=== PATIENT | male | born 1960 | race Caucasian/White ===

== ENCOUNTER 2017-10-30 08:02 | Inpatient (IN) | payer OTHER ==
[~2017-10-30] VITALS: Ht 167.6 cm; Wt 59.9 kg
[~2017-10-30 08:02] MED LIST: ALBU90OI INH; ALBU90OI6 INH; AMOX500 PO; AZIT250 PO; BUDE10.22 IH; DOXY100 PO; OXYACE7.5T PO; PRED20 PO; Prednisone20 MG PO; Prednisone50 MG PO; RXOXYACE PO; SULTRIDS PO; TAMS.4ER PO; TIOT18 INH; Zithromax250 MG PO
[2017-10-30 08:28] LABS: PCO2 Arterial 65.1 mmHg (35-45); PO2 Arterial 62.7 mmHg (80-100)
[2017-10-30 08:29] LABS: pH Blood Arterial 7.29 (7.35-7.45)
[2017-10-30 08:43] LABS: Hematocrit 43.5 % (37.0-53.0); Hemoglobin 13.9 g/dL (13.5-17.5); Mean Corpuscular HGB 30.9 pg (26.0-34.0); Mean Corpuscular Volume 97 fL (80-100); Mean Platelet Volume 9.7 fL (9.1-12.4); Platelet Count 379 K/mm3 (150-400); RDW Coefficient Variation 12.5 % (11.7-14.2); RDW Standard Deviation 44.5 fL (35.1-46.3); White Blood Cell Count 23.51 K/mm3 (4.00-11.30)
[2017-10-30 09:01] LABS: Troponin I <0.015 ng/mL (0.000-0.040)
[2017-10-30 09:04] LABS: Influenza A Negative (NEGATIVE); Influenza B Negative (NEGATIVE)
[2017-10-30 09:12] LABS: Alanine Aminotransfer (ALT/SGP 16 U/L (12-78); Albumin, Blood 3.3 g/dL (3.4-5.0); Albumin/Globulin Ratio 0.7 (0.8-1.8); Alk Phos 109 U/L (50-136); Anion Gap 6 mmol/L (6-16); Aspartate Aminotrans (AST/SGOT 10 U/L (12-37); BASOPHILS PERCENT MAN 0 % (0-2); Bilirubin, Total 0.3 mg/dL (0.1-1.0); Blood Urea Nitrogen 12 mg/dL (8-24); Bun/Creatinine Ratio 20.6 (12.0-20.0); CO2, Blood 34 mmol/L (21-32); Calcium, Blood 9.1 mg/dL (8.5-10.1); Chloride, Blood 99 mmol/L (98-108); Creatinine, Blood 0.58 mg/dL (0.60-1.20); EOSINOPHILS ABSOLUTE MAN 0.47 K/mm3 (0.00-0.68); EOSINOPHILS PERCENT MAN 2 % (0-6); Glomerular Filtration Rate >60 (60-); Glucose, Blood 132 mg/dL (70-99); LYMPHOCYTES % ATYPICAL MANUAL 4 % (0-0); LYMPHOCYTES ABSOLUTE MAN 8.46 K/mm3 (0.84-5.20); LYMPHOCYTES PERCENT MAN 32 % (21-46); MONOCYTES PERCENT MAN 3 % (4-13); NEUTROPHILS ABSOLUTE MAN 13.87 K/mm3 (1.96-9.15); Potassium, Blood 4.3 mmol/L (3.5-5.5); SEG NEUTROPHILS PERCENT MAN 59 % (41-73); Sodium, Blood 139 mmol/L (136-145); TOTAL CELLS COUNTED 100; Total Protein, Blood 8.3 g/dL (6.4-8.2)
[2017-10-30 09:41] LABS: International Normalized Ratio 1.13; Prothrombin Time Results 11.8 Sec (9.7-11.5)
[2017-10-30 14:57] LABS: Appearance, Urine Clear (Clear); Bilirubin, Urine Neg (Neg); Blood, Urine Neg (Neg); Color, Urine Yellow (P-Yellow); Glucose Qualitative, Urine 2+ (Neg); Ketones, Urine 3+ (Neg); Leukocyte Esterase, Urine Neg (Neg); Nitrite, Urine Neg (Neg); Protein, Urine Neg (Neg); Specific Gravity, Urine 1.015 (1.003-1.022); Urobilinogen, Urine NORM (Normal)
[2017-10-30] MEDS ORDERED: ALBU2.5V5 INH (16:57)
[2017-10-30] MEDS ORDERED: COMBIVENT RESPIM4 GM PO (16:58)
[2017-10-30] MEDS ORDERED: Ipratr-Albuterol3 ML INH (16:58)
[2017-10-31 05:21] LABS: Hematocrit 36.9 % (37.0-53.0); Hemoglobin 11.8 g/dL (13.5-17.5); Mean Corpuscular HGB 30.4 pg (26.0-34.0); Mean Corpuscular Volume 95 fL (80-100); Mean Platelet Volume 10.1 fL (9.1-12.4); Platelet Count 336 K/mm3 (150-400); RDW Coefficient Variation 12.5 % (11.7-14.2); RDW Standard Deviation 44.2 fL (35.1-46.3); Red Blood Cell Count 3.88 M/mm3 (4.30-5.90); White Blood Cell Count 14.34 K/mm3 (4.00-11.30)
[2017-10-31 05:28] LABS: PCO2 Arterial 57.2 mmHg (35-45); PO2 Arterial 85.4 mmHg (80-100); pH Blood Arterial 7.35 (7.35-7.45)
[2017-10-31 06:00] LABS: Anion Gap 7 mmol/L (6-16); Blood Urea Nitrogen 21 mg/dL (8-24); Bun/Creatinine Ratio 40.7 (12.0-20.0); CO2, Blood 30 mmol/L (21-32); Calcium, Blood 8.8 mg/dL (8.5-10.1); Chloride, Blood 102 mmol/L (98-108); Creatinine, Blood 0.52 mg/dL (0.60-1.20); Glomerular Filtration Rate >60 (60-); Glucose, Blood 145 mg/dL (70-99); Potassium, Blood 4.7 mmol/L (3.5-5.5); Sodium, Blood 139 mmol/L (136-145)
[2017-11-01 08:38] LABS: Hematocrit 36.9 % (37.0-53.0); Mean Corpuscular HGB 30.8 pg (26.0-34.0); Mean Corpuscular HGB Conc 32.5 g/dL (31.5-36.5); Mean Corpuscular Volume 95 fL (80-100); Mean Platelet Volume 9.7 fL (9.1-12.4); Platelet Count 354 K/mm3 (150-400); RDW Coefficient Variation 12.8 % (11.7-14.2); RDW Standard Deviation 45.1 fL (35.1-46.3); Red Blood Cell Count 3.89 M/mm3 (4.30-5.90); White Blood Cell Count 18.52 K/mm3 (4.00-11.30)
[2017-11-01 08:56] LABS: Anion Gap 7 mmol/L (6-16); Blood Urea Nitrogen 28 mg/dL (8-24); Bun/Creatinine Ratio 52.1 (12.0-20.0); CO2, Blood 31 mmol/L (21-32); Calcium, Blood 8.9 mg/dL (8.5-10.1); Chloride, Blood 103 mmol/L (98-108); Creatinine, Blood 0.54 mg/dL (0.60-1.20); Glomerular Filtration Rate >60 (60-); Glucose, Blood 143 mg/dL (70-99); Potassium, Blood 4.2 mmol/L (3.5-5.5); Sodium, Blood 141 mmol/L (136-145)
[2017-11-01 09:14] LABS: BASOPHILS PERCENT MAN 0 % (0-2); EOSINOPHILS PERCENT MAN 0 % (0-6); LYMPHOCYTES % ATYPICAL MANUAL 1 % (0-0); LYMPHOCYTES ABSOLUTE MAN 3.51 K/mm3 (0.84-5.20); LYMPHOCYTES PERCENT MAN 18 % (21-46); METAMYELOCYTE ABSOLUTE MAN 0.18 K/mm3 (0.00-0.00); METAMYELOCYTE PERCENT MAN 1 % (0-0); MONOCYTES ABSOLUTE MAN 0.55 K/mm3 (0.16-1.47); MONOCYTES PERCENT MAN 3 % (4-13); NEUTROPHILS ABSOLUTE MAN 14.26 K/mm3 (1.96-9.15); SEG NEUTROPHILS PERCENT MAN 77 % (41-73); TOTAL CELLS COUNTED 100
[2017-11-04 05:24] LABS: PCO2 Arterial 49.2 mmHg (35-45); pH Blood Arterial 7.42 (7.35-7.45)
[2017-11-04] MEDS ORDERED: DULERA 100 MCG/13 GM INH (11:45)
[2017-11-04] MEDS ORDERED: PRED10 PO (11:48)
[2018-04-12] MEDS ORDERED: Prednisone20 MG PO (09:15)
[2018-04-15] MEDS ORDERED: Advil200 M1 PO (12:02)
[2018-04-17] MEDS ORDERED: FLUT1DIS5 INH (11:33)
[2018-04-17] MEDS ORDERED: BUSP5 PO (11:34)
[2018-04-17] MEDS ORDERED: PRED10 PO (11:36)
== END 2017-11-04 17:15 | disposition home or self-care (01) | DRG 189 ==
LOC: ER 08:02 → PCU 09:29 → MEDS 11-02 15:41 → ENPENDDIS 11-04 09:31 → MEDS 11-04 17:15
PROVIDERS: Emergency Medicine; Family Medicine; Internal Medicine; Psychiatry & Neurology Psychiatry
DX: J96.01 Acute respiratory failure with hypoxia (principal); R65.11 Systemic inflammatory response syndrome (SIRS) of non-infectious origin with acute organ dysfunction; J18.9 Pneumonia, unspecified organism; E87.2 Acidosis; J44.1 Chronic obstructive pulmonary disease with (acute) exacerbation; J96.02 Acute respiratory failure with hypercapnia; F17.210 Nicotine dependence, cigarettes, uncomplicated; N40.0 Benign prostatic hyperplasia without lower urinary tract symptoms; F43.10 Post-traumatic stress disorder, unspecified; Z90.2 Acquired absence of lung [part of]; Z91.14 Patient's other noncompliance with medication regimen; Z99.2 Dependence on renal dialysis
CPT/HCPCS: 36415; 36600; 71046; 80048; 80053; 81003; 82803; 83605; 84145; 84484; 85025; 85027; 85610; 85730; 87040; 87804; 93005; 93010; 94640; 94644; 94660; 94762; 96365; 99285; C9113; J0456; J0696; J1650; J2920; J2930; J7030; J7050

== ENCOUNTER 2018-04-19 20:30 | Emergency (ER) | payer OTHER ==
[~2018-04-19] VITALS: Ht 175.3 cm; Wt 56.7 kg
[~2018-04-19 20:30] MED LIST changes: +ALBU2.5V5 INH; +Advil200 M1 PO; +BUSP5 PO; +COMBIVENT RESPIM4 GM PO; +DULERA 100 MCG/13 GM INH; +FLUT1DIS5 INH; +Ipratr-Albuterol3 ML INH; +PRED10 PO
== END 2018-04-19 22:00 | disposition home or self-care (01) ==
LOC: ER 20:30
DX: I87.8 Other specified disorders of veins (principal); R60.0 Localized edema; Z91.048 Other nonmedicinal substance allergy status; Z79.899 Other long term (current) drug therapy; Z79.52 Long term (current) use of systemic steroids; J44.9 Chronic obstructive pulmonary disease, unspecified; F17.200 Nicotine dependence, unspecified, uncomplicated
CPT/HCPCS: 99283

== ENCOUNTER 2019-10-11 17:46 | Emergency (ER) | payer OTHER ==
[~2019-10-11] VITALS: Ht 175.3 cm; Wt 59.0 kg
[~2019-10-11 17:46] MED LIST changes: +ALBU3IS INH; +BUDE6HFA INH; +COMBIVENT RESPIM4 GM INH
[2019-10-11] MEDS ORDERED: Zithromax250 MG PO (20:37)
[2019-10-11] MEDS ORDERED: Prednisone50 MG PO (20:37)
== END 2019-10-11 21:12 | disposition home or self-care (01) ==
LOC: ER 17:46
DX: J44.1 Chronic obstructive pulmonary disease with (acute) exacerbation (principal); F17.210 Nicotine dependence, cigarettes, uncomplicated; Z91.048 Other nonmedicinal substance allergy status; Z79.899 Other long term (current) drug therapy; Z79.51 Long term (current) use of inhaled steroids
CPT/HCPCS: 71046; 93005; 93010; 94640; 99283-25; J7512

== ENCOUNTER 2020-02-09 23:34 | Inpatient (IN) | payer OTHER ==
[~2020-02-09] VITALS: Ht 175.3 cm; Wt 58.7 kg
[2020-02-10 00:14] LABS: BASOPHILS ABSOLUTE AUTO 0.05 K/mm3 (0.00-0.23); BASOPHILS PERCENT AUTO 0 % (0-2); EOSINOPHILS ABSOLUTE AUTO 0.44 K/mm3 (0.00-0.68); EOSINOPHILS PERCENT AUTO 3 % (0-6); Hematocrit 40.8 % (37.0-53.0); Hemoglobin 12.4 g/dL (13.5-17.5); Mean Corpuscular HGB Conc 30.4 g/dL (31.5-36.5); Mean Corpuscular Volume 102 fL (80-100); Mean Platelet Volume 11.1 fL (9.1-12.4); Platelet Count 174 K/mm3 (150-400); RDW Standard Deviation 49.7 fL (35.1-46.3); White Blood Cell Count 13.13 K/mm3 (4.00-11.30)
[2020-02-10 00:15] LABS: IMMATURE GRAN ABSOLUTE AUTO 0.01 K/mm3 (0.00-0.10); IMMATURE GRAN PERCENT AUTO 0 % (0-1); LYMPHOCYTES ABSOLUTE AUTO 7.18 K/mm3 (0.84-5.20); LYMPHOCYTES PERCENT AUTO 55 % (21-46); MONOCYTES ABSOLUTE AUTO 1.72 K/mm3 (0.16-1.47); MONOCYTES PERCENT AUTO 13 % (4-13); NEUTROPHILS ABSOLUTE AUTO 3.73 K/mm3 (1.96-9.15); NEUTROPHILS PERCENT AUTO 28 % (41-73)
[2020-02-10 00:33] LABS: Alanine Aminotransfer (ALT/SGP 22 U/L (12-78); Albumin, Blood 3.8 g/dL (3.4-5.0); Albumin/Globulin Ratio 1.2 (0.8-1.8); Alk Phos 71 U/L (50-136); Anion Gap 2 mmol/L (6-16); Aspartate Aminotrans (AST/SGOT 17 U/L (12-37); Bilirubin, Total 0.4 mg/dL (0.1-1.0); Blood Urea Nitrogen 15 mg/dL (8-24); Bun/Creatinine Ratio 24.5 (12.0-20.0); CO2, Blood 37 mmol/L (21-32); Calcium, Blood 8.3 mg/dL (8.5-10.1); Chloride, Blood 102 mmol/L (98-108); Creatinine, Blood 0.61 mg/dL (0.60-1.20); Globulin, Blood 3.2 g/dL (2.2-4.0); Glomerular Filtration Rate >60 (60-); Glucose, Blood 98 mg/dL (70-99); Potassium, Blood 4.5 mmol/L (3.5-5.5); Sodium, Blood 141 mmol/L (136-145)
[2020-02-10] MEDS ORDERED: ASPI81CH PO (03:20)
--- NOTE | 2020-02-10 05:43 | NUR ---
SHIFT SUMMARY PT SLEEPING IN ROOM COMFORTABLY IN ROOM AT THIS TIME. NO ACUTE CHANGES SINCE ARRIVAL TO UNIT. PT ARRIVED FROM ED ON NC AT 3L, PT WAS ABLE TO STAND AND MOVE TO HOSP BED W/O ASSIST. PT WAS ON BIPAP IN ED W/ Fi02 AT 30% TOLERATING WELL. PT WENT ON NC FOR TRANSFER TO UNIT AND TOLERATED NC WELL. PT REMAINING ON NC AT THIS TIME D/T SATS REMAINING >92%. PT DENIED ANY CP. REPORTS SOB MUCH IMPROVED. PT APPEARS TP BE COMFORTABLE. DENYING ANY OTHER PAIN AT THIS TIME. CONT BIOX IN PLACE. CALL LIGHT IN REACH.
--- NOTE | 2020-02-10 17:43 | NUR ---
SHIFT NOTE PT HAS BEEN RESTING WELL IN BED T/O THE DAY. PT HAS BEEN UP TO BSC AND TO USE URINAL WITH SOME MILD INCREASE IN SOB DURING TRANSFER. PT DID BECOME VERY ANXIOUS THIS AFTERNOON WHICH HE STATED THAT HE COULD NOT BREATHE HE WAS SHOUTING AT STAFF IN FULL SENTENCES. PT WAS ENCOURAGED TO ALLOW BIPAP TO BE PLACED WHICH RESOLVED SOB AND AXIETY QUICKLY. VSS. PT HAS BEEN ON 3L O2 VIA NC FOR MOST OF THE DAY WITH SPO2 OF 94%, ON PIPAP PT WITH 97% SPO2. PT IV DID BEGIN TO LEAK TODAY WHICH WAS REMOVED AND REPLACED WHICH HE TOLERATED WELL. PT IS UPDATED THAT HE WILL BE GOING FOR CT TOMORROW AFTER HIS COVID RESULTS HAVE RETURNED. PT IS CURRENTLY ON BIPAP AT THE TIME OF THIS NOTE
[2020-02-11 04:07] LABS: BASOPHILS ABSOLUTE AUTO 0.01 K/mm3 (0.00-0.23); BASOPHILS PERCENT AUTO 0 % (0-2); EOSINOPHILS PERCENT AUTO 0 % (0-6); Hematocrit 37.9 % (37.0-53.0); Hemoglobin 11.7 g/dL (13.5-17.5); Mean Corpuscular HGB 30.7 pg (26.0-34.0); Mean Corpuscular HGB Conc 30.9 g/dL (31.5-36.5); Mean Corpuscular Volume 100 fL (80-100); Mean Platelet Volume 10.9 fL (9.1-12.4); Platelet Count 184 K/mm3 (150-400); RDW Coefficient Variation 12.9 % (11.7-14.2); Red Blood Cell Count 3.81 M/mm3 (4.30-5.90); White Blood Cell Count 14.23 K/mm3 (4.00-11.30)
[2020-02-11 04:14] LABS: IMMATURE GRAN ABSOLUTE AUTO 0.04 K/mm3 (0.00-0.10); IMMATURE GRAN PERCENT AUTO 0 % (0-1); LYMPHOCYTES ABSOLUTE AUTO 5.42 K/mm3 (0.84-5.20); LYMPHOCYTES PERCENT AUTO 38 % (21-46); MONOCYTES ABSOLUTE AUTO 1.22 K/mm3 (0.16-1.47); MONOCYTES PERCENT AUTO 9 % (4-13); NEUTROPHILS ABSOLUTE AUTO 7.54 K/mm3 (1.96-9.15); NEUTROPHILS PERCENT AUTO 53 % (41-73)
[2020-02-11 04:30] LABS: Alanine Aminotransfer (ALT/SGP 17 U/L (12-78); Albumin, Blood 3.4 g/dL (3.4-5.0); Albumin/Globulin Ratio 1.2 (0.8-1.8); Alk Phos 64 U/L (50-136); Anion Gap 6 mmol/L (6-16); Aspartate Aminotrans (AST/SGOT 13 U/L (12-37); Bilirubin, Total 0.3 mg/dL (0.1-1.0); Blood Urea Nitrogen 20 mg/dL (8-24); Bun/Creatinine Ratio 38.2 (12.0-20.0); CO2, Blood 25 mmol/L (21-32); Calcium, Blood 8.2 mg/dL (8.5-10.1); Chloride, Blood 109 mmol/L (98-108); Creatinine, Blood 0.52 mg/dL (0.60-1.20); Globulin, Blood 2.9 g/dL (2.2-4.0); Glomerular Filtration Rate >60 (60-); Glucose, Blood 136 mg/dL (70-99); Potassium, Blood 4.4 mmol/L (3.5-5.5); Sodium, Blood 140 mmol/L (136-145); Total Protein, Blood 6.3 g/dL (6.4-8.2)
--- NOTE | 2020-02-11 05:19 | NUR ---
SHIFT SUMMARY PT SLEEPING IN ROOM COMFORTABLY AT THIS TIME. NO ACUTE CHANGES IN STATUS T/O NIGHT. PT WORE BIPAP T/O NIGHT TOLERATED WELL. DENIED ANY SOB OR CP. PT DENIED ANY OTHER PAIN. USED CALL LIGHT APPROPRIATELY TO GET UP TO BSC DURING NIGHT. DENIED OTHER NEEDS. CALL LIGHT IN REACH.
--- NOTE | 2020-02-11 14:52 | NUR ---
Pt called to have his heat turned down. Talked to him about a bath. He said maybe later. He was wanting to cool his room down a bit first. RN notified.
--- NOTE | 2020-02-11 19:45 | NUR ---
SHIFT SUMMARY PT A&Ox4; ANXOIUS AT TIMES, MEDICATED WITH SCHEDULE BUSPAR. PT SBA TO CHAIR AT BEDSIDE. PT SOB WITH EXERTION; 4L O2 VIA NC FOR MAJORITY OF SHIFT, PLACED BIPAP THIS AM BETWEEN BREAKFAST AND LUNCH PER PT REQUEST. SPO2 >94% T/O SHIFT. PT STATES HE FEELS LIKE HE IS BREATHING BETTER TODAY THEN ADMISSION; STATES HE FEELS LIKE THERE IS MORE AIRMOVEMENT. PT DENIES PAIN, NAUSEA DIZZINESS T/O SHIFT. VSS. NO OTHER ACUTE CHANGES NOTED DURING SHIFT. REPORT GIVEN TO ONCOMING RN.
--- NOTE | 2020-02-12 05:26 | NUR ---
END OF SHIFT SUMMARY NO ACUTE CHANGES. VSS. PT ON 4LNC. PT ASKED FOR BIPAP TO SLEEP. SET AT 30%. PT SPO2 >92%. LUNG SOUNDS CONTINUE TO BE COARSE. PT PLEASENT AND COOPERATIVE. PT EXPRESSED DESIRE FOR SMOKING CESSATION. USES CALL LIGHT APPROPRIATELY. HAS RESTED QUIETLY IN ROOM MOST OF SHIFT. WILL CONTINUE TO MONITOR UNTIL SHIFT CHANGE.
--- NOTE | 2020-02-12 08:18 | NUR ---
ASSUMED CARE AT 0700, REPORT FROM XOCHITL MAST. SITTING IN BED IN HIGH FOWLERS WITH BIPAP IN PLACE. A/A/OX4, L/S DIMINISHED T/O. PLAN OF CARE REVIEWED, WILL CONTINUE TO MONITOR.
--- NOTE | 2020-02-12 16:34 | NUR ---
Initial spiritual care note: Juancho was talkative. 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 Juancho responded well to spiritual direction and we spoke at length about his albin journey. I provided theraputic listening, estate planning counselor and prayer to good effect. We had an easy rapport. I will remain available.
--- NOTE | 2020-02-12 17:59 | NUR ---
SHIFT SUMMARY; A/A/OX4 DURING SHIFT. 4L O2 VIA NC. M-SERIES BIPAP NEEDED, USED FOR SHORT TIME DURING AM SHIFT. L/S DIMINISHED T/O. BED BATH TODAY, UP TO BEDSIDE COMMODE WITH STANDBY ASSIST. STATUS CHANGED TO MEDICAL, WILL CONTINUE TO MONITOR UNTIL CHANGE OF SHIFT.
--- NOTE | 2020-02-13 03:46 | NUR ---
PROVIDER CALLED EDOUARD CERNA AT BEGINNING OF SHIFT REGARDING PT'S EXTREME ANXIETY ATTACK LEADING J LUIS RAPID RESPIRATIONS. 1MG ATIVAN ORDERED, ADMINISTERED. PT'S CONDITION DECREASED IN SEVERITY. AROUND 2200 THIS SHIFT, PT STATES FEELING STILL UNEASY AND IS SCARED THAT HE WILL HAVE ANOTHER ATTACK. EDOUARD Aguilera CALLED REGARDING THIS, ORDERS PLACEED, RECEIVED, AND ADMINISTERED.
--- NOTE | 2020-02-13 05:36 | NUR ---
END OF SHIFT SUMMARY PT A&0. VVS. PT HAD AN ANXIETY ATTACK AT THE START OF SHIFT. WAS ON BIPAP AT THE TIME TO ASSIST WITH BREATHING. PROVIDER NOTIFIED. PT WAS PRESCRIBED ONE TIME DOSE OF ATIVAN. ATIVAN WAS SUCCESSFUL IN CALMING PATIENT. A FEW HOURS LATER, PT STARTED TO HAVE ANOTHER ANXIETY ATTACK, THIS TIME LESS SEVERE. WAS ABLE TO BE CALMED BY BEING GIVEN INSTRUCTIONS REQUESTED BY THE PATIENT: "BREATHE IN" "BREATHE OUT". PROVIDER WAS NOTIFIED OF SECOND ATTACK AND AN ORDER WAS PUT IN FOR AN ORAL XANAX. PT IS COOPERATIVE. PT HAS SLEPT MOST OF THE NIGHT. CALL LIGHT WITHIN REACH. BED AT LOWEST POSITION. WILL CONTINUE TO MONITOR UNTIL END OF SHIFT.
--- NOTE | 2020-02-13 10:17 | NUR ---
TRANSFER NOTE PT A&O; ANXIOUS BUT COOPERATIVE WITH CARE. PT SBA IN ROOM. PT RESTING IN BED. PT REPORTS SOB WITH EXERTION, ON 3L O2 VIA NC, SPO2 >92%. PT DENIES PAIN, CHEST PAIN/PRESSURE, NAUSEA AND DIZZINESS. NO OTHER ACUTE CHANGES. REPORT GIVEN TO ONCOMING RN ASSUMING CARE OF PT. PT TRANSFERED TO ROOM 327.
--- NOTE | 2020-02-13 10:53 | NUR ---
TRANSFER PT TRANSFERRED UP FROM PCU, PT IS ALERT AND ORIENTED, ORIENTED PT TO THE CALL SYSTEM, PT ABLE TO MOVE SELF AROUND IN THE BED AND USE THE URINAL, NOTIFIED RT THE PT WAS IN THE ROOM, DOES NOT NEED THE BIPAP AT THIS TIME, WILL CONT TO MONITOR
[2020-02-13 13:39] LABS: PCO2 Arterial 57.6 mmHg (35-45); PO2 Arterial 61.4 mmHg (80-100); pH Blood Arterial 7.38 (7.35-7.45)
--- NOTE | 2020-02-13 15:37 | NUR ---
met with patient to review symptoms and needs. pt started talking to me about his living situation and how stressed he is. He knows he has a tendency to be a go straight to "catastrophy" and strugles with stress and anexiety. States they [place] lot of chemicals [place]. He was becoming fatigued and Mateo came to see him for his trilogy. Will return to finish assessment. pt holds neck very tight gulps air about every fourth word. accessory use, thin and frail. Initiated briefly discussion of advace care planning. He states he knows he has to put his big boy pants on and do it. Advised hism I will help him but he really needs face it so we can help him.
--- NOTE | 2020-02-13 17:21 | NUR ---
SUMMARY PT RESTING QUIETLY IN BED, WAKES EASILY, HAS BEEN PLEASANT AND COOPERATIVE T/O THE DAY, ABLE TO USE THE URINAL INDEPENDENTLY, USES THE CALL LIGHT APPROPRIATELY, BIPAP IS IN THE ROOM, PT HAS NOT USED IT THIS SHIFT SO FAR, A [employer] EMPLOYEE CAME TO SPEAK WITH THE PT ABOUT HOME EQUIPMENT, PT WITH NO COMPLAINTS AT THIS TIME, WILL CONT TO MONITOR
--- NOTE | 2020-02-14 03:10 | NUR ---
SHIFT SUMMARY PT AWAKE AT INTERVALS THIS SHIFT. BI PAP IN USE SINCE HS, VOICED WAS SOMEWHAT SHORT OF BREATH AT HS AND ONCE HOOKED UP, SATS WERE IN THE 90'S AND PT SEEMED LESS ANXIOUS. RESTING QUIETLY AT THIS TIME. CALL LIGHT IN REACH.
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
--- NOTE | 2020-02-14 17:48 | NUR ---
SUMMARY PT RESTING IN BED QUIETLY WITH THE BIPAP ON, PT HAS BEEN ANXIOUS TODAY, MED PER EMAR, HAS BEEN PLEASANT AND COOPERATIVE T/O THE DAY, VSS, NO ACUTE CHANGES, WILL CONT TO MONITOR
[2020-02-15 05:38] LABS: Hematocrit 37.2 % (37.0-53.0); Mean Corpuscular HGB 31.3 pg (26.0-34.0); Mean Corpuscular HGB Conc 32.3 g/dL (31.5-36.5); Mean Platelet Volume 11.2 fL (9.1-12.4); Platelet Count 195 K/mm3 (150-400); RDW Coefficient Variation 13.1 % (11.7-14.2); RDW Standard Deviation 46.5 fL (35.1-46.3); Red Blood Cell Count 3.84 M/mm3 (4.30-5.90); White Blood Cell Count 16.29 K/mm3 (4.00-11.30)
[2020-02-15 05:40] LABS: Mean Corpuscular Volume 97 fL (80-100)
[2020-02-15 05:55] LABS: Alanine Aminotransfer (ALT/SGP 31 U/L (12-78); Albumin, Blood 3.3 g/dL (3.4-5.0); Albumin/Globulin Ratio 1.2 (0.8-1.8); Alk Phos 55 U/L (50-136); Anion Gap 2 mmol/L (6-16); Aspartate Aminotrans (AST/SGOT 10 U/L (12-37); Bilirubin, Total 0.4 mg/dL (0.1-1.0); Blood Urea Nitrogen 38 mg/dL (8-24); Bun/Creatinine Ratio 62.8 (12.0-20.0); CO2, Blood 36 mmol/L (21-32); Calcium, Blood 8.5 mg/dL (8.5-10.1); Chloride, Blood 98 mmol/L (98-108); Creatinine, Blood 0.61 mg/dL (0.60-1.20); Globulin, Blood 2.7 g/dL (2.2-4.0); Glomerular Filtration Rate >60 (60-); Glucose, Blood 216 mg/dL (70-99); Potassium, Blood 4.6 mmol/L (3.5-5.5); Sodium, Blood 136 mmol/L (136-145)
[2020-02-15 06:01] LABS: BASOPHILS PERCENT MAN 0 % (0-2); EOSINOPHILS PERCENT MAN 0 % (0-6); LYMPHOCYTES ABSOLUTE MAN 7.98 K/mm3 (0.84-5.20); LYMPHOCYTES PERCENT MAN 49 % (21-46); MONOCYTES ABSOLUTE MAN 0.81 K/mm3 (0.16-1.47); MONOCYTES PERCENT MAN 5 % (4-13); NEUTROPHILS ABSOLUTE MAN 7.49 K/mm3 (1.96-9.15); SEG NEUTROPHILS PERCENT MAN 46 % (41-73); TOTAL CELLS COUNTED 100
--- NOTE | 2020-02-15 07:32 | NUR ---
02/15/20 0600 PT SLEPT ON AND OFF. O2 AT 2LPM VIA N/C. VITALS STABLE. NO ACUTE DISTRESS THIS SHIFT.
--- NOTE | 2020-02-15 12:01 | NUR ---
Pt resting in bed upon arrival. Engaged in therapeutic discussion regarding advanced care planning. Listened as Pt discusses concerns regarding enviromental issues that contribute to his COPD exacerbation. Continued therapeutic listening as Pt reports being told he has severe COPD. Educated Pt on the importance of planning for his future needs including the possibility of needing higher level of care. Educated Pt on disease process and trajectory of disease. Encouraged Pt to have routine conversations with PCP and Ballet Soloist to establish multiple plans as disease process takes its coarse, inlcuding when to plan for hospice. Discussed the importance of completing POLST/AD with education provided on life sustaining measures and how to complete forms. Pt expresses appreciation and reports no other concerns. Palliative Care will remain available.
--- NOTE | 2020-02-15 13:33 | NUR ---
SHIFT ASSESSMENT THIS RN AGREES WITH LOAN ANALYSTTIM'S PHYSICAL ASSESSMENT.
--- NOTE | 2020-02-15 18:22 | NUR ---
SHIFT SUMMARY SECOND HALF OF DAY, PT HEART RATE TRENDING IN THE 110'S. PT ASYMPTOMATIC AND DENIES CHEST PAIN. OTHER VITALS STABLE. DR. WILLSON NOTIFIED AND ORDERED TO CONTINUE TO MONITOR PULSE RATE. NO OTHER CHANGES IN ASSESSMENT AT THIS TIME. WILL CONTINUE TO MONITOR UNTIL TURNOVER IS COMPLETE.
[2020-02-16 05:33] LABS: BASOPHILS ABSOLUTE AUTO 0.04 K/mm3 (0.00-0.23); BASOPHILS PERCENT AUTO 0 % (0-2); EOSINOPHILS ABSOLUTE AUTO 0.15 K/mm3 (0.00-0.68); EOSINOPHILS PERCENT AUTO 1 % (0-6); Hemoglobin 12.2 g/dL (13.5-17.5); IMMATURE GRAN ABSOLUTE AUTO 0.18 K/mm3 (0.00-0.10); IMMATURE GRAN PERCENT AUTO 1 % (0-1); Mean Corpuscular HGB 31.1 pg (26.0-34.0); Mean Corpuscular HGB Conc 32.1 g/dL (31.5-36.5); Mean Corpuscular Volume 97 fL (80-100); Mean Platelet Volume 11.2 fL (9.1-12.4); NEUTROPHILS ABSOLUTE AUTO 7.19 K/mm3 (1.96-9.15); NEUTROPHILS PERCENT AUTO 30 % (41-73); Platelet Count 216 K/mm3 (150-400); RDW Coefficient Variation 13.4 % (11.7-14.2); RDW Standard Deviation 47.7 fL (35.1-46.3); Red Blood Cell Count 3.92 M/mm3 (4.30-5.90); White Blood Cell Count 23.71 K/mm3 (4.00-11.30)
[2020-02-16 05:34] LABS: LYMPHOCYTES ABSOLUTE AUTO 12.69 K/mm3 (0.84-5.20); LYMPHOCYTES PERCENT AUTO 54 % (21-46); MONOCYTES ABSOLUTE AUTO 3.46 K/mm3 (0.16-1.47); MONOCYTES PERCENT AUTO 15 % (4-13)
[2020-02-16 05:59] LABS: Anion Gap 3 mmol/L (6-16); Blood Urea Nitrogen 36 mg/dL (8-24); Bun/Creatinine Ratio 56.2 (12.0-20.0); CO2, Blood 35 mmol/L (21-32); Calcium, Blood 8.2 mg/dL (8.5-10.1); Chloride, Blood 101 mmol/L (98-108); Creatinine, Blood 0.64 mg/dL (0.60-1.20); Glomerular Filtration Rate >60 (60-); Glucose, Blood 85 mg/dL (70-99); Potassium, Blood 4.1 mmol/L (3.5-5.5); Sodium, Blood 139 mmol/L (136-145)
--- NOTE | 2020-02-16 06:01 | NUR ---
PT WAS PLEASANT AND COOPERATIVE WITH CARE. PT AT 94% SPO2 ON 2L NASAL CANULA AND REMAINED ON BIPAP WHILE ASLEEP. PT SLEPT PEACEFULLY MOST OF THE NIGHT WITH NO NEW COMPLAINT OR PAIN. PT RESTING IN BED WITH CALL LIGHT IN REACH.
--- NOTE | 2020-02-16 06:08 | NUR ---
SUMMARY NO ISSUES NOTED. PT HAS SLEPT W/ BIPAP T/O NIGHT. PT HAD NO FEVERS OR CHILLS NOTED. PT CURRENTLY SLEEPING IN NO DISTRESS. CALL LIGHT IN REACH.
--- NOTE | 2020-02-16 11:16 | NUR ---
VOLUNTEER FIREFIGHTER DOCUMENTATION REVIEW. REVIEWED AND AGREES WITH VOLUNTEER FIREFIGHTERTIM'S DOCUMENTATION AND PHYSCIAL ASSESSMENT.
--- NOTE | 2020-02-16 17:45 | NUR ---
SHIFT SUMMARY NO ACUTE CHANGES IN ASSESSMENT AT THIS TIME. PT DENIES PAIN THROUGHOUT SHIFT. SATING AT MORE THAN 90% ON 2L O2 VIA NC. PT HEART RATE IN THE 110'S THIS AFTERNOON. PT STATES HE IS FEELING ANXIOUS BUT DOES NOT FEEL LIKE HE NEEDS XANAX AT THIS TIME. OTHER VITALS STABLE. WILL CONTINUE TO MONITOR UNTIL TURNOVER IS COMPLETE.
--- NOTE | 2020-02-17 04:13 | NUR ---
SUMMARY NO ISSUES NOTED. PT EAGER TO GO HOME. PT HAS SLEPT WELL T/O SHIFT. PT CURRENTLY SLEEPING AND BREATHING EASY. CALL LIGHT IN REACH.
[2020-02-17 05:03] LABS: Hematocrit 36.8 % (37.0-53.0); Hemoglobin 11.8 g/dL (13.5-17.5); Mean Corpuscular HGB 30.7 pg (26.0-34.0); Mean Corpuscular HGB Conc 32.1 g/dL (31.5-36.5); Mean Corpuscular Volume 96 fL (80-100); NRBC ABSOLUTE 0.02 K/mm3 (0.00-0.02); NRBC Auto 0.1 /100 WBC (0.0-0.2); Platelet Count 228 K/mm3 (150-400); RDW Coefficient Variation 13.4 % (11.7-14.2); RDW Standard Deviation 46.8 fL (35.1-46.3); Red Blood Cell Count 3.84 M/mm3 (4.30-5.90); White Blood Cell Count 24.96 K/mm3 (4.00-11.30)
[2020-02-17 05:25] LABS: Anion Gap 0 mmol/L (6-16); Blood Urea Nitrogen 33 mg/dL (8-24); Bun/Creatinine Ratio 54.4 (12.0-20.0); CO2, Blood 37 mmol/L (21-32); Calcium, Blood 8.2 mg/dL (8.5-10.1); Chloride, Blood 101 mmol/L (98-108); Creatinine, Blood 0.61 mg/dL (0.60-1.20); Glomerular Filtration Rate >60 (60-); Glucose, Blood 91 mg/dL (70-99); Potassium, Blood 4.3 mmol/L (3.5-5.5); Sodium, Blood 138 mmol/L (136-145)
--- NOTE | 2020-02-17 16:31 | NUR ---
SHIFT SUMMARY- PT A/O X4, INDEP UP IN ROOM. PT ANXIOUS AT TIMES, ON SCHEDULED BUSPAR. LS DIMINISHED ON 2L N/C , HOME 02 DEPENDANT AT 2-3L AND BIPAP AT TIMES. HOME TRILOGY SET UP AT BEDSIDE. PT TACHY AT TIMES. PT REPORTS STEROIDS MAKE HIM ANXIOUS. PT WITH GOOD ORAL INTAKE. PT STARTED ON ORAL LEVAQUIN. NO OTHER ACUTE CHANGES THIS SHIFT.
[2020-02-18 04:54] LABS: Hematocrit 35.4 % (37.0-53.0); Hemoglobin 11.7 g/dL (13.5-17.5); Mean Corpuscular HGB 31.8 pg (26.0-34.0); Mean Corpuscular HGB Conc 33.1 g/dL (31.5-36.5); Mean Corpuscular Volume 96 fL (80-100); Mean Platelet Volume 10.8 fL (9.1-12.4); Platelet Count 209 K/mm3 (150-400); RDW Coefficient Variation 13.6 % (11.7-14.2); RDW Standard Deviation 47.6 fL (35.1-46.3); Red Blood Cell Count 3.68 M/mm3 (4.30-5.90); White Blood Cell Count 24.78 K/mm3 (4.00-11.30)
[2020-02-18 05:12] LABS: Anion Gap 2 mmol/L (6-16); Blood Urea Nitrogen 34 mg/dL (8-24); Bun/Creatinine Ratio 49.6 (12.0-20.0); CO2, Blood 35 mmol/L (21-32); Calcium, Blood 8.5 mg/dL (8.5-10.1); Chloride, Blood 101 mmol/L (98-108); Creatinine, Blood 0.69 mg/dL (0.60-1.20); Glomerular Filtration Rate >60 (60-); Glucose, Blood 101 mg/dL (70-99); Potassium, Blood 4.3 mmol/L (3.5-5.5); Sodium, Blood 138 mmol/L (136-145)
--- NOTE | 2020-02-18 05:42 | NUR ---
SHIFT SUMMARY ASSUMED CARE OF PT AT 1900. PT IS A/OX4, DENIES N/T IN EXTREMITIES, PT IS ANXIOUS AND ASKS QUESTIONS ABOUT ALL CARE GIVEN. HEART SOUNDS REGULAR, LUNG SUONDS DIMINISHED, PT IS ON 2L NC, MAINTAINING SATURATION ABOVE 90%, PT USED HOME TRILAGE T/O THE NIGHT. PT IS INDEPENDENT IN HIS ROOM. PT STATES THAT HE IS EAGER TO GO HOME TODAY. PT SLEPT ON AND OFF T/O THE NIGHT. CALL LIGHT IN REACH, BED IN LOWEST POSTION, WILL CONTINUE TO MONITOR UNTIL DAYSHIFT NURSE ARRIVES.
[2020-02-18] MEDS ORDERED: GUAI600T33 PO (11:06)
[2020-02-18] MEDS ORDERED: BUSP10 PO (11:06)
[2020-02-18] MEDS ORDERED: LEVOFLOXACIN750 MG PO (11:07)
[2020-02-18] MEDS ORDERED: MIRT30ST PO (11:07)
[2020-02-18] MEDS ORDERED: Prednisone10 MG PO (11:08)
[2020-02-18] MEDS ORDERED: OMEP20ER PO (11:09)
[2020-02-18] MEDS ORDERED: TAMS.4ER PO (11:09)
--- NOTE | 2020-02-18 12:00 | NUR ---
PATIENT DISCHARGED. IV REMOVED. ALL DISCHARGE INSTRUCTIONS GONE OVER WITH THE PATIENT. PATIENT TRANSPORTED BY WHEELCHAIR [facility]AN BY [facility] WITH OXYGEN AT TRANSPORT. NO ACUTE CONCERNS AT TIME OF DISCHARGE. ALL DISCHARGE PAPERS GIVEN TO THE PATIENT.
== END 2020-02-18 11:45 | disposition home or self-care (01) | DRG 189 ==
LOC: ER 23:34 → PCU 02-10 02:43 → MEDS 02-10 02:43 → PCU 02-10 02:54 → MEDS 02-13 10:20 → ENPENDDIS 02-18 11:45 → MEDS 02-18 11:45
PROVIDERS: Emergency Medicine; Internal Medicine; Physician Assistant; ADMIT Internal Medicine
PROC: 8E0ZXY6 Isolation (ICD-10-PCS; principal; 2020-02-10)
PROC: 5A09357 Assistance with Respiratory Ventilation, Less than 24 Consecutive Hours, Continuous Positive Airway Pressure (ICD-10-PCS; 2020-02-10)
DX: J96.21 Acute and chronic respiratory failure with hypoxia (principal); E43 Unspecified severe protein-calorie malnutrition; J44.1 Chronic obstructive pulmonary disease with (acute) exacerbation; R65.10 Systemic inflammatory response syndrome (SIRS) of non-infectious origin without acute organ dysfunction; J96.22 Acute and chronic respiratory failure with hypercapnia; F17.210 Nicotine dependence, cigarettes, uncomplicated; Z90.2 Acquired absence of lung [part of]; Z99.81 Dependence on supplemental oxygen; Z20.828 Contact with and (suspected) exposure to other viral communicable diseases; N40.0 Benign prostatic hyperplasia without lower urinary tract symptoms; F41.9 Anxiety disorder, unspecified; K43.9 Ventral hernia without obstruction or gangrene; Z68.25 Body mass index [BMI] 25.0-25.9, adult
CPT/HCPCS: 36415; 36600; 71045; 71260; 74177; 80048; 80053; 82803; 85025; 85027; 93005; 93010; 94640; 94644; 94660; 94664; 94760; 94762; 99285-25; A9270; J1120; J1650; J2060; J2920; J2930; J7512; Q9967; U0003

== ENCOUNTER 2020-11-25 12:20 | Emergency (ER) | payer OTHER ==
[~2020-11-25] VITALS: Ht 175.3 cm; Wt 64.4 kg
[~2020-11-25 12:20] MED LIST changes: +Aspirin EC81 MG PO; -BUDE6HFA INH; +BUSP10 PO; +GUAI600T33 PO; +LEVOFLOXACIN750 MG PO; +MIRT30ST PO; +OMEP20ER PO; +Prednisone10 MG PO; +SYMBICORT 160-4.6 GM INH
[2020-11-25 13:15] LABS: Hematocrit 41.7 % (37.0-53.0); Hemoglobin 13.1 g/dL (13.5-17.5); Mean Corpuscular HGB Conc 31.4 g/dL (31.5-36.5); Mean Corpuscular Volume 99 fL (80-100); Mean Platelet Volume 10.3 fL (9.1-12.4); Platelet Count 191 K/mm3 (150-400); RDW Coefficient Variation 12.9 % (11.7-14.2); RDW Standard Deviation 46.5 fL (35.1-46.3); Red Blood Cell Count 4.22 M/mm3 (4.30-5.90); White Blood Cell Count 13.99 K/mm3 (4.00-11.30)
[2020-11-25 13:29] LABS: Alanine Aminotransfer (ALT/SGP 20 U/L (12-78); Albumin, Blood 3.8 g/dL (3.4-5.0); Albumin/Globulin Ratio 1.2 (0.8-1.8); Alk Phos 78 U/L (50-136); Anion Gap 1 mmol/L (6-16); Aspartate Aminotrans (AST/SGOT 11 U/L (12-37); Bilirubin, Total 0.4 mg/dL (0.1-1.0); Blood Urea Nitrogen 18 mg/dL (8-24); Bun/Creatinine Ratio 35.3 (12.0-20.0); CO2, Blood 36 mmol/L (21-32); Calcium, Blood 8.7 mg/dL (8.5-10.1); Chloride, Blood 105 mmol/L (98-108); Creatinine, Blood 0.51 mg/dL (0.60-1.20); Globulin, Blood 3.1 g/dL (2.2-4.0); Glomerular Filtration Rate >60 (60-); Glucose, Blood 93 mg/dL (70-99); Potassium, Blood 4.6 mmol/L (3.5-5.5); Sodium, Blood 142 mmol/L (136-145); Total Protein, Blood 6.9 g/dL (6.4-8.2); Troponin I <0.015 ng/mL (0.000-0.040)
[2020-11-25 14:06] LABS: BASOPHILS ABSOLUTE MAN 0.41 K/mm3 (0.00-0.23); BASOPHILS PERCENT MAN 3 % (0-2); EOSINOPHILS ABSOLUTE MAN 0.27 K/mm3 (0.00-0.68); EOSINOPHILS PERCENT MAN 2 % (0-6); LYMPHOCYTES ABSOLUTE MAN 9.23 K/mm3 (0.84-5.20); LYMPHOCYTES PERCENT MAN 66 % (21-46); MONOCYTES ABSOLUTE MAN 1.53 K/mm3 (0.16-1.47); MONOCYTES PERCENT MAN 11 % (4-13); NEUTROPHILS ABSOLUTE MAN 2.51 K/mm3 (1.96-9.15); SEG NEUTROPHILS PERCENT MAN 18 % (41-73); TOTAL CELLS COUNTED 100
[2020-11-25] MEDS ORDERED: PRED20 PO (14:26)
[2020-11-25] MEDS ORDERED: DOXY100 PO (14:26)
[2021-01-07] MEDS ORDERED: Prednisone20 MG PO (21:24)
== END 2020-11-25 17:25 | disposition home or self-care (01) ==
LOC: ER 12:20
PROVIDERS: Emergency Medicine
DX: J44.1 Chronic obstructive pulmonary disease with (acute) exacerbation (principal); Z99.81 Dependence on supplemental oxygen; Z79.51 Long term (current) use of inhaled steroids; Z79.52 Long term (current) use of systemic steroids; Z79.899 Other long term (current) drug therapy; Z79.82 Long term (current) use of aspirin
CPT/HCPCS: 71045; 80053; 84484; 85025; 93005; 93010; 94640; 99285-25; A9270; J7512

== ENCOUNTER 2021-03-05 09:54 | Inpatient (IN) | payer OTHER ==
[~2021-03-05] VITALS: Ht 170.2 cm; Wt 65.8 kg
[2021-03-05 10:14] LABS: Hematocrit 44.3 % (37.0-53.0); Hemoglobin 13.2 g/dL (13.5-17.5); Mean Corpuscular HGB Conc 29.8 g/dL (31.5-36.5); Mean Corpuscular Volume 104 fL (80-100); Mean Platelet Volume 10.8 fL (9.1-12.4); Platelet Count 246 K/mm3 (150-400); RDW Standard Deviation 50.4 fL (35.1-46.3); Red Blood Cell Count 4.26 M/mm3 (4.30-5.90); White Blood Cell Count 37.35 K/mm3 (4.00-11.30)
[2021-03-05 10:26] LABS: Source, Urine Catheter
[2021-03-05 10:38] LABS: Alanine Aminotransfer (ALT/SGP 21 U/L (12-78); Albumin, Blood 4.1 g/dL (3.4-5.0); Albumin/Globulin Ratio 1.1 (0.8-1.8); Alk Phos 79 U/L (50-136); Anion Gap -4 mmol/L (6-16); Aspartate Aminotrans (AST/SGOT 13 U/L (12-37); Bilirubin, Total 0.2 mg/dL (0.1-1.0); Blood Urea Nitrogen 25 mg/dL (8-24); Bun/Creatinine Ratio 43.6 (12.0-20.0); CO2, Blood 43 mmol/L (21-32); Calcium, Blood 8.8 mg/dL (8.5-10.1); Chloride, Blood 101 mmol/L (98-108); Creatinine, Blood 0.57 mg/dL (0.60-1.20); Globulin, Blood 3.6 g/dL (2.2-4.0); Glomerular Filtration Rate >60 (60-); Glucose, Blood 166 mg/dL (70-99); Potassium, Blood 4.7 mmol/L (3.5-5.5); Sodium, Blood 140 mmol/L (136-145); Total Protein, Blood 7.7 g/dL (6.4-8.2); Troponin I <0.015 ng/mL (0.000-0.040)
[2021-03-05 10:47] LABS: Appearance, Urine Clear (Clear); Bilirubin, Urine Neg (Neg); Blood, Urine Neg (Neg); Color, Urine Yellow (P-Yellow); Glucose Qualitative, Urine Neg (Neg); Ketones, Urine Neg (Neg); Leukocyte Esterase, Urine Neg (Neg); Nitrite, Urine Neg (Neg); Protein, Urine Neg (Neg); Specific Gravity, Urine 1.015 (1.003-1.022); Urobilinogen, Urine NORM (Normal); pH, Urine 6.5 (5.0-8.0)
[2021-03-05 10:59] LABS: PCO2 Arterial 102 mmHg (35-45); PO2 Arterial 340 mmHg (80-100); pH Blood Arterial 7.19 (7.35-7.45)
[2021-03-05 11:04] LABS: U Amphetamine Screen Not Detected; U Barbituate Screen Not Detected; U Benzodiazapine Screen Not Detected; U Buprenorphine Screen Not Detected; U Cannabinoids Screen Not Detected; U Cocaine Screen Not Detected; U Methadone Screen Not Detected; U Methamphetamine Screen Not Detected; U Opiates Screen Not Detected; U Oxycodone Screen Not Detected; U Phencyclidine Screen Not Detected; U Propoxyphene Screen Not Detected
[2021-03-05 11:14] LABS: SARS-Cov-2 (COVID-19) PCR, MMC NEGATIVE (NEGATIVE)
[2021-03-05 11:23] LABS: BASOPHILS PERCENT MAN 0 % (0-2); EOSINOPHILS ABSOLUTE MAN 1.12 K/mm3 (0.00-0.68); EOSINOPHILS PERCENT MAN 3 % (0-6); LYMPHOCYTES ABSOLUTE MAN 24.65 K/mm3 (0.84-5.20); LYMPHOCYTES PERCENT MAN 66 % (21-46); MONOCYTES ABSOLUTE MAN 2.61 K/mm3 (0.16-1.47); MONOCYTES PERCENT MAN 7 % (4-13); NEUTROPHILS ABSOLUTE MAN 8.96 K/mm3 (1.96-9.15); SEG NEUTROPHILS PERCENT MAN 24 % (41-73); TOTAL CELLS COUNTED 100
[2021-03-05] MEDS ORDERED: COMBIVENT RESPIM4 G1 INH (11:48)
[2021-03-05] MEDS ORDERED: XANAX0.25 MG PO (11:49)
[2021-03-05] MEDS ORDERED: CELEXA10 MG PO (11:50)
--- NOTE | 2021-03-05 13:05 | NUR ---
INITIAL ASSESSMENT PATIENT ARRIVED TO ICU AT 1208. PATIENT INTUBATED AND ON SEDATION. PATIENT WAS ON 100 MCG/ HOUR OF FENTANYL AND PROPOFOL ON SB. PATIENT NOW ON PROPOFOL AT 20 MCG/ KG/ MINUTE AND FENTANYL AT 50 MCG/ HOUR TO TRY AND HELP SEDATE PATIENT MORE. PATIENT RESPONDING TO VERBAL STIMULI. PATIENT ABLE TO FOLLOW SIMPLE COMMANDS. PATIENT ABLE TO SQUEEZE WITH HANDS AND WIGGLE TOES AND FEET. PATIENT ANXIOUS AND TREMBLING IN HANDS AND FEET SOME. PATIENT TRYING TO SIGN TO NURSE WITH HANDS AND MOUTH. PATIENT AFEBRILE. BOGDAN CHANGED VENT SETTINGS TO AC 15, TV 400, PEEP 5 AND 35% FIO2 SHORT TIME AFTER ARRIVING. ETT 8.0, 24 CM AT GUMS. PATIENT COVID NEGATIVE. NO COUGH NOTED. EXPIRATORY WHEEZES NOTED THROUGHOUT LUNG LOBES. PATIENT IN ST, HR LOW 100S TO 120S. SBP 90S TO LOW 100S. ABDOMEN MODERATELY DISTENDED, FIRM, WITH HYPERACTIVE BOWEL SOUNDS NOTED. [address] WHEN PATIENT ARRIVED TO UNIT. XRAY SHOWED COILED UP FROM STOMACH AND BACK IN TO ESOPHAGUS. OG REMOVED. DR. MCFADDEN STATED TO GIVE BREAK AND PLACE NEW ONE TOMORROW. PATIENT HAD SMALL, HARD INCONTINENT STOOL WHEN ADMITTED TO UNIT. TEMP PROBE JAMA DRAINING DARK YELLOW URINE. SKIN COOL, DRY, SCALING. TOES AND FEET DUSKY IN APPEARANCE. NS INFUSING AT 100 MLS/ HOUR. BED LOW, CALL LIGHT IN REACH. WILL CONTINUE TO MONITOR PATIENT FREQUENTLY THROUGHOUT SHIFT.
[2021-03-05 13:35] LABS: PO2 Arterial 62.8 mmHg (80-100)
[2021-03-05 13:36] LABS: PCO2 Arterial 73 mmHg (35-45)
--- NOTE | 2021-03-05 16:00 | NUR ---
PATIENT AFEBRILE. PATIENT BETTER SEDATED. HR IN THE 80S. SBP 80S TO 90S. NO OTHER ACUTE CHANGES TO NOTE ON AT THIS TIME. WILL CONTINUE TO MONITOR.
--- NOTE | 2021-03-05 19:24 | NUR ---
SHIFT SUMMARY PATIENT INTUBATED AND SEDATED. PATIENT HAS REMAINED AFEBRILE. PATIENT REMAINS ON AC 15, TV 400, PEEP 5 AND 35% FIO2. EXPIRATORY WHEEZES NOTED. PATIENT IN SR TO ST, HR 80S TO 120S. SBP 80S TO LOW 100S. PATIENT HAD 1 HARD, BROWN STOOL THIS SHIFT. OG PRESENT FROM ER REMOVED COILED. NEW OG TO BE PLACED TOMORROW PER DR. MCFADDEN. JAMA DRAINED 425 MLS OF DARK YELLOW URINE. NO CHANGE TO SKIN NOTED. PATIENT REPOSITIONED THROUGHOUT SHIFT. PROPOFOL AT 15 MCG/ KG/ MINUTE, PRECEDEX AT 0.7 MCG/ KG/ HOUR, NS AT 100 MLS/ HOUR, FENTANYL AT 50 MCG/ HOUR. PATIENT RECEIVED 1 L LR BOLUS X 2 TO HELP WITH HYPOTENSION. ADMIT NOT ABLE TO BE COMPLETED AT THIS TIME. PATIENT COMMUNICATED TO NURSE THAT HE WANTED FRIEND ON CONTACT SHEET INFORMED ABOUT HIS ADMIT AND NOT HIS SISTER ON THE CONTACT SHEET. PC RN CALLED AND LEFT MESSAGE ON FRIEND'S PHONE ASKING HER TO CALL US BACK. NO CALL RECEIVED THUS FAR. PATIENT APPEARS COMFORTABLE AT THIS TIME. BED LOW, CALL LIGHT IN REACH. REPORT HAS BEEN GIVEN TO ASSUMING SUPERVISOR TOY PARTS FORMER RN.
[2021-03-06 03:43] LABS: BASOPHILS ABSOLUTE AUTO 0.01 K/mm3 (0.00-0.23); BASOPHILS PERCENT AUTO 0 % (0-2); EOSINOPHILS PERCENT AUTO 0 % (0-6); Hematocrit 36.1 % (37.0-53.0); Hemoglobin 11.4 g/dL (13.5-17.5); Mean Corpuscular HGB 30.5 pg (26.0-34.0); Mean Corpuscular HGB Conc 31.6 g/dL (31.5-36.5); Mean Platelet Volume 10.9 fL (9.1-12.4); Platelet Count 160 K/mm3 (150-400); RDW Coefficient Variation 12.7 % (11.7-14.2); RDW Standard Deviation 45.4 fL (35.1-46.3); Red Blood Cell Count 3.74 M/mm3 (4.30-5.90); White Blood Cell Count 14.05 K/mm3 (4.00-11.30)
[2021-03-06 03:44] LABS: IMMATURE GRAN ABSOLUTE AUTO 0.03 K/mm3 (0.00-0.10); IMMATURE GRAN PERCENT AUTO 0 % (0-1); LYMPHOCYTES ABSOLUTE AUTO 3.49 K/mm3 (0.84-5.20); LYMPHOCYTES PERCENT AUTO 25 % (21-46); MONOCYTES ABSOLUTE AUTO 1.71 K/mm3 (0.16-1.47); MONOCYTES PERCENT AUTO 12 % (4-13); Mean Corpuscular Volume 97 fL (80-100); NEUTROPHILS ABSOLUTE AUTO 8.81 K/mm3 (1.96-9.15); NEUTROPHILS PERCENT AUTO 63 % (41-73)
[2021-03-06 03:59] LABS: Anion Gap 2 mmol/L (6-16); Blood Urea Nitrogen 28 mg/dL (8-24); Bun/Creatinine Ratio 57.1 (12.0-20.0); CO2, Blood 33 mmol/L (21-32); Calcium, Blood 8.3 mg/dL (8.5-10.1); Chloride, Blood 104 mmol/L (98-108); Creatinine, Blood 0.49 mg/dL (0.60-1.20); Glomerular Filtration Rate >60 (60-); Glucose, Blood 157 mg/dL (70-99); Potassium, Blood 4.1 mmol/L (3.5-5.5); Sodium, Blood 139 mmol/L (136-145)
[2021-03-06 05:16] LABS: PCO2 Arterial 60.8 mmHg (35-45); PO2 Arterial 68.6 mmHg (80-100); pH Blood Arterial 7.34 (7.35-7.45)
--- NOTE | 2021-03-06 08:00 | NUR ---
INITIAL ASSESSMENT PATIENT INTUBATED AND ON SEDATION. PATIENT RESPONDS TO VERBAL STIMULI. PATIENT ABLE TO FOLLOW SOME SIMPLE COMMANDS. PATIENT ANXIOUS; TRYING TO MOUTH WORDS AND PERFORM HAND SIGNALS TO COMMUNICATE WITH NURSE. PATIENT AFEBRILE. PATIENT WEAK BUT ABLE TO MOVE ALL EXTREMITIES. PATIENT ON VENT SETTINGS OF AC 15, TV 400, PEEP 5 AND 30% FIO2. EXPIRATORY WHEEZES NOTED THROUGHOUT. LOWER BASES DIMINISHED. OCCASIONAL, NONPRODUCTIVE COUGH NOTED. EAR PROBE CHANGED TO FINGER PROBE. PATIENT IN SR, HR IN THE 60S. SBP IN THE LOW 100S. ABDOMEN MODERATELY DISTENDED, FIRM, WITH HYPERACTIVE BS NOTED. LAST BM YESTERDAY. JAMA DRAINING JOAQUIM COLORED URINE. SKIN DRY, SCALING. TOES AND FEET DUSKY. PROPOFOL INFUSING AT 15 MCG/ KG/ MINUTE, PRECEDEX AT 0.7 MCG/ KG/ HOUR, FENTANYL PONDMAN AT 50 MCG/ HOUR, NS AT 100 MLS/ HOUR. BED LOW, CALL LIGHT IN REACH. WILL CONTINUE TO MONITOR PATIENT FREQUENTLY THROUGHOUT SHIFT.
--- NOTE | 2021-03-06 08:55 | NUR ---
PATIENT EXTUBATED AT 0850 TO RA. PATIENT REMAINS SATTING 90% AND GREATER. RESTRAINTS DC'D. CALL LIGHT IN REACH. WILL CONTINUE TO MONITOR.
--- NOTE | 2021-03-06 09:09 | NUR ---
PATIENT PLACED ON 4 L NC TO KEEP SATS 90% AND GREATER. PATIENT STATES HE WEARS 2.5 TO 3 L NC AT HOME. RT NOTIFIED.
--- NOTE | 2021-03-06 10:52 | NUR ---
NC DECREASED TO 2 L NC. PATIENT REMAINS SATTING 90% AND GREATER.
--- NOTE | 2021-03-06 12:30 | NUR ---
PATIENT AFEBRILE. PATIENT EXTUBATED THIS AM. FENTANYL DRIP DC'D. PROPOFOL DC'D. PRECEDEX ON SB. PATIENT ALERT AND ORIENTED TO SELF, HOSPITAL, FOLLOWING DIRECTIONS. PATIENT DOES NOT REMEMBER EVENTS LEADING UP TO BEING HOSPITALIZED. PATIENT HAS FLIGHT OF IDEAS AND RAPID SPEECH. PATIENT VERY FORGETFUL AND NEEDS FREQUENT REMINDERS. PATIENT HAS NOT SHOWN TO BE IMPULSIVE AT THIS TIME. PATIENT PASSED BEDSIDE SWALLOW EVAL WITHOUT ANY DIFFICULTIES. PATIENT PLACED ON FULL LIQUID DIET. PATIENT SATTING 90% AND GREATER ON 2 L NC. HR 80S TO 90S. SBP 90S TO 1-TEENS. PATIENT REMAINS ANXIOUS BUT COOPERATIVE. BED LOW, CALL LIGHT IN REACH. PATIENT FREQUENTLY ORIENTED TO ROOM AND CALL LIGHT. WILL CONTINUE TO MONITOR.
--- NOTE | 2021-03-06 15:11 | NUR ---
Spoke with Pt's primary RN Yarelis prior to visiting with Pt and discussed case. Pt is extubated and medical floor status. Pt sitting in chair and is A&O. Pt is known to this scenario writer from previous hospital stay. Advanced care planning education given during his last hospital stay. Offered supportive visit and answered questions. Listened as Pt reports having a leak in his RV trailer and things have become wet and start to mold. Pt reports taking everything out that has become wet in order to reduce the risk of environmental exposure. Pt reports having finances set aside to have roof resealed. Continued therapeutic listening and answered questions regarding COVID 19 vaccination. Continued therapeutic listening. Offered suggestion to appoint an alternate person to contact to assist with being a decision maker in case Brittany can not be contacted. Ended visit to allow Pt to rest. Palliative Care will remain available.
--- NOTE | 2021-03-06 16:23 | NUR ---
PATIENT AFEBRILE. PATIENT REMAINS SATTING IN THE 90S ON 2 L NC. HR IN THE LOW 100S. SBP 90S TO 1-TEENS. PRN ATIVAN GIVEN FOR ANXIETY. PATIENT STILL REMAINS PLEASANT. PATIENT SEEMS TO BE MORE ORIENTED, HOWEVER IS STILL FORGETFUL. [facility] CALL[facility] AND ASKED TO FAX PATIENT MEDICATION LIST TO ICU. NO OTHER ACUTE CHANGES TO NOTE ON AT THIS TIME. WILL CONTINUE TO MONITOR.
--- NOTE | 2021-03-06 19:22 | NUR ---
SHIFT SUMMARY PATIENT ANXIETY AND ORIENTATION IMPROVED THROUGHOUT SHIFT. PATIENT PLEASANT AND COOPERATIVE. PATIENT STILL NEEDS REMINDERS EVERY SO OFTEN. PATIENT WORKED WITH PT/ OT THIS SHIFT; PATIENT 1 PERSON ASSIST WITH FWW AND GAIT BELT. PATIENT UNSTEADY AND WEAK. PATIENT REMAINED AFEBRILE. NO COMPLAINTS OF PAIN. PATIENT EXTUBATED AROUND 0900. PATIENT HAS BEEN SATTING 90% AND GREATER ON 2 L NC AND REPORTS WEARING 2.5 TO 3 L NC AT HOME CONTINUOUSLY. PATIENT SR TO ST, HR 60S TO LOW 100S. SBP 90S TO 1-TEENS. NO BM THIS SHIFT. PATIENT ADVANCE TO SOFT DIET THIS SHIFT AFTER PASSING BEDSIDE SWALLOW EVAL. JAMA DRAINED 1100 MLS OF JOAQUIM COLORED URINE. NO CHANGE TO SKIN. PATIENT SHIFTING OWN HIPS IN BED. NS TKO AT THIS TIME. PATIENT APPEARS COMFORTABLE AT THIS TIME. BED LOW, CALL LIGHT IN REACH. REPORT GIVEN TO ASSUMING BOWL TOPPER NURSE.
[2021-03-07 03:41] LABS: BASOPHILS ABSOLUTE AUTO 0.02 K/mm3 (0.00-0.23); BASOPHILS PERCENT AUTO 0 % (0-2); EOSINOPHILS PERCENT AUTO 0 % (0-6); Hematocrit 33.6 % (37.0-53.0); Hemoglobin 10.6 g/dL (13.5-17.5); Mean Corpuscular HGB Conc 31.5 g/dL (31.5-36.5); Mean Corpuscular Volume 98 fL (80-100); Mean Platelet Volume 11.2 fL (9.1-12.4); Platelet Count 179 K/mm3 (150-400); RDW Coefficient Variation 13.3 % (11.7-14.2); RDW Standard Deviation 47.7 fL (35.1-46.3); Red Blood Cell Count 3.42 M/mm3 (4.30-5.90); White Blood Cell Count 16.88 K/mm3 (4.00-11.30)
[2021-03-07 03:42] LABS: IMMATURE GRAN ABSOLUTE AUTO 0.09 K/mm3 (0.00-0.10); IMMATURE GRAN PERCENT AUTO 1 % (0-1); LYMPHOCYTES ABSOLUTE AUTO 5.91 K/mm3 (0.84-5.20); LYMPHOCYTES PERCENT AUTO 35 % (21-46); MONOCYTES ABSOLUTE AUTO 1.47 K/mm3 (0.16-1.47); MONOCYTES PERCENT AUTO 9 % (4-13); NEUTROPHILS ABSOLUTE AUTO 9.39 K/mm3 (1.96-9.15); NEUTROPHILS PERCENT AUTO 56 % (41-73)
[2021-03-07 03:57] LABS: Anion Gap 1 mmol/L (6-16); Blood Urea Nitrogen 29 mg/dL (8-24); Bun/Creatinine Ratio 54.7 (12.0-20.0); CO2, Blood 37 mmol/L (21-32); Calcium, Blood 8.3 mg/dL (8.5-10.1); Chloride, Blood 107 mmol/L (98-108); Creatinine, Blood 0.53 mg/dL (0.60-1.20); Glomerular Filtration Rate >60 (60-); Glucose, Blood 116 mg/dL (70-99); Potassium, Blood 4.2 mmol/L (3.5-5.5); Sodium, Blood 145 mmol/L (136-145)
--- NOTE | 2021-03-07 05:40 | NUR ---
SHIFT SUMMARY PT MEDICAL W/ TELE STATUS. A&O TO SELF, ANXIOUS AT TIMES, FORGETFUL & REQUIRING FREQUENT REMINDING & EDUCATION. VSS. SPO2 > 92% ON 2L NC. PT W/ SCHEDULED BREATHING TX's PER RT T/O SHIFT. MONITOR SHOWING SR-ST, HR 80's-120's. JAMA CATH PATENT & DRAINING CLEAR YELLOW URINE. NO EVENTS OVER NIGHT.
--- NOTE | 2021-03-07 07:17 | NUR ---
ASSUMED CARE: PT RESTING NSR AT 97 BPM [address] NC IN PLACE AT 2L. PT CALLED NURSE INTO ROOM THIS AM TO TURN UP HEAT AND TO TAKE CARE OF THE DRAFT IN ROOM SO THAT HE WOULDN'T CATCH PNEUMONIA. NO OTHER NEEDS OR CONCERNS AT THIS TIME.
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
--- NOTE | 2021-03-07 10:15 | NUR ---
TRANSFERED TO 308 PT TRANSFERED TO 308. ORIENTED TO ROOM AND CALL LIGHT. EXP WHEEZES T/O. O2 ON 2L VIA NC. PT UP TO BSC WITH 1P ASSIST. INSTRUCTED TO CALL WHEN HE IS FINISHED. NO CHANGES IN PREVIOUS NURSES ASSESSMENT FROM ICU. PT STATES HE UNDERSTANDS TO CALL WHEN FINISHED.
--- NOTE | 2021-03-07 10:53 | NUR ---
REPORT GIVEN TO OLENA LEUNG ON MEDICAL FLOOR. PT TRANSFERRED VIA WHEEL CHAIR BY HOSPITAL STAFF. CALL TO DR COOK TO RESUME HOME MEDS AND FOR BLADDER TRAINING PRIOR TO DC'ING JAMA.
--- NOTE | 2021-03-07 18:08 | NUR ---
SHIFT SUMMARY PT SATING IN THE 90S ON 2L T/O DAY WHEN AT REST. NEEDING MORE O2 WITH EXERTION. PT WORKED WITH PHYSICAL THERAPY AND OCCUPATIONAL THERAPY TODAY. MEDICATED FOR ANXIETY ONCE TODAY. JAMA REMOVED & PT VOIDING WELL. NO OTHER ACUTE CHANGES IN ASSESSMENT AT THIS TIME. VS REVIEWED. PT UP IN BED. EATING DINNER.
--- NOTE | 2021-03-08 05:13 | NUR ---
SHIFT SUMMARY A/OX3, 1 ASSIST TO BSC. DENIES PAIN OR SOB. CURRENTLY ON 4L NC WITH SATS GREATER THAN 92. TELE RUNNING SR IN THE 70'S. VSS, NO ACUTE CHANGES AT THIS TIME. BED IN LOWEST POSITION WITH CALL LIGHT IN REACH. WILL CONTINUE TO MONITOR AND REPORT TO ONCOMING RN.
--- NOTE | 2021-03-08 17:29 | NUR ---
SHIFT SUMMARY NO ACUTE CHANGES NOTED TO PT THIS SHIFT. PT A&OX4, ABLE TO MAKE NEEDS KNOWN. PLEASANT AND COOPERATIVE TO CARE. NO C/O PAIN OR ANY DISCOMFORT THIS SHIFT. PT ON 2LPM O2 VIA NC. SATS >92%. NO C/O CP, SOB, OR N&V. PT REQUIRES SBA TO BSC. PT CALLS APPROPRIATELY FOR ASSISTANCE. BED AT LOWEST POSITION. CALL LIGHT WITHIN REACH.
--- NOTE | 2021-03-09 04:32 | NUR ---
SUMMARY PT HAD NO NEW ISSUES NOTED. PT ON NC @ 2LPM. PT DENIES INCREASED SOB. PT HAS RESTED WELL T/O SHIFT. PT CURRENTLY SLEEPING IN NO DISTRESS.
--- NOTE | 2021-03-09 17:13 | NUR ---
SHIFT SUMMARY NO ACUTE CHANGES NOTED TO PT THIS SHIFT. PT A&OX4, ABLE TO MAKE NEEDS KNOWN, PLEASANT AND COOPERATIVE TO CARE. NO C/O PAIN OR ANY DISCOMFORT THIS SHIFT. PT ON 2LPM O2 VIA NC, SATS >92%. PT ON IV ABX ORDERED, NO ASE NOTED. BED AT LOWEST POSITION. CALL LIGHT WITHIN REACH.
--- NOTE | 2021-03-10 05:57 | NUR ---
MEDICAL DETAIL REPRESENTATIVE SUMMARY NO ACUTE CHANGES THIS SHIFT. PT AAOX4 AND PLEASANT. 1 ASSIST TO BSC, PT CALLS APPROPRIATELY FOR ASSISTANCE. DENIES PAIN, N/V. REMAINS ON 2L O2 VIA NC WHICH IS BASELINE. PT POSSIBLE DC HOME LATER TODAY. VSS, WILL CONTINUE TO MONITOR.
[2021-03-10] MEDS ORDERED: CITA20 PO (08:21)
[2021-03-10] MEDS ORDERED: IPRAT-ALBUT 0.5-3 ML INH (08:26)
[2021-03-10] MEDS ORDERED: PRED20 PO (10:53)
--- NOTE | 2021-03-10 17:50 | NUR ---
DISCHARGE SUMMARY PT DISCHARGE THIS SHIFT AT 1749 VIA [facility] WHEELCHAIR VAN. PT A&OX4, ABLE TO MAKE NEEDS KNOWN. PT VERBALIZED UNDERSTANDING OF DISCHARGE ORDERS. NO C/O PAIN OR ANY DISCOMFORT, DENIES ANY CONCERNS OR ISSUES PRIOR TO DISCHARGE. IV LINE DISCONTINUED PRIOR TO D/C. DISCHARGE PAPERWORK GIVEN TO PATIENT UPON DISCHARGE.
--- NOTE | 2021-03-10 18:38 | NUR ---
Spiritual care note: Juancho was talkative and appreciative of gentle sales counselor. He appears frail. He believes he is being [place] He spoke at length about this and how worried he is about his declining health. He responded well to prayer and seemed more calm by conclusion of visit. He is being d/c soon.
== END 2021-03-10 17:50 | disposition home health service (06) | DRG 871 ==
LOC: ER 09:54 → ICUW 11:32 → ICUE 11:32 → MEDS 03-07 10:15 → ENPENDDIS 03-10 10:17 → MEDS 03-10 17:50
PROVIDERS: Emergency Medicine; Internal Medicine; Internal Medicine Critical Care Medicine; ADMIT Internal Medicine
PROC: 0BH17EZ Insertion of Endotracheal Airway into Trachea, Via Natural or Artificial Opening (ICD-10-PCS; principal; 2021-03-05)
PROC: 5A1935Z Respiratory Ventilation, Less than 24 Consecutive Hours (ICD-10-PCS; 2021-03-05)
DX: A41.9 Sepsis, unspecified organism (principal); J96.21 Acute and chronic respiratory failure with hypoxia; J15.6 Pneumonia due to other Gram-negative bacteria; J96.22 Acute and chronic respiratory failure with hypercapnia; R65.20 Severe sepsis without septic shock; Z20.822 Contact with and (suspected) exposure to COVID-19; F41.9 Anxiety disorder, unspecified; F43.10 Post-traumatic stress disorder, unspecified; D72.820 Lymphocytosis (symptomatic); F17.210 Nicotine dependence, cigarettes, uncomplicated; Z90.2 Acquired absence of lung [part of]; Z79.899 Other long term (current) drug therapy; J43.9 Emphysema, unspecified; Z79.82 Long term (current) use of aspirin; N40.0 Benign prostatic hyperplasia without lower urinary tract symptoms; Z68.23 Body mass index [BMI] 23.0-23.9, adult; Z78.1 Physical restraint status
CPT/HCPCS: 31500; 36415; 36600; 51702; 71045; 80048; 80053; 81003; 82803; 83605; 84484; 85025; 87040; 87070; 87077; 87186; 87205; 93005; 93010; 94002; 94003; 94640; 94644; 94667; 94668; 94760; 96374-59; 96375-59; 97110; 97116; 97162; 97166; 97530; 97530-CQ; 97535; 99285-25; A9270; C9113; J0330; J0456; J0696; J1650; J2060; J2250; J2704; J2930; J3010; J7030; J7050; J7120; J7512; U0004

== ENCOUNTER 2021-03-27 04:48 | Inpatient (IN) | payer OTHER ==
[~2021-03-27] VITALS: Ht 175.3 cm; Wt 63.5 kg
[~2021-03-27 04:48] MED LIST changes: +CELEXA10 MG PO; +CITA20 PO; +COMBIVENT RESPIM4 G1 INH; +IPRAT-ALBUT 0.5-3 ML INH; +XANAX0.25 MG PO
[2021-03-27 05:09] LABS: BASOPHILS ABSOLUTE AUTO 0.06 K/mm3 (0.00-0.23); BASOPHILS PERCENT AUTO 0 % (0-2); EOSINOPHILS ABSOLUTE AUTO 0.29 K/mm3 (0.00-0.68); EOSINOPHILS PERCENT AUTO 2 % (0-6); Hemoglobin 13.1 g/dL (13.5-17.5); Mean Corpuscular HGB Conc 30.5 g/dL (31.5-36.5); Mean Corpuscular Volume 102 fL (80-100); Mean Platelet Volume 10.4 fL (9.1-12.4); Platelet Count 159 K/mm3 (150-400); RDW Coefficient Variation 14.5 % (11.7-14.2); RDW Standard Deviation 54.6 fL (35.1-46.3); Red Blood Cell Count 4.23 M/mm3 (4.30-5.90); White Blood Cell Count 19.42 K/mm3 (4.00-11.30)
[2021-03-27 05:16] LABS: PO2 Arterial 58.1 mmHg (80-100); pH Blood Arterial 7.31 (7.35-7.45)
[2021-03-27 05:17] LABS: PCO2 Arterial 75.9 mmHg (35-45)
[2021-03-27 05:42] LABS: Alanine Aminotransfer (ALT/SGP 32 U/L (12-78); Albumin, Blood 3.8 g/dL (3.4-5.0); Albumin/Globulin Ratio 1.2 (0.8-1.8); Alk Phos 49 U/L (50-136); Anion Gap 1 mmol/L (6-16); Aspartate Aminotrans (AST/SGOT 15 U/L (12-37); Bilirubin, Total 0.2 mg/dL (0.1-1.0); Blood Urea Nitrogen 25 mg/dL (8-24); Bun/Creatinine Ratio 39.2 (12.0-20.0); CO2, Blood 35 mmol/L (21-32); Chloride, Blood 106 mmol/L (98-108); Creatinine, Blood 0.64 mg/dL (0.60-1.20); Globulin, Blood 3.1 g/dL (2.2-4.0); Glomerular Filtration Rate >60 (60-); Glucose, Blood 89 mg/dL (70-99); Potassium, Blood 4.4 mmol/L (3.5-5.5); Sodium, Blood 142 mmol/L (136-145); Total Protein, Blood 6.9 g/dL (6.4-8.2); Troponin I <0.015 ng/mL (0.000-0.040)
[2021-03-27 06:07] LABS: SARS-Cov-2 (COVID-19) PCR, MMC NEGATIVE (NEGATIVE)
[2021-03-27 06:29] LABS: IMMATURE GRAN ABSOLUTE AUTO 0.04 K/mm3 (0.00-0.10); IMMATURE GRAN PERCENT AUTO 0 % (0-1); LYMPHOCYTES ABSOLUTE AUTO 13.72 K/mm3 (0.84-5.20); LYMPHOCYTES PERCENT AUTO 71 % (21-46); MONOCYTES ABSOLUTE AUTO 1.43 K/mm3 (0.16-1.47); MONOCYTES PERCENT AUTO 7 % (4-13); NEUTROPHILS ABSOLUTE AUTO 3.88 K/mm3 (1.96-9.15); NEUTROPHILS PERCENT AUTO 20 % (41-73)
[2021-03-27 06:34] LABS: BASOPHILS ABSOLUTE MAN 0.19 K/mm3 (0.00-0.23); BASOPHILS PERCENT MAN 1 % (0-2); EOSINOPHILS PERCENT MAN 0 % (0-6); LYMPHOCYTES ABSOLUTE MAN 14.56 K/mm3 (0.84-5.20); LYMPHOCYTES PERCENT MAN 75 % (21-46); MONOCYTES ABSOLUTE MAN 0.38 K/mm3 (0.16-1.47); MONOCYTES PERCENT MAN 2 % (4-13); NEUTROPHILS ABSOLUTE MAN 4.27 K/mm3 (1.96-9.15); SEG NEUTROPHILS PERCENT MAN 22 % (41-73); TOTAL CELLS COUNTED 100
--- NOTE | 2021-03-27 08:17 | NUR ---
Pt arrived to PCU 5. Alert, oriented, talkative, but visibly dyspneic with accessory muscle use to breathe, RR 16/min, spo2 89-90% on room air shortly after coming off of the bipap upon transfer from ED to PCU. Oxygen applied at 2 l/min by RT Candelaria; pt states he is on 2-3 l/min at baseline. Pt ambulatory without difficulty to the bathroom to have BM he states. court monitor box number verified and rhythm I am told is sinus rhythm.
[2021-03-27] MEDS ORDERED: TAMS.4ER PO (08:52)
--- NOTE | 2021-03-27 11:26 | NUR ---
Pt appears to be sleeping comfortably, on nasal cannula, with HOB flat.
--- NOTE | 2021-03-27 15:38 | NUR ---
C/O having difficulty breathing. Solumedrol administered as ordered, RT called for PRN neb tx. Pt spo2 WNL >90% while on 1 l/min n.c. O2 delivery, lying down in bed, HOB elevated 20 degrees.
--- NOTE | 2021-03-27 18:37 | NUR ---
Pt since arriving this morning has not needed the bipap. He has been on 1 l/min of oxygen, and required one PRN breathing treatment. States he is still feeling like he is having difficulty breathing at times. Alert, oriented and cooperative. Ambulatory to the bathroom, but does have dyspnea with activity. Vital signs stable.
[2021-03-28 03:42] LABS: Hemoglobin 11.7 g/dL (13.5-17.5); Mean Corpuscular HGB 31.5 pg (26.0-34.0); Mean Corpuscular HGB Conc 32.5 g/dL (31.5-36.5); Mean Corpuscular Volume 97 fL (80-100); Mean Platelet Volume 10.3 fL (9.1-12.4); Platelet Count 146 K/mm3 (150-400); RDW Coefficient Variation 13.7 % (11.7-14.2); RDW Standard Deviation 49.1 fL (35.1-46.3); Red Blood Cell Count 3.72 M/mm3 (4.30-5.90); White Blood Cell Count 14.08 K/mm3 (4.00-11.30)
[2021-03-28 04:03] LABS: Anion Gap 3 mmol/L (6-16); Blood Urea Nitrogen 30 mg/dL (8-24); Bun/Creatinine Ratio 45.7 (12.0-20.0); CO2, Blood 33 mmol/L (21-32); Calcium, Blood 8.7 mg/dL (8.5-10.1); Chloride, Blood 104 mmol/L (98-108); Creatinine, Blood 0.66 mg/dL (0.60-1.20); Glomerular Filtration Rate >60 (60-); Glucose, Blood 140 mg/dL (70-99); Potassium, Blood 4.1 mmol/L (3.5-5.5); Sodium, Blood 140 mmol/L (136-145)
--- NOTE | 2021-03-28 04:33 | NUR ---
SHIFT SUMMARY NO ACUTE CHANGES OVERNIGHT. PT HAS BEEN STABLE. VSS. DENIES DIFFICULTY BREATHING T/O SHIFT. HE HAS BEEN SLEEPING COMFORTABLE IN BED. DIDN'T REQUIRE BIPAP. PT IS ON 1L O2. SATURATING 91-94%. INDEPENDENT IN THE ROOM. USED URINAL AT NIGHT. CALM AND COOPERATIVE WITH CARE. VOIDING WITHOUT DIFFICULTY. NO COUGHT NOTED. PT DENIES CHILLS, SWEATS AND DENIES NAUSEA. HE HAS BEEN STABLE AND COMFORTABLE T/O SHIFT. CALL LIGHT WITHIN REACH. WILL PROVIDE REPORT TO ONCOMING NURSE.
[2021-03-28 12:08] LABS: Percent Saturation 56.2 % (20.0-50.0)
--- NOTE | 2021-03-28 12:28 | NUR ---
TRANSFER TO ROOM 331 PER WHEELCHAIR. REPORT CALLED TO RECEIVING RN
--- NOTE | 2021-03-28 18:56 | NUR ---
SHIFT SUMMARY PT IS AOX4 AND PLEASANT. PT DENIES PAIN, N/V, SOB. PT APPETITE IS GOOD. PT IS INDEPENDENT IN ROOM. NO PROCEDURES DONE THIS SHIFT. PT DID NOT HAVE VISITORS THIS GURMEET. PT IS IN BED, CALL LIGHT IN REACH, LOW POSITION.
--- NOTE | 2021-03-29 16:32 | NUR ---
SHIFT SUMMARY PATIENT DENIES PAIN, NAUSEA, AND SHORTNESS OF BREATH AT REST. PATIENT DOES BECOME DYSPNEIC WITH ACTIVITY. 2-3L/NC TO MAINTAIN OXYGEN SATURATION ABOVE 92%. PATIENT UP INDEPENDENT IN ROOM BUT REPORTS HE IS FATIGUED BY A TRIP TO THE BATHROOM. EATING AND DRINKING WELL. PLEASANT AND COOPERATIVE WITH CARE.
--- NOTE | 2021-03-30 06:30 | NUR ---
SLEPT WELL NO SIGNIFICANT CHANGES. GUS CONTINUES TO GET MORE COMFORTABLE IN HIS BREATHING TONIGHT. REMAINS ON 2 LITERS. A&OX4. OOB INDEPENDENTLY TO BATHROOM STILL GETS HIM VERY WINDED
--- NOTE | 2021-03-30 17:16 | NUR ---
SHIFT SUMMARY PT IS AOX4 AND PLEASANT. PT DENIES PAIN, N/V. PT EXHIBITS SOB ON EXERTION AT BASELINE O2 OF 2-3 L VIA NC. PT IS INDEPENDENT IN ROOM. PT APPETITE IS GOOD. NO PROCEDURES DONE THIS SHIFT. PT DID NOT HAVE VISITORS. PT IS IN BED, CALL LIGHT IN REACH.
--- NOTE | 2021-03-31 05:34 | NUR ---
GUS SLEPT WELL AND HAD NO COMPLAINTS OF PAIN OR DISCOMFORT LAST NIGHT, HE STATES HE FEELS LIKE HE'S GETTING BETTER AND IS LOOKING FORWARD TO GOING HOME. WORK OF BREATHING HAS DECREASED MARKEDLY.
--- NOTE | 2021-03-31 18:37 | NUR ---
no further incidents since this am, pt states he had no indication or reason for event, medicated and treated as prescribed, spent the day in bed except to get up for the the bathroom, call light in reach, 2L via nc, saline locked, will continue to monitor and treat until bsr is shared with noc nurse
--- NOTE | 2021-04-01 03:23 | NUR ---
SHIFT SUMMARY A/OX4, IND TO BATHROOM. CURRENTLY ON 2L WITH SATS GREATER THAN 92. DYSPNEA NOTED ON EXERTION. NEB TX'S PRN. VSS, NO ACUTE CHANGES AT THIS TIME. BED IN LOWEST POSITION WITH CALL LIGHT IN REACH. WILL CONTINUE TO MONITOR AND REPORT TO ONCOMING RN.
[2021-04-01 05:23] LABS: BASOPHILS ABSOLUTE AUTO 0.03 K/mm3 (0.00-0.23); BASOPHILS PERCENT AUTO 0 % (0-2); EOSINOPHILS ABSOLUTE AUTO 0.06 K/mm3 (0.00-0.68); EOSINOPHILS PERCENT AUTO 0 % (0-6); Hematocrit 34.9 % (37.0-53.0); Hemoglobin 11.2 g/dL (13.5-17.5); Mean Corpuscular HGB 30.9 pg (26.0-34.0); Mean Corpuscular HGB Conc 32.1 g/dL (31.5-36.5); Mean Corpuscular Volume 96 fL (80-100); Mean Platelet Volume 10.7 fL (9.1-12.4); Platelet Count 165 K/mm3 (150-400); RDW Coefficient Variation 13.9 % (11.7-14.2); RDW Standard Deviation 48.8 fL (35.1-46.3); Red Blood Cell Count 3.63 M/mm3 (4.30-5.90); White Blood Cell Count 18.76 K/mm3 (4.00-11.30)
[2021-04-01 05:32] LABS: IMMATURE GRAN ABSOLUTE AUTO 0.16 K/mm3 (0.00-0.10); IMMATURE GRAN PERCENT AUTO 1 % (0-1); LYMPHOCYTES ABSOLUTE AUTO 11.66 K/mm3 (0.84-5.20); LYMPHOCYTES PERCENT AUTO 62 % (21-46); MONOCYTES ABSOLUTE AUTO 1.65 K/mm3 (0.16-1.47); MONOCYTES PERCENT AUTO 9 % (4-13); NEUTROPHILS PERCENT AUTO 28 % (41-73)
[2021-04-01 05:45] LABS: BASOPHILS PERCENT MAN 0 % (0-2); EOSINOPHILS PERCENT MAN 0 % (0-6); LYMPHOCYTES ABSOLUTE MAN 13.88 K/mm3 (0.84-5.20); LYMPHOCYTES PERCENT MAN 74 % (21-46); MONOCYTES PERCENT MAN 8 % (4-13); NEUTROPHILS ABSOLUTE MAN 3.37 K/mm3 (1.96-9.15); SEG NEUTROPHILS PERCENT MAN 18 % (41-73); TOTAL CELLS COUNTED 100
[2021-04-01 05:47] LABS: Anion Gap 3 mmol/L (6-16); Blood Urea Nitrogen 32 mg/dL (8-24); Bun/Creatinine Ratio 46.5 (12.0-20.0); CO2, Blood 33 mmol/L (21-32); Calcium, Blood 8.1 mg/dL (8.5-10.1); Chloride, Blood 104 mmol/L (98-108); Creatinine, Blood 0.69 mg/dL (0.60-1.20); Glomerular Filtration Rate >60 (60-); Glucose, Blood 80 mg/dL (70-99); Sodium, Blood 140 mmol/L (136-145)
[2021-04-01] MEDS ORDERED: GUAI600T33 PO (14:31)
[2021-04-01] MEDS ORDERED: TAMS.4ER PO (14:33)
[2021-04-01] MEDS ORDERED: PRED20 PO (14:33)
== END 2021-04-01 16:43 | disposition home or self-care (01) | DRG 189 ==
LOC: ER 04:48 → PCU 06:19 → MEDS 03-28 12:29
PROVIDERS: Emergency Medicine; Internal Medicine; ADMIT Internal Medicine
PROC: 5A09457 Assistance with Respiratory Ventilation, 24-96 Consecutive Hours, Continuous Positive Airway Pressure (ICD-10-PCS; principal; 2021-03-27)
DX: J96.21 Acute and chronic respiratory failure with hypoxia (principal); J44.1 Chronic obstructive pulmonary disease with (acute) exacerbation; Z20.822 Contact with and (suspected) exposure to COVID-19; D72.829 Elevated white blood cell count, unspecified; T38.0X5A Adverse effect of glucocorticoids and synthetic analogues, initial encounter; N40.0 Benign prostatic hyperplasia without lower urinary tract symptoms; D64.9 Anemia, unspecified; F41.9 Anxiety disorder, unspecified; J96.22 Acute and chronic respiratory failure with hypercapnia; F43.10 Post-traumatic stress disorder, unspecified; R42 Dizziness and giddiness; Z90.2 Acquired absence of lung [part of]; Z87.891 Personal history of nicotine dependence
CPT/HCPCS: 36415; 36600; 71045; 80048; 80053; 82607; 82728; 82746; 82803; 83540; 83550; 83605; 83880; 84484; 85025; 85027; 93005; 93010; 94640; 94660; 94760; 94761; 94762; 99285-25; A9270; J0456; J1650; J2930; J7050; J7512; U0004

== ENCOUNTER 2021-09-25 04:19 | Inpatient (IN) | payer OTHER ==
[~2021-09-25] VITALS: Ht 175.3 cm; Wt 73.9 kg
[2021-09-25 04:44] LABS: BASOPHILS ABSOLUTE AUTO 0.09 K/mm3 (0.00-0.23); BASOPHILS PERCENT AUTO 0 % (0-2); EOSINOPHILS ABSOLUTE AUTO 0.41 K/mm3 (0.00-0.68); EOSINOPHILS PERCENT AUTO 2 % (0-6); Hematocrit 40.7 % (37.0-53.0); Hemoglobin 12.8 g/dL (13.5-17.5); Mean Corpuscular HGB Conc 31.4 g/dL (31.5-36.5); Mean Corpuscular Volume 95 fL (80-100); Mean Platelet Volume 10.1 fL (9.1-12.4); Platelet Count 268 K/mm3 (150-400); RDW Standard Deviation 45.1 fL (35.1-46.3); Red Blood Cell Count 4.27 M/mm3 (4.30-5.90); White Blood Cell Count 22.06 K/mm3 (4.00-11.30)
[2021-09-25 04:45] LABS: IMMATURE GRAN ABSOLUTE AUTO 0.08 K/mm3 (0.00-0.10); IMMATURE GRAN PERCENT AUTO 0 % (0-1); LYMPHOCYTES ABSOLUTE AUTO 12.22 K/mm3 (0.84-5.20); LYMPHOCYTES PERCENT AUTO 55 % (21-46); MONOCYTES ABSOLUTE AUTO 2.14 K/mm3 (0.16-1.47); MONOCYTES PERCENT AUTO 10 % (4-13); NEUTROPHILS ABSOLUTE AUTO 7.12 K/mm3 (1.96-9.15); NEUTROPHILS PERCENT AUTO 32 % (41-73)
[2021-09-25 04:55] LABS: Bicarbonate Venous 26.4 mmol/L (24.0-30.0); PCO2 Venous 63.1 mmHg (38-42); PO2 Venous 204 mmHg (38-42); pH Blood Venous 7.29 (7.34-7.37)
[2021-09-25 04:56] LABS: Base Excess Venous 3.9 mmol/L
[2021-09-25 05:04] LABS: Alanine Aminotransfer (ALT/SGP 20 U/L (12-78); Albumin, Blood 3.7 g/dL (3.4-5.0); Albumin/Globulin Ratio 1.1 (0.8-1.8); Alk Phos 75 U/L (50-136); Anion Gap 3 mmol/L (6-16); Aspartate Aminotrans (AST/SGOT 11 U/L (12-37); Bilirubin, Total 0.3 mg/dL (0.1-1.0); Blood Urea Nitrogen 17 mg/dL (8-24); Bun/Creatinine Ratio 24.4 (12.0-20.0); CO2, Blood 32 mmol/L (21-32); Calcium, Blood 8.6 mg/dL (8.5-10.1); Chloride, Blood 106 mmol/L (98-108); Globulin, Blood 3.3 g/dL (2.2-4.0); Glomerular Filtration Rate >60 (60-); Glucose, Blood 125 mg/dL (70-99); Potassium, Blood 4.4 mmol/L (3.5-5.5); Sodium, Blood 141 mmol/L (136-145)
[2021-09-25 05:20] LABS: Influenza A, PCR NEGATIVE (NEGATIVE); Influenza B, PCR NEGATIVE (NEGATIVE); Resp Syncytial Virus, PCR NEGATIVE (NEGATIVE); SARS-Cov-2 (COVID-19) PCR, MMC NEGATIVE (NEGATIVE)
[2021-09-25 05:51] LABS: BASOPHILS PERCENT MAN 0 % (0-2); EOSINOPHILS ABSOLUTE MAN 0.22 K/mm3 (0.00-0.68); EOSINOPHILS PERCENT MAN 1 % (0-6); LYMPHOCYTES ABSOLUTE MAN 13.23 K/mm3 (0.84-5.20); LYMPHOCYTES PERCENT MAN 60 % (21-46); MONOCYTES ABSOLUTE MAN 1.54 K/mm3 (0.16-1.47); MONOCYTES PERCENT MAN 7 % (4-13); NEUTROPHILS ABSOLUTE MAN 7.05 K/mm3 (1.96-9.15); SEG NEUTROPHILS PERCENT MAN 32 % (41-73); TOTAL CELLS COUNTED 100
[2021-09-25 10:57] LABS: Base Excess Venous 4.7 mmol/L; Bicarbonate Venous 27.8 mmol/L (24.0-30.0); PCO2 Venous 48.2 mmHg (38-42); PO2 Venous 64.6 mmHg (38-42)
--- NOTE | 2021-09-25 11:02 | NUR ---
Patient is lying in bed and alert. Patient is very talkative but a challenge to understand due to his airway support mask. Patient talks about his struggles with living with COPD and the need for better housing because of draft and mold. Patient talks about his Anglican albin and the books he has listened to and programs he has watched regarding albin issues. Patient asks theological questions that I am happy to discuss with him. I provide therapeutic listening, pastoral counselor dormitory and prayer. Patient responds well and shows signs of an elevated mood. I will continue to remain available to patient and family.
--- NOTE | 2021-09-25 17:51 | NUR ---
SHIFT SUMMARY PT ARRIVED TO UNIT FROM ED AT BEGINNING OF SHIFT. PT ARRIVED TO UNIT ON BIPAP. SEE EHR FOR SETTINGS. PT TRANSITIONED TO NC AT 5 L FOR BREAKS FROM BIPAP. OXYGEN SATURATION MAINTAINED ABOVE 92%. HR STABLE. BP STABLE. NO CP OR PRESSURE. PT SBA. PT INFORMS RN WHEN FEELING TIRED AND SOB AND REQUESTS BIPAP PRN. WILL CONT TO MONITOR UNTIL REPORT GIVEN TO NIGHTSHIFT RN.
[2021-09-26 04:15] LABS: Hematocrit 37.2 % (37.0-53.0); Hemoglobin 11.9 g/dL (13.5-17.5); Mean Corpuscular HGB 30.1 pg (26.0-34.0); Mean Corpuscular Volume 94 fL (80-100); Mean Platelet Volume 10.4 fL (9.1-12.4); Platelet Count 237 K/mm3 (150-400); RDW Coefficient Variation 12.9 % (11.7-14.2); RDW Standard Deviation 44.5 fL (35.1-46.3); Red Blood Cell Count 3.95 M/mm3 (4.30-5.90); White Blood Cell Count 15.76 K/mm3 (4.00-11.30)
[2021-09-26 04:47] LABS: Alanine Aminotransfer (ALT/SGP 18 U/L (12-78); Albumin, Blood 3.4 g/dL (3.4-5.0); Albumin/Globulin Ratio 1.3 (0.8-1.8); Alk Phos 67 U/L (50-136); Anion Gap 7 mmol/L (6-16); Aspartate Aminotrans (AST/SGOT 9 U/L (12-37); Bilirubin, Total 0.4 mg/dL (0.1-1.0); Blood Urea Nitrogen 23 mg/dL (8-24); Bun/Creatinine Ratio 35.4 (12.0-20.0); CO2, Blood 29 mmol/L (21-32); Calcium, Blood 9.1 mg/dL (8.5-10.1); Chloride, Blood 104 mmol/L (98-108); Creatinine, Blood 0.65 mg/dL (0.60-1.20); Globulin, Blood 2.7 g/dL (2.2-4.0); Glomerular Filtration Rate >60 (60-); Glucose, Blood 173 mg/dL (70-99); Potassium, Blood 4.6 mmol/L (3.5-5.5); Sodium, Blood 140 mmol/L (136-145); Total Protein, Blood 6.1 g/dL (6.4-8.2)
--- NOTE | 2021-09-26 05:18 | NUR ---
SHIFT SUMMARY PT ALERT AND ORIENTED X4. ON 2L NC WHILE AWAKE, MAINTAINING SATS OVER 97%. ON BIPAP 12/6 35% FIO2 WHILE ASLEEP. PT RESTING COMFORTABLE THROUGHOUT NIGHT. BP STABLE, HR STABLE. CONCERED ABOUT UNSAFE HOME ENVIRONMENT. INDEPENDENT FOR ADLS. IN BED SLEEPING WITH CALL ALARM AT SIDE. WILL CONTINUE TO MONITOR UNTIL REPORT GIVEN TO DAYSHIFT RN
--- NOTE | 2021-09-26 07:15 | NUR ---
CARE ASSUMPTION PATIENT IS A/OX4. PATIENT REPORTS NO PAIN, CHEST PAIN/PRESSURE, HEADACHE, SHORTNESS OF BREATH, OR NUMBNESS OR TINGLING. BED IN LOWEST POSITION AND CALL LIGHT WITHIN REACH. VSS. WILL CONTINUE TO MONITOR AND PROVIDE CARE.
--- NOTE | 2021-09-26 17:26 | NUR ---
SHIFT SUMMARY PATIENT IS A/OX4. VSS. PATIENT IS MED STATUS WITHOUT TELE. PATIENT HAS BEEN INDEPDENT TO THE BEDSIDE COMODE THROUGHOUT THE DAY AND WITH RESPOSITIONING IN BED. NO ACUTE CHANGES THIS SHIFT. BED IN LOWEST POSITION AND CALL LIGHT WITHIN REACH. WILL CONTINUE TO MONITOR AND PROVIDE CARE UNTIL HAND OFF WITH NEXT SHIFT.
--- NOTE | 2021-09-27 03:29 | NUR ---
PATIENT STILL GETTING VERY SOB WITH MINIMAL CONVERSATION OR MOVEMENT, ALTHOUGH HE STATES HE FEELS LIKE HE IS BACK AT HIS BASELINE AND AGAIN ON 2LITERS. HE IS CONCERNED ABOUT THE SAFETY OF HIS CURRENT HOUSING AND ASKING ABOUT ANY RESOURCES WE MAY BE AWARE OF IN [facility].
[2021-09-27 04:56] LABS: Hematocrit 36.6 % (37.0-53.0); Hemoglobin 11.7 g/dL (13.5-17.5); Mean Corpuscular HGB 30.2 pg (26.0-34.0); Mean Corpuscular Volume 95 fL (80-100); Mean Platelet Volume 10.6 fL (9.1-12.4); Platelet Count 226 K/mm3 (150-400); RDW Coefficient Variation 13.2 % (11.7-14.2); RDW Standard Deviation 46.2 fL (35.1-46.3); Red Blood Cell Count 3.87 M/mm3 (4.30-5.90); White Blood Cell Count 18.29 K/mm3 (4.00-11.30)
[2021-09-27 05:21] LABS: Anion Gap 5 mmol/L (6-16); Blood Urea Nitrogen 31 mg/dL (8-24); Bun/Creatinine Ratio 40.8 (12.0-20.0); CO2, Blood 32 mmol/L (21-32); Chloride, Blood 104 mmol/L (98-108); Creatinine, Blood 0.76 mg/dL (0.60-1.20); Glomerular Filtration Rate >60 (60-); Glucose, Blood 130 mg/dL (70-99); Potassium, Blood 4.5 mmol/L (3.5-5.5); Sodium, Blood 141 mmol/L (136-145)
--- NOTE | 2021-09-27 18:19 | NUR ---
ALERT. VERT TALKATIVE. INDEPENDENT IN ROOM. EXERTIONAL DYSPNEA. ON 2 LPM WHICH IS BASELINE. IV PATENT. POSSIBLE D'C TOMORROW. WCTM
--- NOTE | 2021-09-28 04:56 | NUR ---
much better night than the previous night. Juancho was more relaxed and able to sleep. He remained on one liter NC for the entire shift. Still SOB with minimal exertion or speech
[2021-09-28] MEDS ORDERED: OMEP20ER PO (13:45)
[2021-09-28] MEDS ORDERED: PRED20 (13:52)
--- NOTE | 2021-09-28 16:32 | NUR ---
REVIEWED D'C WITH PATIENT. AWARE NEEDS TO MAKE FOLLOW UP APPOINTMENT WITH PCP. AWARE HAS MEDS AT [facility] THAT CAN BE STARTED TOMORROW. AWARE CAN RETURN TO [facility] IF ANY PROBLEMS. [facility] [place] DELIVERED OXYGEN TANK. AWAITING RIDE FROM [facility]. ANSWER ALL QUESTIONS. VERBALIZES UNDERSTANDING.
--- NOTE | 2021-09-28 21:30 | NUR ---
DISCHARGE DISCHAGRE BEING HELD FOR ANOTHER DAY DUE TO MIX UP WITH TRANSPORTATION COMPANY. IT WAS PAST 2100 AND PT DID NOT WANT TO BE DISCHARGED SO LATE IN THE EVENING. PT TO STAY ANOTHER NIGHT, AND TRANSPORTATION TO BE ARRANGED AGA FOR PT TOMORROW. IV WAS REMOVED BY DAYSHIFT RN. PT IS RESTING IN BED WITHOOUT DISTRESS. HS MEDICATIONS HAVE BEEN GIVEN. WILL CONTINUE TO MONITOR.
--- NOTE | 2021-09-29 04:16 | NUR ---
SHIFT SUMMARY PT HAS SLEPT COMFORTABLY T/O THE NIGHT, NO ACUTE CHANGES. DISCHARGE TO HAPPEN TODAY, AND PT TO USE [employer] FOR TRANSPORT BACK TO [place]. PT HAS BEEN PLESANT AND COOPERATIVE WITH CARE, INDEPENDENT IN THE ROOM. BED IN LOWEST POSITION, CALL LIGHT WITHIN REACH.
--- NOTE | 2021-09-29 06:53 | NUR ---
DISCHARGE CALL FROM [facility] AT 0650, TRANSPORTATION HAS BEEN ARRANGED. [employer] TO PICK PT UP IN AN HOUR. WILL NOTIFY PT AND DAYSHIFT RN.
--- NOTE | 2021-09-29 09:53 | NUR ---
PT WAITING FOR TX TO D/C AT START OF SHIFT. TOD TAXI PROVIDED. PT TAKEN OUT VIA W/C BY ANGEL
[2021-09-30] MEDS ORDERED: MAGNESIUM OXID500 MG PO (21:41)
== END 2021-09-29 08:05 | disposition home or self-care (01) | DRG 189 ==
LOC: ER 04:19 → PCU 06:49 → MEDS 09-26 18:45
PROVIDERS: Internal Medicine; Student in an Organized Health Care Education/Training Program; ADMIT Family Medicine
PROC: 5A09457 Assistance with Respiratory Ventilation, 24-96 Consecutive Hours, Continuous Positive Airway Pressure (ICD-10-PCS; principal; 2021-09-25)
DX: J96.21 Acute and chronic respiratory failure with hypoxia (principal); J44.1 Chronic obstructive pulmonary disease with (acute) exacerbation; E46 Unspecified protein-calorie malnutrition; Z20.822 Contact with and (suspected) exposure to COVID-19; F17.210 Nicotine dependence, cigarettes, uncomplicated; J96.22 Acute and chronic respiratory failure with hypercapnia; D63.8 Anemia in other chronic diseases classified elsewhere; F41.9 Anxiety disorder, unspecified; F43.10 Post-traumatic stress disorder, unspecified; D72.829 Elevated white blood cell count, unspecified; N40.0 Benign prostatic hyperplasia without lower urinary tract symptoms; Z98.890 Other specified postprocedural states; Z90.2 Acquired absence of lung [part of]; Z91.048 Other nonmedicinal substance allergy status; Z68.21 Body mass index [BMI] 21.0-21.9, adult
CPT/HCPCS: 0241U; 36415; 71045; 80048; 80053; 82803; 84145; 85025; 85027; 90686; 93005; 93010; 94640; 94644; 94660; 94760; 94762; 96365; 96368; 99285-25; A9270; J0456; J0696; J1650; J2930; J7050

== ENCOUNTER 2022-05-18 11:47 | Emergency (ER) | payer OTHER ==
[~2022-05-18] VITALS: Ht 175.3 cm; Wt 74.8 kg
[~2022-05-18 11:47] MED LIST changes: +ANORO ELLIPTA1 EAC1 INH; +MAGNESIUM OXID500 MG PO; +PRED20
[2022-05-18 12:06] LABS: Hematocrit 42.1 % (37.0-53.0); Hemoglobin 13.5 g/dL (13.5-17.5); Mean Corpuscular HGB 30.4 pg (26.0-34.0); Mean Corpuscular HGB Conc 32.1 g/dL (31.5-36.5); Mean Corpuscular Volume 95 fL (80-100); Mean Platelet Volume 10.8 fL (9.1-12.4); Platelet Count 256 K/mm3 (150-400); RDW Coefficient Variation 12.8 % (11.7-14.2); RDW Standard Deviation 44.7 fL (35.1-46.3); Red Blood Cell Count 4.44 M/mm3 (4.30-5.90); White Blood Cell Count 13.47 K/mm3 (4.00-11.30)
[2022-05-18] MEDS ORDERED: Prednisone10 MG PO (12:16)
[2022-05-18 12:47] LABS: Albumin, Blood 3.9 g/dL (3.4-5.0); Albumin/Globulin Ratio 1.4 (0.8-1.8); Bilirubin, Total 0.3 mg/dL (0.1-1.0); Bun/Creatinine Ratio 43.9 (12.0-20.0); Calcium, Blood 8.9 mg/dL (8.5-10.1); Creatinine, Blood 0.82 mg/dL (0.60-1.20); Globulin, Blood 2.7 g/dL (2.2-4.0); Potassium, Blood 3.6 mmol/L (3.5-5.5); Total Protein, Blood 6.6 g/dL (6.4-8.2)
[2022-05-18 13:06] LABS: BASOPHILS PERCENT MAN 0 % (0-2); EOSINOPHILS ABSOLUTE MAN 0.13 K/mm3 (0.00-0.68); EOSINOPHILS PERCENT MAN 1 % (0-6); LYMPHOCYTES ABSOLUTE MAN 8.89 K/mm3 (0.84-5.20); LYMPHOCYTES PERCENT MAN 66 % (21-46); MONOCYTES ABSOLUTE MAN 1.07 K/mm3 (0.16-1.47); MONOCYTES PERCENT MAN 8 % (4-13); NEUTROPHILS ABSOLUTE MAN 3.36 K/mm3 (1.96-9.15); SEG NEUTROPHILS PERCENT MAN 25 % (41-73); TOTAL CELLS COUNTED 100
[2022-05-18] MEDS ORDERED: Prednisone20 MG PO (13:51)
== END 2022-05-18 14:46 | disposition home or self-care (01) ==
LOC: ER 11:47
PROVIDERS: Emergency Medicine
DX: J44.1 Chronic obstructive pulmonary disease with (acute) exacerbation (principal); Z91.09 Other allergy status, other than to drugs and biological substances; Z79.899 Other long term (current) drug therapy; Z79.82 Long term (current) use of aspirin; Z79.52 Long term (current) use of systemic steroids; Z87.891 Personal history of nicotine dependence
CPT/HCPCS: 36415; 71045; 80053; 84484; 85025; 93005; 93010; 94644; 94664

== ENCOUNTER 2023-01-06 21:13 | Inpatient (IN) | payer OTHER ==
[~2023-01-06] VITALS: Ht 188 cm; Wt 80.5 kg
[~2023-01-06 21:13] MED LIST changes: +Prednisone10 MG
[2023-01-06 21:33] LABS: Hemoglobin 12.9 g/dL (13.5-17.5); Mean Corpuscular HGB Conc 32.3 g/dL (31.5-36.5); Mean Corpuscular Volume 93 fL (80-100); Mean Platelet Volume 10.5 fL (9.1-12.4); Platelet Count 263 K/mm3 (150-400); RDW Coefficient Variation 13.6 % (11.7-14.2); White Blood Cell Count 11.42 K/mm3 (4.00-11.30)
[2023-01-06 21:39] LABS: PCO2 Arterial 64.1 mmHg (35-45); PO2 Arterial 162 mmHg (80-100); pH Blood Arterial 7.26 (7.35-7.45)
[2023-01-06 21:51] LABS: Albumin, Blood 3.9 g/dL (3.4-5.0); Albumin/Globulin Ratio 1.1 (0.8-1.8); Bilirubin, Total 0.2 mg/dL (0.1-1.0); Bun/Creatinine Ratio 31.6 (12.0-20.0); Calcium, Blood 8.8 mg/dL (8.5-10.1); Creatinine, Blood 0.66 mg/dL (0.60-1.20); Globulin, Blood 3.5 g/dL (2.2-4.0); Potassium, Blood 4.5 mmol/L (3.5-5.5); Total Protein, Blood 7.4 g/dL (6.4-8.2)
[2023-01-06 22:04] LABS: Source, Urine Clean Catch
[2023-01-06 22:09] LABS: Bilirubin, Urine Neg (Neg); Blood, Urine Neg (Neg); Glucose Qualitative, Urine Neg (Neg); Ketones, Urine Neg (Neg); Leukocyte Esterase, Urine Neg (Neg); Nitrite, Urine Neg (Neg); Protein, Urine 1+ (Neg); Specific Gravity, Urine 1.025 (1.003-1.022); Urobilinogen, Urine NORM (Normal)
[2023-01-06 22:11] LABS: BASOPHILS PERCENT MAN 0 % (0-2); EOSINOPHILS ABSOLUTE MAN 0.11 K/mm3 (0.00-0.68); EOSINOPHILS PERCENT MAN 1 % (0-6); LYMPHOCYTES % ATYPICAL MANUAL 1 % (0-0); LYMPHOCYTES ABSOLUTE MAN 5.48 K/mm3 (0.84-5.20); LYMPHOCYTES PERCENT MAN 47 % (21-46); MONOCYTES ABSOLUTE MAN 0.45 K/mm3 (0.16-1.47); MONOCYTES PERCENT MAN 4 % (4-13); NEUTROPHILS ABSOLUTE MAN 5.36 K/mm3 (1.96-9.15); SEG NEUTROPHILS PERCENT MAN 47 % (41-73); TOTAL CELLS COUNTED 100
[2023-01-06 22:30] LABS: Influenza A, PCR NEGATIVE (NEGATIVE); Influenza B, PCR NEGATIVE (NEGATIVE); Resp Syncytial Virus, PCR NEGATIVE (NEGATIVE); SARS-Cov-2 (COVID-19) PCR, MMC NEGATIVE (NEGATIVE)
[2023-01-06 22:42] LABS: Appearance, Urine Clear (Clear); Color, Urine Yellow (P-Yellow)
[2023-01-06 23:30] VITALS: BP 106/76
[2023-01-06 23:45] VITALS: BP 109/74
[2023-01-07] VITALS (41 sets, daily range): BP systolic 94–131; BP diastolic 58–102
--- NOTE | 2023-01-07 | NUR ---
ASSUMED CARE PT ARRIVED ON UNIT W/ VENT SETTINGS AT 16/450/5/50%. VSS, EXCLUDING TEMP; 95.6 PER RECTAL PROBE/AXILLARY PROBE. BEAR HUGGER IN PLACE. PT WAS GIVEN PROPOFOL PUSH PER REPORT BEFORE HEADING TO UNIT AND WOKE UPON TRANSFERRING BEDS. VERSED GIVEN PER ORDER AND PT IS NOW RESTING QUIETLY IN BED. WHEN PT WOKE HE WAS A&O TO PERSON, PLACE, AND SURROUNDINGS. FOLLOWED COMMANDS APPROPRIATELY. PROPOFOL INFUSING (SEE FLOWSHEET). JAMA CATHETER PATENT AND DRAINING TO GRAVITY.
[2023-01-07 01:12] LABS: Source, Urine Foley catheter
[2023-01-07 01:44] LABS: Bilirubin, Urine Neg (Neg); Blood, Urine Neg (Neg); Glucose Qualitative, Urine Neg (Neg); Ketones, Urine 3+ (Neg); Leukocyte Esterase, Urine Neg (Neg); Nitrite, Urine Pos (Neg); Protein, Urine 2+ (Neg); Urobilinogen, Urine 1+ (Normal)
[2023-01-07 01:45] LABS: Appearance, Urine Turbid (Clear); Color, Urine Yellow (P-Yellow)
[2023-01-07 01:47] LABS: Amorphous Mod (0-Heavy); Bacteria Rare /hpf; Red Blood Cells, Urine 0-2 /hpf (0-2); Squamous Epithelial Cells Not Seen /hpf (Few); White Blood Cells, Urine 0-2 /hpf (0-5)
[2023-01-07 02:02] LABS: BASOPHILS ABSOLUTE AUTO 0.02 K/mm3 (0.00-0.23); BASOPHILS PERCENT AUTO 0 % (0-2); EOSINOPHILS ABSOLUTE AUTO 0.02 K/mm3 (0.00-0.68); EOSINOPHILS PERCENT AUTO 0 % (0-6); Hemoglobin 12.3 g/dL (13.5-17.5); IMMATURE GRAN ABSOLUTE AUTO 0.04 K/mm3 (0.00-0.10); IMMATURE GRAN PERCENT AUTO 0 % (0-1); LYMPHOCYTES ABSOLUTE AUTO 1.76 K/mm3 (0.84-5.20); LYMPHOCYTES PERCENT AUTO 14 % (21-46); MONOCYTES ABSOLUTE AUTO 0.29 K/mm3 (0.16-1.47); MONOCYTES PERCENT AUTO 2 % (4-13); Mean Corpuscular HGB 29.8 pg (26.0-34.0); Mean Corpuscular HGB Conc 32.4 g/dL (31.5-36.5); Mean Corpuscular Volume 92 fL (80-100); Mean Platelet Volume 10.5 fL (9.1-12.4); NEUTROPHILS ABSOLUTE AUTO 10.39 K/mm3 (1.96-9.15); NEUTROPHILS PERCENT AUTO 83 % (41-73); Platelet Count 217 K/mm3 (150-400); RDW Coefficient Variation 13.6 % (11.7-14.2); RDW Standard Deviation 46.4 fL (35.1-46.3); Red Blood Cell Count 4.13 M/mm3 (4.30-5.90); White Blood Cell Count 12.52 K/mm3 (4.00-11.30)
[2023-01-07 02:31] LABS: Albumin, Blood 3.6 g/dL (3.4-5.0); Albumin/Globulin Ratio 1.2 (0.8-1.8); Bilirubin, Total 0.5 mg/dL (0.1-1.0); Bun/Creatinine Ratio 35.3 (12.0-20.0); Calcium, Blood 8.5 mg/dL (8.5-10.1); Creatinine, Blood 0.74 mg/dL (0.60-1.20); Total Protein, Blood 6.6 g/dL (6.4-8.2)
--- NOTE | 2023-01-07 03:51 | NUR ---
UPDATE PT IS A&O X4, PT COMMUNICATING THROUGH WRITING AND ASKING QUESTIONS ABOUT CARE. PT MENTIONED DESIRE TO HAVE HOME MACHINE HERE AT HOSPITAL ([facility]).
--- NOTE | 2023-01-07 05:48 | NUR ---
PT INTUBATED; SPO2 >92%. PT IS A&O X4, COMMUNICATING WELL/APPROPRIATELY THROUGH WRITING AND FOLLOWS COMMANDS. PT INFORMED THIS RN THAT HE HAS BED BUGS AT HOME AND HAS RECIEVED 2 TREATMENTS, BUT HAD STILL BEEN SEEING THEM. NO OTHER EVENTS BESIDES THOSE LISTED IN PREVIOUS NOTES.
--- NOTE | 2023-01-07 06:24 | NUR ---
SHIFT SUMMARY NO ACUTE CHANGES DURING SHIFT. REMAINS INTUBATED. SEDATED WITH PROPOFOL AT 30MCG/KG/MIN. SEDATION VACATION DONE THIS AM. PT OPENS EYES AND MOVES EXTREMITIES, BUT DOES NOT FOLLOW ANY COMMANDS. MEDICATED WITH FENTANYL 25MCG IV X 2 DOSES FOR PAIN AND A SEDATION ADJUNCT. OG WITH VITAL HIGH PROTEIN AT GOAL RATE OF 45MLS/HR. JAMA PATENT AND DRAINING TO GRAVITY. WOUND VAC IN PLACE TO RIGHT INNER THIGH. WILL REPORT TO ONCOMING RN WHEN AVAILABLE.
--- NOTE | 2023-01-07 09:48 | NUR ---
CARE OF PT ASSUMED AT 0700. PT WIDE AWAKE ON VENT: SPONT 06/17 30% THIS AM. PROPOFOL INITIALLY AT 10MCG. PROPOFOL TURNED OFF. PT ABLE TO WRITE AND REQUEST THE TUBE TO BE REMOVED. DR FRANCOIS CALLED AND WAS DOWN SHORTLY TO EVALUATE PT. ORDERS RECEIVED TO EXTUBATE PT, PT EXTUBATED AT 0825 BY RT. 4L O2 VIA N/C PLACED. SATS HIGH 90'S. RESTRAINTS REMOVED. PT STATES HE HAS BEEN DEALING WITH BEDBUGS AT HOME. HE FIRST NOTICED THEM SEVERAL WEEKS AGO AND HAS BEEN TREATING THEM HIMSELF WITH DIATOMACEOUS EARTH. PT IN CONTACT PRECAUTIONS FOR THIS. FULL BEDBATH GIVEN THIS AM, NO BUGS NOTED. JAMA CATH REMOVED W/O DIFF. PT AWAKE AND ALERT, DENIES COMPLAINTS. O2 DECREASED TO 2L, SATS 96%. VSS.
--- NOTE | 2023-01-07 13:03 | NUR ---
ADMIT COMPLETED. PT STATES HE TAKES ONE ADDITIONAL INHALER BUT CAN'T REMEMBER THE NAME, WILL CHECK W PT'S PHARMACY. PT STATES HE NO LONGER TAKES XANAX OR BUSPAR. PT ENCORAGED TO GET OOB INTO CHAIR BUT DECLINED FOR NOW. PT ABLE TO SPEAK IN LONG SENTENCES WITHOUT DYSPNEA.
--- NOTE | 2023-01-07 13:59 | NUR ---
PT'S PHARMACY CALLED, MEDICATIONS UPDATED. DR FRANCOIS UPDATED. PT NOW MED STATUS NO TELE.
--- NOTE | 2023-01-07 14:16 | NUR ---
Patient is lying in bed and resting but easily awakens to the sound of his name. He tells me about the drama in the [place] park [place] he [place] in, about the recent broken relationships that he has experienced and his concerns about mold in his trailer. He states that he is not coping real well with all these things but asks that I would pray for those he is having a difficult time with his neighbors, for his health and for new healthier living arrangements. I gladly pray for these things with the patient and for the patient to forgive and find peace. Patient voices appreciation for the prayer and conversation and showed signs of reduced stress. I will continue to remain available to patient and family
--- NOTE | 2023-01-07 16:50 | NUR ---
PT TRANSFERED TO ROOM 341 IN STABLE CONDITION VIA W/C.
--- NOTE | 2023-01-07 19:30 | NUR ---
TRANSFER SUMMARY PTN TRANSFER FROM ICU. PTN SETTLED IN AFTER REPORT FROM MARLEEN. PTN NO C/O OF SOB AT THIS TIME, 2L O2 SATURATIONS IN HIGH 90'S ALL DAY IN ICU PER REPORT. ISOLATION SET UP FOR HX BEDBUGS IN HOME. PLAN FOR POSSIBLE D/C TOMORROW. CONTINUE PLAN OF CARE.
[2023-01-08 05:56] VITALS: BP 95/62
[2023-01-08 05:57] LABS: BASOPHILS ABSOLUTE AUTO 0.01 K/mm3 (0.00-0.23); BASOPHILS PERCENT AUTO 0 % (0-2); EOSINOPHILS PERCENT AUTO 0 % (0-6); Hemoglobin 12.1 g/dL (13.5-17.5); IMMATURE GRAN ABSOLUTE AUTO 0.05 K/mm3 (0.00-0.10); IMMATURE GRAN PERCENT AUTO 0 % (0-1); LYMPHOCYTES ABSOLUTE AUTO 2.32 K/mm3 (0.84-5.20); LYMPHOCYTES PERCENT AUTO 20 % (21-46); MONOCYTES ABSOLUTE AUTO 0.33 K/mm3 (0.16-1.47); MONOCYTES PERCENT AUTO 3 % (4-13); Mean Corpuscular HGB 29.8 pg (26.0-34.0); Mean Corpuscular HGB Conc 32.7 g/dL (31.5-36.5); Mean Corpuscular Volume 91 fL (80-100); Mean Platelet Volume 10.9 fL (9.1-12.4); NEUTROPHILS ABSOLUTE AUTO 8.83 K/mm3 (1.96-9.15); NEUTROPHILS PERCENT AUTO 77 % (41-73); Platelet Count 222 K/mm3 (150-400); RDW Coefficient Variation 13.8 % (11.7-14.2); RDW Standard Deviation 46.6 fL (35.1-46.3); Red Blood Cell Count 4.06 M/mm3 (4.30-5.90); White Blood Cell Count 11.54 K/mm3 (4.00-11.30)
[2023-01-08 06:42] LABS: Bun/Creatinine Ratio 36.3 (12.0-20.0); Calcium, Blood 8.7 mg/dL (8.5-10.1); Creatinine, Blood 0.77 mg/dL (0.60-1.20); Potassium, Blood 4.6 mmol/L (3.5-5.5)
--- NOTE | 2023-01-08 06:43 | NUR ---
Shift Summary AOX4, no c/o of SoB or pain. O2 saturation > 96% on 2L NC. Pt in isolation for potential bed bugs. Slept well t/o the night. Independent in room, pleasant and cooperative with care.
[2023-01-08 08:00] VITALS: BP 115/71
[2023-01-08 14:38] VITALS: BP 119/67
--- NOTE | 2023-01-08 16:21 | NUR ---
SHIFT SUMMARY: PATIENT A&OX4. CALM, PLEASANT AND COOPERATIVE c CARE. USES CALL LIGHT APPROPRIATELY AND ABLE TO MAKE NEEDS KNOWN. PATIENT ON CONTACT ISOLATION FOR BED BUGS. PATIENT REPORTS FEELING BETTER TODAY COMPARED YESTERDAY. DENIES CP/PRESSURE, N/V, SOB AND GENERALIZED PAIN. PATIENT ON 2L OF O2 VIA NC c SPO2 95% T/O SHIFT. PATIENT REPORTS BASELINE HOME O2 3L VIA NC. LUNGS CLEAR AND DIMINISHED T/O TO AUSCULTATION. PATIENT AMBULATES TO BATHROOM AND BACK IN BED INDEPENDENTLY. RECEIVED SCHEDULED MEDS PER EMAR. VITAL SIGNS REVIEWED. IV TO L HAND AND R WRIST SALINE LOCKED. CALL LIGHT IN REACH.
[2023-01-08 22:41] VITALS: BP 117/71
[2023-01-09 06:06] LABS: BASOPHILS ABSOLUTE AUTO 0.01 K/mm3 (0.00-0.23); BASOPHILS PERCENT AUTO 0 % (0-2); EOSINOPHILS PERCENT AUTO 0 % (0-6); Hematocrit 37.5 % (37.0-53.0); Hemoglobin 11.9 g/dL (13.5-17.5); IMMATURE GRAN ABSOLUTE AUTO 0.05 K/mm3 (0.00-0.10); IMMATURE GRAN PERCENT AUTO 0 % (0-1); LYMPHOCYTES ABSOLUTE AUTO 2.65 K/mm3 (0.84-5.20); LYMPHOCYTES PERCENT AUTO 23 % (21-46); MONOCYTES ABSOLUTE AUTO 0.37 K/mm3 (0.16-1.47); MONOCYTES PERCENT AUTO 3 % (4-13); Mean Corpuscular HGB 29.4 pg (26.0-34.0); Mean Corpuscular HGB Conc 31.7 g/dL (31.5-36.5); Mean Corpuscular Volume 93 fL (80-100); Mean Platelet Volume 10.8 fL (9.1-12.4); NEUTROPHILS ABSOLUTE AUTO 8.23 K/mm3 (1.96-9.15); NEUTROPHILS PERCENT AUTO 73 % (41-73); Platelet Count 222 K/mm3 (150-400); RDW Coefficient Variation 13.9 % (11.7-14.2); RDW Standard Deviation 47.5 fL (35.1-46.3); Red Blood Cell Count 4.05 M/mm3 (4.30-5.90); White Blood Cell Count 11.31 K/mm3 (4.00-11.30)
--- NOTE | 2023-01-09 06:09 | NUR ---
Shift Summary Pt c/o SoB and was experiencing dyspnea early in the shift. He stated at home he uses BiPAP 16 hours/day and needed it because he felt an exasurbation coming on. Called hospitalist who ordered BiPAP protocol, RT put him on BiPAP. Pt states he felt much better and then slept well t/o the night. On cont. BiOx, no desaturations. slept well t/o the night. VSS, independent in room, AOX4.
[2023-01-09 06:45] LABS: Albumin, Blood 3.2 g/dL (3.4-5.0); Anion Gap 3 mmol/L (6-16); Blood Urea Nitrogen 33 mg/dL (8-24); Bun/Creatinine Ratio 47.6 (12.0-20.0); CO2, Blood 29 mmol/L (21-32); Calcium, Blood 8.8 mg/dL (8.5-10.1); Chloride, Blood 108 mmol/L (98-108); Creatinine, Blood 0.69 mg/dL (0.60-1.20); Glomerular Filtration Rate 106 (60-); Glucose, Blood 138 mg/dL (70-99); Phosphorus, Blood 3.8 mg/dL (2.5-4.9); Potassium, Blood 4.8 mmol/L (3.5-5.5); Sodium, Blood 140 mmol/L (136-145)
[2023-01-09 07:53] VITALS: BP 122/77
[2023-01-09 15:11] VITALS: BP 120/72
--- NOTE | 2023-01-09 18:16 | NUR ---
SHIFT SUMMARY: NO NEW ACUTE CHANGES IN PATIENT CONDITION THIS SHIFT. PATIENT A&OX4. CALM, PLEASANT AND COOPERATIVE c CARE. USES CALL LIGHT APPROPRIATELY AND ABLE TO MAKE NEEDS KNOWN. STILL ON CONTACT ISOLATION FOR BED BUGS. ON O2 2L VIA NC c SPO2 RANGES 95-96% T/O SHIFT. PER PATIENT AT HOME BASELINE ON 3L OF O2 AND WEARS BIPAP AT HS. PATIENT HAD 1 MEDIUM FORMED BROWM BM THIS SHIFT. PATIENT REPORTS MILD ABDOMINAL DISTENTION. THIS RN ENCOURAGE PATIENT TO AMBULATES IN ROOM ROBINSON. PATIENT AMBULATES TO BATHROOM T/O SHIFT. PATIENT TOOK A SHOWER c MINIMAL ASSIST AND TOLERATED WELL. VITAL SIGNS REVIEWED. PIV L HAND AND R WRIST SALINE LOCKED. CALL LIGHT IN REACH.
[2023-01-09 20:11] VITALS: BP 124/73
--- NOTE | 2023-01-10 04:11 | NUR ---
SHIFT SUMMARY- PT IS A/O, PLESANT AND COOPERATIVE. HE SLEPT FOR THE DURATION OF THIS SHIFT. BED IS IN THE LOW POSITION AND CALL LIGHT IS WITIN REACH.
[2023-01-10 04:27] VITALS: BP 134/77
[2023-01-10 08:06] VITALS: BP 115/68
[2023-01-10] MEDS ORDERED: FLUT1DIS5 INH (11:35)
[2023-01-10] MEDS ORDERED: OMEP20ER PO (11:35)
[2023-01-10] MEDS ORDERED: Prednisone10 MG PO (11:42)
--- NOTE | 2023-01-10 13:13 | NUR ---
NOTE/DISCHARGE SUMMARY: PATIENT A&OX4. CALM, PLEASANT AND COOPERATIVE c CARE. USES CALL LIGHT APPROPRIATELY AND ABLE TO MAKE NEEDS KNOWN. PATIENT DENIES CP/PRESSURE, SOB, N/V AND GENERALIZED PAIN. PATIENT ON 2L OF O2 VIA NC c SPO2 RANGES 94-97%. PER PATIENT BASELINE HOME 02 3L VIA NC AND WEARS BIPAP AT HS. LUNGS CLEAR/DIM T/O TO AUSCULTATION. REPORTS PRODUCTIVE COUGH c YELLOW COLOR SPUTUM. PATIENT REPORTS HAD 1 MIDIUM BM YESTERDAY AND 1 MEDIUM BM LAST NIGHT. PER PATIENT "I FEELS BETTER c LESS DISTENDED TO MY ABDOMEN, AND I'M READY TO GO HOME". RECEIVED SCHEDULED MEDS PER EMAR. VITAL SIGNS REVIEWED. PIV TO L HAND AND R WRIST DC'D. PATIENT DISCHARGE HOME. DISCHARGE INSTRUCTION PACKET GIVEN TO PATIENT. EDUCATE PATIENT REGARDING ADMITTING DX, S/S, TX AND NEW PRESCRIBED MEDICATIONS. PATIENT STATED UNDERSTANDING AND NO FURTHER QUESTION AT THIS TIME. RX WAS FAXED TO [facility] IN [place]. PORTABLE O2 WAS DELIVERED TO PATIENT ROOM BY [facility] . ALL PATIENT PERSONAL BELONGINGS WERE SENT HOME c THE PATIENT. PATIENT LEFT THE ROOM AT AROUND 1310. PATIENT WAS TRANSPORTED VIA WHEELCHAIR BY [employer] FINISHER STAFF, CAROLYN SMALL TO PATIENT ENTRANCE.
== END 2023-01-10 13:26 | disposition home or self-care (01) | DRG 208 ==
LOC: ER 21:13 → ICUW 23:11 → MEDS 23:11 → ICUW 23:22 → MEDS 01-07 15:34 → ICUW 01-07 15:47 → MEDS 01-07 16:23
PROVIDERS: Emergency Medicine; Family Medicine; Internal Medicine; ADMIT Internal Medicine
PROC: 5A1935Z Respiratory Ventilation, Less than 24 Consecutive Hours (ICD-10-PCS; principal; 2023-01-06)
PROC: 0BH17EZ Insertion of Endotracheal Airway into Trachea, Via Natural or Artificial Opening (ICD-10-PCS; 2023-01-06)
PROC: 4A033R1 Measurement of Arterial Saturation, Peripheral, Percutaneous Approach (ICD-10-PCS; 2023-01-06)
PROC: 5A09457 Assistance with Respiratory Ventilation, 24-96 Consecutive Hours, Continuous Positive Airway Pressure (ICD-10-PCS; 2023-01-06)
DX: J96.21 Acute and chronic respiratory failure with hypoxia (principal); J44.1 Chronic obstructive pulmonary disease with (acute) exacerbation; E87.29 Other acidosis; J96.22 Acute and chronic respiratory failure with hypercapnia; D72.829 Elevated white blood cell count, unspecified; F43.10 Post-traumatic stress disorder, unspecified; N40.0 Benign prostatic hyperplasia without lower urinary tract symptoms; D64.9 Anemia, unspecified; Z20.822 Contact with and (suspected) exposure to COVID-19; F17.210 Nicotine dependence, cigarettes, uncomplicated; Z79.82 Long term (current) use of aspirin; Z79.51 Long term (current) use of inhaled steroids; Z79.899 Other long term (current) drug therapy; Z71.6 Tobacco abuse counseling; Z79.52 Long term (current) use of systemic steroids; Z88.8 Allergy status to other drugs, medicaments and biological substances; Z90.2 Acquired absence of lung [part of]; Z99.81 Dependence on supplemental oxygen; Z91.09 Other allergy status, other than to drugs and biological substances; Z98.890 Other specified postprocedural states
CPT/HCPCS: 0241U; 36415; 36416; 36600; 51702; 71045; 80048; 80053; 80069; 81001; 82803; 83880; 84484; 85025; 87070; 87086; 87205; 93005; 93010; 94002; 94003; 94640; 94660; 94664; 94760; 94762; 96374-59; 99291-25; A9270; J0456; J1650; J1885; J2250; J2704; J2930; J3010; J7030; J7050

== ENCOUNTER 2023-01-16 23:53 | Inpatient (IN) | payer OTHER ==
[~2023-01-16] VITALS: Ht 172.7 cm; Wt 80.8 kg
[2023-01-17] VITALS (58 sets, daily range): BP systolic 82–131; BP diastolic 50–90
[2023-01-17 00:19] LABS: BASOPHILS ABSOLUTE AUTO 0.08 K/mm3 (0.00-0.23); BASOPHILS PERCENT AUTO 0 % (0-2); EOSINOPHILS ABSOLUTE AUTO 0.14 K/mm3 (0.00-0.68); EOSINOPHILS PERCENT AUTO 0 % (0-6); Hematocrit 32.8 % (37.0-53.0); Hemoglobin 10.2 g/dL (13.5-17.5); Mean Corpuscular HGB 30.1 pg (26.0-34.0); Mean Corpuscular HGB Conc 31.1 g/dL (31.5-36.5); Mean Corpuscular Volume 97 fL (80-100); Mean Platelet Volume 10.3 fL (9.1-12.4); Platelet Count 226 K/mm3 (150-400); RDW Coefficient Variation 13.4 % (11.7-14.2); RDW Standard Deviation 47.8 fL (35.1-46.3); Red Blood Cell Count 3.39 M/mm3 (4.30-5.90); White Blood Cell Count 33.17 K/mm3 (4.00-11.30)
[2023-01-17 00:23] LABS: IMMATURE GRAN ABSOLUTE AUTO 1.59 K/mm3 (0.00-0.10); IMMATURE GRAN PERCENT AUTO 5 % (0-1); LYMPHOCYTES ABSOLUTE AUTO 15.38 K/mm3 (0.84-5.20); LYMPHOCYTES PERCENT AUTO 46 % (21-46); MONOCYTES PERCENT AUTO 9 % (4-13); NEUTROPHILS ABSOLUTE AUTO 13.08 K/mm3 (1.96-9.15); NEUTROPHILS PERCENT AUTO 40 % (41-73)
[2023-01-17 00:37] LABS: Magnesium, Blood 1.6 mg/dL (1.6-2.4)
[2023-01-17 00:44] LABS: Albumin, Blood 2.2 g/dL (3.4-5.0); Bilirubin, Total 0.2 mg/dL (0.1-1.0); Bun/Creatinine Ratio 36.8 (12.0-20.0); Calcium, Blood 5.4 mg/dL (8.5-10.1); Creatinine, Blood 0.57 mg/dL (0.60-1.20); Globulin, Blood 2.2 g/dL (2.2-4.0); Potassium, Blood 3.1 mmol/L (3.5-5.5); Total Protein, Blood 4.4 g/dL (6.4-8.2)
--- NOTE | 2023-01-17 01:10 | NUR ---
ASSUMED CARE PATIENT ARRIVED FROM ED INTUBATED/SEDATED. PATIENT NOT RESPONDING TO VERBAL/PAINFUL STIMULI. NO FAMILY AT BEDSIDE.
[2023-01-17 02:56] LABS: Base Excess Venous -2.9 mmol/L; Bicarbonate Venous 20.8 mmol/L (24.0-30.0); PCO2 Venous 68.8 mmHg (38-42); pH Blood Venous 7.18 (7.34-7.37)
--- NOTE | 2023-01-17 03:00 | NUR ---
PATIENT ARRIVED FROM ED WITH IO IN LEFT LEG. REMOVED BY XOCHITL ORDOÑEZ.
[2023-01-17 03:46] LABS: Source, Urine Foley catheter
[2023-01-17 03:50] LABS: Bilirubin, Urine Neg (Neg); Blood, Urine 2+ (Neg); Glucose Qualitative, Urine Neg (Neg); Ketones, Urine Neg (Neg); Leukocyte Esterase, Urine Neg (Neg); Nitrite, Urine Neg (Neg); Protein, Urine 2+ (Neg); Urobilinogen, Urine NORM (Normal)
[2023-01-17 04:04] LABS: Amorphous Mod (0-Heavy); Appearance, Urine Hazy (Clear); Bacteria Rare /hpf; Color, Urine Yellow (P-Yellow); Granular Casts 25-50 /lpf (0); Red Blood Cells, Urine 0-2 /hpf (0-2); White Blood Cells, Urine Not Seen /hpf (0-5)
[2023-01-17 04:05] LABS: Squamous Epithelial Cells Rare /hpf (Few)
[2023-01-17 04:28] LABS: Influenza A, PCR NEGATIVE (NEGATIVE); Influenza B, PCR NEGATIVE (NEGATIVE); Resp Syncytial Virus, PCR NEGATIVE (NEGATIVE); SARS-Cov-2 (COVID-19) PCR, MMC NEGATIVE (NEGATIVE)
--- NOTE | 2023-01-17 06:13 | NUR ---
SHIFT SUMMARY PATIENT CONTINUES TO BE INTUBATED/SEDATED. MORE RESPONSIVE. ABLE TO FOLLOW COMMANDS. PATIENT WITH EMESIS X1. OG IN PLACE TO LIS. JAMA IN PLACE TO GRAVITY.
[2023-01-17 06:36] LABS: Base Excess Venous -1.9 mmol/L; Bicarbonate Venous 21.2 mmol/L (24.0-30.0); PCO2 Venous 72.5 mmHg (38-42); pH Blood Venous 7.17 (7.34-7.37)
[2023-01-17 09:36] LABS: Base Excess Venous -0.6 mmol/L; Bicarbonate Venous 23.4 mmol/L (24.0-30.0); PCO2 Venous 51.4 mmHg (38-42); pH Blood Venous 7.31 (7.34-7.37)
[2023-01-17 09:51] LABS: Hematocrit 40.9 % (37.0-53.0); Hemoglobin 12.7 g/dL (13.5-17.5); Mean Corpuscular HGB 30.1 pg (26.0-34.0); Mean Corpuscular HGB Conc 31.1 g/dL (31.5-36.5); Mean Corpuscular Volume 97 fL (80-100); Mean Platelet Volume 10.4 fL (9.1-12.4); Platelet Count 230 K/mm3 (150-400); Red Blood Cell Count 4.22 M/mm3 (4.30-5.90); White Blood Cell Count 36.31 K/mm3 (4.00-11.30)
[2023-01-17 10:11] LABS: Albumin, Blood 3.2 g/dL (3.4-5.0); Albumin/Globulin Ratio 1.1 (0.8-1.8); Bilirubin, Total 0.3 mg/dL (0.1-1.0); Bun/Creatinine Ratio 37.8 (12.0-20.0); Calcium, Blood 7.5 mg/dL (8.5-10.1); Creatinine, Blood 0.74 mg/dL (0.60-1.20); Potassium, Blood 5.1 mmol/L (3.5-5.5); Total Protein, Blood 6.2 g/dL (6.4-8.2)
[2023-01-17 10:26] LABS: CPK Creatine Kinase 185 U/L (39-308)
[2023-01-17 11:16] LABS: BAND PERCENT MAN 2 % (0-8); BASOPHILS PERCENT MAN 0 % (0-2); EOSINOPHILS PERCENT MAN 0 % (0-6); LYMPHOCYTES % ATYPICAL MANUAL 4 % (0-0); LYMPHOCYTES ABSOLUTE MAN 3.99 K/mm3 (0.84-5.20); LYMPHOCYTES PERCENT MAN 7 % (21-46); MONOCYTES ABSOLUTE MAN 1.45 K/mm3 (0.16-1.47); MONOCYTES PERCENT MAN 4 % (4-13); MYELOCYTE ABSOLUTE MAN 0.36 K/mm3 (0.00-0.00); MYELOCYTE PERCENT MAN 1 % (0-0); SEG NEUTROPHILS PERCENT MAN 82 % (41-73); TOTAL CELLS COUNTED 100
--- NOTE | 2023-01-17 17:10 | NUR ---
SHIFT [facility] PT CONTINUES TO REST IN BED. PT INTUBATED, VENT SETTINGS AC/PC 14, PS 16, 30%, 5. PT ALERT, ABLE TO COMMUNICATE BY WRITING AND USING HAND SIGNALS. PROPOFOL GTT INFUSING AT 30MCG/KG/MIN. HR 90-100'S, BP STABLE. PT COMPLAINS OF HEADACHE AND DISCOMFORT, MEDICATED PER EMAR. JAMA DRAINING YELLOW URINE TO GRAVITY. WILL CONTINUE TO MONITOR AND GIVE REPORT TO ONCOMING RN.
[2023-01-17 17:34] LABS: CPK Creatine Kinase 197 U/L (39-308)
--- NOTE | 2023-01-17 21:19 | NUR ---
ASSUMPTION OF CARE/ASSESSMENT: ASSUMED CARE OF PT AT 1900. PT IN BED AND IS A&O X 4; PT USING NOTEPAD TO COMMUNITCATE NEEDS AT THIS TIME. PT TAKEN OUT OF RESTRAINTS AFTER EXPRESSING COMPLETE UNDERSTANDING AFTER SAFETY AND PROTECTION OF ETT WHILE HE IS OUT OF RESTRAINTS. PT INTUBATED WITH SETTINGS AC/PC RATE-14, PS-16, PEEP- 5 AND FIO2 40%. PT LUNG SOUNDS ARE CLEAR WITH DIM BASES; ETT SUCTIONING COMPLETE WITH THICK, WHITE SECRETIONS. PT TOLERATED ORAL CARE WELL, CAPSTICK APPLIED. PT ST ON MONITOR WITH HR 100'S AND SBP 100-110; NO C/O CHEST PAIN OR SOB, BUT DOES C/O THROAT DISCOMFORT. PT MEDICATED PER EMAR FOR THROAT DISCOMFORT. ABD DISTENDED AND FIRM BUT NOT TENDER TO PALPATION. PT HAS OGT IN PLACE THAT IS PATENT AND HOOKED TO LIS. SKIN WARM AND INTACT. PROPOFOL GTT @ 30 MCG. BED LOWERED, CALL LIGHT IN REACH, WILL CONTINUE TO MONITOR.
[2023-01-18] VITALS (69 sets, daily range): BP systolic 88–167; BP diastolic 47–89
--- NOTE | 2023-01-18 00:11 | NUR ---
UPDATE: DURING ASSESSMENT IT WAS OBSERVED THAT THE OGT DRAINGAGE HAD CHANGES FROM BILE TO A COFFE GROUND, MAROON COLOR. DR NOTIFED OF CHANGE IN OGT OUTPUT. PROVIDER WITH ORDER PROTONIX AND REVIEW THE CHART FURTHER TO SEE IF MORE INTERVENTIONS NEED TO BE ADDED AT THIS TIME.
--- NOTE | 2023-01-18 03:22 | NUR ---
UPDATE: ANNA ALTERATIONS WORKROOM CLERK TO BEDSIDE DUE TO PT C/O PANIC ATTACK AND FEELING LIKE HE WAS GOING TO PASS OUT. DARCY RT CALLED TO BEDSIDE TO HELP WITH TACHYPNEA AND VENT MANAGEMNT DURING PANIC ATTACK. THIS RN TO BEDSIDE TO ASSESS PT. PT MEDICATED WITH FENTANYL TO HELP WITH VENT COMPLIANCE. CALL PLACED TO RYE AND ORDERS RECIEVED FOR ONE TIME DOSE OF 1 MG ATIVAN. ONCE GIVEN PT HAS RELAXD AND BREATHING HAS SLOWED DOWN BUT HR REMAINS TACHYCARDIA IN THE 130-140'S AND [T HYPERTENSIVE WITH SB[ 160'S. PT APPEARS TO BE SLEEPING NOW. WILL CONTINUE TO MONITOR CLOSELY.
[2023-01-18 05:37] LABS: Base Excess Venous 5.5 mmol/L; Bicarbonate Venous 28.6 mmol/L (24.0-30.0); PCO2 Venous 42.9 mmHg (38-42); pH Blood Venous 7.45 (7.34-7.37)
[2023-01-18 05:44] LABS: BASOPHILS ABSOLUTE AUTO 0.03 K/mm3 (0.00-0.23); BASOPHILS PERCENT AUTO 0 % (0-2); EOSINOPHILS PERCENT AUTO 0 % (0-6); Hematocrit 36.9 % (37.0-53.0); Hemoglobin 11.9 g/dL (13.5-17.5); IMMATURE GRAN ABSOLUTE AUTO 0.15 K/mm3 (0.00-0.10); IMMATURE GRAN PERCENT AUTO 1 % (0-1); LYMPHOCYTES ABSOLUTE AUTO 4.49 K/mm3 (0.84-5.20); LYMPHOCYTES PERCENT AUTO 20 % (21-46); MONOCYTES ABSOLUTE AUTO 1.01 K/mm3 (0.16-1.47); MONOCYTES PERCENT AUTO 4 % (4-13); Mean Corpuscular HGB Conc 32.2 g/dL (31.5-36.5); Mean Corpuscular Volume 93 fL (80-100); Mean Platelet Volume 10.6 fL (9.1-12.4); NEUTROPHILS ABSOLUTE AUTO 17.04 K/mm3 (1.96-9.15); NEUTROPHILS PERCENT AUTO 75 % (41-73); Platelet Count 177 K/mm3 (150-400); RDW Coefficient Variation 14.1 % (11.7-14.2); RDW Standard Deviation 47.8 fL (35.1-46.3); Red Blood Cell Count 3.97 M/mm3 (4.30-5.90); White Blood Cell Count 22.72 K/mm3 (4.00-11.30)
[2023-01-18 06:03] LABS: Albumin, Blood 3.1 g/dL (3.4-5.0); Anion Gap 3 mmol/L (6-16); Blood Urea Nitrogen 32 mg/dL (8-24); CO2, Blood 30 mmol/L (21-32); Calcium, Blood 8.2 mg/dL (8.5-10.1); Chloride, Blood 107 mmol/L (98-108); Glomerular Filtration Rate 101 (60-); Glucose, Blood 167 mg/dL (70-99); Magnesium, Blood 2.7 mg/dL (1.6-2.4); Phosphorus, Blood 3.4 mg/dL (2.5-4.9); Potassium, Blood 4.2 mmol/L (3.5-5.5); Sodium, Blood 140 mmol/L (136-145)
--- NOTE | 2023-01-18 06:32 | NUR ---
SHIFT SUMMARY: AFTER PANIC ATTACK, PT WAS ABLE TO SLEEP FOR 3 HOURS AND VITAL SIGNS HAS STABILIZED. PT REMAINS SR ON MONITOR WITH HR 90'S, SBP 90-100'S, SPO2 99<, AND RR 18-20. VENT SETTINGS AC/PC WITH RATE 14, PS 26, PEEP 12, AND FIO2 35%. PT HAD 600 ML URINE OUTPUT. GASTRIC FLUID OCCULT LAB POSITIVE; 400 ML OGT OUTPUT, COFFEE-GROUND/MAROON COLOR. PT REMAINS IN FOWLERS POSITION BECAUSE THAT IS THE MOST COMFORTABLY FOR HIM. PT HAD A CHG BED BATH AND COMPLETE LINEN CHANGEP; PT TOLERATED WELL. PT REMAINS OUT OF RESTRAINTS AT THIS TIME AND HAS BEEN COOPERATIVE AND UNDERSTANDING OF SAFETY AND PROTECTION OF ETT. BED LOWERED, CALL LIGHT IN PLACE, WILL CONTINUE TO MONITOR UNTIL ONCOMING RN ARRIVES.
--- NOTE | 2023-01-18 13:00 | NUR ---
PT TO CT WITH RT, RN, AND PHOTOVOLTAIC PANEL INSTALLER
--- NOTE | 2023-01-18 13:20 | NUR ---
PT BACK FROM CT
--- NOTE | 2023-01-18 18:21 | NUR ---
END OF SHIFT SUMMARY: NEURO: PATIENT IS A&OX4. PATIENT WAS NOT RECIEVING ANY SEDATION AT THE BEGINNING OF SHIFT. IT BECAME DIFFICULT FOR PT TO TOLERATE VENT. PATIENT WAS STARTED ON PROPOFOL AND TIRTRATED TO EFFECT. RESP: PATIENT IS INTUBATED, VENT SETTINGS CHANGED TO PS OF 10 THIS AM. HAS TOLERATED WELL SINCE. PATIENT WENT TO CT FOR A PE THIS AFTERNOON. CARDIO: PATIENT HAS BEEN SINUS/ SINUS TACH 80-90S THROUGHT THE DAY. GI: PATIENT HAS AN OG TUBE IN PLACE. TUBE FEEDINGS WERE STARTED TODAY AT A RATE OF 20ML/HR WITH A GOAL OF 20ML/HR. NO BM. : JAMA CATHETER IN PLACE. SKIN: WNL IVS: 20G RHA, 20G RAC.BOTH LINES PATENT AND FLUSHING.
--- NOTE | 2023-01-18 19:25 | NUR ---
ASSUMED CARE PATIENT INTUBATED/SEDATED. VS STABLE. NO FAMILY AT BEDSIDE. JAMA IN PLACE TO GRAVITY. TUBE FEEDS INFUSING.
[2023-01-19] VITALS (23 sets, daily range): BP systolic 95–164; BP diastolic 48–85
[2023-01-19 03:58] LABS: Bun/Creatinine Ratio 55.2 (12.0-20.0); Calcium, Blood 7.7 mg/dL (8.5-10.1); Creatinine, Blood 0.71 mg/dL (0.60-1.20); Magnesium, Blood 2.5 mg/dL (1.6-2.4); Phosphorus, Blood 2.3 mg/dL (2.5-4.9); Potassium, Blood 4.4 mmol/L (3.5-5.5)
--- NOTE | 2023-01-19 06:22 | NUR ---
SHIFT SUMMARY PATIENT CONTINUES TO BE INTUBATED/SEDATED. DOES FOLLOW VERBAL COMMANDS AND COMMUNICATES VIA WRITTING. TOLERATING VENTILATION. COMPLAINTS OF ANXIETY. TUBE FEEDS INFUSING, JAMA IN PLACE TO GRAVITY ADEQUATE OUTPUT.
--- NOTE | 2023-01-19 08:30 | NUR ---
INITIAL ASSESSMENT PATIENT ON VENTILATOR AND LOW DOSE PROPOFOL AT 15 MCG/ KG/ MINUTE. PATIENT ALERT AND ABLE TO FOLLOW COMMANDS. PATIENT ABLE TO WRITE TO COMMUNICATE WITH NURSE. PATIENT CALM AT THIS TIME BUT CAN BECOME ANXIOUS. PATIENT AFEBRILE. NO COMPLAINTS OF PAIN AT THIS TIME. LUNGS CLEAR IN UPPER LOBES, DIM IN LOWER LOBES. PATIENT ON PRESSURE SUPPORT 10, PEEP 5 AND 35% FIO2. SUCTIONING UP SCANT, THICK, YELLOW SPUTUM FROM ETT. PATIENT IN SR, HR IN THE 70S. SBP 90S TO LOW 100S. ABDOMEN MODERATELY DISTENDED, SOFT, NORMOACTIVE BOWEL SOUNDS NOTED. OG AT 55. PIVOT 1.5 INFUSING AT GOAL RATE OF 20 MLS/ HOUR WITH 30 MLS WATER FLUSH Q4H. JAMA DRAINING YELLOW COLORED URINE. SKIN APPEARS C/D/I. DOCUSATE GIVEN NO BM DOCUMENTED SINCE ADMIT. BED LOW, CALL LIGHT IN REACH. WILL CONTINUE TO MONITOR PATIENT FREQUENTLY THROUGHOUT SHIFT.
--- NOTE | 2023-01-19 09:44 | NUR ---
PATIENT EXTUBATED TO 3 L NC. SATS OVER 90% AT THIS TIME.
[2023-01-19 11:25] LABS: BASOPHILS ABSOLUTE AUTO 0.03 K/mm3 (0.00-0.23); BASOPHILS PERCENT AUTO 0 % (0-2); EOSINOPHILS PERCENT AUTO 0 % (0-6); Hematocrit 35.4 % (37.0-53.0); Hemoglobin 11.8 g/dL (13.5-17.5); Mean Corpuscular HGB Conc 33.3 g/dL (31.5-36.5); Mean Corpuscular Volume 90 fL (80-100); Mean Platelet Volume 10.7 fL (9.1-12.4); Platelet Count 178 K/mm3 (150-400); RDW Coefficient Variation 14.2 % (11.7-14.2); RDW Standard Deviation 46.4 fL (35.1-46.3); Red Blood Cell Count 3.93 M/mm3 (4.30-5.90); White Blood Cell Count 23.51 K/mm3 (4.00-11.30)
[2023-01-19 11:29] LABS: IMMATURE GRAN ABSOLUTE AUTO 0.18 K/mm3 (0.00-0.10); IMMATURE GRAN PERCENT AUTO 1 % (0-1); LYMPHOCYTES ABSOLUTE AUTO 6.18 K/mm3 (0.84-5.20); LYMPHOCYTES PERCENT AUTO 26 % (21-46); MONOCYTES ABSOLUTE AUTO 0.97 K/mm3 (0.16-1.47); MONOCYTES PERCENT AUTO 4 % (4-13); NEUTROPHILS ABSOLUTE AUTO 16.15 K/mm3 (1.96-9.15); NEUTROPHILS PERCENT AUTO 69 % (41-73)
--- NOTE | 2023-01-19 12:57 | NUR ---
PATIENT AFEBRILE. PATIENT ALERT AND ORIENTED X 4. HR IN THE 80S. SBP IN THE 140S. PATIENT EITHER ON 3 L NC OR BIPAP 14/7, RATE OF 12 AND 35% FIO2 TO KEEP SATS 90% AND GREATER. SOB WITH EXERTION OR ANXIETY. PRN DOSE OF 1 MG IV ATIVAN HELPED SIGNIFICANTLY WITH ANXIETY PATIENT WAS HAVING NOT LONG AFTER EXTUBATION. OG DC'D WHEN PATIENT EXTUBATED THIS AM. PATIENT PASSED BEDSIDE SWALLOW SCREENING. DIET TO BE INCREASED TOLERATED. NO OTHER ACUTE CHANGES TO NOTE ON AT THIS TIME. NO COMPLAINTS. BED LOW, CALL LIGHT IN REACH. WILL CONTINUE TO MONITOR.
--- NOTE | 2023-01-19 15:42 | NUR ---
Spiritual Care Visit. Pt. is awake and sitting up in a chair when he welcomes my visit. Pt. is unsettled by not feeling safe in his own home in [place]. Listen with empathy and a calming presence. Regarding his health Pt. displaysed evidence of concern regarding the triggers of his heart condition. Rapport is eventually established and matters of albin and belief are discussed. Pt. displayed evidence of awareness and engagement as well as a more peaceful mood. Prayed with Pt. Pt. verbalized gratitude for the spiritual care visit.
--- NOTE | 2023-01-19 16:30 | NUR ---
PATIENT HAS TEMP OF 99.2 DEGREES FAHRENHEIT. HR IN THE LOW 100S. SBP IN THE 140S. NO OTHER ACUTE CHANGES TO NOTE ON AT THIS TIME.
--- NOTE | 2023-01-19 18:52 | NUR ---
SHIFT SUMMARY PATIENT EXTUBATED THIS AM. PATIENT ALERT AND ORIENTED X 4. PATIENT HAD TMAX OF 99.2 DEGREES FAHRENHEIT. 1 TO 2 PERSON ASSIST WITH FWW. PATIENT ON EITHER 3 L NC FOR SHORT TIMES OR BIPAP AT 14/7 AND 35% FIO2 TO KEEP SATS 90% AND GREATER. PATIENT SR TO ST, HR 70S TO LOW 100S. SBP 90S TO 160S. PATIENT HAD LARGE, LOOSE, BROWN BM THIS SHIFT. PATIENT WAS HAPPY TO EAT. PATIENT ADVANCED TO REGULAR, CARDIAC DIET THROUGHOUT DAY. JAMA REMOVED AT 1700; NO VOID AFTER REMOVAL THUS FAR. NO CHANGES TO SKIN NOTED. PATIENT GIVEN PRN FENTANYL TWICE THIS SHIFT FOR COMPLAINTS OF PAIN IN "BONES" AND IN STERNUM. OT WORKED WITH PATIENT. 15 MM SODIUM PHOS GIVEN REPLACEMENT TODAY. ZOLOFT DOSE INCREASED. NO COMPLAINTS AT THIS TIME. REPORT HAS BEEN GIVEN TO ASSUMING WORKFORCE PLANNER NURSE.
[2023-01-20] VITALS (16 sets, daily range): BP systolic 115–167; BP diastolic 69–99
[2023-01-20 03:22] LABS: BASOPHILS ABSOLUTE AUTO 0.03 K/mm3 (0.00-0.23); BASOPHILS PERCENT AUTO 0 % (0-2); EOSINOPHILS PERCENT AUTO 0 % (0-6); Hematocrit 34.4 % (37.0-53.0); Hemoglobin 11.2 g/dL (13.5-17.5); IMMATURE GRAN ABSOLUTE AUTO 0.13 K/mm3 (0.00-0.10); IMMATURE GRAN PERCENT AUTO 1 % (0-1); LYMPHOCYTES ABSOLUTE AUTO 4.65 K/mm3 (0.84-5.20); LYMPHOCYTES PERCENT AUTO 23 % (21-46); MONOCYTES ABSOLUTE AUTO 0.97 K/mm3 (0.16-1.47); MONOCYTES PERCENT AUTO 5 % (4-13); Mean Corpuscular HGB 30.1 pg (26.0-34.0); Mean Corpuscular HGB Conc 32.6 g/dL (31.5-36.5); Mean Corpuscular Volume 93 fL (80-100); Mean Platelet Volume 9.9 fL (9.1-12.4); NEUTROPHILS PERCENT AUTO 72 % (41-73); Platelet Count 165 K/mm3 (150-400); RDW Standard Deviation 47.5 fL (35.1-46.3); Red Blood Cell Count 3.72 M/mm3 (4.30-5.90); White Blood Cell Count 20.68 K/mm3 (4.00-11.30)
[2023-01-20 03:43] LABS: Magnesium, Blood 2.6 mg/dL (1.6-2.4)
[2023-01-20 04:19] LABS: Anion Gap Unable to Calculate mmol/L (6-16); Blood Urea Nitrogen 39 mg/dL (8-24); Bun/Creatinine Ratio 66.6 (12.0-20.0); CO2, Blood 32 mmol/L (21-32); Chloride, Blood 109 mmol/L (98-108); Creatinine, Blood 0.59 mg/dL (0.60-1.20); Glomerular Filtration Rate 111 (60-); Glucose, Blood 144 mg/dL (70-99); Phosphorus, Blood 2.7 mg/dL (2.5-4.9); Potassium, Blood 4.9 mmol/L (3.5-5.5); Sodium, Blood 140 mmol/L (136-145)
--- NOTE | 2023-01-20 06:29 | NUR ---
SHIFT SUMMARY OVERNIGHT, PATIENT A/0 X4; ANXIOUS, BUT ABLE TO REDIRECT. PLEASANT, COOPERATIVE. MOVING INDEPENDENTLY IN BED. ENDORSES PAIN TO RIBS/STERNUM; GIVEN PRN FENTANYL X1 WITH RELIEF OF SYMPTOMS. MONITOR SHOWING SR, HR 60-90S. SBP 110-130S. AFEBRILE. PATIENT ON BIPAP 14/7 35% FIO2 FOR MAJORITY OF THE SHIFT; SPENT ABOUT 2 HOURS ON 3L NC (HOME DOSE). PATIENT REPORTS INCREASED SOB WHEN ON NASAL CANNULA AND DOES APPEAR MORE LABORED ON NC, BUT SPO2 REMAINED WNL. SLEPT COMFORTABLY ON BIPAP; PATIENT REPORTS THAT HE SPENDS ABOUT 16 HOURS A DAY ON HIS TRILOGY AT HOME. TOLERATING DIET; GOOD APPETITE. ABLE TO VOID S/P JAMA CATH REMOVAL. CALL LIGHT WITHIN REACH. CARE ONGOING.
--- NOTE | 2023-01-20 08:05 | NUR ---
INITIAL ASSESSMENT PATIENT ALERT AND ORIENTED X 4, AFEBRILE. PATIENT COOPERATIVE. ANXIOUS AT TIMES. PATIENT WEAK; ACTIVITY LIMITED BECAUSE OF PAIN AND SOB WITH EXERTION/ TALKING. PATIENT BEING GIVEN PRN FENTANYL FOR COMPLAINTS OF STERNUM/ RIB PAIN. PATIENT ON BIPAP 14/7, RATE OF 12 AND 35% FIO2 MOST OF THE TIME. PATIENT ON 3 L NC FOR BREAKS/ MEALS. LUNGS DIMINISHED AND TIGHT. WEAK COUGH NOTED. PATIENT IN SR, HR IN THE 90S. SBP IN THE 130S. ABDOMEN MODERATELY DISTENDED, SOFT, WITH NORMOACTIVE BOWEL SOUNDS NOTED. BM YESTERDAY. PATIENT HAS OKAY APPETITE. PATIENT USING URINAL TO VOID. PATIENT STATES HE HAS BPH AND DOES NOT EVER FEEL URGE TO VOID AT BASELINE. SKIN APPEARS C/D/I. NS INFUSING TKO. BED LOW, CALL LIGHT IN REACH. WILL CONTINUE TO MONITOR PATIENT FREQUENTLY THROUGHOUT SHIFT.
--- NOTE | 2023-01-20 09:04 | NUR ---
DR. SILVA UPDATED ON PATIENT STATUS. INFORMED THAT PATIENT DID NOT REQUIRE ANY ATIVAN ON MINI LAB OPERATOR FOR ANXIETY BUT THAT HE DOES STILL GET ANXIOUS. INFORMED THAT PATIENT STILL HAVING MUCH STERNAL/ RIB PAIN FROM CPR. INFORMED THAT PATIENT IS REMAINING MOSTLY ON BIPAP. INFORMED THAT LUNGS SOUND DIMINISHED AND TIGHT TO AUSCULTATION. INFORMED THAT PATIENT REPORTS THAT HE IS NOT ABLE TO EVER FEEL URGE TO VOID AT BASELINE AND TAKES FLOMAX AT HOME FOR BPH. DR. SILVA GAVE VERBAL ORDERS FOR FLOMAX AND STATUS CHANGE TO PCU. NO OTHER ORDERS OBTAINED AT THIS TIME.
[2023-01-20] MEDS ORDERED: COMBIVENT RESPIM4 G1 INH (09:40)
[2023-01-20] MEDS ORDERED: INCRUSE ELLIPTA INH (09:44)
[2023-01-20] MEDS ORDERED: BUDESONIDE-FO10.2 G2 INH (09:46)
--- NOTE | 2023-01-20 12:15 | NUR ---
PATIENT AFEBRILE. HR IN THE 70S. SBP IN THE 120S. PATIENT GIVEN HEATING PAD UPON REQUEST FOR PAIN TO STERNUM AND RIBS. PATIENT REFUSED LUNCH AT THIS TIME. PATIENT STATES HE IS TIRED AND REFUSES XANAX AT THIS TIME HE STATES HE "DOES NOT NEED IT RIGHT NOW". NO OTHER ACUTE CHANGES TO NOTE ON AT THIS TIME. WILL CONTINUE TO MONITOR.
--- NOTE | 2023-01-20 18:28 | NUR ---
SHIFT SUMMARY PATIENT HAS REMAINED ALERT AND ORIENTED X 4, AFEBRILE. PATIENT GIVEN PRN FENTANYL OT AND PRN NORCO TWICE THIS SHIFT FOR COMPLAINTS OF STERNUM AND RIB PAIN. PATIENT WEAK BUT UP TO CHAIR AND WORKED WITH PT/ OT THIS SHIFT. PATIENT ANXIOUS A COUPLE OF TIMES BUT DID WELL MANAGING IT. PATIENT STARTED ON BUSPAR THIS SHIFT. PRN XANAX AVAILABLE ON EMAR IF NEEDED. PATIENT HAS REMAINED EITHER ON 3 L NC OR BIPAP AT 14/7, RATE OF 12, 35% FIO2. PATIENT REMAINS SOB WITH ACTIVITY AND TALKING. PATIENT SR, HR 70S TO 90S. SBP 120S TO 150S. 1 BM THIS SHIFT. OKAY APPETITE THIS SHIFT. FLOMAX STARTED THIS SHIFT. PATIENT VOIDED TWICE THIS SHIFT AND STATED THAT THIS IS HIS BASELINE AT HOME. ADMIT AND MED REC COMPLETED THIS SHIFT. BED LOW, CALL LIGHT IN REACH. PATIENT HAS NO COMPLAINTS AT THIS TIME. REPORT WILL BE GIVEN TO ASSUMING INSPECTOR PRINTED CIRCUIT BOARDS NURSE SHORTLY.
--- NOTE | 2023-01-20 20:15 | NUR ---
ASSUMED CARE PT IS A&O X4; ANXIOUS AT TIMES. CURRENTLY ON BIPAP; SPO2 >92%; MAP >65; HR IN THE 90-100'S. NO C/O OF CP, OR NAUSEA. FIRM AND DISTENDED ABDOMEN. CURRENTLY RESTING QUIETLY.
[2023-01-21 04:11] LABS: Digoxin (Lanoxin) 0.08 ug/mL (0.80-2.00); Magnesium, Blood 2.6 mg/dL (1.6-2.4)
[2023-01-21 04:55] LABS: Anion Gap Unable to Calculate mmol/L (6-16); Blood Urea Nitrogen 38 mg/dL (8-24); Bun/Creatinine Ratio 64.2 (12.0-20.0); CO2, Blood 33 mmol/L (21-32); Calcium, Blood 7.8 mg/dL (8.5-10.1); Chloride, Blood 105 mmol/L (98-108); Creatinine, Blood 0.59 mg/dL (0.60-1.20); Glomerular Filtration Rate 111 (60-); Glucose, Blood 146 mg/dL (70-99); Potassium, Blood 4.7 mmol/L (3.5-5.5); Sodium, Blood 137 mmol/L (136-145)
--- NOTE | 2023-01-21 05:50 | NUR ---
SHIFT SUMMARY PT A&O X4 THIS AM WHEN GIVING 0600 MEDS. NO C/O OF CP, NAUSEA, OR INCREASE IN SOB. PT RESTED QUIETLY T/O NIGHT. PT TOLERATED BIPAP WELL T/O NIGHT. NO NEW EVENTS SINCE LAST NOTE.
--- NOTE | 2023-01-21 07:15 | NUR ---
CARE ASSUMPTION PT SLEPING IN BED ON BIPAP 10/6 W 30% FIO2. BP STABLE MONITOR SHOWING SR 60'S. PT IN NO OBVIOUS DISTRESS HE IS ASLEEP APPEARING COMFORTABLE.
[2023-01-21 08:00] VITALS: BP 126/74
[2023-01-21 13:45] VITALS: BP 152/94
[2023-01-21 16:55] VITALS: BP 149/93
--- NOTE | 2023-01-21 17:29 | NUR ---
DAYSHIFT SUMMARY PT IS ALERT AND ORIENTED COMMUNICATING APPROPRIATELY W STAFF. PT HAS BEEN VERY ANXIOUS ABOUT HIS BREATHING REQUESTING TO BE ON THE BIPAP FOR SOB EVEN WHEN IS WOB AND SPO2 ARE WNL AND UNCHANGED. PT ON THE BIPAP 10/6 W 30% FIO2 FOR MOST OF THE DAY NOT HAVING ANY EPISODES OF DESATURATION EVEN WITH ACTIVITY. PT'S BP MILDLY ELEVATED THIS SHIFT W SBP IN TH 140-150'S. PT AFEBRILE THIS SHIFT W PEAK TEMP OF 99.2. PT ASSISTED UP IN ROOM AND INTO THE RECLINER DURING LUNCH WHERE HE STAYED FOR THE REST OF THE DAY. PT GIVEN BEDBATH TODAY. PT CURRENTLY SITTING IN HIS RECLINER EATING DINNER. MONITOR SHOWING SR IN THE 80'S. PT DECLING ANY FURTHER NEEDS AT THIS TIME.
[2023-01-21 20:01] VITALS: BP 158/95
--- NOTE | 2023-01-21 22:47 | NUR ---
ASSUMED CARE AT 1900 PT SITTING IN THE RECLINER WATCHING TV AT SHIFT CHANGE. HE IS A/O X4 AND ABLE TO MAKE HIS NEEDS KNOWN; GENERALIZED WEAKNESS NOTED; MOD AMOUNT OF PAIN NOTED WHILE COUGHING R/T CPR; PRN AVAILABLE BUT PT DECLINES WANTING TO TAKE ANYTHING FOR PAIN AT THIS TIME. BIPAP SETTINGS 10/6; FIO2 30%; WAS ABLE TO TOLERATE 30 MIN OFF BIPAP AND ON 3L NC UNTIL PT FELT THAT HE NEEDED TO BE PLACED BACK ON BIPAP; RR CONT TO BE 14-20; SPO2 >97% ON BOTH BIPAP AND 3L NC. AFEBRILE. HR 60-90'S; SBP 150'S; PRN ATIVAN GIVEN FOR ANXIETY AND BP IMPROVED. USES URINAL INDEPENDENTLY. PT CAN BECOME ANXIOUS EASILY; HE SAID THAT HE CAN FEEL WHEN HE IS MORE ANXIOUS AND ASKS FOR MEDICATION; ANXIETY BETTER NOW; PT RESTING COMFORTABLY AND SLEEPING. SEE SHIFT ASSESSMENT FOR FULL ASSESSMENT.
[2023-01-22 00:25] VITALS: BP 120/78
[2023-01-22 03:28] LABS: Hematocrit 38.6 % (37.0-53.0); Hemoglobin 12.5 g/dL (13.5-17.5); Mean Corpuscular HGB 29.8 pg (26.0-34.0); Mean Corpuscular HGB Conc 32.4 g/dL (31.5-36.5); Mean Corpuscular Volume 92 fL (80-100); Mean Platelet Volume 10.6 fL (9.1-12.4); Platelet Count 175 K/mm3 (150-400); RDW Coefficient Variation 13.5 % (11.7-14.2); RDW Standard Deviation 46.1 fL (35.1-46.3); Red Blood Cell Count 4.19 M/mm3 (4.30-5.90); White Blood Cell Count 18.01 K/mm3 (4.00-11.30)
[2023-01-22 03:45] LABS: Albumin, Blood 3.1 g/dL (3.4-5.0); Anion Gap 1 mmol/L (6-16); Blood Urea Nitrogen 32 mg/dL (8-24); Bun/Creatinine Ratio 55.7 (12.0-20.0); CO2, Blood 34 mmol/L (21-32); Calcium, Blood 8.6 mg/dL (8.5-10.1); Chloride, Blood 103 mmol/L (98-108); Creatinine, Blood 0.58 mg/dL (0.60-1.20); Glomerular Filtration Rate 112 (60-); Glucose, Blood 120 mg/dL (70-99); Potassium, Blood 4.9 mmol/L (3.5-5.5); Sodium, Blood 138 mmol/L (136-145)
[2023-01-22 04:00] LABS: BASOPHILS PERCENT MAN 0 % (0-2); EOSINOPHILS PERCENT MAN 0 % (0-6); LYMPHOCYTES % ATYPICAL MANUAL 1 % (0-0); LYMPHOCYTES ABSOLUTE MAN 8.82 K/mm3 (0.84-5.20); LYMPHOCYTES PERCENT MAN 48 % (21-46); MONOCYTES ABSOLUTE MAN 0.54 K/mm3 (0.16-1.47); MONOCYTES PERCENT MAN 3 % (4-13); NEUTROPHILS ABSOLUTE MAN 8.64 K/mm3 (1.96-9.15); SEG NEUTROPHILS PERCENT MAN 48 % (41-73); TOTAL CELLS COUNTED 100
[2023-01-22 05:49] VITALS: BP 135/80
--- NOTE | 2023-01-22 06:29 | NUR ---
END OF SHIFT SUMMARY NO ACUTE EVENTS OVERNIGHT. PT SLEPT IN RECLINER FOR MOST OF THE NIGHT. HE IS A/O X4 AND ABLE TO MAKE HIS NEEDS KNOWN; INDEPENDENTLY SHIFTS SELF IN RECLINER AND USES URINAL; ATIVAN GIVEN ONCE AT THE BEGINNING OF THE SHIFT FOR ANXIETY, PT STATES FEELING MUCH BETTER. AFEBRILE. ON BIPAP FOR MOST OF THE NIGHT WHILE SLEEPING, SETTINGS 10/6, FIO2 30%; CAN TOLERATE BREAKS OFF OF BIPAP AND IS PLACED ON 3L NC. HR 60'S; SINUS ARRHYTHMIA NOTED; BP STABLE. TOLERATING PO INTAKE WELL. URINE OUTPUT 625. PATIENT WANTS TO WORK WITH PHYSICAL THERAPY TODAY AND WALK AROUND; SOUNDS ENCOURAGED FOR THE DAY. WILL REPORT TO AM RN WHEN AVAILABLE.
--- NOTE | 2023-01-22 07:15 | NUR ---
CARE ASSUMPTION DURING BS SHIFT REPORT Willy Aguilera RN THE PT IS SLEEPING COMFORTABLY IN THE RECLINER. PT WEARING BIPAP MASK W SETTINGS 10/6 W 30% FIO2. MONITOR SHOWING SINUS ARRYTHMIA IN THE 80'S. SPO2 >92%. RT IN ROOM ASSESSING PT AND BIPAP, PT AWAKENING SPONTANEOUSLY DENYING ANY NEEDS.
[2023-01-22 08:52] VITALS: BP 150/89
--- NOTE | 2023-01-22 10:59 | NUR ---
UPDATE THIS RN SPOKE TO PT'S SISTER CYRUS. THIS RN UPDATED PT'S SISTER ON PT'S CONDITION. PT'S SISTER EXPREESSED HER CONCERNS ABOUT THE PT'S DISCHARGE PLANS. THIS RN LISTENED TO HER CONCERNS AND REASSURED HER THAT I WOULD PASS THEM ON TO CARE [facility].
[2023-01-22 12:32] VITALS: BP 144/77
--- NOTE | 2023-01-22 14:40 | NUR ---
PT TRANSFERRED IN RECLINER WITH ALL OF HIS BELONGINGS FROM ICU9 TO PCU7. PT A&OX4, PLEASANT AND COOPERATIVE WITH CARE. LUNGS CLEAR YET DIMINISHED MIDS AND BASES. PT DENIES CHEST PAIN. ABDOMEN DISTENDED AND FIRM, PT STATED NORMAL FOR HIM. PT STATED HAD RECENT BOWEL MOVEMENT. NO COMPLAINT OF ANY PAIN. PT ATE HIS LUNCH AND THEN FELL ASLEEP. PT WAS ON 3L NC WHEN TRANSFERRED. WHILE PT SLEEPING MEKA STEVENSON PLACED PT ON BIPAP.
[2023-01-22 15:25] VITALS: BP 148/74
--- NOTE | 2023-01-22 17:32 | NUR ---
PT WOKE UP AND BIPAP REMOVED, 3L NC USED AND MAINTAINED OXYGEN SATURATION AROUND 90%. PT STOOD WITH WALKER DURING BED BATH WITH PURPLE WIPES AND CHANGE OF BRIEF AND GOWN. PT STARTED TO GET ANXIOUS AND COMPLAINED OF ALL OVER PAIN AFTER ACTIVITY. GIVEN XANAX PER MAR, BIPAP BACK ON, AND DENIED PAIN MEDS. PT LUNG SOUNDS REMAIN CLEAR BUT DIMINISHED. HR SR 80'S. VITALS STABLE. PT EATING DINNER NOW WHILE WATCHING TV. CALL LIGHT WITHIN REACH.
--- NOTE | 2023-01-22 17:43 | NUR ---
THIS RN HAS REVIEWED AND AGREES WITH ALL KRAFT MILL OPERATOR DOCUMENTATION.
[2023-01-22 20:36] VITALS: BP 126/85
--- NOTE | 2023-01-22 20:52 | NUR ---
ASSUMED PT CARE FORM MEKA LEUNG ON HI. PT SITTING UP IN BED WITH BIPAP ON. EYES CLOSED, APPEAR TO BE SLEEPING. WAKES EASILY TO NOISE. A&OX4. PLACED PT ON 3 LPM NC TO TAKE EVENING MEDS. 02 SATS AT 98%, DENIES ANY SOB, RESPIRATIONS EVEN AND UNLABORED. HR IS SR IN THE 90'S. TAKES EVEN MEDICATIONS WITHOUT DIFFICULTY WHOLE WITH WATER. DENIES FURTHER NEEDS AT THIS TIME. REQUESTS TO BE LEFT ON CA AT HIS TIME. CALL LIGHT IN REACH.
[2023-01-23 00:57] VITALS: BP 123/71
[2023-01-23 04:34] VITALS: BP 134/82
[2023-01-23 04:49] LABS: BASOPHILS ABSOLUTE AUTO 0.02 K/mm3 (0.00-0.23); BASOPHILS PERCENT AUTO 0 % (0-2); EOSINOPHILS ABSOLUTE AUTO 0.01 K/mm3 (0.00-0.68); EOSINOPHILS PERCENT AUTO 0 % (0-6); Hematocrit 36.7 % (37.0-53.0); Hemoglobin 12.2 g/dL (13.5-17.5); Mean Corpuscular HGB 30.4 pg (26.0-34.0); Mean Corpuscular HGB Conc 33.2 g/dL (31.5-36.5); Mean Corpuscular Volume 92 fL (80-100); Mean Platelet Volume 10.8 fL (9.1-12.4); Platelet Count 170 K/mm3 (150-400); RDW Coefficient Variation 13.3 % (11.7-14.2); RDW Standard Deviation 44.6 fL (35.1-46.3); Red Blood Cell Count 4.01 M/mm3 (4.30-5.90); White Blood Cell Count 16.07 K/mm3 (4.00-11.30)
[2023-01-23 04:56] LABS: IMMATURE GRAN ABSOLUTE AUTO 0.12 K/mm3 (0.00-0.10); IMMATURE GRAN PERCENT AUTO 1 % (0-1); LYMPHOCYTES ABSOLUTE AUTO 5.99 K/mm3 (0.84-5.20); LYMPHOCYTES PERCENT AUTO 37 % (21-46); MONOCYTES ABSOLUTE AUTO 0.83 K/mm3 (0.16-1.47); MONOCYTES PERCENT AUTO 5 % (4-13); NEUTROPHILS PERCENT AUTO 57 % (41-73)
[2023-01-23 05:24] LABS: Bun/Creatinine Ratio 56.7 (12.0-20.0); Calcium, Blood 8.6 mg/dL (8.5-10.1); Creatinine, Blood 0.6 mg/dL (0.60-1.20); Potassium, Blood 4.7 mmol/L (3.5-5.5)
--- NOTE | 2023-01-23 06:27 | NUR ---
SHIFT SUMMARY: NO ACUTE CHANGES NOTED DURING THIS SHIFT. PT ON BIPAP AT 10/6 AT 21%, MAINTAINED O2 SATS > 92%. PT HAS HAD NO COMPLAINTS OF SOB OR CHEST PAIN THROUGHOUT NIGHT. PT SLEEPING IN BED MAJORITY OF NITGHT. CALL LIGHT IN REACH.
[2023-01-23 08:09] VITALS: BP 141/87
--- NOTE | 2023-01-23 09:50 | NUR ---
PT SLEPT WITH BIPAP. UP AT SIDE OF BED FOR BREAKFAST WITH 3L NC. PT STATED HE NEEDS TO MOVE FROM TASK TO TASK SLOWLY, IT WILL HELP WITH HIS ANXIETY AND SOB W/EXERTION. LUNG SOUND DIMINISHED, O2 SATURATION 94-95%. HR SR 80-100'S DEPENDING ON AMOUNT OF EXERTION. PT A&OX4, PLEASANT AND COOPERATIVE WITH CARE. PT SITTING AT EDGE OF BED WITH BIPAP, CALL LIGHT WITHIN REACH.
[2023-01-23 11:10] VITALS: BP 128/88
[2023-01-23 15:30] VITALS: BP 148/87
--- NOTE | 2023-01-23 17:48 | NUR ---
PT SAT AT EDGE OF BED FOR MAJORITY OF DAY. PT EXPERIENCED INCREASED ANXIETY THIS AFTERNOON. PT REPORTS ANXIETY WAS FROM TEXT CONVERSATION WITH HIS SISTER. MEDICATED FOR ANXIETY PER NOV. PT SWITCHED BETWEEN BIPAP AND 3L NC THROUGHOUT THE DAY. PT'S APPETITE HAS IMPROVED SINCE YESTERDAY. NO ACUTE CHANGES. PT IS RESTING IN BED WITH BIPAP ON AND WATCHING TV, CALL LIGHT WITHIN REACH.
--- NOTE | 2023-01-23 18:07 | NUR ---
THIS RN HAS REVIEWED CHEMICAL CELL CHANGER DOCUMENTATION.
[2023-01-23 19:39] VITALS: BP 137/91
--- NOTE | 2023-01-23 20:19 | NUR ---
ASSUMED PT CARE FROM MEKA LEUNG ON DAYSHI. PT SITTING UP IN BED SLEEPING INTERMITTENTLY WHILE WATCHING TV. BIPAP IN PLACE AT / & 30%. PT REPORTS BASLINE SOB AT THIS TIME WITH O2 SATS AT 97%. DENIES ANXIETY, REPORT "THAT XANEX THE NURSE GAVE ME HELPED ME RELAX". REPORTS STERNAL PAIN FROM CPR PERFORMED ON ADMIT 11/20 AT THIS TIME. DENIES NAUSEA. DENIES NEEDS AT THIS TIME. CALL LIGHT IN REACH. BED ALARM ON.
[2023-01-24 04:21] VITALS: BP 132/91
[2023-01-24 04:47] LABS: BASOPHILS ABSOLUTE AUTO 0.01 K/mm3 (0.00-0.23); BASOPHILS PERCENT AUTO 0 % (0-2); EOSINOPHILS ABSOLUTE AUTO 0.01 K/mm3 (0.00-0.68); EOSINOPHILS PERCENT AUTO 0 % (0-6); Hematocrit 38.4 % (37.0-53.0); Hemoglobin 12.6 g/dL (13.5-17.5); Mean Corpuscular HGB 30.1 pg (26.0-34.0); Mean Corpuscular HGB Conc 32.8 g/dL (31.5-36.5); Mean Corpuscular Volume 92 fL (80-100); Mean Platelet Volume 10.7 fL (9.1-12.4); Platelet Count 188 K/mm3 (150-400); RDW Coefficient Variation 13.5 % (11.7-14.2); RDW Standard Deviation 45.4 fL (35.1-46.3); Red Blood Cell Count 4.19 M/mm3 (4.30-5.90); White Blood Cell Count 16.97 K/mm3 (4.00-11.30)
[2023-01-24 04:52] LABS: IMMATURE GRAN ABSOLUTE AUTO 0.13 K/mm3 (0.00-0.10); IMMATURE GRAN PERCENT AUTO 1 % (0-1); LYMPHOCYTES ABSOLUTE AUTO 5.89 K/mm3 (0.84-5.20); LYMPHOCYTES PERCENT AUTO 35 % (21-46); MONOCYTES ABSOLUTE AUTO 0.89 K/mm3 (0.16-1.47); MONOCYTES PERCENT AUTO 5 % (4-13); NEUTROPHILS ABSOLUTE AUTO 10.04 K/mm3 (1.96-9.15); NEUTROPHILS PERCENT AUTO 59 % (41-73)
[2023-01-24 05:03] LABS: Bun/Creatinine Ratio 56.4 (12.0-20.0); Calcium, Blood 8.8 mg/dL (8.5-10.1); Creatinine, Blood 0.64 mg/dL (0.60-1.20); Potassium, Blood 4.7 mmol/L (3.5-5.5)
--- NOTE | 2023-01-24 06:11 | NUR ---
SHIFT SUMMARY: PT ON BIPAP THROUGHOUT NIGHT, RESTING IN BED, SLEEPING MAJORITY OF SHIFT. O2 SATS > 92%. NO ACUTE CHANGES NOTED DURING THIS SHIFT. CALL LIGHT IN REACH. BED ALARM ON.
[2023-01-24 08:04] VITALS: BP 134/77
--- NOTE | 2023-01-24 09:52 | NUR ---
AM NOTE: PAITENT ALERT AND ORIENTED X4. ANXIOUS AND FORGETFUL AT TIMES. PERRLA. DENIES NUMBNESS/TINGLING. UP WITH WALKER AND SBA. SITTING AT EDGE OF BED FOR BREAKFAST. ON 3L NASAL CANNULA WHEN OFF BIPAP. BIPAP SETTINGS 14/8 AND 30%. LUNGS SOUNDS DIMINISHED THROUGHOUT. ENCOURAGED TO USE INCENTIVE SPIROMETER. TELE SHOWING SR WITH HR 70-80'S BP STABLE. DENIES CHEST PAIN/PRESSURE/PALPITATIONS. NO EDEMA NOTED. DENIES ABDOMINAL PAIN/NAUSEA. MODERATE ABDOMINAL DISTENTION. EATING AND VOIDING WNL. SKIN PALE/DUSKY THROUGHOUT. SCATTERED BRUISING. CALL LIGHT IN REACH.
[2023-01-24 11:31] VITALS: BP 104/65
[2023-01-24 15:05] VITALS: BP 159/79
--- NOTE | 2023-01-24 18:15 | NUR ---
SHIFT SUMMARY: NO ACUTE CHANGES. PATIENT UP WITH ASSISTANCE PRIOR TO DINNER. TOLERATED WELL. INTERMIT ANXIETY THROUGHOUT SHIFT, NOT NEEDING ANY XANAX. VITAL SIGNS REMAIN STABLE. USING BIPAP INBETWEEN MEALS AT 14/6 AND 30% FIO2. OTHERWISE ON 3L NASAL CANNULA. TELE REMAINS SR WITH HR 70-90'S. COMPLAINS OF CHEST SORENESS RELATED TO CPR. USING INCENTIVE SPIROMETER THROUGHOUT SHIFT. CALL LIGHT IN REACH.
[2023-01-24 20:52] VITALS: BP 153/88
[2023-01-25 00:33] VITALS: BP 117/93
[2023-01-25 04:17] VITALS: BP 130/71
--- NOTE | 2023-01-25 05:09 | NUR ---
SHIFT SUMMARY: PT IS A&OX4. NO COMPLAINTS OF SOB, CHEST PAIN OR NAUSEA DURING THIS SHIFT. ON BIPAP ACCEPT TO TO TAKE MEDS, PLACED ON 3 LPM NC FOR MEDS. O2 SATS MAINTAIN > 92% THROUGHOUT SHIFT. NO ACUTE CHANGES NOTED. CALL LIGHT IN REACH.
--- NOTE | 2023-01-25 05:49 | NUR ---
THIS NURSE ASSUMED CARE AT THIS TIME.
[2023-01-25 07:57] LABS: Anion Gap 3 mmol/L (6-16); Blood Urea Nitrogen 35 mg/dL (8-24); CO2, Blood 33 mmol/L (21-32); Calcium, Blood 8.7 mg/dL (8.5-10.1); Chloride, Blood 102 mmol/L (98-108); Creatinine, Blood 0.64 mg/dL (0.60-1.20); Glomerular Filtration Rate 108 (60-); Glucose, Blood 125 mg/dL (70-99); Phosphorus, Blood 3.7 mg/dL (2.5-4.9); Potassium, Blood 4.7 mmol/L (3.5-5.5); Sodium, Blood 138 mmol/L (136-145)
[2023-01-25 08:15] VITALS: BP 145/75
[2023-01-25 11:53] VITALS: BP 130/94
[2023-01-25 11:55] LABS: SARS-Cov-2 (COVID-19) PCR, MMC NEGATIVE (NEGATIVE)
[2023-01-25] MEDS ORDERED: HYDR1TAB94 PO (14:51)
[2023-01-25] MEDS ORDERED: SERT50 PO (14:51)
[2023-01-25] MEDS ORDERED: SPIRIVA RESPIMAT4 G3 INH (14:52)
[2023-01-25] MEDS ORDERED: Prednisone10 MG PO (14:55)
[2023-01-25 16:53] VITALS: BP 139/118
--- NOTE | 2023-01-25 17:23 | NUR ---
DISCHARGE SUMMARY ALERT, ORIENTED, ANXIOUS. 3L O2 VIA NC WHEN AWAKE. BIPAP WHEN SLEEPING. PRN NEBS TREATMENTS. LS TIGHT AND WHEEZY. WEAK AND FATIGUES QUICKLY. SBA WITH FWW TO STAND A BEDSIDE. USES URINAL AND BSC. MEDICATED FOR RIB/STERNUM PAIN WITH NORCO. TOLERATING REGULAR DIET AND LIQUIDS. VOIDING WELL. SKIN THIN, FRAGILE, BRUISES SCATTERED. CONTACT [facility] FOR BEDBUGS. FACILITY DISCHARGE ORDER PLACED. REPORT CALLED TO FACILITY RN. IV DC'D WNL. PATIENT LEFT UNIT VIA MEDICAL TRANSPORT FOR SNF AT 1645.
== END 2023-01-25 17:02 | DRG 208 ==
LOC: ER 23:53 → PCU 01-17 00:31 → ICUW 01-17 00:31 → PCU 01-22 12:33
PROVIDERS: Family Medicine; Internal Medicine; Internal Medicine Critical Care Medicine; Student in an Organized Health Care Education/Training Program; ADMIT Internal Medicine
PROC: 5A1945Z Respiratory Ventilation, 24-96 Consecutive Hours (ICD-10-PCS; 2023-01-17)
PROC: 0BP1XDZ Removal of Intraluminal Device from Trachea, External Approach (ICD-10-PCS; principal; 2023-01-19)
PROC: 0BH18EZ Insertion of Endotracheal Airway into Trachea, Via Natural or Artificial Opening Endoscopic (ICD-10-PCS; 2023-01-19)
PROC: 5A09557 Assistance with Respiratory Ventilation, Greater than 96 Consecutive Hours, Continuous Positive Airway Pressure (ICD-10-PCS; 2023-01-19)
DX: J96.21 Acute and chronic respiratory failure with hypoxia (principal); I46.8 Cardiac arrest due to other underlying condition; J44.1 Chronic obstructive pulmonary disease with (acute) exacerbation; E87.29 Other acidosis; M96.A3 Multiple fractures of ribs associated with chest compression and cardiopulmonary resuscitation; M96.A1 Fracture of sternum associated with chest compression and cardiopulmonary resuscitation; J96.22 Acute and chronic respiratory failure with hypercapnia; Z20.822 Contact with and (suspected) exposure to COVID-19; N40.0 Benign prostatic hyperplasia without lower urinary tract symptoms; F43.10 Post-traumatic stress disorder, unspecified; D64.9 Anemia, unspecified; D72.829 Elevated white blood cell count, unspecified; E83.51 Hypocalcemia; R51.9 Headache, unspecified; E83.39 Other disorders of phosphorus metabolism; R79.89 Other specified abnormal findings of blood chemistry; F41.9 Anxiety disorder, unspecified; E87.6 Hypokalemia; Z99.81 Dependence on supplemental oxygen; Z90.2 Acquired absence of lung [part of]; Z87.891 Personal history of nicotine dependence; Z88.8 Allergy status to other drugs, medicaments and biological substances; Z79.82 Long term (current) use of aspirin; Z79.899 Other long term (current) drug therapy
CPT/HCPCS: 0241U; 31720; 36415; 51702; 71045; 71260; 74018; 80048; 80053; 80069; 80162; 81001; 82271; 82330; 82550; 82803; 82947; 83690; 83735; 83880; 84100; 84132; 84145; 84484; 85025; 87040; 93005; 93010; 93306; 94003; 94640; 94644; 94660; 94664; 94762; 96374-59; 96375-59; 97110; 97112; 97162; 97165; 97530; 97535; 99291-25; A9270; C9113; J0456; J0612; J1650; J2060; J2405; J2543; J2704; J2920; J2930; J3010; J3475; J3480; J7030; J7050; J7060; J7512; Q9967; U0002

== ENCOUNTER 2023-03-13 10:29 | Inpatient (IN) | payer OTHER ==
[~2023-03-13] VITALS: Ht 172.7 cm; Wt 68.0 kg
[~2023-03-13 10:29] MED LIST changes: +AZIT500 PO; +BUDESONIDE-FO10.2 G2 INH; +DULERA 200 MCG-13 GM INH; +HYDR1TAB94 PO; +INCRUSE ELLIPTA INH; +LACT PO; +MIRT15 PO; +SERT50 PO; +SPIRIVA RESPIMAT4 G3 INH
[2023-03-13 10:46] LABS: Hematocrit 41.5 % (37.0-53.0); Mean Corpuscular HGB 30.4 pg (26.0-34.0); Mean Corpuscular HGB Conc 31.3 g/dL (31.5-36.5); Mean Corpuscular Volume 97 fL (80-100); Mean Platelet Volume 10.6 fL (9.1-12.4); Platelet Count 241 K/mm3 (150-400); RDW Coefficient Variation 14.1 % (11.7-14.2); RDW Standard Deviation 50.9 fL (35.1-46.3); Red Blood Cell Count 4.27 M/mm3 (4.30-5.90); White Blood Cell Count 23.43 K/mm3 (4.00-11.30)
[2023-03-13 10:52] LABS: PO2 Arterial 352 mmHg (80-100)
[2023-03-13 10:53] LABS: pH Blood Arterial 7.18 (7.35-7.45)
[2023-03-13 10:54] LABS: PCO2 Arterial 85.5 mmHg (35-45)
[2023-03-13 11:08] LABS: Albumin, Blood 3.8 g/dL (3.4-5.0); Albumin/Globulin Ratio 1.2 (0.8-1.8); Bilirubin, Total 0.1 mg/dL (0.1-1.0); Bun/Creatinine Ratio 31.9 (12.0-20.0); Calcium, Blood 8.3 mg/dL (8.5-10.1); Creatinine, Blood 0.78 mg/dL (0.60-1.20); Globulin, Blood 3.2 g/dL (2.2-4.0); Magnesium, Blood 1.9 mg/dL (1.6-2.4); Potassium, Blood 4.3 mmol/L (3.5-5.5)
[2023-03-13 11:09] LABS: BASOPHILS ABSOLUTE MAN 0.46 K/mm3 (0.00-0.23); BASOPHILS PERCENT MAN 2 % (0-2); EOSINOPHILS PERCENT MAN 3 % (0-6); LYMPHOCYTES % ATYPICAL MANUAL 2 % (0-0); LYMPHOCYTES ABSOLUTE MAN 16.16 K/mm3 (0.84-5.20); LYMPHOCYTES PERCENT MAN 67 % (21-46); MONOCYTES ABSOLUTE MAN 0.93 K/mm3 (0.16-1.47); MONOCYTES PERCENT MAN 4 % (4-13); NEUTROPHILS ABSOLUTE MAN 5.15 K/mm3 (1.96-9.15); SEG NEUTROPHILS PERCENT MAN 22 % (41-73); TOTAL CELLS COUNTED 100
[2023-03-13 11:35] LABS: Influenza A, PCR NEGATIVE (NEGATIVE); Influenza B, PCR NEGATIVE (NEGATIVE); Resp Syncytial Virus, PCR NEGATIVE (NEGATIVE); SARS-Cov-2 (COVID-19) PCR, MMC NEGATIVE (NEGATIVE)
[2023-03-13 12:28] LABS: Base Excess Venous 6.6 mmol/L; Bicarbonate Venous 28.3 mmol/L (24.0-30.0); pH Blood Venous 7.31 (7.34-7.37)
[2023-03-13 14:50] VITALS: BP 139/82
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
--- NOTE | 2023-03-13 17:26 | NUR ---
shift summary patient neuro remains unchaged. no acute changes since pervious note. see pervious note. call light within reach and bed in lowest position.
[2023-03-13 19:36] VITALS: BP 133/86
[2023-03-13 23:39] VITALS: BP 138/97
[2023-03-14 04:02] LABS: Bun/Creatinine Ratio 44.4 (12.0-20.0); Calcium, Blood 9.3 mg/dL (8.5-10.1); Creatinine, Blood 0.74 mg/dL (0.60-1.20); Potassium, Blood 4.3 mmol/L (3.5-5.5)
[2023-03-14 04:33] VITALS: BP 122/77
--- NOTE | 2023-03-14 06:23 | NUR ---
SHIFT SUMMARY PATIENT ALERT, FORGETFUL BUT OTHERWISE ORIENTED x4, ANSWERING QUESTIONS APPROPRIATLEY. VITALS STABLE, PATIENT WORE BIPAP FOR MAJORITY OF SHIFT. TOLERATING BREAKS ON 3L NC. SPO2 >90%. PATIENT STATES HE FEELS MORE COMFORTABLE WEARING BIPAP AND HAS DECRASED WORK OF BREATHING. PATIENT ABLE TO GET GOOD AMOUNT OF SLEEP THIS SHIFT. USING URINAL AT THE BEDSIDE INDEPENDENTLY. TOLERATING PO. NO OTHER SIGNIFICANT CHANGES, WILL REPORT TO DAY SHIFT RN. EDUCATED PATIENT ON INCREASED IGNITION RISK WHILE OXYGEN/BIPAP ARE IN USE. PATIENT VERBALIZED UNDERSTANDING. NO IGNITION RISK NOTED AT THIS TIME, WILL CONTINUE TO MONITOR RISK.
[2023-03-14 07:27] VITALS: BP 132/85
[2023-03-14 12:13] VITALS: BP 150/75
--- NOTE | 2023-03-14 15:16 | NUR ---
CARE NOTE AT APPROX. 1500 THIS NURSE WENT INTO PT ROOM TO ASSESS BIPAP SETTINGS AND PT STATED THAT HE NEEDED TO USE THE BATHROOM. HE STATED THAT HE WOULD PREFER TO USE THE BATHROOM VS BEDSIDE COMMODE. THIS NURSE ASSISTED PT W/ PLACING NC IN ORDER TO USE BATHROOM BUT THEN PT REPORTED FEELING ANXIOUS AND DENIED HAVING TO VOID AT ALL HE STATED "I'M WIGGING OUT." BIPAP PLACED BY THIS RN, SPO2 NOTED TO BE 96%. PT DENIED NEED OF ANXIETY MEDUCATION ONCE BIPAP WAS PLACED. WILL CONTINUE TO MONITOR. CALL LIGHT W/IN REACH.
[2023-03-14 16:27] VITALS: BP 126/61
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
[2023-03-14 19:30] VITALS: BP 132/82
[2023-03-14 23:55] VITALS: BP 114/66
[2023-03-15 04:38] VITALS: BP 108/64
[2023-03-15 07:52] VITALS: BP 148/93
--- NOTE | 2023-03-15 10:09 | NUR ---
MORNING NOTE PATIENT WAS GETTING NEB TREATMENT AT SHIFT CHANGE, WAS CALM AND SATTING WELL ON 4L NC. SHORTLY AFTER BECAME ANXIOUS, SOB, AND RRR. PATIENT ATTEMPTED TO PLACE HIS BIPAP MASK, CALLED FO HELP. PLACED BIPAP MASK AND PATIENT SUBSEQUENTLY FELT THAT IT WAS NOT GIVING HIM ENOUGH AIR. CALL RT WHO SWITCHED THE BIPAP M SERIES OUT FOR A V30. IV ATIVAN WAS GIVEN FOR ANXIETY. DR MALDONADO ROUNDED AND GAVE ORDERS FOR PO ALPRAZOLAM AND IV MORPHINE TO MANAGE ANXIETY/SOB, AND STATED TO ATTEMPT TO REDUCE IV ATIVAN. ORDERS PLACED. PATIENT RECHECKED AND WAS CALM AND DOZING WITH BIPAP. RESTING AT THIS TIME 1015.
[2023-03-15 12:23] VITALS: BP 112/60
[2023-03-15 16:17] VITALS: BP 135/89
--- NOTE | 2023-03-15 18:24 | NUR ---
SHIFT SUMMARY PATIENT ALERT WHEN AWAKE. TOOK 2 LENGTHY NAPS THIS SHIFT WITH BIPAP. ANXIETY MANAGED WITH HOME BUSPAR, SERTRALINE, AND PRN XANAX. SR TELE, TACHY WITH ANXIETY. TOLERATING PO INTAKE. LS TIGHT WITH EXP WHEEZE THROUGHOUT. ROUTINE NEBS. SPO2 STABLE ON BIPAP AND ON NC AT 3-4 L. ANXIETY CAUSING SOB IS LIMITING FACTOR. OTHERWISE PLEASANT AND COOPERATIVE.
[2023-03-15 20:20] VITALS: BP 109/58
[2023-03-15 23:28] VITALS: BP 122/71
[2023-03-16 04:51] VITALS: BP 118/62
[2023-03-16 06:18] LABS: BASOPHILS ABSOLUTE AUTO 0.02 K/mm3 (0.00-0.23); BASOPHILS PERCENT AUTO 0 % (0-2); EOSINOPHILS PERCENT AUTO 0 % (0-6); Hematocrit 35.1 % (37.0-53.0); Hemoglobin 11.4 g/dL (13.5-17.5); IMMATURE GRAN ABSOLUTE AUTO 0.08 K/mm3 (0.00-0.10); IMMATURE GRAN PERCENT AUTO 1 % (0-1); LYMPHOCYTES ABSOLUTE AUTO 2.92 K/mm3 (0.84-5.20); LYMPHOCYTES PERCENT AUTO 21 % (21-46); MONOCYTES ABSOLUTE AUTO 0.66 K/mm3 (0.16-1.47); MONOCYTES PERCENT AUTO 5 % (4-13); Mean Corpuscular HGB 30.2 pg (26.0-34.0); Mean Corpuscular HGB Conc 32.5 g/dL (31.5-36.5); Mean Corpuscular Volume 93 fL (80-100); Mean Platelet Volume 11.3 fL (9.1-12.4); NEUTROPHILS ABSOLUTE AUTO 10.23 K/mm3 (1.96-9.15); NEUTROPHILS PERCENT AUTO 74 % (41-73); Platelet Count 202 K/mm3 (150-400); RDW Coefficient Variation 13.9 % (11.7-14.2); RDW Standard Deviation 47.9 fL (35.1-46.3); Red Blood Cell Count 3.77 M/mm3 (4.30-5.90); White Blood Cell Count 13.91 K/mm3 (4.00-11.30)
--- NOTE | 2023-03-16 06:30 | NUR ---
SHIFT SUMMARY PATIENT ALERT AND ORIENTED x4, ABLE TO MAKE NEEDS KNOWN TO STAFF. NO EPISODES OF ANXIETY OR PARANOIA THIS SHIFT. VITALS STABLE, PATIENT ON BIPAP FOR MAJORITY OF SHIFT, TOLERATES BREAKS FOR MEDICATIONS OR SNACKS, SPO2 >95%. USING URINAL INDEPENDENTLY AT BEDSIDE, ADEQUATE OUTPUT. PATIENT ABLE TO SLEEP MAJORITY OF SHIFT WITH NO COMPLAINTS OF PAIN. NO OTHER SIGNIFICANT CHANGES, WILL REPORT TO DAY SHIFT RN. PATIENT EDUCATED ON INCREASED IGNITION RISK WHILE OXYGEN IN USE. PATIENT VERBALIZED UNDERSTANDING. WILL CONTINUE TO MONITOR AND REASSESS RISK NEEDED.
[2023-03-16 06:45] LABS: Bun/Creatinine Ratio 55.4 (12.0-20.0); Calcium, Blood 8.9 mg/dL (8.5-10.1); Creatinine, Blood 0.7 mg/dL (0.60-1.20); Potassium, Blood 4.2 mmol/L (3.5-5.5)
[2023-03-16 08:15] VITALS: BP 162/83
--- NOTE | 2023-03-16 09:38 | NUR ---
AM NOTE: PATIENT ALERT AND ORIENTED. VERY ANXIOUS AND TALKATIVE. DENIES NUMBNESS/TINGLING. PERRLA. BEDREST AT THIS TIME. ABLE TO REPOSITION SELF IN BED. ON BIPAP AT THIS TIME. ABLE TO TAKE BREAKS FOR MEALS WITH 3L NASAL CANNULA. DIMINSHED AIR FLOW HEARD THROUGHOUT LUNG BASES. SOB WITH TALKING AND MOVING AROUND IN BED. TELE SHOWING SR WITH HR 80'S. HR UP TO 110'S WITH ANXIETY. BP ELEVATED THIS AM. PPP. DENIES CHEST PAIN/PRESSURE/PALITATIONS. EATING AND VOIDING WNL. BOWEL TONES PRESENT. SKIN OVERALL PALE/FRAGILE. SCRATCHES SCATTERED THROUGHOUT. CALL LIGHT IN REACH. PATIENT RESTING IN BED AT THIS TIME.
[2023-03-16 11:15] VITALS: BP 111/69
--- NOTE | 2023-03-16 14:11 | NUR ---
PATIENT EDUCATED ON FIRE RISK/SOURCES OF IGNITION AND PREVENTION. PATIENT ABLE TO VERBALIZE TEACHING BACK TO THIS RN.
[2023-03-16 15:17] VITALS: BP 141/77
--- NOTE | 2023-03-16 16:42 | NUR ---
TRANSFER: NO ACUTE CHANGES SEE PREVIOUS NOTES. PATIENT ANXIOUS PRIOR TO TRANSFER. PRN XANAX GIVEN. PATIENT TAKEN UP TO MEDICAL FLOOR VIA WHEELCHAIR WITH RESPIRATORY CARE, BIPAP, AND ALL PERSONAL BELONGINGS. REPORTED OFF TO RENÉE.
[2023-03-16 19:51] VITALS: BP 127/78
[2023-03-17 04:21] VITALS: BP 113/68
--- NOTE | 2023-03-17 05:09 | NUR ---
SHIFT SUMMARY; NO ACUTE CHANGES OVERNIGHT. THE PT HAS BEEN SLEEPING IN BED FOR THE DURATION OF THE SHIFT. BIPAP IS IN PLACE WITH O2 SATS >92%. THE PT IS AXO 4 AND ON BEDREST. THE PT HAS BEEN ANXIOUS A FEW TIMES T/O THE NIGHT BUT HAS BEEN ABLE TO CALM HIMSELF DOWN. THE PT DENIES ANY SOB, PAIN, CHEST PAIN/PRESSURE OR N/V THIS SHIFT. CURRENTLY THE PT IS SLEEPING IN BED WITH THE BED IN THE LOWEST POSITION AND THE CALL LIGHT AT BEDSIDE.
[2023-03-17 07:20] VITALS: BP 147/92
--- NOTE | 2023-03-17 11:33 | NUR ---
FIRE NOTE PT EDUCATED REGUARDING IGNITION SOURCES. HE IS ON OXYGEN AT HOME. TALKED ABOUT RISK OF INJURY WITH IGNITIOVICES WHILE HE IS WEARING OXYGEN. HE DENIES SMOKING OR HAVING ANY LIGHTABLE DEVICES HERE. VERBILIZED UNDERSTANDING. CONTINUE POC.
[2023-03-17 12:54] VITALS: BP 181/96
[2023-03-17 16:12] VITALS: BP 122/76
--- NOTE | 2023-03-17 17:56 | NUR ---
EVENING NOTE PT SPENT MOST OF THE MORNING OFF BIPAP. HE WAS ABLE TO BATH AND MOVE AROUND A LITTLE. AFTER LUNCH HE BECAME VERY ANXIOUS AND SOB. MEDICATED WITH XANANX AND BUSPAR PER ORDER. PT HAS WORN THE BIPAP THROUGH THE AFTERNOON. HIS ANXIETY HAS LESSONED. WE TALKED ABOUT HIS NEAR EXPERIENCES RECENTLY. HE BECOMES VERY ANXIOUS WHEN HE THINKS ABOUT "FLAT LINING". TALKED ABOUT GOING HOME. HE THINKS HE'S READY. TALKED ABOUT USING HIS TRILEGY. CONTINUE POC.
[2023-03-17 19:45] VITALS: BP 113/76
[2023-03-18 05:23] LABS: Hematocrit 34.5 % (37.0-53.0); Mean Corpuscular HGB 29.9 pg (26.0-34.0); Mean Corpuscular HGB Conc 31.9 g/dL (31.5-36.5); Mean Corpuscular Volume 94 fL (80-100); Mean Platelet Volume 10.8 fL (9.1-12.4); Platelet Count 187 K/mm3 (150-400); RDW Coefficient Variation 13.9 % (11.7-14.2); RDW Standard Deviation 47.3 fL (35.1-46.3); Red Blood Cell Count 3.68 M/mm3 (4.30-5.90); White Blood Cell Count 13.64 K/mm3 (4.00-11.30)
[2023-03-18 06:28] LABS: Bun/Creatinine Ratio 48.5 (12.0-20.0); Calcium, Blood 8.5 mg/dL (8.5-10.1); Creatinine, Blood 0.74 mg/dL (0.60-1.20); Potassium, Blood 3.9 mmol/L (3.5-5.5)
[2023-03-18 07:43] VITALS: BP 121/76
--- NOTE | 2023-03-18 08:30 | NUR ---
SHIFT SUMMARY ADMIT FOR COPD EXACER, RESP FAILURE. PT ON CONT BIPAP WHILE IN BED W/ 3L O2 BLED IN.HX OF LEFT LOBECTOMY A&OX4, PLEASANT AND COOPERATIVE BUT EXPERIENCES BOUTS OF ANXIETY REPORTED BY PT AND PREVIOUS STAFF MEDICATED W/ XANAX ALTHOUGH DID NOT REQUIRE ANY THIS SHIFT. PT SBA TO BSC AND INDEP W/ URINAL. IV SL TO LEFT HAND AND RIGHT AC PATENT W/ NO CONCERNS. POSSIBLE PLANS FOR DISCHARGE TODAY.
[2023-03-18 14:58] VITALS: BP 148/92
--- NOTE | 2023-03-18 19:18 | NUR ---
SHIFT SUMMARY PT AxOx4. PLEASANT AND COOPERATIVE WITH CARE. PT ALTERNATED BETWEEN 3L O2 VIA NC AND BIPAP MACHINE. CONT BIOX IN PLACE. PT REPORTS ANXIETY ON AND OFF. MEDICATED PER EMAR WITH REPORTED RELIEF. PT REPORTED CHRONIC BACK PAIN THIS SHIFT. MEDICATED PER EMAR x1 AND HEAT PAD PROVIDED. PT VERY PLEASED WITH HEAT PAD RELIEF. RESPIRATORY CARE IN FOR TREATMENT TODAY. PT CURRENTLY SITTING IN BED WITH CALL LIGHT IN REACH. DENIES ANY NEEDS AT THIS TIME. PT EDUCATION PROVIDED ON RISK OF IGNITION SOURCES AND INJURY WHILE O2 IN USE. PT VERBALIZES UNDERSTANDING AND DENIES SMOKING/SMOKE PRODUCTS IN POSSESSION AT THIS TIME.
[2023-03-18 19:47] VITALS: BP 159/92
[2023-03-19 04:52] VITALS: BP 137/80
--- NOTE | 2023-03-19 05:55 | NUR ---
GUS HAD A MUCH CALMER NIGHT, PER PT. MINIMAL DISTRESS NOTED XANAX WAS GIVEN ORDERED.ROBINSON AND PREFERS TO WEAR HIS BIPAP, VSS NO DISTRESS PT LAYING COMFORTABLY IN BED.
[2023-03-19 07:42] VITALS: BP 133/79
[2023-03-19 14:56] VITALS: BP 117/75
--- NOTE | 2023-03-19 18:16 | NUR ---
SHIFT SUMMARY PT A&OX4 AND IN PLEASENT MOOD T/O SHIFT. PT APPEARS ANXIOUS AT TIMES. PAIN MEDICATED PER EMAR. BIPAP PRN, PT DOES TOLERATE NC AT TIMES T/O SHIFT. CALL LIGHT W/IN REACH. VSS.
[2023-03-19 20:15] VITALS: BP 150/88
--- NOTE | 2023-03-20 04:35 | NUR ---
SHIFT SUMMARY PATIENT HAD NO ACUTE CHANGES. AXOX 4 AND ONE ASSIST TO BSC. USES URINAL AT BEDSIDE. SOB WITH EXERTION. ON 3L O2 NC AND BIPAP WITH 4L O2 BLEED IN. RT IN FOR TX. VSS/AFEBRILE. DENIES CHEST PAIN AND N/V. NO ANXIETY REPORTED. PIV REMAINS INTACT. COOPERATIVE WITH CARE. CALL LIGHT IN REACH. BED IN LOWEST POSITION. WILL CONTINUE TO MONITOR UNTIL DAY SHIFT NURSE ASSUMES CARE.
[2023-03-20 05:18] LABS: Hematocrit 35.5 % (37.0-53.0); Hemoglobin 11.4 g/dL (13.5-17.5); Mean Corpuscular HGB 29.8 pg (26.0-34.0); Mean Corpuscular HGB Conc 32.1 g/dL (31.5-36.5); Mean Corpuscular Volume 93 fL (80-100); Mean Platelet Volume 10.6 fL (9.1-12.4); Platelet Count 225 K/mm3 (150-400); RDW Coefficient Variation 13.7 % (11.7-14.2); RDW Standard Deviation 46.6 fL (35.1-46.3); Red Blood Cell Count 3.82 M/mm3 (4.30-5.90); White Blood Cell Count 15.64 K/mm3 (4.00-11.30)
[2023-03-20 05:26] VITALS: BP 121/81
[2023-03-20 05:41] LABS: Albumin/Globulin Ratio 1.2 (0.8-1.8); Bilirubin, Total 0.3 mg/dL (0.1-1.0); Bun/Creatinine Ratio 50.6 (12.0-20.0); Calcium, Blood 8.5 mg/dL (8.5-10.1); Creatinine, Blood 0.71 mg/dL (0.60-1.20); Globulin, Blood 2.5 g/dL (2.2-4.0); Potassium, Blood 4.2 mmol/L (3.5-5.5); Total Protein, Blood 5.5 g/dL (6.4-8.2)
[2023-03-20 08:06] VITALS: BP 110/73
[2023-03-20 17:22] VITALS: BP 117/81
--- NOTE | 2023-03-20 17:36 | NUR ---
SHIFT SUMMARY PT A&OX4, VSS/3LNC/BIPAP W/4L, REPOSITIONS SELF IND/SBA TO BSC, VOIDING/URINAL, EXTRALARGE BM TODAY, ROBINSON PO REG DIET, PAIN MANAGED WITH NORCO 5MG X2, ANXIETY TREATED WITH XANAX X1. WILL REPORT TO ONCOMING NOC RN.
[2023-03-20 19:32] VITALS: BP 144/86
[2023-03-21 04:20] VITALS: BP 115/73
--- NOTE | 2023-03-21 05:08 | NUR ---
SHIFT SUMMARY PATIENT HAD NO ACUTE CHANGES. AXOX 4 AND ONE ASSIST TO BSC. USES URINAL AT BEDSIDE. ON 3L O2 NC AND BIPAP WITH 4L O2 BLEED IN. RT IN FOR BREATHING TX. NO ANXIETY OBSERVED. VSS/AFEBRILE. DENIES CHEST PAIN AND N/V. SOB WITH EXERTION. SLEPT MOST OF THE SHIFT. CALL LIGHT IN REACH. BED IN LOWEST POSITION. WILL CONTINUE TO MONITOR UNTIL DAY SHIFT NURSE ASSUMES CARE.
[2023-03-21 08:05] VITALS: BP 151/77
[2023-03-21 13:37] VITALS: BP 158/92
--- NOTE | 2023-03-21 13:56 | NUR ---
PT ATTEMPTED TO WORK WITH PATIENT, HR INCREASED TO 120'S-130'S. HE HAS SUSTAINED THIS FOR APPROX [address] WILLSON. ORDERS RECIEVED FOR METOPROLOL TARTRATE 25MG X1. PT REPORTED ANXIETY INITIALLY BUT HAS CALMED A LITTLE AT THIS TIME. HE REPORTS HE CAN FEEL HIS HR WHEN IT INCREASES LIKE THIS.
[2023-03-21 14:49] VITALS: BP 142/101
--- NOTE | 2023-03-21 17:09 | NUR ---
SHIFT SUMMARY PT REPORTS BREATHING IMPROVED TODAY. PHYSICAL THERAPY ATTEMPTED TO SEE PATIENT, HR SPIKED. PT REPORTED ANXIETY WITH SPIKE. AFTER ADMINISTRATION OF METOPROLOL PT REPORTS FEELING MUCH BETTER IND IN ROOM TO BSC AND USING URINAL. SOB WITH MORE EXERTION. CALLS APPROPRIATLY, MAKES NEEDS MET.
[2023-03-21 17:37] VITALS: BP 128/91
[2023-03-21 20:23] VITALS: BP 133/91
[2023-03-22 03:54] VITALS: BP 103/71
--- NOTE | 2023-03-22 04:37 | NUR ---
SHIFT SUMMARY PATIENT HAD NO ACUTE CHANGES. AXOX 4 AND ONE ASSIST TO BSC. USES URINAL AT BEDSIDE. ON 3L O2 NC AND 4L O2 BLEED IN ON BIPAP. DENIES CHEST PAIN, SOB, AND N/V. VSS/AFEBRILE. NO ANXIETY REPORTED. SLEPT MOST OF SHIFT. CALL LIGHT IN REACH. BED IN LOWEST POSITION. WILL CONTINUE TO MONITOR UNTIL DAY SHIFT NURSE ASSUMES CARE.
[2023-03-22 05:06] LABS: Hematocrit 35.5 % (37.0-53.0); Hemoglobin 11.5 g/dL (13.5-17.5); Mean Corpuscular HGB 30.2 pg (26.0-34.0); Mean Corpuscular HGB Conc 32.4 g/dL (31.5-36.5); Mean Corpuscular Volume 93 fL (80-100); Mean Platelet Volume 10.4 fL (9.1-12.4); Platelet Count 251 K/mm3 (150-400); RDW Coefficient Variation 13.8 % (11.7-14.2); RDW Standard Deviation 47.4 fL (35.1-46.3); Red Blood Cell Count 3.81 M/mm3 (4.30-5.90); White Blood Cell Count 17.63 K/mm3 (4.00-11.30)
[2023-03-22 05:41] LABS: Albumin, Blood 3.2 g/dL (3.4-5.0); Albumin/Globulin Ratio 1.2 (0.8-1.8); Bilirubin, Total 0.2 mg/dL (0.1-1.0); Bun/Creatinine Ratio 56.4 (12.0-20.0); Calcium, Blood 9.1 mg/dL (8.5-10.1); Creatinine, Blood 0.76 mg/dL (0.60-1.20); Globulin, Blood 2.6 g/dL (2.2-4.0); Potassium, Blood 4.1 mmol/L (3.5-5.5); Total Protein, Blood 5.8 g/dL (6.4-8.2)
[2023-03-22 07:45] VITALS: BP 103/64
[2023-03-22 14:40] VITALS: BP 124/62
--- NOTE | 2023-03-22 18:25 | NUR ---
SHIFT SUMMARY PT AOX4, SBA. MEDICATED FOR PAIN T/O THE SHIFT PER THE EMAR. PT SOB EVEN WHEN TALKING, CPAP AT THE BS. PLAN IS FOR THE PT TO GO TO [facility] TOMORROW. PT WAS EDUCATED ON IGNITION SOURCES AND RISK OF INJURY WHILE OXYGEN IS IN USE. PT VERBALIZED UNDERSTANDING. WILL REPORT TO ONCOMING NURSE.
[2023-03-22 21:39] VITALS: BP 114/65
--- NOTE | 2023-03-23 05:00 | NUR ---
SHIFT SUMMARY. SHIFT HAS BEEN LARGELY UNREMARKABLE. PT TOOK 2100 MEDICATIONS WITHOUT DIFFICULTY AND HAS SLEPT THROUGH MUCH OF REMAINDER OF SHIFT. CONTINUOUS PULSE OX IN PLACE, SATTING WELL ON SUPPLEMENTAL O2. PT REFUSED USE OF CPAP OVER NIGHT BUT HAS BEEN SATTING WELL WITH O2. NO REPORTED PAIN. CALLS APPROPRIATELY. AOX4. BED LOCKED IN LOWEST POSITION. CALL LIGHT LEFT WITHIN REACH.
[2023-03-23 05:08] LABS: Hematocrit 34.8 % (37.0-53.0); Hemoglobin 11.1 g/dL (13.5-17.5); Mean Corpuscular HGB 29.7 pg (26.0-34.0); Mean Corpuscular HGB Conc 31.9 g/dL (31.5-36.5); Mean Corpuscular Volume 93 fL (80-100); Mean Platelet Volume 10.5 fL (9.1-12.4); Platelet Count 231 K/mm3 (150-400); RDW Coefficient Variation 13.7 % (11.7-14.2); RDW Standard Deviation 46.9 fL (35.1-46.3); Red Blood Cell Count 3.74 M/mm3 (4.30-5.90); White Blood Cell Count 14.22 K/mm3 (4.00-11.30)
[2023-03-23 05:09] VITALS: BP 109/59
[2023-03-23 05:47] LABS: Albumin, Blood 3.1 g/dL (3.4-5.0); Albumin/Globulin Ratio 1.2 (0.8-1.8); Bilirubin, Total 0.2 mg/dL (0.1-1.0); Bun/Creatinine Ratio 48.5 (12.0-20.0); Calcium, Blood 8.6 mg/dL (8.5-10.1); Creatinine, Blood 0.66 mg/dL (0.60-1.20); Globulin, Blood 2.5 g/dL (2.2-4.0); Potassium, Blood 4.1 mmol/L (3.5-5.5); Total Protein, Blood 5.6 g/dL (6.4-8.2)
[2023-03-23 07:53] VITALS: BP 135/71
[2023-03-23 15:30] VITALS: BP 109/66
--- NOTE | 2023-03-23 19:16 | NUR ---
SHIFT SUMMARY NO CHANGES. ALERT AND ORIENTED. STABLE ON NC AND BIPAP. PATIENT SWITCHES INDEPENDENTLY BASED ON HIS WORK OF BREATHING AND ANXIETY. MEDICATED FOR PRN PAIN AND ANXIETY PER EMAR. TOLERATING REGULAR DIET AND LIQUIDS. VOIDING WELL. DR DILLON IS FAMILIAR WITH THIS PATIENT AND OPTED TO KEEP HIM ONE MORE NIGHT INPATIENT BEFORE SNF DC. REPORT GIVEN TO AUTOMATED PROCESS OPERATOR RN.
[2023-03-23 19:18] VITALS: BP 126/69
--- NOTE | 2023-03-24 04:07 | NUR ---
SHIFT SUMMARY. SHIFT HAS BEEN UNREMARKABLE. PT IS AOX4, PLEASANT, COOPERATIVE WITH CARE. 2100 MEDICATIONS ADMINISTERED WITHOUT DIFFICULTY. CALLS APPROPRIATELY. SATTING WELL ON SUPPLEMENTAL O2, PT WORE CPAP FOR A WHILE THIS MORNING BUT HAS SPORADICALLY DECIDED TO WEAR NC INSTEAD ON WHICH SATURATIONS REMAIN GOOD. NO COMPLAINTS OF PAIN THIS SHIFT. PLAN STILL APPEARS TO BE FOR PT TO GO TO [facility] TODAY WHICH HE IS LOOKING FORWARD TO. BED LOCKED IN LOWEST POSITION. CALL LIGHT LEFT WITHIN REACH.
[2023-03-24 04:34] VITALS: BP 109/60
[2023-03-24 08:33] VITALS: BP 122/75
[2023-03-24] MEDS ORDERED: ALBU2.5V5 INH ×2 (11:33→11:38)
[2023-03-24] MEDS ORDERED: ALPR.25 PO (11:39)
[2023-03-24] MEDS ORDERED: CYCL10 PO (11:40)
[2023-03-24] MEDS ORDERED: ENOX40I SC (11:41)
[2023-03-24] MEDS ORDERED: LIDOCAINE1 EAC1 TOP (11:46)
[2023-03-24] MEDS ORDERED: Deltasone 10 mg10 MG PO (11:48)
[2023-03-24 12:57] LABS: Influenza A, PCR NEGATIVE (NEGATIVE); Influenza B, PCR NEGATIVE (NEGATIVE); Resp Syncytial Virus, PCR NEGATIVE (NEGATIVE); SARS-Cov-2 (COVID-19) PCR, MMC NEGATIVE (NEGATIVE)
[2023-03-24 13:39] VITALS: BP 133/87
--- NOTE | 2023-03-24 17:26 | NUR ---
DISCHARGE NOTE- PT DISCHARGED TO [facility], PT HAD AN ELEVATED HR PRIOR TO DISCHARGE MD AWARE, RECIEVED ORDER TO INCREASE BUSBAR TO 15MG TID. FIRST DOSE WAS GIVEN PRIOR TO DISCHARGE. PT WAS TAKEN VIA WC TRANSPORT TO [facility] AT THE TIME OF DISCHAGRE. STEREOPTIC PROJECTION TOPOGRAPHER DC'D PERIPHERAL IV PRIOR TO DISCHARGE.
== END 2023-03-24 15:51 | DRG 189 ==
LOC: ER 10:29 → MEDS 13:44 → PCU 13:44 → MEDS 03-16 16:10 → ENPENDDIS 03-24 10:38 → MEDS 03-24 15:51
PROVIDERS: Emergency Medicine; Family Medicine; Internal Medicine; ADMIT Internal Medicine
PROC: 4A033R1 Measurement of Arterial Saturation, Peripheral, Percutaneous Approach (ICD-10-PCS; 2023-03-13)
PROC: 5A09557 Assistance with Respiratory Ventilation, Greater than 96 Consecutive Hours, Continuous Positive Airway Pressure (ICD-10-PCS; principal; 2023-03-24)
DX: J96.21 Acute and chronic respiratory failure with hypoxia (principal); E43 Unspecified severe protein-calorie malnutrition; J44.1 Chronic obstructive pulmonary disease with (acute) exacerbation; J96.22 Acute and chronic respiratory failure with hypercapnia; F43.10 Post-traumatic stress disorder, unspecified; N40.0 Benign prostatic hyperplasia without lower urinary tract symptoms; F41.9 Anxiety disorder, unspecified; D72.829 Elevated white blood cell count, unspecified; R00.0 Tachycardia, unspecified; R54 Age-related physical debility; Z20.822 Contact with and (suspected) exposure to COVID-19; Z87.891 Personal history of nicotine dependence; Z90.2 Acquired absence of lung [part of]; Z79.82 Long term (current) use of aspirin; Z79.2 Long term (current) use of antibiotics; Z79.51 Long term (current) use of inhaled steroids; Z79.891 Long term (current) use of opiate analgesic; Z79.899 Other long term (current) drug therapy; Z86.74 Personal history of sudden cardiac arrest; Z68.22 Body mass index [BMI] 22.0-22.9, adult
CPT/HCPCS: 0241U; 36415; 36600; 71045; 80048; 80053; 82803; 83735; 83880; 84484; 85025; 85027; 93005; 93010; 94640; 94660; 94664; 94762; 97110; 97110-CQ; 97116; 97161; 97530; 99285-25; A9270; J1650; J2060; J2930; J7512

== ENCOUNTER 2023-05-13 13:32 | Inpatient (IN) | payer OTHER ==
[~2023-05-13] VITALS: Ht 180.3 cm; Wt 74.1 kg
[2023-05-13] VITALS (36 sets, daily range): BP systolic 111–151; BP diastolic 68–93
[~2023-05-13 13:32] MED LIST changes: +ALPR.25 PO; +CYCL10 PO; +Deltasone 10 mg10 MG PO; +ENOX40I SC; +LIDOCAINE1 EAC1 TOP
[2023-05-13 13:50] LABS: Calcium, Ionized (POC) 1.16 mmol/L (1.10-1.46); Chloride (POC) 100 mmol/L (98-108); Creatinine (POC) 0.8 mg/dL (0.8-1.3); Glucose (ISTAT POC) 159 mg/dL (70-99); Hemoglobin (POC) 13.9 g/dL (13.5-17.5); Potassium (POC) 4.1 mmol/L (3.5-5.5); Sodium (POC) 138 mmol/L (135-148); Total CO2 (POC) 32 mmol/L (21-32)
[2023-05-13 13:54] LABS: BASOPHILS ABSOLUTE AUTO 0.07 K/mm3 (0.00-0.23); BASOPHILS PERCENT AUTO 1 % (0-2); EOSINOPHILS ABSOLUTE AUTO 0.45 K/mm3 (0.00-0.68); EOSINOPHILS PERCENT AUTO 3 % (0-6); IMMATURE GRAN ABSOLUTE AUTO 0.08 K/mm3 (0.00-0.10); IMMATURE GRAN PERCENT AUTO 1 % (0-1); LYMPHOCYTES ABSOLUTE AUTO 4.55 K/mm3 (0.84-5.20); LYMPHOCYTES PERCENT AUTO 30 % (21-46); MONOCYTES ABSOLUTE AUTO 1.53 K/mm3 (0.16-1.47); MONOCYTES PERCENT AUTO 10 % (4-13); Mean Corpuscular HGB Conc 32.5 g/dL (31.5-36.5); Mean Corpuscular Volume 92 fL (80-100); Mean Platelet Volume 10.2 fL (9.1-12.4); NEUTROPHILS ABSOLUTE AUTO 8.69 K/mm3 (1.96-9.15); NEUTROPHILS PERCENT AUTO 57 % (41-73); Platelet Count 318 K/mm3 (150-400); RDW Standard Deviation 40.9 fL (35.1-46.3); Red Blood Cell Count 4.34 M/mm3 (4.30-5.90); White Blood Cell Count 15.37 K/mm3 (4.00-11.30)
[2023-05-13 14:00] LABS: Bicarbonate Venous 24.1 mmol/L (24.0-30.0); PCO2 Venous 63.8 mmHg (38-42)
[2023-05-13 14:01] LABS: pH Blood Venous 7.25 (7.34-7.37)
[2023-05-13 14:11] LABS: Albumin, Blood 3.4 g/dL (3.4-5.0); Albumin/Globulin Ratio 0.8 (0.8-1.8); Bilirubin, Total 0.3 mg/dL (0.1-1.0); Bun/Creatinine Ratio 31.3 (12.0-20.0); Calcium, Blood 8.8 mg/dL (8.5-10.1); Creatinine, Blood 0.77 mg/dL (0.60-1.20); Magnesium, Blood 3.3 mg/dL (1.6-2.4); Potassium, Blood 4.2 mmol/L (3.5-5.5); Total Protein, Blood 7.4 g/dL (6.4-8.2)
[2023-05-13 14:36] LABS: Base Excess Venous -2.7 mmol/L; Bicarbonate Venous 21.6 mmol/L (24.0-30.0); PCO2 Venous 57.1 mmHg (38-42)
[2023-05-13 14:37] LABS: pH Blood Venous 7.24 (7.34-7.37)
[2023-05-13] MEDS ORDERED: HYDHCL25 PO (14:52)
[2023-05-13 15:12] LABS: Source, Urine Foley catheter
[2023-05-13 15:23] LABS: Appearance, Urine Clear (Clear); Bilirubin, Urine Neg (Neg); Blood, Urine Neg (Neg); Color, Urine Yellow (P-Yellow); Glucose Qualitative, Urine Neg (Neg); Ketones, Urine 3+ (Neg); Leukocyte Esterase, Urine Neg (Neg); Nitrite, Urine Neg (Neg); Protein, Urine 1+ (Neg); Specific Gravity, Urine 1.025 (1.003-1.022); Urobilinogen, Urine NORM (Normal)
[2023-05-13 15:51] LABS: Calcium, Blood 8.1 mg/dL (8.5-10.1); Creatinine, Blood 0.83 mg/dL (0.60-1.20)
[2023-05-13 16:15] LABS: Adenovirus Not Detected (NOT DETECT); Bordetella pertussis Not Detected (NOT DETECT); Chlamydophila pneumoniae Not Detected (NOT DETECT); Coronavirus 229E Not Detected (NOT DETECT); Coronavirus HKU1 Not Detected (NOT DETECT); Coronavirus NL63 Not Detected (NOT DETECT); Coronavirus OC43 Not Detected (NOT DETECT); Human Metapneumovirus Not Detected (NOT DETECT); Human Rhinovirus/Enterovirus Not Detected (NOT DETECT); Influenza A/2009-H1 Not Detected (NOT DETECT); Influenza A/H1 Not Detected (NOT DETECT); Influenza A/H3 Not Detected (NOT DETECT); Influenza B Not Detected (NOT DETECT); Mycoplasma pneumoniae Not Detected (NOT DETECT); Parainfluenza Virus 1 Not Detected (NOT DETECT); Parainfluenza Virus 2 Not Detected (NOT DETECT); Parainfluenza Virus 3 Not Detected (NOT DETECT); Parainfluenza Virus 4 Not Detected (NOT DETECT); Respiratory Syncytial Virus Not Detected (NOT DETECT); SARS-Cov-2 (COVID-19), BioFire Not Detected (NOT DETECT)
--- NOTE | 2023-05-13 18:41 | NUR ---
Summary. Pt arrived to ICU at approximately 1510, sedated on propofol at 5 mcg/kg/min, fentanyl infusing at 40 mcg/hr. After assessment by Dr. Brantley, propofol infusion rate unchanged, fentanyl infusion rate lowered to 10 mcg/hr. Pt RASS scale -2, pt able to follow commands and communicate through writing pad. Restraints DC'd, pt calm and cooperative with care. See chart for further details. Will report off to nightshift RN.
--- NOTE | 2023-05-13 19:00 | NUR ---
ASSUMPTION OF CARE CARE OF JEFFREY WAS ASSUMED AT 1900. REPORT GIVEN BY MARGARETH LEUNG. PT IS VENTILATED. PT ALERT AND APPEARS TO BE ORIENTED X4, PT ANSWERING QUESTIONS WITH HAND MOTIONS AND WRITING ON NOTEPAD. PROPOFOL INFUSING @5 MCG/KG/MIN, FENTANYL CONTINUOUSLY INFUSING @10 MCG/HR. PT ORIENTED TO VENTILATOR TUBING AND IV LINES, MOVES WITH CAUTION. VENT SETTINGS AT 1900 ACVC 14/450/5/40%, ETT 25 AT TEETH. CARDIAC MONITORING REFLECTING SINUS TACH, SBP 110s, HR 105. NS INFUSING @ 75 ML/HR. TEMP JAMA PATENT AND DRAINING TO GRAVITY. BED BATH AND CATH CARE COMPLETED AND START OF SHIFT.
[2023-05-14] VITALS (40 sets, daily range): BP systolic 101–152; BP diastolic 65–98
[2023-05-14 03:10] LABS: Hematocrit 34.1 % (37.0-53.0); Hemoglobin 11.5 g/dL (13.5-17.5); Mean Corpuscular HGB 30.4 pg (26.0-34.0); Mean Corpuscular HGB Conc 33.7 g/dL (31.5-36.5); Mean Corpuscular Volume 90 fL (80-100); Mean Platelet Volume 10.2 fL (9.1-12.4); Platelet Count 269 K/mm3 (150-400); RDW Coefficient Variation 12.1 % (11.7-14.2); RDW Standard Deviation 39.9 fL (35.1-46.3); Red Blood Cell Count 3.78 M/mm3 (4.30-5.90)
[2023-05-14 03:36] LABS: Albumin, Blood 2.9 g/dL (3.4-5.0); Anion Gap 6 mmol/L (6-16); Blood Urea Nitrogen 24 mg/dL (8-24); Bun/Creatinine Ratio 39.3 (12.0-20.0); CO2, Blood 27 mmol/L (21-32); Calcium, Blood 8.5 mg/dL (8.5-10.1); Chloride, Blood 107 mmol/L (98-108); Creatinine, Blood 0.61 mg/dL (0.60-1.20); Glomerular Filtration Rate 110 (60-); Glucose, Blood 195 mg/dL (70-99); Phosphorus, Blood 1.8 mg/dL (2.5-4.9); Potassium, Blood 4.5 mmol/L (3.5-5.5); Sodium, Blood 140 mmol/L (136-145)
--- NOTE | 2023-05-14 06:41 | NUR ---
SHIFT SUMMARY JEFFREY CONTINUES TO BE A/O X4. PT IS STILL INTUBATED. PT PARTICIPATES IN COMMUNICATION BY HAND GESTURES AND NODDING HEAD YES AND NO. PT AWARE OF LINES AND VENTILATOR TUBING AND MOVES WITH CAUTION. PROPOFOL INFUSING @ 5 MCG/KG/MIN AND FENTANYL CONTINUOUSLY INFUSING AT 10 MCG/HR. VENT SETTINGS SPON. PS 10/5 35%. PT TOLERATING WELL, O2 SATS > 95%. CARDIAC MONITORING REFLECTED SINUS TACH. SBP 110s-130s, MAP >65. OG CLAMPED. TEMP JAMA PATENT AND DRAINING TO GRAVITY. PT DID NOT HAVE A BM THIS SHIFT. WILL CONTINUE TO MONITOR UNTIL CARE IS TRANSITIONED TO DAY SHIFT.
--- NOTE | 2023-05-14 11:04 | NUR ---
EXTUBATION: LATE ENTRY FOR 09:[address] MFCADDEN, PATIENT READY FOR EXTUBATION. PATIENT EXTUBATED BY RT TONY WITH RNS AT BEDSIDE. PATIENT TRANSITIONED TO 3L VIA NC, HIS BASELINE AMOUNT. FENTANYL AND PROPOFOL GTT STOPPED. PATIENT DENIES CHEST PAIN, SHORTNESS OF BREATH OR DIFFICULTY BREATHING. PATIENT'S BREATHS ARE EVEN AND REGULAR. PATIENT'S RR IS STABLE IN THE TEENS. SPO2 97-98%. DR. MCFADDEN AT BEDSIDE PRIOR TO EXTUBATION AND FOR MULTIPLE ASSESSMENTS POST EXTUBATION.
--- NOTE | 2023-05-14 13:29 | NUR ---
Spiritual Care Visit. Pt. is awake in bed and welcomes my visit. Nurses are also present. Facilitate a life review and establish rapport. Pt. displays evidence of engagement and awareness. Considered matters of albin and belief. Prayed with Pt. pt. verbalized gratitude for the spiritual care visit.
--- NOTE | 2023-05-14 18:29 | NUR ---
SHIFT SUMMARY: PATIENT ALERT AND ORIENTED X4 THROUGHOUT THE SHIFT. PATIENT EXTUBATED AT 09:25 THIS MORNING. PATIENT REMAINED STABLE ON 3L VIA NC FOR THE REMAINDER OF THE SHIFT. SPO2 BETWEEN 95-99%. BREATHING IS EVEN AND REGULAR. LUNG SOUNDS REMAINED CLEAR AND DIMINISHED FOR THE REMAINDER OF THE SHIFT. SBPS IN THE 120-130S. MAPS >65. INDWELLING CATHETER REMOVED AT 1600. PATIENT IS DUE TO VOID. PATIENT DENIES URGE OR DISCOMFORT AT THIS TIME. PATIENT REPORTS A NEIGHBOR THAT PRODUCES A LARGE AMOUNT OF LUNG IRRITANTS (TRASH BURNING, BBQ, DIESEL ENGINES). PATIENT REPORTS THAT HE HAS A HEPA FILTER AT HOME IN ONE ROOM AND HAS BEEN SAVING MONEY TO BUY A NEW TRAILER/MOVE.
[2023-05-15] VITALS (10 sets, daily range): BP systolic 106–191; BP diastolic 62–102
[2023-05-15 03:27] LABS: BASOPHILS PERCENT AUTO 0 % (0-2); EOSINOPHILS PERCENT AUTO 0 % (0-6); Hematocrit 32.9 % (37.0-53.0); Hemoglobin 10.8 g/dL (13.5-17.5); IMMATURE GRAN ABSOLUTE AUTO 0.04 K/mm3 (0.00-0.10); IMMATURE GRAN PERCENT AUTO 0 % (0-1); LYMPHOCYTES ABSOLUTE AUTO 1.58 K/mm3 (0.84-5.20); LYMPHOCYTES PERCENT AUTO 14 % (21-46); MONOCYTES ABSOLUTE AUTO 0.49 K/mm3 (0.16-1.47); MONOCYTES PERCENT AUTO 4 % (4-13); Mean Corpuscular HGB 29.9 pg (26.0-34.0); Mean Corpuscular HGB Conc 32.8 g/dL (31.5-36.5); Mean Corpuscular Volume 91 fL (80-100); Mean Platelet Volume 10.3 fL (9.1-12.4); NEUTROPHILS ABSOLUTE AUTO 9.36 K/mm3 (1.96-9.15); NEUTROPHILS PERCENT AUTO 82 % (41-73); Platelet Count 262 K/mm3 (150-400); RDW Coefficient Variation 12.3 % (11.7-14.2); Red Blood Cell Count 3.61 M/mm3 (4.30-5.90); White Blood Cell Count 11.47 K/mm3 (4.00-11.30)
[2023-05-15 03:44] LABS: Albumin, Blood 2.6 g/dL (3.4-5.0); Anion Gap 3 mmol/L (6-16); Blood Urea Nitrogen 20 mg/dL (8-24); Bun/Creatinine Ratio 31.1 (12.0-20.0); CO2, Blood 30 mmol/L (21-32); Calcium, Blood 8.3 mg/dL (8.5-10.1); Chloride, Blood 109 mmol/L (98-108); Creatinine, Blood 0.64 mg/dL (0.60-1.20); Glomerular Filtration Rate 108 (60-); Glucose, Blood 158 mg/dL (70-99); Phosphorus, Blood 2.3 mg/dL (2.5-4.9); Potassium, Blood 4.4 mmol/L (3.5-5.5); Sodium, Blood 142 mmol/L (136-145)
--- NOTE | 2023-05-15 05:19 | NUR ---
SHIFT SUMMARY: NO ACUTE CHANGES OVERNIGHT. PT A&O X 4, FOLLOWING DIRECTIONS AND MAKING NEEDS KNOWN. PT CURRENTLY ON NC @ 3LPM (BASELINE), SPO2 96<; PT DISPLAYS MODERATE EXERTIONAL DYSPNEA WHEN GETTING UP TO TOILET OR CHANGING POSITIONING IN BED, SPO2 DROPS TO MID 80'S AND O2 TITRATED UP TO 5LPM TO HELP PT RECOVER AND THEN TITRATED BACK DOWN TO BASELINE. DURING THE EXERTIONAL DYSPNEA PT BECOMES ANXIOUS AND TACHYCARDIAC WITH HR 120-130'S. PROVIDER CALLED THIS SHIFT FOR A ONE TIME DOSE OF ATIVAN THAT APPEARED TO HELP PT WITH ANXIETY EARLY THIS MORE; PT SLEEPING AT THIS TIME. PT HAS BEEN SR-ST WITH HR 80-120'S, SBP 110-120'S AND PT DENIES CHEST PAIN/PRESSURE AT THIS TIME. PT TOLERATING PO INTAKE; ABD SOFT, NON-TENDER. PT HAS NOT HAD A BOWEL MOVEMENT SINCE PRIOR TO ADMISISON. PT USING URINAL OR TOILET FOR VOIDING/ELIMINATION NEEDS. PIV X 3; NS INFUSING AT 75 MS/HR. PT HAS INDEPENDENT BED MOBILITY WITH SBA FOR CORD MANAGEMENT. PT USING CALL LIGHT APPROPRIATELY; BED LOWERED, CALL LIGHT IN REACH.
--- NOTE | 2023-05-15 09:11 | NUR ---
SHIFT ASSESSMENT ASSUMED CARE OF PT @ 0700. PT A&OX4, FOLLOWING COMMANDS, ELKE. PT DYSPNEIC UPON EXERTION, HAS SOME BASELINE ANXIETY ADDING TO HIS SOB. CURRENTLY ON 3LPM VIA NC WHICH IS WHAT HE USES AT HOME. SATS >90%. PT C/O ANXIETY, SPOKE WITH HOSPITALIST, PLAN TO INCREASE APPROPRIATE MED DOSAGE. PT TOLERATING PO INTAKE WELL. NO OTHER NEW COMPLAINTS. PT NOW MEDICAL FLOOR STATUS.
--- NOTE | 2023-05-15 18:15 | NUR ---
patient continued to calm down from the anxiety of sob abd the transfer to a different floor, patient in no resp distress, nc on 5l, patient able to talk without getting sob, poor lung sounds, extensive copd, steroid and albuterol side effects. pleasant and cooperative to care. htn and tachycardia resolved, started on metoprolol, bipap use is patients baseline, bipap on at night 10/ with 5l o2 bleed in and after albuterol treatmetns, nc 5l when awake. call light with in reach, clearly makes needs known, has not been out of bed since to medical floor, patient independantly repositions self in bed, will relay to pm rn
--- NOTE | 2023-05-16 04:36 | NUR ---
PATIENT A/OX4, SLEPT MOST OF THE NIGHT. ANXIOUS AT TIMES, MEDICATING WITH BUSPAR AND ATARAX WITH GOOD RELIEF. 5LO2 TO MAINTAIN SATS. BIPAP WORN THROUGHOUT THE NIGHT. CONTINUOUS PULSE OX IN USE, MAINTAINING SATS >90%. SKIN INTACT. DENIES ANY PAIN OR DISCOMFORT. CALLS APPROPRIATELY FOR ASSISTANCE. NO NEW CONCERNS OVERNIGHT.
[2023-05-16 04:50] VITALS: BP 111/82
[2023-05-16 05:48] LABS: BASOPHILS ABSOLUTE AUTO 0.01 K/mm3 (0.00-0.23); BASOPHILS PERCENT AUTO 0 % (0-2); EOSINOPHILS PERCENT AUTO 0 % (0-6); Hematocrit 35.3 % (37.0-53.0); Hemoglobin 11.4 g/dL (13.5-17.5); IMMATURE GRAN ABSOLUTE AUTO 0.05 K/mm3 (0.00-0.10); IMMATURE GRAN PERCENT AUTO 0 % (0-1); LYMPHOCYTES ABSOLUTE AUTO 2.38 K/mm3 (0.84-5.20); LYMPHOCYTES PERCENT AUTO 20 % (21-46); MONOCYTES ABSOLUTE AUTO 1.05 K/mm3 (0.16-1.47); MONOCYTES PERCENT AUTO 9 % (4-13); Mean Corpuscular HGB 29.6 pg (26.0-34.0); Mean Corpuscular HGB Conc 32.3 g/dL (31.5-36.5); Mean Corpuscular Volume 92 fL (80-100); Mean Platelet Volume 10.3 fL (9.1-12.4); NEUTROPHILS ABSOLUTE AUTO 8.69 K/mm3 (1.96-9.15); NEUTROPHILS PERCENT AUTO 71 % (41-73); Platelet Count 297 K/mm3 (150-400); RDW Coefficient Variation 12.3 % (11.7-14.2); RDW Standard Deviation 40.9 fL (35.1-46.3); Red Blood Cell Count 3.85 M/mm3 (4.30-5.90); White Blood Cell Count 12.18 K/mm3 (4.00-11.30)
[2023-05-16 06:09] LABS: Albumin, Blood 2.8 g/dL (3.4-5.0); Albumin/Globulin Ratio 0.9 (0.8-1.8); Bilirubin, Total 0.3 mg/dL (0.1-1.0); Bun/Creatinine Ratio 43.9 (12.0-20.0); Calcium, Blood 8.9 mg/dL (8.5-10.1); Creatinine, Blood 0.68 mg/dL (0.60-1.20); Phosphorus, Blood 2.6 mg/dL (2.5-4.9); Potassium, Blood 4.3 mmol/L (3.5-5.5); Total Protein, Blood 5.8 g/dL (6.4-8.2)
[2023-05-16 07:24] VITALS: BP 121/83
--- NOTE | 2023-05-16 12:42 | NUR ---
PATIENT STARTED SHIFT AT 0750 WITH A PANIC ATTACK, DEEP BREATHING AND SCEDULED AM MEDICATIONS HELPED THE ANIETY, HEART RATE, AND SAT IMPROVE, DR FRANCOIS ROUNDED, PATIENT TO BE STARTED ON XANAX, RESTING IN BED WITH BIPAP ON NOT SOB SATS 96%, HEART RATE 78, CALL LIGHT WITH IN REACH
--- NOTE | 2023-05-16 16:19 | NUR ---
NO ACUTE CHANGES, ALERT AND ORIENTED X3 FORGETFUL AT TIMES, DR FRANCOIS ROUNDED, SCHEDULED XANAX FOR PANIC ATTACKS, PATEINT MAKES NEEDS KNOWN, SWALLOWS ONE PILL AT A TIME, FOLLOWS INSTRUCTION, BREATHS DEEP AND OUT TO RELAX, METOPROLOL STARTED YESTERDAY HEART RATE STAYED UNDER 110 TODAY, DENIES PAIN, CALL LIGHT WITH IN REACH
[2023-05-16 16:57] VITALS: BP 134/104
[2023-05-16 21:10] VITALS: BP 140/87
--- NOTE | 2023-05-17 04:30 | NUR ---
PATIENT A/OX4, ABLE TO SIT UP AT SIDE OF ANNE FOR A FEW HOURS AT START OF SHIFT. VERY ANXIOUS BEFORE BED, BUT SLEPT WELL ONCE SCHEDULED ANXIETY MEDICATIONS GIVEN. TOLERATED TRILOGY MACHINE WITH 5LO2 BLEED IN. SATS REMAINED >90%. PATIENT TOLERATING REGULAR DIET. CONTINENT OF BOWEL AND BLADDER, URING URINAL INDEPENDENTLY. WOULD LIKE TO BE OUT OF BED MORE, BUT BECOMES VERY SHORT OF BREATH WITH EXERTION. COOPERATIVE WITH CARE, CALLS APPROPRIATELY FOR ASSISTANCE. NO NEW CONCERNS OVERNIGHT.
[2023-05-17 08:11] VITALS: BP 161/107
[2023-05-17 11:41] VITALS: BP 131/84
--- NOTE | 2023-05-17 16:05 | NUR ---
SHIFT SUMMARY A&OX4, COOPERATIVE WITH CARE, ANXIOUS. DESATTED THIS MORNING TO 80% AFTER RT CAME IN. BP WAS 161/[address] 120'S FOR ABOUT AN HOUR. ADMINISTERED XANAX AND BUSPAR AND USED THERAPEUTIC DISTRACTION LEADING TO DECREASED ANXIOUS SYMPTOMS. DENIED CHEST PAIN, HEADACHE, DIZZINESS, OR SOB. DECREASED O2 TO 4LI VIA TRILOGY AND SATS HAVE REMAINED IN THE MID-90'S. LUNG SOUNDS TIGHT. PATIENT HAS AN OCCASIONAL NONPRODUCTIVE, CONGESTED COUGH. EDUCATED PATIENT ABOUT THE USE OF FLUTTER VALVE, HE VERBALIZED UNDERSTANDING. NO ACUTE CHANGES THIS SHIFT. CURRENTLY RESTING IN HIS ROOM. DENIES PAIN AT THIS TIME. CALL LIGHT WITHIN REACH.
[2023-05-17 19:43] VITALS: BP 163/112
[2023-05-17] MEDS ORDERED: REMERON30 M9 PO (23:45)
[2023-05-17] MEDS ORDERED: Incruse Ellipta 62.5 INH (23:47)
[2023-05-17] MEDS ORDERED: FLUTICASONE-SA1 EAC9 INH (23:49)
[2023-05-17] MEDS ORDERED: COMBIVENT RESPIM4 G1 INH (23:50)
[2023-05-17] MEDS ORDERED: PRED5 PO (23:50)
[2023-05-18] VITALS (56 sets, daily range): BP systolic 78–168; BP diastolic 38–102
--- NOTE | 2023-05-18 05:03 | NUR ---
PATIENT A/OX4, PLEASANT AND COOPERATIVE WITH CARE. DID NOT SLEEP WELL LAST NIGHT AND WAS MORE ANXIOUS. SCHEDULED ANXIETY MEDICATIONS GIVEN AND PRN ATARAX GIVEN X1. PATIENT SAT AT SIDE OF BED FOR SEVERAL HOURS FEELING SOB. O2 SATS REMAIN >90% ON TRILOGY WITH 5-7L O2 BLEED IN. NOT EATING AND DRINKING MUCH DO TO SOB. SKIN INTACT. PATIENT DENIES ANY PAIN OR DISCOMFORT. ST ON TELE WITH HE 110-120 BPM. CALLS APPROPRIATELY FOR ASSISTANCE.
[2023-05-18 05:05] LABS: Hemoglobin 14.6 g/dL (13.5-17.5); Mean Corpuscular HGB Conc 31.7 g/dL (31.5-36.5); Mean Corpuscular Volume 95 fL (80-100); Mean Platelet Volume 10.1 fL (9.1-12.4); Platelet Count 497 K/mm3 (150-400); RDW Standard Deviation 42.2 fL (35.1-46.3); Red Blood Cell Count 4.86 M/mm3 (4.30-5.90)
[2023-05-18 06:28] LABS: Bun/Creatinine Ratio 43.7 (12.0-20.0); Calcium, Blood 9.2 mg/dL (8.5-10.1); Creatinine, Blood 0.76 mg/dL (0.60-1.20); Potassium, Blood 4.6 mmol/L (3.5-5.5)
[2023-05-18 06:42] LABS: BASOPHILS PERCENT MAN 0 % (0-2); EOSINOPHILS ABSOLUTE MAN 0.26 K/mm3 (0.00-0.68); EOSINOPHILS PERCENT MAN 1 % (0-6); LYMPHOCYTES % ATYPICAL MANUAL 2 % (0-0); LYMPHOCYTES ABSOLUTE MAN 12.98 K/mm3 (0.84-5.20); LYMPHOCYTES PERCENT MAN 47 % (21-46); MONOCYTES ABSOLUTE MAN 2.65 K/mm3 (0.16-1.47); MONOCYTES PERCENT MAN 10 % (4-13); SEG NEUTROPHILS PERCENT MAN 40 % (41-73); TOTAL CELLS COUNTED 100
--- NOTE | 2023-05-18 10:13 | NUR ---
ANESTHESIA TECHNICIAN called; patient having respiratory problems. Brittany called at [phone]. Notified that Oz is being intubated and will be going back to ICU. Unable to get through on sisters number.
--- NOTE | 2023-05-18 10:47 | NUR ---
Case Conference Note LAW EXAMINER called for Pt. Attempted to contact friend Brittany who is listed as HProxy and sister. Floor phones not working at this time. Nursing Coating Inspector Saúl contacts friend from her office. Friend does not plan to come in. Placed stat CXR per V/O from Dr Diez. Pt in respiratory distress and was intubated. Offered supportive role. Pt to be transfered to ICU. Palliative Care will F/U for therapeutic visits.
--- NOTE | 2023-05-18 10:47 | NUR ---
INITIAL ASSESSMENT PATIENT ARRIVED TO ICU FROM MEDICAL FLOOR AT 1030. PATIENT INTUBATED. PATIENT PLACED ON PROPOFOL AT 15 MCG/ KG/ MINUTE PATIENT TRYING TO REACH TOWARD ETT. PATIENT RESPONDS TO NOXIOUS STIMULI WITH MOVEMENT OF EXTREMITIES AND GRIMACING OF FACE. PATIENT ON VENT SETTINGS OF AC 12, TV 420, PEEP 5, AND FIO2 OF 40%. LUNGS TIGHT AND DIMINISHED THROUGHOUT. ETT 7.5 AND 26 CM AT THE LIP. PATIENT IN ST, HR IN THE LOW 100S. SBP IN THE 120S. DOPPLER PULSES IN BILAT FEET. ABD MODERATELY DISTENDED; NORMOACTIVE BOWEL SOUNDS NOTED. DATE OF LAST BM DOCUMENTED ON 05/17. PATIENT WET WHEN ARRIVED TO UNIT. PATIENT CLEANED UP AND BRIEFS PLACED. SKIN PALE AND COOL. SKIN MOTTLED FROM THIGHS TO KNEES. SCATTERED BRUISES NOTED T/O BODY. MED FLOOR RN REPORTED THAT NURSE TRIM SAWYER CALLED PATIENT'S FRIEND, SHARIF, AND INFORMED HER OF PATIENT GETTING INTUBATED AND SENT TO ICU. BED LOW, CALL LIGHT IN REACH.
[2023-05-18 11:00] LABS: PCO2 Arterial 104 mmHg (35-45); PO2 Arterial 225 mmHg (80-100); pH Blood Arterial 7.18 (7.35-7.45)
--- NOTE | 2023-05-18 11:34 | NUR ---
PER ABSTRACT WRITER NURSE PT DID NOT SLEEP MUCH LAST NIGHT. AT START OF SHIFT PT WAS RESTING IN BED AND APPEARED TO BE SLEEPING. TRIOLOGY MASK IN PLACE WITH A 5L BLEED IN. PT DIFFICULT TO ROUSE DURING MORNING ASSESSMENT. THIS NURSE ROUNDED ON PT FREQUENTLY TO SEE IF HE WAS AWAKE D/T IMAGING WAITING TO DO CHEST X-RAY. AT APPROXOMINTLY 0930, PT WAS OBSEVED MOVING IN BED BUT STILL DIFFICULT TO ROUSE. OXYGEN SATURATION WAS DROPPING AND VP DIRECTOR OF CREATIVE STRATEGY WAS CALLED. SEE VP DIRECTOR OF CREATIVE STRATEGY NOTES IN INTERVENTIONS. PT WAS INTUBATED AT BEDSIDE AND WAS TAKEN TO ICU AFTER X-RAY WAS DONE AT BEDSIDE. REPORT GIVEN TO ICU NURSE AT BEDSIDE.
--- NOTE | 2023-05-18 12:30 | NUR ---
PATIENT AFEBRILE. HR IN THE 1-TEENS. SBP IN THE 80S. PROPOFOL AT 20 MCG/ KG/ MINUTE. NO OTHER ACUTE CHANGES TO NOTE ON AT THIS TIME.
[2023-05-18 13:26] LABS: Base Excess Venous 10.7 mmol/L; Bicarbonate Venous 30.1 mmol/L (24.0-30.0); PCO2 Venous 92 mmHg (38-42); pH Blood Venous 7.23 (7.34-7.37)
--- NOTE | 2023-05-18 16:00 | NUR ---
PATIENT AFEBRILE. HR IN THE 1-TEENS. SBP IN THE 80S. PROPOFOL AT 20 MCG/ KG/ MINUTE. PATIENT NOW WARM INSTEAD OF COLD. MOTTLING ON LEGS HAS NOW DISAPPEARED. PATIENT VENT SETTINGS AC 16, TV 420, PEEP 5 AND 30% FIO2. BLADDER SCAN 172. OG TO LIS. BED LOW, CALL LIGHT IN REACH.
--- NOTE | 2023-05-18 18:14 | NUR ---
SHIFT SUMMARY PATIENT HAS REMAINED INTUBATED AND ON SEDATION. PATIENT HAS REMAINED RESPONDING TO NOXIOUS STIMULI WITH MOVEMENT OF EXTREMITIES AND GRIMACING OF FACE. PATIENT RECEIVED PRN FENTANYL OT FOR SIGNS OF PAIN; CPOT OF ZERO AFTER ADMINISTRATION. VINCENT HUGGER TO PATIENT AFTER ARRIVED COLD AND MOTTLED. VINCENT HUGGER REMOVED. SKIN NO LONGER MOTTLED AND IS NOW WARM TO TOUCH. PATIENT VENT SETTINGS CHANGED FROM AC 12, TV 420, PEEP 5 AND 40% FIO2 TO AC 16, TV 420, PEEP 5 AND 30% FIO2. LUNGS HAVE REMAINED TIGHT AND DIMINISHED. PATIENT HAS REMAINED IN ST, HR LOW 100S TO 120S. SBP 70S TO 140S. PULSES TO FEET FAINT NOW INSTEAD OF DOPPLER. PATIENT RECEIVING 2ND 500 ML BOLUS OF NS. NO BM THIS SHIFT. PATIENT HAS REMAINED NPO. OG TO LIS. ATTENDS AND WRAP PAD IN PLACE FOR INCONTINENT VOID WHEN ARRIVED. PATIENT HAS NOT HAD VOID SINCE ARRIVED. PATIENT BLADDER SCANNED TWICE 128MLS AND [address] SHOWN IN BLADDER. DR. LOMBARDO AWARE. PROPOFOL INFUSING AT 25 MCG/ KG/ MINUTE AND NS TKO. PATIENT APPEARS COMFORTABLE AT THIS TIME. BED LOW, CALL LIGHT IN REACH. REPORT WILL BE GIVEN TO ASSUMING JEWEL SAWYER NURSE SHORTLY.
--- NOTE | 2023-05-18 19:07 | NUR ---
ASSUMED CARE OF PT AT 1900. REPORT RECEIVED AT BEDSIDE. PT PRESENTS IN BED. INTUBATED. AC/VC 16, Tv 420, FIO2 30%, PEEP 5.0 PT MAINTAINS SATURATIONS > 90 PERCENT. PROPOFOL AT 25 MCG'S. NO S/S DISTRESS. WILL REVIEW CHART AND PLAN OF CARE FOR THIS PT.
[2023-05-18 20:45] LABS: Base Excess Venous 8.1 mmol/L; Bicarbonate Venous 30.3 mmol/L (24.0-30.0); PCO2 Venous 53.7 mmHg (38-42)
[2023-05-19] VITALS (46 sets, daily range): BP systolic 81–136; BP diastolic 51–84
[2023-05-19 04:18] LABS: BASOPHILS ABSOLUTE AUTO 0.01 K/mm3 (0.00-0.23); BASOPHILS PERCENT AUTO 0 % (0-2); EOSINOPHILS ABSOLUTE AUTO 0.01 K/mm3 (0.00-0.68); EOSINOPHILS PERCENT AUTO 0 % (0-6); Hematocrit 34.4 % (37.0-53.0); Hemoglobin 11.1 g/dL (13.5-17.5); IMMATURE GRAN ABSOLUTE AUTO 0.08 K/mm3 (0.00-0.10); IMMATURE GRAN PERCENT AUTO 1 % (0-1); LYMPHOCYTES ABSOLUTE AUTO 2.21 K/mm3 (0.84-5.20); LYMPHOCYTES PERCENT AUTO 18 % (21-46); MONOCYTES ABSOLUTE AUTO 0.48 K/mm3 (0.16-1.47); MONOCYTES PERCENT AUTO 4 % (4-13); Mean Corpuscular HGB 29.7 pg (26.0-34.0); Mean Corpuscular HGB Conc 32.3 g/dL (31.5-36.5); Mean Corpuscular Volume 92 fL (80-100); Mean Platelet Volume 10.6 fL (9.1-12.4); NEUTROPHILS ABSOLUTE AUTO 9.47 K/mm3 (1.96-9.15); NEUTROPHILS PERCENT AUTO 77 % (41-73); Platelet Count 323 K/mm3 (150-400); RDW Coefficient Variation 12.1 % (11.7-14.2); RDW Standard Deviation 40.6 fL (35.1-46.3); Red Blood Cell Count 3.74 M/mm3 (4.30-5.90); White Blood Cell Count 12.26 K/mm3 (4.00-11.30)
[2023-05-19 04:43] LABS: Albumin, Blood 2.8 g/dL (3.4-5.0); Bilirubin, Total 0.3 mg/dL (0.1-1.0); Bun/Creatinine Ratio 50.2 (12.0-20.0); Calcium, Blood 8.3 mg/dL (8.5-10.1); Creatinine, Blood 0.72 mg/dL (0.60-1.20); Globulin, Blood 2.7 g/dL (2.2-4.0); Potassium, Blood 4.1 mmol/L (3.5-5.5); Total Protein, Blood 5.5 g/dL (6.4-8.2)
--- NOTE | 2023-05-19 07:30 | NUR ---
INITIAL ASSESSMENT PATIENT INTUBATED AND ON SEDATION. PATIENT FOLLOWING SIMPLE COMMANDS AND MOVES ALL EXTREMITIES. PATIENT ANSWERING YES AND NO QUESTIONS WITH NODDING AND SHAKING OF HEAD. PATIENT AFEBRILE. PATIENT DENIES PAIN. PATIENT CALM AND COOPERATIVE. PATIENT ON VENT SETTINGS OF AC 16, TV 420, PEEP 5 AND 30% FIO2. LUNGS CLEAR T/O; LOWER LOBES DIMINISHED. SCANT AMOUNT OF THICK, SHAIKH SECRETIONS SUCTIONED FROM ETT. PATIENT IN SR, HR IN THE 90S. SBP IN THE LOW 100S. ABDOMEN MODERATELY DISTENDED, SOFT WITH NORMOACTIVE BOWEL SOUNDS. DATE OF LAST BM DOCUMENTED ON 05/17. OG CLAMPED AFTER MED ADMINISTRATION BUT HAS BEEN TO LIS. CONDOM CATH IN PLACE. PATIENT HAS BEEN UNABLE TO VOID ON OWN SINCE ARRIVED TO ICU. BLADDER SCAN 332 MLS THIS AM. SKIN PALE AND WARM. SCATTERED BRUISES NOTED T/O BODY. PROPOFOL INFUSING AT 30 MCG/ KG/ MINUTE AND NS TKO. BED LOW, CALL LIGHT IN REACH.
[2023-05-19 09:09] LABS: Source, Urine Foley catheter
[2023-05-19 09:13] LABS: Appearance, Urine Clear (Clear); Bilirubin, Urine Neg (Neg); Blood, Urine Neg (Neg); Color, Urine Yellow (P-Yellow); Glucose Qualitative, Urine Neg (Neg); Ketones, Urine 2+ (Neg); Leukocyte Esterase, Urine Neg (Neg); Nitrite, Urine Neg (Neg); Protein, Urine 1+ (Neg); Urobilinogen, Urine NORM (Normal)
--- NOTE | 2023-05-19 12:20 | NUR ---
PATIENT AFEBRILE. HR IN THE 90S. SBP 80S TO 1-TEENS. VENT PEEP NOW AT 8. NO OTHER ACUTE CHANGES TO NOTE ON AT THIS TIME.
--- NOTE | 2023-05-19 16:15 | NUR ---
PATIENT AFEBRILE. HR IN THE 90S. SBP IN THE 80S. PEEP AT 7. PATIENT RESTING QUIETLY. BED LOW, CALL LIGHT IN REACH.
--- NOTE | 2023-05-19 18:41 | NUR ---
SHIFT SUMMARY PATIENT REMAINED INTUBATED AND ON PROPOFOL THIS SHIFT. PATIENT REMAINED ABLE TO FOLLOW SIMPLE COMMANDS, ANSWERING YES AND NO QUESTIONS WITH SHAKING AND NODDING HEAD AND COMMUNICATING WITH WRITING ON NOTE PAD. PATIENT REMAINED CALM AND COOPERATIVE THIS SHIFT. PATIENT TAKEN OUT OF RESTRAINTS AROUND NOON AND HAS NOT TRIED TO GRAB AT ANY LINES, CORDS, OR VENT. PATIENT HAS REMAINED AFEBRILE. PATIENT GIVEN PRN IV FENTANYL A COUPLE TIMES THIS SHIFT FOR COMPLAINTS OF PAIN AND REPORTED RELIEF AFTER ADMINISTRATION. PATIENT ON VENT SETTINGS OF AC 16, TV 420, PEEP 7 AT THIS TIME, AND 30% FIO2. SCANT AMOUNT OF THICK, SHAIKH SECRETIONS SUCTIONED FROM ETT. PATIENT REMAINED SR TO ST, HR 80S TO LOW 100S. SBP 80S TO 120S. NO BM THIS SHIFT. OG FROM LIS TO TF THIS SHIFT. VHP INFUSING AT GOAL RATE OF 50 MLS/ HOUR WITH 30 ML WATER FLUSH Q4H. JAMA PLACED THIS SHIFT FOR RETENTION. 560 MLS OF URINE OUT THIS SHIFT FROM JAMA. NO CHANGES TO SKIN NOTED. PATIENT REPOSITIONED Q2H. COMPLETE BED BATH PERFORMED THIS SHIFT. NO SIGNS OF PAIN NOTED AT THIS TIME. BED LOW AND CALL LIGHT IN REACH. REPORT WILL BE GIVEN TO ASSUMING CANE PUSHER NURSE SHORTLY.
--- NOTE | 2023-05-19 19:24 | NUR ---
ASSUMED CARE OF PT AT 1900. REPORT RECEIVED AT BEDSIDE. PT PRESENTS IN BED. INTUBATED. TOLERATING THIS WELL. MAINTAINING SATURATIONS > 90 PERCENT. VSS. PT MAKES ATTEMPTS TO WRITE OUT HIS QUESTIONS AND NEEDS ON PAPER. VERY DIFFICULT TO READ HANDWRITING. WILL FIND PICTURE BOARD FOR PT TO USE. WILL REVIEW CHART AND PLAN OF CARE FOR THIS PT.
[2023-05-19 20:51] LABS: Base Excess Venous 10.3 mmol/L; Bicarbonate Venous 32.9 mmol/L (24.0-30.0); PCO2 Venous 45.2 mmHg (38-42); pH Blood Venous 7.48 (7.34-7.37)
[2023-05-20] VITALS (28 sets, daily range): BP systolic 97–149; BP diastolic 61–100
[2023-05-20 05:00] LABS: Base Excess Venous 10.6 mmol/L; Bicarbonate Venous 33.2 mmol/L (24.0-30.0); PCO2 Venous 45.6 mmHg (38-42); pH Blood Venous 7.48 (7.34-7.37)
[2023-05-20 05:30] LABS: Bun/Creatinine Ratio 57.6 (12.0-20.0); Calcium, Blood 8.5 mg/dL (8.5-10.1); Creatinine, Blood 0.63 mg/dL (0.60-1.20); Magnesium, Blood 2.3 mg/dL (1.6-2.4); Phosphorus, Blood 2.4 mg/dL (2.5-4.9); Potassium, Blood 3.8 mmol/L (3.5-5.5)
--- NOTE | 2023-05-20 06:15 | NUR ---
PT CONTINUES WITHOUT RESTRAINTS THIS NIGHT. HAS NOT MADE ANY ATTEMPTS TO PULL AT VITAL LINES OR TUBES. HAVE PROPOFOL AT 40 MCG'S/KG/MIN. NO DISTRESS TO NOTE. VSS THROUGHOUT SHIFT. WILL CONTINUE TO MONITOR PT, AND WILL REPORT OFF TO ONCOMING RN.
--- NOTE | 2023-05-20 07:38 | NUR ---
Assumed care at approximately 0700. Bedside report received from nightshift RN. Pt resting in bed, sedated and ventilated via ETT. OG tube in place. Vent settings: AC/VC 14/420/7/30%, propofol infusing at 40 mcg/kg/min. TF at goal rate. Banegas cath draining to gravity. No acute needs ATT, will continue to monitor.
--- NOTE | 2023-05-20 14:04 | NUR ---
Spiritual Care Visit. Pt. is awake in bed on a Bipap when he welcomes my visit. Pt. is pleasant. Rapport is quickly re-established as this mold loft worker has seen this Pt. in the past. Facilitate a life review that focuses on his hospitalization. Pt. verbalizes appreciation for the care the staff has given him. Consider matters of albin and belief as well as matters in his home life. Pt. displays evidence of being hopeful to discharged to his own home. Prayed with the Pt. and provided him with a bible. Pt. verbalizes grattitude for the spiritual care visit.
--- NOTE | 2023-05-20 18:43 | NUR ---
Shift summary. Pt much improved this shift. Successfully extubated to bipap this morning, currently up in chair on NC at 3 L/min. Saline locked. Seen by OT/PT today, on regular adult diet. Banegas removed. Pt alert and oriented w/stable vital signs. See chart for further details, will report off to nightshift RN.
--- NOTE | 2023-05-20 21:50 | NUR ---
ASSUMPTION OF CARE/TRANSFER: ASSUMED CARE OF PT AT 1900. CURRENTLY PT A&O X 4, USING CALL LIGHT APPROPRIATELY AND MAKES NEEDS KNOWM; PT DENIES ANY PAIN COMPLAINTS AT THIS TIME. PT CURRENTLY ON BIPAP WITH SETTINGS 10/5 WITH 3L BLED IN; PT ON NC @ 3-4 LPM WHEN REQUESTING BIPAP BREAKS. PT LUNG SOUNDS ARE CLEAR IN THE UPPER LOBES AND DIMINSIHED IN THE MID/LOWER LOBES, PT DENIES SOB BUT HAS OBSERVED EXERTIONAL DYSPNEA WITH ALL GROSS MOTOR MOVEMENTS, AND DURING THESE EPISODES PT BECOMES INCREASINGLY ANXIOUS. PT COACHED WITH BREATHING TECHNIQUES AND IS ABLE TO CALM DOWN. SPO2 94< AND RR 16-20. SR ON MONITOR WITH SBP 110-130'S. PT HAS BEEN TOLERATING PO INTAKE; ABD DISTENDED, FIRM WITH SLIGHT TENDERNESS IN LLQ. PT STATES THAT HE HAS NOT HAD A BOWEL MOVEMENT SINCE PRIOR TO ADMISSION; BOWEL CARE ORDER. PT VOIDS INDEPENDENTLY AT BEDSIDE; URINE DARK YELLOW, CLEAR. PT HAS INDEPENDENT BED MOBILITY, PPP X 4 AND SKIN WARM/INTACT. 2144: PT TRANSFERRED TO PCU 3 WITH THIS RN AND PCT; ALL PT BELONGINGS TRANSFERRED WITH PT. REPORT GIVEN TO HORACIO LEUNG.
--- NOTE | 2023-05-20 21:55 | NUR ---
TRANSFER TO PCU3 PT TRANSFERED TO PCU3 AT APPROXIMATELY 2150 VIA ICU HOSPITAL BED BY ICU STAFF MEMBERS. PT SLID OVER FROM ICU BED TO PCU BED BY 4 CLINICAL STAFF MEMBERS. PT A&Ox4, COMMUNICATES NEEDS APPROPRIATELY, ORIENTED TO CALL LIGHT/UNIT. SpO2> 92% ON 4L VIA NC, DENIES SOB, RT TO SET UP BIPAP AT BEDSIDE. BP STABLE, SINUS 80's, DENIES CP/PRESSURE. PT FEELING AT EASE AND NOT OVERLY ANXIOUS. BED IN LOWEST POSITION, CALL LIGHT IN REACH.
[2023-05-21 03:21] VITALS: BP 121/75
[2023-05-21 03:36] LABS: BASOPHILS ABSOLUTE AUTO 0.02 K/mm3 (0.00-0.23); BASOPHILS PERCENT AUTO 0 % (0-2); EOSINOPHILS PERCENT AUTO 0 % (0-6); Hematocrit 35.3 % (37.0-53.0); Hemoglobin 11.5 g/dL (13.5-17.5); IMMATURE GRAN ABSOLUTE AUTO 0.19 K/mm3 (0.00-0.10); IMMATURE GRAN PERCENT AUTO 1 % (0-1); LYMPHOCYTES ABSOLUTE AUTO 3.14 K/mm3 (0.84-5.20); LYMPHOCYTES PERCENT AUTO 19 % (21-46); MONOCYTES ABSOLUTE AUTO 0.97 K/mm3 (0.16-1.47); MONOCYTES PERCENT AUTO 6 % (4-13); Mean Corpuscular HGB 29.7 pg (26.0-34.0); Mean Corpuscular HGB Conc 32.6 g/dL (31.5-36.5); Mean Corpuscular Volume 91 fL (80-100); Mean Platelet Volume 10.3 fL (9.1-12.4); NEUTROPHILS ABSOLUTE AUTO 12.13 K/mm3 (1.96-9.15); NEUTROPHILS PERCENT AUTO 74 % (41-73); Platelet Count 341 K/mm3 (150-400); RDW Coefficient Variation 12.5 % (11.7-14.2); RDW Standard Deviation 41.6 fL (35.1-46.3); Red Blood Cell Count 3.87 M/mm3 (4.30-5.90); White Blood Cell Count 16.45 K/mm3 (4.00-11.30)
[2023-05-21 04:00] LABS: Bun/Creatinine Ratio 51.5 (12.0-20.0); Calcium, Blood 8.7 mg/dL (8.5-10.1); Creatinine, Blood 0.64 mg/dL (0.60-1.20); Magnesium, Blood 2.4 mg/dL (1.6-2.4); Phosphorus, Blood 3.7 mg/dL (2.5-4.9); Potassium, Blood 4.8 mmol/L (3.5-5.5)
--- NOTE | 2023-05-21 04:38 | NUR ---
SHIFT SUMMARY SEE PREVIOUS NOTE. A&Ox4, COMMUNICATES NEEDS APPROPRIATELY. SpO2> 92% ON 4L VIA NC ORBIPAP 10/6 w/ 2L BLEED IN; DENIES SOB. BP STABLE, SINUS 80's, DENIES CP/PRESSURE. PT WITH ONE EPISODE OF FEELING ANXIOUS, THIS RN AT BEDSIDE TALKING PT THROUGH IT AND HELPING HIM FOCUS ON HIS BREATHING. NO OTHER EVENTS, WILL REPORT TO ONCOMING RN.
[2023-05-21 08:47] VITALS: BP 139/83
[2023-05-21 13:04] VITALS: BP 163/91
[2023-05-21 16:44] VITALS: BP 129/81
--- NOTE | 2023-05-21 17:53 | NUR ---
ASSUMED CARE OF PT AT 0700 THIS AM. NO ACUTE EVENTS T/O THE SHIFT. PT OOB TO COMMODE (+BM) THEN UP TO CHAIR LATE THIS MORNING. PT DOES GET ANXIOUS WITH MOVEMENT, DYSPNEA WITH EXERTION AND IT TAKES SOME TIME BEFORE HE RECOVERS. SPO2 REMAINS 95% OR >. PT'S FRIEND IN TO VISIT, APPEARS TO HAVE RAISED HIS MORALE. DR PEREZ IN TO SEE PT, STATES HE WANTS PT TO USE HIS HOME TRILOGY MACHINE TONIGHT. PT REFUSES STATING HE HAD HIS HOME FUMAGATED AND NEEDS NEW FILTERS AND TUBING AND MAY HAVE BEEN MALFUNCTIONING PRIOR TO HIS HOSPITALIZATION. HE STATES HE WANTS TO "TRADE IT IN WITH [facility]." PT IS ABLE TO USE CALL LIGHT FOR NEEDS, CALL LIGHT IN REACH. WILL CONTINUE TO MONITOR AND GIVE REPORT TO ONCOMING RN.
[2023-05-21 19:32] VITALS: BP 147/86
[2023-05-21 22:57] VITALS: BP 124/83
[2023-05-22 03:28] VITALS: BP 127/84
[2023-05-22 04:54] LABS: BASOPHILS ABSOLUTE AUTO 0.03 K/mm3 (0.00-0.23); BASOPHILS PERCENT AUTO 0 % (0-2); EOSINOPHILS PERCENT AUTO 0 % (0-6); Hematocrit 38.8 % (37.0-53.0); Hemoglobin 12.5 g/dL (13.5-17.5); IMMATURE GRAN ABSOLUTE AUTO 0.35 K/mm3 (0.00-0.10); IMMATURE GRAN PERCENT AUTO 3 % (0-1); LYMPHOCYTES ABSOLUTE AUTO 3.69 K/mm3 (0.84-5.20); LYMPHOCYTES PERCENT AUTO 27 % (21-46); MONOCYTES ABSOLUTE AUTO 0.79 K/mm3 (0.16-1.47); MONOCYTES PERCENT AUTO 6 % (4-13); Mean Corpuscular HGB 29.6 pg (26.0-34.0); Mean Corpuscular HGB Conc 32.2 g/dL (31.5-36.5); Mean Corpuscular Volume 92 fL (80-100); Mean Platelet Volume 10.3 fL (9.1-12.4); NEUTROPHILS ABSOLUTE AUTO 9.02 K/mm3 (1.96-9.15); NEUTROPHILS PERCENT AUTO 65 % (41-73); Platelet Count 345 K/mm3 (150-400); RDW Coefficient Variation 12.1 % (11.7-14.2); RDW Standard Deviation 40.8 fL (35.1-46.3); Red Blood Cell Count 4.22 M/mm3 (4.30-5.90); White Blood Cell Count 13.88 K/mm3 (4.00-11.30)
[2023-05-22 05:20] LABS: Bun/Creatinine Ratio 55.1 (12.0-20.0); Calcium, Blood 8.5 mg/dL (8.5-10.1); Creatinine, Blood 0.62 mg/dL (0.60-1.20); Magnesium, Blood 2.3 mg/dL (1.6-2.4); Phosphorus, Blood 3.4 mg/dL (2.5-4.9); Potassium, Blood 4.6 mmol/L (3.5-5.5)
--- NOTE | 2023-05-22 06:15 | NUR ---
SHIFT SUMMARY A&Ox4, CALLS AND COMMUNICATES NEEDS APPROPRIATELY. SpO2> 92% ON 2L VIA [facility] OR BIPAP 06/18 w/ 2L BLEED IN; DENIES SOB. BP STABLE, SINUS 80's, DENIES CP/PRESSURE. PT WITH NO EPISODES OF FEELING ANXIOUS. NO OTHER EVENTS, WILL REPORT TO ONCOMING RN.
[2023-05-22 08:18] VITALS: BP 157/96
[2023-05-22 11:55] VITALS: BP 115/99
--- NOTE | 2023-05-22 14:39 | NUR ---
ASSUMED CARE OF PT AT 0700 THIS AM. PT APPEARS TO BE SLEEPING ON FIRST ROUNDS, RESPIRATIONS EVEN AND UNLABORED, EYES CLOSED. DR GONZALEZ IN TO ROUND, PT EASILY AWAKENED, TAKEN OFF BIPAP AND PUT ON NC @ 3L. PT ATE BREAKFAST, BUT BECAME INCREASINGLY ANXIOUS T/O THE AM. PT GIVEN PRN ATARAX FOR ANXIETY, PT ABLE TO SHOWER W ASSISTANCE, THEN SITTING ON SIDE OF BED. PT PLACED BACK ON BIPAP FOR RECOVERY, SEVERE DYPNEA WITH EXERTION. SYSTEM DEVELOPMENT ENGINEER DR PEREZ IN TO SEE PT, IS AWARE NOW OF PT'S PROBLEMS WITH HIS HOME TRILOGY. DR PEREZ EDUCATED PT ABOUT COPD AND BREATHING TECHNIQUES, PT VERBALIZED UNDERSTANDING. AT THIS TIME, PT IS BACK IN BED, EYES CLOSED, RESPIRATIONS EVEN AND UNLABORED AND APPEARS TO BE SLEEPING. PT IS ABLE TO USE CALL LIGHT FOR NEEDS, CALL LIGHT IN REACH. WILL CONTINUE TO MONITOR.
[2023-05-22 16:46] VITALS: BP 123/80
--- NOTE | 2023-05-22 18:11 | NUR ---
NO ACUTE EVENTS T/O THE SHIFT. PT'S ANXIETY APPEARS TO BE BETTER CONTROLLED TODAY WITH ATARAX AND BUSPAR. NO CHANGES IN PT'S CONDITION NOTED THIS SHIFT. PT IS ABLE TO USE CALL LIGHT FOR NEEDS, CALL LIGHT IN REACH. WILL CONTINUE TO MONITOR AND GIVE REPORT TO ONCOMING RN.
[2023-05-22 19:30] VITALS: BP 135/92
[2023-05-23 01:42] VITALS: BP 110/78
[2023-05-23 03:30] VITALS: BP 127/88
[2023-05-23 04:19] LABS: Anion Gap 2 mmol/L (6-16); Blood Urea Nitrogen 37 mg/dL (8-24); Bun/Creatinine Ratio 56.7 (12.0-20.0); CO2, Blood 32 mmol/L (21-32); Calcium, Blood 8.4 mg/dL (8.5-10.1); Chloride, Blood 102 mmol/L (98-108); Creatinine, Blood 0.65 mg/dL (0.60-1.20); Glomerular Filtration Rate 108 (60-); Glucose, Blood 114 mg/dL (70-99); Phosphorus, Blood 3.2 mg/dL (2.5-4.9); Potassium, Blood 4.5 mmol/L (3.5-5.5); Sodium, Blood 136 mmol/L (136-145)
[2023-05-23 04:49] LABS: Hematocrit 39.1 % (37.0-53.0); Hemoglobin 12.7 g/dL (13.5-17.5); Mean Corpuscular HGB 29.3 pg (26.0-34.0); Mean Corpuscular HGB Conc 32.5 g/dL (31.5-36.5); Mean Corpuscular Volume 90 fL (80-100); Mean Platelet Volume 10.2 fL (9.1-12.4); Platelet Count 343 K/mm3 (150-400); RDW Standard Deviation 39.6 fL (35.1-46.3); Red Blood Cell Count 4.34 M/mm3 (4.30-5.90); White Blood Cell Count 15.33 K/mm3 (4.00-11.30)
[2023-05-23 05:09] LABS: BASOPHILS PERCENT MAN 0 % (0-2); EOSINOPHILS PERCENT MAN 0 % (0-6); LYMPHOCYTES ABSOLUTE MAN 6.43 K/mm3 (0.84-5.20); LYMPHOCYTES PERCENT MAN 42 % (21-46); METAMYELOCYTE PERCENT MAN 2 % (0-0); MONOCYTES ABSOLUTE MAN 1.22 K/mm3 (0.16-1.47); MONOCYTES PERCENT MAN 8 % (4-13); NEUTROPHILS ABSOLUTE MAN 7.35 K/mm3 (1.96-9.15); SEG NEUTROPHILS PERCENT MAN 48 % (41-73); TOTAL CELLS COUNTED 100
--- NOTE | 2023-05-23 06:27 | NUR ---
End of shift note. Pt has had a decent shift. One episode of anxiety when he was tangled in his lines. Pt was able to self soothe and recover. PRN anxiety meds have been given Q6hr. Pt has been on the BiPAP for much of the night. Pt is able to make needs known, call light is within reach.
[2023-05-23 07:36] VITALS: BP 127/81
[2023-05-23 12:55] VITALS: BP 146/95
--- NOTE | 2023-05-23 18:10 | NUR ---
ASSUMED CARE OF PT AT 0700 THIS AM. NO ACUTE CHANGES T/O THE DAY. PT HAD EPISODE OF SOB/AXIETY THIS AM, MEDICATED PER EMAR. RT IN ROOM FOR BREATHING TREATMENT AND PRESCRIBED INHALERS. PT HAD 02 OFF FOR A SHORT TIME WHILE RECEIVING INHALERS, SP02 NOTED TO QUICKLY DROP INTO THE 70s AND PT NEEDED BIPAP WITH 4L BLEED IN TO RECOVER. DISCUSSED THIS EPISODE W DR PEREZ THIS AFTERNOON. PT ON AND OFF THE BIPAP T/O THE DAY. NC AT 3L SPO2>92%. EDUCATED PT ABOUT ACCEPTABLE SP02 LEVELS IN COPD, KEEPING SATS BETWEEN 88-92% IS APPROPRIATE. PT STATES IT IS TOO HARD FOR HIM TO BREATH WHEN SATS ARE THAT LOW. REINFORCED TEACHING FROM YESTERDAY ABOUT BREATHING TECHNIQUES FROM DR PEREZ. PT IS NOW MEDICAL STATUS, NO TELE. + BM TODAY. GOOD URINE OUTPUT AND PO INTAKE. PT IS ABLE TO USE CALL LIGHT FOR NEEDS, CALL LIGHT IN REACH. WILL CONTINUE TO MONITOR AND GIVE REPORT TO ONCOMING RN.
[2023-05-23 19:33] VITALS: BP 111/81
[2023-05-24] VITALS (8 sets, daily range): BP systolic 100–188; BP diastolic 72–166
[2023-05-24 04:50] LABS: BASOPHILS ABSOLUTE AUTO 0.03 K/mm3 (0.00-0.23); BASOPHILS PERCENT AUTO 0 % (0-2); EOSINOPHILS ABSOLUTE AUTO 0.06 K/mm3 (0.00-0.68); EOSINOPHILS PERCENT AUTO 0 % (0-6); Hematocrit 41.4 % (37.0-53.0); Hemoglobin 13.4 g/dL (13.5-17.5); IMMATURE GRAN PERCENT AUTO 2 % (0-1); LYMPHOCYTES ABSOLUTE AUTO 6.61 K/mm3 (0.84-5.20); LYMPHOCYTES PERCENT AUTO 36 % (21-46); MONOCYTES ABSOLUTE AUTO 1.92 K/mm3 (0.16-1.47); MONOCYTES PERCENT AUTO 10 % (4-13); Mean Corpuscular HGB 29.6 pg (26.0-34.0); Mean Corpuscular HGB Conc 32.4 g/dL (31.5-36.5); Mean Corpuscular Volume 92 fL (80-100); Mean Platelet Volume 10.7 fL (9.1-12.4); NEUTROPHILS ABSOLUTE AUTO 9.54 K/mm3 (1.96-9.15); NEUTROPHILS PERCENT AUTO 52 % (41-73); Platelet Count 361 K/mm3 (150-400); RDW Coefficient Variation 12.2 % (11.7-14.2); RDW Standard Deviation 40.5 fL (35.1-46.3); Red Blood Cell Count 4.52 M/mm3 (4.30-5.90); White Blood Cell Count 18.46 K/mm3 (4.00-11.30)
--- NOTE | 2023-05-24 05:21 | NUR ---
SHIFT SUMMARY A/Ox4 AND COOPERATIVE WITH CARE, BUT CAN VERY ANXIOUS AT TIMES. ANSWERS QUESTIONS APPROPRIATELY AND ABLE TO MAKE HIS NEEDS KNOWN. NO ACUTE EVENTS OVERNIGHT FOR PT SLEPT FOR MOST OF THE SHIFT. CARDIAC, PT IS MED W/O TELE. HR REMAINS IN 60-90's WITH NO REPORTS OF CP OR PRESSURE T/O THE NIGHT. SBP REMAINS STABLE RANGING 110-120's. RESPIRATORY, MAINTAINS SPO2 >92% ON 3L VIA NC. USED HIS TRILOGY DEVICE WITH 2L BLEED IN T/O THE NIGHT MAINTAINING SATS >94%. LS VERY DIMINISHED T/O WITH SOB/TACHYPNEA NOTED WITH EXERTION. GI/, ABLE TO AMBULATE TO [facility] WITH 1 STAFF ASSIST. NO BM FOR ME THIS SHIFT. BS PRESENT IN ALL QUADRANTS WITH NO REPORTS OF N/V OR ABD PAIN. ANXIETY BEEN WELL MANAGED WITH PRN ANTI-ANXIETY MEDICATIONS. [facility] TO BE IN WEDNESDAY (05/24/23) TO EXAMINE PT S HOME TRILOGY PER DAY SHIFT REPORT. PENDING DISCHARGE TO SNF. ASSESSED PT FOR RISKS OF ANY IGNITION SOURCES WELL BEHAVIORS FOR INCREASED RISKS OF FIRE DANGER. PT EDUCATED ON COMMON SOURCES OF IGNITION WELL NEED TO KEEP A SAFE ENVIRONMENT. PT VOICED UNDERSTANDING. NO NEW ORDERS AT THIS TIME, WILL REPORT TO ONCOMING RN. ANDRESSA GREER OF THIS NOTE.
[2023-05-24 05:38] LABS: BASOPHILS PERCENT MAN 0 % (0-2); EOSINOPHILS PERCENT MAN 0 % (0-6); LYMPHOCYTES ABSOLUTE MAN 7.75 K/mm3 (0.84-5.20); LYMPHOCYTES PERCENT MAN 42 % (21-46); METAMYELOCYTE ABSOLUTE MAN 0.18 K/mm3 (0.00-0.00); METAMYELOCYTE PERCENT MAN 1 % (0-0); MONOCYTES ABSOLUTE MAN 0.73 K/mm3 (0.16-1.47); MONOCYTES PERCENT MAN 4 % (4-13); NEUTROPHILS ABSOLUTE MAN 9.78 K/mm3 (1.96-9.15); SEG NEUTROPHILS PERCENT MAN 53 % (41-73); TOTAL CELLS COUNTED 100
--- NOTE | 2023-05-24 11:59 | NUR ---
AT BEGINNING OF SHIFT PT HAD A BREATHING TREATMENT. WHEN TREATMENT WAS OVER PT'S 02 LEVEL STARTED TO GO DOWN AND PT STATED HE HAD ANXIETY. O2 LEVEL TITRATED UP AND 02 LEVEL WAS ABOVE 92% W/BIPAP 10/6 W 4L BLEED IN. ONCE PT WAS FEELING BETTER, PT SAT ON EDGE OF BED WITH TABLE IN FRONT OF HIM AND HE ATE BREAKFAST WITH 3-4L NC, 02 SAT STAYED ABOVE 92%. BED CAME AVAILABLE AT [facility], PT PLANNING ON WORKING WITH PT BEFORE D/C. PT RESTING IN BED UNTIL PHYSICAL THERAPY GETS HERE WITH BIPAP ON. CALL LIGHT WITHIN REACH.
[2023-05-24 12:07] LABS: SARS-Cov-2 (COVID-19) PCR, MMC NEGATIVE (NEGATIVE)
--- NOTE | 2023-05-24 16:28 | NUR ---
PT TRANSFERRED, MEDICAL STATUS. REPORT GIVEN TO ACCEPTING RN. TRANSFERRED VIA WHEELCHAIR WITH OXYGEN. NO ACUTE DISTRESS AT TIME OF TRANSFER.
--- NOTE | 2023-05-24 18:35 | NUR ---
SHIFT SUMMARY: PT A&O X4. PT PLEASANT AND COOPERATIVE WITH CARE. PT ARRIVED TO MEDICAL FLOOR @1555. PT ABLE TO TRANSFER STANDBY. PT CURRENTLY ON 3.5L 02 W/INTERMITTENT BIPAP. PT C/O ANXIETY UPON ARRIVAL AND TACHYCARDIA UPON WAKING IN MORNING. PT IS REQUESTING METOPROLOL TO BE GIVEN W/AM LABS. WILL PASS ON TO REAL ESTATE UNDERWRITER. CALL LIGHT IN REACH. BED IN LOWEST POSITION. WILL CONTINUE TO MONITOR.
--- NOTE | 2023-05-25 04:23 | NUR ---
SUMMARY- PT SLEPT MOST OF THE NIGHT- BIPAP WITH 4L BLEED IN, CONT PULSE OX CONSISTANTLY 97%. TOLERATING FLUIDS. VOIDING IN THE URINAL. TYLENLY GIVEN BEFORE BED FOR COMFORT ALONG WITH ATARAX. PLAN FOR PT TO GO HOME TODAY WITH HOME HEALTH, HE WAS DENIED SNF
[2023-05-25 04:45] VITALS: BP 135/92
[2023-05-25 05:46] LABS: Hematocrit 42.4 % (37.0-53.0); Hemoglobin 13.5 g/dL (13.5-17.5); Mean Corpuscular HGB 29.5 pg (26.0-34.0); Mean Corpuscular HGB Conc 31.8 g/dL (31.5-36.5); Mean Corpuscular Volume 93 fL (80-100); Mean Platelet Volume 10.4 fL (9.1-12.4); Platelet Count 350 K/mm3 (150-400); RDW Coefficient Variation 12.2 % (11.7-14.2); RDW Standard Deviation 40.9 fL (35.1-46.3); Red Blood Cell Count 4.58 M/mm3 (4.30-5.90); White Blood Cell Count 21.64 K/mm3 (4.00-11.30)
[2023-05-25 06:15] LABS: BAND PERCENT MAN 1 % (0-8); BASOPHILS PERCENT MAN 0 % (0-2); EOSINOPHILS ABSOLUTE MAN 0.21 K/mm3 (0.00-0.68); EOSINOPHILS PERCENT MAN 1 % (0-6); LYMPHOCYTES % ATYPICAL MANUAL 1 % (0-0); LYMPHOCYTES ABSOLUTE MAN 8.65 K/mm3 (0.84-5.20); LYMPHOCYTES PERCENT MAN 39 % (21-46); MONOCYTES ABSOLUTE MAN 1.73 K/mm3 (0.16-1.47); MONOCYTES PERCENT MAN 8 % (4-13); NEUTROPHILS ABSOLUTE MAN 11.03 K/mm3 (1.96-9.15); SEG NEUTROPHILS PERCENT MAN 50 % (41-73); TOTAL CELLS COUNTED 100
[2023-05-25 06:16] LABS: Albumin, Blood 3.1 g/dL (3.4-5.0); Anion Gap 1 mmol/L (6-16); Blood Urea Nitrogen 36 mg/dL (8-24); Bun/Creatinine Ratio 55.5 (12.0-20.0); CO2, Blood 35 mmol/L (21-32); Calcium, Blood 8.8 mg/dL (8.5-10.1); Chloride, Blood 103 mmol/L (98-108); Creatinine, Blood 0.65 mg/dL (0.60-1.20); Glomerular Filtration Rate 108 (60-); Glucose, Blood 94 mg/dL (70-99); Potassium, Blood 4.2 mmol/L (3.5-5.5); Sodium, Blood 139 mmol/L (136-145)
[2023-05-25 07:14] VITALS: BP 114/78
[2023-05-25 09:51] VITALS: BP 149/90
[2023-05-25] MEDS ORDERED: ACET325 PO (12:23)
[2023-05-25] MEDS ORDERED: IPRAT-ALBUT 0.5-3 ML INH (12:25)
[2023-05-25] MEDS ORDERED: METO25 PO (12:27)
[2023-05-25] MEDS ORDERED: DULERA 100 MCG/13 GM INH (12:28)
[2023-05-25] MEDS ORDERED: PANT40 PO (12:29)
[2023-05-25 14:49] LABS: Influenza A, PCR NEGATIVE (NEGATIVE); Influenza B, PCR NEGATIVE (NEGATIVE); Resp Syncytial Virus, PCR NEGATIVE (NEGATIVE); SARS-Cov-2 (COVID-19) PCR, MMC NEGATIVE (NEGATIVE)
[2023-05-25 15:16] VITALS: BP 117/87
--- NOTE | 2023-05-25 17:24 | NUR ---
DISCHARGE: PT D/C @1642 VIA TRANSPORT TO [facility]. REPORT CALLED TO XOCHITL MARCH. PT LEFT ON 4L NC. IV TAKEN OUT W/O COMPLICATIONS. ATARAX GIVEN @1550 DUE TO MINOR ANXIETY ATTACK. ALL BELONGINGS SENT WITH TRANSPORT.
== END 2023-05-25 16:57 | DRG 208 ==
LOC: ER 13:32 → ICUE 14:40 → MEDS 05-15 10:07 → ICUE 05-18 10:34 → PCU 05-20 21:47 → MEDS 05-24 15:51
PROVIDERS: Family Medicine; Internal Medicine; Internal Medicine Critical Care Medicine; Student in an Organized Health Care Education/Training Program; ADMIT Internal Medicine
PROC: 0D9670Z Drainage of Stomach with Drainage Device, Via Natural or Artificial Opening (ICD-10-PCS; principal; 2023-05-13)
PROC: 5A1945Z Respiratory Ventilation, 24-96 Consecutive Hours (ICD-10-PCS; 2023-05-13)
PROC: 0BH17EZ Insertion of Endotracheal Airway into Trachea, Via Natural or Artificial Opening (ICD-10-PCS; 2023-05-13)
PROC: 0T9B70Z Drainage of Bladder with Drainage Device, Via Natural or Artificial Opening (ICD-10-PCS; 2023-05-13)
PROC: 5A09357 Assistance with Respiratory Ventilation, Less than 24 Consecutive Hours, Continuous Positive Airway Pressure (ICD-10-PCS; 2023-05-18)
PROC: 4A033R1 Measurement of Arterial Saturation, Peripheral, Percutaneous Approach (ICD-10-PCS; 2023-05-19)
PROC: 5A0935A Assistance with Respiratory Ventilation, Less than 24 Consecutive Hours, High Flow/Velocity Cannula (ICD-10-PCS; 2023-05-22)
DX: J96.21 Acute and chronic respiratory failure with hypoxia (principal); J18.9 Pneumonia, unspecified organism; J44.1 Chronic obstructive pulmonary disease with (acute) exacerbation; G93.40 Encephalopathy, unspecified; Z51.5 Encounter for palliative care; Z20.822 Contact with and (suspected) exposure to COVID-19; J96.22 Acute and chronic respiratory failure with hypercapnia; D64.9 Anemia, unspecified; E83.39 Other disorders of phosphorus metabolism; F41.1 Generalized anxiety disorder; D72.828 Other elevated white blood cell count; I10 Essential (primary) hypertension; R00.0 Tachycardia, unspecified; T38.0X5A Adverse effect of glucocorticoids and synthetic analogues, initial encounter; F43.10 Post-traumatic stress disorder, unspecified; N40.0 Benign prostatic hyperplasia without lower urinary tract symptoms; Z79.82 Long term (current) use of aspirin; Z88.8 Allergy status to other drugs, medicaments and biological substances; Z79.891 Long term (current) use of opiate analgesic; Z79.899 Other long term (current) drug therapy; Z87.891 Personal history of nicotine dependence; Z98.890 Other specified postprocedural states; Z90.2 Acquired absence of lung [part of]
CPT/HCPCS: 0202U; 0241U; 31500; 31720; 36415; 36600; 51701; 51702; 71045; 80047; 80048; 80053; 80069; 82803; 82947; 83605; 83735; 83880; 84100; 84145; 84484; 85014; 85025; 85027; 93005; 93010; 94002; 94003; 94640; 94644; 94660; 94664; 94762; 96361-59; 96374-59; 96375-59; 97110; 97162; 97166; 97530; 99291-25; A9270; C9113; J0696; J1650; J2060; J2250; J2704; J2920; J2930; J3010; J7030; J7040; J7050; J7060; J7512; U0002

== ENCOUNTER 2023-05-26 16:46 | Observation (INO) | payer OTHER ==
[~2023-05-26] VITALS: Ht 182.9 cm; Wt 75.4 kg
[~2023-05-26 16:46] MED LIST changes: +ACET325 PO; +FLUTICASONE-SA1 EAC9 INH; +HYDHCL25 PO; +Incruse Ellipta 62.5 INH; +METO25 PO; +PANT40 PO; +PRED5 PO; +REMERON30 M9 PO
[2023-05-26 17:08] LABS: Hematocrit 47.1 % (37.0-53.0); Hemoglobin 15.1 g/dL (13.5-17.5); Mean Corpuscular HGB 29.9 pg (26.0-34.0); Mean Corpuscular HGB Conc 32.1 g/dL (31.5-36.5); Mean Corpuscular Volume 93 fL (80-100); Mean Platelet Volume 10.4 fL (9.1-12.4); Platelet Count 368 K/mm3 (150-400); RDW Coefficient Variation 12.3 % (11.7-14.2); RDW Standard Deviation 41.9 fL (35.1-46.3); Red Blood Cell Count 5.05 M/mm3 (4.30-5.90); White Blood Cell Count 25.22 K/mm3 (4.00-11.30)
[2023-05-26 17:10] LABS: PCO2 Arterial 86 mmHg (35-45); pH Blood Arterial 7.29 (7.35-7.45)
[2023-05-26 17:31] LABS: Albumin, Blood 3.5 g/dL (3.4-5.0); Bilirubin, Total 0.2 mg/dL (0.1-1.0); Bun/Creatinine Ratio 49.2 (12.0-20.0); Calcium, Blood 9.1 mg/dL (8.5-10.1); Creatinine, Blood 0.65 mg/dL (0.60-1.20); Globulin, Blood 3.6 g/dL (2.2-4.0); Potassium, Blood 4.6 mmol/L (3.5-5.5); Total Protein, Blood 7.1 g/dL (6.4-8.2)
[2023-05-26 17:47] LABS: BASOPHILS PERCENT MAN 0 % (0-2); EOSINOPHILS PERCENT MAN 2 % (0-6); LYMPHOCYTES ABSOLUTE MAN 8.07 K/mm3 (0.84-5.20); LYMPHOCYTES PERCENT MAN 32 % (21-46); MONOCYTES ABSOLUTE MAN 2.01 K/mm3 (0.16-1.47); MONOCYTES PERCENT MAN 8 % (4-13); NEUTROPHILS ABSOLUTE MAN 14.62 K/mm3 (1.96-9.15); SEG NEUTROPHILS PERCENT MAN 58 % (41-73); TOTAL CELLS COUNTED 100
[2023-05-26 19:30] LABS: Base Excess Venous 13.8 mmol/L; Bicarbonate Venous 34.7 mmol/L (24.0-30.0); PCO2 Venous 69.8 mmHg (38-42); pH Blood Venous 7.36 (7.34-7.37)
[2023-05-26 20:51] VITALS: BP 137/87
--- NOTE | 2023-05-26 22:39 | NUR ---
PT ARRIVED IN THE UNIT FROM [facility] VIA BED PT ABLE TO STAND AND TRANSFER TO PCU BED ASSISTED, REPORT RECEIVED FROM VERONICA LEUNG. PT ALERT AND ORIENTED X3 ANSWERS QUESTIONS APPROPRIATELY, IS HERE FOR COPD EXACERBATION ON BIPAP UPON ARRIVAL 30% FIO2. VITALS HRR ST 114, SBP 130'S, SATS ABOVE 95% ON BIPAP, AFEBRILE. PT CONTINENT OF BOTH BOWEL AND BLADDER. PT REMAINS ON BIPAP AT THIS TIME, PT NOW RESTING, NO CONCERNS AT THIS TIME, WILL CONTINUE TO MONITO
[2023-05-26 23:44] VITALS: BP 94/66
[2023-05-27 03:39] VITALS: BP 97/70
[2023-05-27 04:53] LABS: Hematocrit 36.6 % (37.0-53.0); Hemoglobin 11.7 g/dL (13.5-17.5); Mean Corpuscular HGB 29.2 pg (26.0-34.0); Mean Corpuscular Volume 91 fL (80-100); Mean Platelet Volume 10.7 fL (9.1-12.4); Platelet Count 254 K/mm3 (150-400); RDW Coefficient Variation 12.1 % (11.7-14.2); RDW Standard Deviation 40.6 fL (35.1-46.3); Red Blood Cell Count 4.01 M/mm3 (4.30-5.90); White Blood Cell Count 10.67 K/mm3 (4.00-11.30)
[2023-05-27 05:30] LABS: Anion Gap Unable to Calculate mmol/L (6-16); Blood Urea Nitrogen 33 mg/dL (8-24); Bun/Creatinine Ratio 57.8 (12.0-20.0); CO2, Blood 38 mmol/L (21-32); Calcium, Blood 8.3 mg/dL (8.5-10.1); Chloride, Blood 103 mmol/L (98-108); Creatinine, Blood 0.57 mg/dL (0.60-1.20); Glomerular Filtration Rate 112 (60-); Glucose, Blood 149 mg/dL (70-99); Potassium, Blood 4.5 mmol/L (3.5-5.5); Sodium, Blood 140 mmol/L (136-145)
--- NOTE | 2023-05-27 05:37 | NUR ---
PT SUMMARY: NO ACUTE CHANGE SINCE TRANSFER, PT HAS RESTED MOST OF THE SHIFT REMAINS ON BIPAP SETTINGS 08/18 30% FIO2. VITALS HRR ST 100'S, SBP SOFT 90'S-100'S MAP >65, SATS ABOVE 94% ON BIPAP, AFEBRILE. PT DENIES ANY PAIN/DISCOMFORT. NS RUNNING AT 125MLS/HR. PT CONTINUES ON IV ABO AND STEROIDS. BREATHING TX PER RT. CONTINENT OF BOTH BOWEL AND BLADDER. PT HAS BEEN CALLING APPROPRIATELY. WILL REPORT TO ONCOMING SHIFT
--- NOTE | 2023-05-27 07:00 | NUR ---
Bedside report was received from XOCHITL Cordero. The pt is alert, oriented and pleasantly cooperative and conversant. He is wearing the bipap, FiO2 30%, RR 23/minute. No anxiety, no distress noted. he has no voiced needs nor mention of discomfort/pain.
[2023-05-27 07:09] VITALS: BP 114/80
--- NOTE | 2023-05-27 08:03 | NUR ---
Call to [facility] to request home Trelegy and most recent medication adminstration list.
--- NOTE | 2023-05-27 08:42 | NUR ---
[facility] does not have the pt's Trilegy. Nursing traffic supervisor states that the pt's machine was picked up by [facility] yesterday for repair/maintainence, and is not in the pt's room. Pt's home medication reconcilation will be faxed to PCU.
--- NOTE | 2023-05-27 09:49 | NUR ---
Pt is wearing the bipap now.
[2023-05-27 13:38] VITALS: BP 113/79
[2023-05-27] MEDS ORDERED: Prednisone10 MG PO (14:49)
[2023-05-27 14:50] LABS: SARS-Cov-2 (COVID-19) PCR, MMC NEGATIVE (NEGATIVE)
--- NOTE | 2023-05-27 15:06 | NUR ---
Telephone report given to Lisa, nurse at [facility] at this time. Transport is arranged for 4 pm. Lisa says that the pt's Trilegy has not yet been delivered to the facility. Call to [facility] at this time to check on delivery status/time.
--- NOTE | 2023-05-27 15:08 | NUR ---
Maya at [facility] confirms that the pt's Trilegy is being delivered and will be at the receiving facility in 30 minutes.
--- NOTE | 2023-05-27 16:17 | NUR ---
Discussed with patient anti-anxiety reducing thought patterns, which he expressed appreciation for. Anti anxiety medication was administered before anticipated discharge time. 1600 Wheelchair transport arrived and the pt was discharged to [facility] on 4 l/min of oxygen delivery.
== END 2023-05-27 16:13 ==
LOC: ER 16:46 → PCU 16:47 → ERHOLD 16:47 → PCU 20:31
PROVIDERS: Emergency Medicine; Hospitalist; Nurse Practitioner Acute Care; ADMIT Internal Medicine
DX: J44.1 Chronic obstructive pulmonary disease with (acute) exacerbation (principal); J96.02 Acute respiratory failure with hypercapnia; J96.01 Acute respiratory failure with hypoxia; I10 Essential (primary) hypertension; F41.9 Anxiety disorder, unspecified; N40.0 Benign prostatic hyperplasia without lower urinary tract symptoms; F32.9 Major depressive disorder, single episode, unspecified; K21.9 Gastro-esophageal reflux disease without esophagitis; Z20.828 Contact with and (suspected) exposure to other viral communicable diseases; Z79.899 Other long term (current) drug therapy
CPT/HCPCS: 36415; 36600; 71045; 80048; 80053; 82803; 83880; 84484; 85025; 85027; 93005; 93010; 94640; 94660; 94664; 94762; 96365; 96366; 96372; 96375; 96376; 99285-25; A9270; G0378; J0456; J1650; J2405; J2930; J7030; J7050; U0002

== ENCOUNTER 2023-05-28 08:06 | Emergency (ER) | payer OTHER ==
[~2023-05-28] VITALS: Ht 175.3 cm; Wt 74.8 kg
[2023-05-28 08:33] LABS: Base Excess Venous 6.6 mmol/L; Bicarbonate Venous 29.9 mmol/L (24.0-30.0); PCO2 Venous 41.3 mmHg (38-42); pH Blood Venous 7.47 (7.34-7.37)
[2023-05-28 08:37] LABS: BASOPHILS ABSOLUTE AUTO 0.05 K/mm3 (0.00-0.23); BASOPHILS PERCENT AUTO 0 % (0-2); EOSINOPHILS ABSOLUTE AUTO 0.13 K/mm3 (0.00-0.68); EOSINOPHILS PERCENT AUTO 1 % (0-6); Hematocrit 41.8 % (37.0-53.0); Hemoglobin 13.1 g/dL (13.5-17.5); IMMATURE GRAN ABSOLUTE AUTO 0.21 K/mm3 (0.00-0.10); IMMATURE GRAN PERCENT AUTO 1 % (0-1); LYMPHOCYTES PERCENT AUTO 38 % (21-46); MONOCYTES ABSOLUTE AUTO 2.94 K/mm3 (0.16-1.47); MONOCYTES PERCENT AUTO 11 % (4-13); Mean Corpuscular HGB 29.9 pg (26.0-34.0); Mean Corpuscular HGB Conc 31.3 g/dL (31.5-36.5); Mean Corpuscular Volume 95 fL (80-100); Mean Platelet Volume 10.5 fL (9.1-12.4); NEUTROPHILS ABSOLUTE AUTO 13.46 K/mm3 (1.96-9.15); NEUTROPHILS PERCENT AUTO 50 % (41-73); Platelet Count 347 K/mm3 (150-400); RDW Coefficient Variation 12.3 % (11.7-14.2); RDW Standard Deviation 43.6 fL (35.1-46.3); Red Blood Cell Count 4.38 M/mm3 (4.30-5.90); White Blood Cell Count 26.89 K/mm3 (4.00-11.30)
[2023-05-28 08:46] LABS: Albumin, Blood 3.2 g/dL (3.4-5.0); Albumin/Globulin Ratio 0.9 (0.8-1.8); Bilirubin, Total 0.2 mg/dL (0.1-1.0); Bun/Creatinine Ratio 44.1 (12.0-20.0); Calcium, Blood 8.6 mg/dL (8.5-10.1); Creatinine, Blood 0.68 mg/dL (0.60-1.20); Globulin, Blood 3.4 g/dL (2.2-4.0); Potassium, Blood 4.3 mmol/L (3.5-5.5); Total Protein, Blood 6.6 g/dL (6.4-8.2)
[2023-05-28 08:59] LABS: BASOPHILS PERCENT MAN 0 % (0-2); EOSINOPHILS PERCENT MAN 0 % (0-6); LYMPHOCYTES ABSOLUTE MAN 10.75 K/mm3 (0.84-5.20); LYMPHOCYTES PERCENT MAN 40 % (21-46); MONOCYTES ABSOLUTE MAN 2.68 K/mm3 (0.16-1.47); MONOCYTES PERCENT MAN 10 % (4-13); NEUTROPHILS ABSOLUTE MAN 13.44 K/mm3 (1.96-9.15); SEG NEUTROPHILS PERCENT MAN 50 % (41-73); TOTAL CELLS COUNTED 100
[2023-05-28 13:45] VITALS: BP 115/74
== END 2023-05-28 13:55 | disposition home or self-care (01) ==
LOC: ER 08:06
PROVIDERS: Emergency Medicine
DX: J96.10 Chronic respiratory failure, unspecified whether with hypoxia or hypercapnia (principal); E86.1 Hypovolemia; I10 Essential (primary) hypertension; J44.9 Chronic obstructive pulmonary disease, unspecified; K21.9 Gastro-esophageal reflux disease without esophagitis; Z91.048 Other nonmedicinal substance allergy status; Z79.52 Long term (current) use of systemic steroids; Z79.899 Other long term (current) drug therapy; Z87.891 Personal history of nicotine dependence
CPT/HCPCS: 71045; 71260; 80053; 82803; 85025; 93005; 93010; 94640; 94660; 94664; 96374-59; 96375-59; 99285-25; J2270; J2405; J7030; Q9967

== ENCOUNTER 2023-06-02 12:51 | Inpatient (IN) | payer OTHER ==
[~2023-06-02] VITALS: Ht 182.9 cm; Wt 72.2 kg
[2023-06-02] VITALS (27 sets, daily range): BP systolic 85–163; BP diastolic 64–91
[2023-06-02 13:31] LABS: Base Excess Venous 18.4 mmol/L; Bicarbonate Venous 37.8 mmol/L (24.0-30.0); PCO2 Venous 92.2 mmHg (38-42)
[2023-06-02 14:20] LABS: BASOPHILS ABSOLUTE AUTO 0.02 K/mm3 (0.00-0.23); BASOPHILS PERCENT AUTO 0 % (0-2); EOSINOPHILS ABSOLUTE AUTO 0.08 K/mm3 (0.00-0.68); EOSINOPHILS PERCENT AUTO 1 % (0-6); Hematocrit 45.2 % (37.0-53.0); Hemoglobin 13.5 g/dL (13.5-17.5); IMMATURE GRAN ABSOLUTE AUTO 0.06 K/mm3 (0.00-0.10); IMMATURE GRAN PERCENT AUTO 0 % (0-1); LYMPHOCYTES ABSOLUTE AUTO 2.56 K/mm3 (0.84-5.20); LYMPHOCYTES PERCENT AUTO 18 % (21-46); MONOCYTES ABSOLUTE AUTO 1.41 K/mm3 (0.16-1.47); MONOCYTES PERCENT AUTO 10 % (4-13); Mean Corpuscular HGB 29.2 pg (26.0-34.0); Mean Corpuscular HGB Conc 29.9 g/dL (31.5-36.5); Mean Corpuscular Volume 98 fL (80-100); Mean Platelet Volume 10.9 fL (9.1-12.4); NEUTROPHILS ABSOLUTE AUTO 9.92 K/mm3 (1.96-9.15); NEUTROPHILS PERCENT AUTO 71 % (41-73); Platelet Count 253 K/mm3 (150-400); RDW Coefficient Variation 12.5 % (11.7-14.2); RDW Standard Deviation 44.8 fL (35.1-46.3); Red Blood Cell Count 4.63 M/mm3 (4.30-5.90); White Blood Cell Count 14.05 K/mm3 (4.00-11.30)
[2023-06-02 14:23] LABS: Alanine Aminotransfer (ALT/SGP 23 U/L (12-78); Albumin, Blood 3.1 g/dL (3.4-5.0); Albumin/Globulin Ratio 0.8 (0.8-1.8); Alk Phos 81 U/L (50-136); Anion Gap Unable to Calculate mmol/L (6-16); Aspartate Aminotrans (AST/SGOT 19 U/L (12-37); Bilirubin, Total 0.4 mg/dL (0.1-1.0); Blood Urea Nitrogen 35 mg/dL (8-24); Bun/Creatinine Ratio 51.9 (12.0-20.0); CO2, Blood 44 mmol/L (21-32); Calcium, Blood 8.9 mg/dL (8.5-10.1); Chloride, Blood 97 mmol/L (98-108); Creatinine, Blood 0.68 mg/dL (0.60-1.20); Glomerular Filtration Rate 106 (60-); Glucose, Blood 158 mg/dL (70-99); Potassium, Blood 5.5 mmol/L (3.5-5.5); Sodium, Blood 140 mmol/L (136-145); Total Protein, Blood 7.1 g/dL (6.4-8.2)
[2023-06-02 16:33] LABS: U Amphetamine Screen Not Detected; U Barbituate Screen Not Detected; U Benzodiazapine Screen DETECTED; U Buprenorphine Screen Not Detected; U Cannabinoids Screen Not Detected; U Cocaine Screen Not Detected; U Methadone Screen Not Detected; U Methamphetamine Screen Not Detected; U Opiates Screen Not Detected; U Oxycodone Screen Not Detected; U Phencyclidine Screen Not Detected; U Propoxyphene Screen Not Detected
[2023-06-02 16:53] LABS: Influenza A, PCR NEGATIVE (NEGATIVE); Influenza B, PCR NEGATIVE (NEGATIVE); Resp Syncytial Virus, PCR NEGATIVE (NEGATIVE); SARS-Cov-2 (COVID-19) PCR, MMC NEGATIVE (NEGATIVE)
--- NOTE | 2023-06-02 17:41 | NUR ---
ARRIVAL TO ICU PT ARRIVES TO ICU FROM ER AT 1650 FOR RESP FAILURE. REPORT FROM TAMMY LEUNG. PT INTUBATED AND SEDATED. VENT SETTINGS AC/VC 12/450/5/30%. LUNGS CLEAR, DIM IN BASES. SCANT SECRETIONS FROM ETT. COUGH/GAG/SWALLOW REFLEX PRESENT. GRIMACES c CARE. PROPOFOL GTT FOR SEDATION. ST ON MONITOR, RATE 100-110'S. BP STABLE. ABD ROUND, SOFT, NON TENDER, BT X 4. JAMA PATENT, DRAINING TO GRAVITY. PT ARRIVES c PIV X 3, LUE NOT PATENT, ARM PALE, SWOLLEN, RAC NON PATENT, IVS REMOVED. POWERGLIDE PLACED. DR SILVA CONSULTED AND ROUNDED. WILL CONTINUE TO MONITOR.
--- NOTE | 2023-06-02 18:37 | NUR ---
OGT ADVANCED 5 CM
--- NOTE | 2023-06-02 21:15 | NUR ---
ASSUMED CARE PT INTUBATED AND SEDATED. AC/VC 12/450/5/30%. PROPOFOL GTT INFUSING. SEE FLOWSHEET FOR RATE AND TITRATIONS. PT GRIMACES WITH ORAL CARE, MOVES HEAD BACK AND FORTH, AND PULLS ON RESTRAINTS WITH CARE. DOES NOT FOLLOW COMMANDS. TREMOR NOTED WITH STIMULATION. VSS. ST 110'S. OGT TO LIS. JAMA PATENT AND DRAINING TO GRAVITY.
[2023-06-02 21:57] LABS: Source, Urine Foley catheter
[2023-06-02 22:23] LABS: Appearance, Urine Clear (Clear); Bilirubin, Urine Neg (Neg); Blood, Urine 1+ (Neg); Color, Urine Yellow (P-Yellow); Glucose Qualitative, Urine Neg (Neg); Ketones, Urine 4+ (Neg); Leukocyte Esterase, Urine Neg (Neg); Nitrite, Urine Neg (Neg); Protein, Urine 2+ (Neg); Urobilinogen, Urine NORM (Normal)
[2023-06-02 22:59] LABS: Bacteria Few /hpf; Red Blood Cells, Urine 0-2 /hpf (0-2); Squamous Epithelial Cells Few /hpf (Few); White Blood Cells, Urine 0-2 /hpf (0-5)
[2023-06-02 23:00] LABS: Mucus Light (0-Heavy)
[2023-06-03] VITALS (89 sets, daily range): BP systolic 96–147; BP diastolic 60–96
[2023-06-03 03:53] LABS: Hematocrit 32.9 % (37.0-53.0); Hemoglobin 10.3 g/dL (13.5-17.5); Mean Corpuscular HGB 29.5 pg (26.0-34.0); Mean Corpuscular HGB Conc 31.3 g/dL (31.5-36.5); Mean Corpuscular Volume 94 fL (80-100); Mean Platelet Volume 10.4 fL (9.1-12.4); Platelet Count 180 K/mm3 (150-400); RDW Coefficient Variation 12.3 % (11.7-14.2); RDW Standard Deviation 42.7 fL (35.1-46.3); Red Blood Cell Count 3.49 M/mm3 (4.30-5.90); White Blood Cell Count 8.99 K/mm3 (4.00-11.30)
[2023-06-03 04:21] LABS: Albumin, Blood 2.5 g/dL (3.4-5.0); Albumin/Globulin Ratio 0.8 (0.8-1.8); Bilirubin, Total 0.3 mg/dL (0.1-1.0); Bun/Creatinine Ratio 51.2 (12.0-20.0); Calcium, Blood 8.4 mg/dL (8.5-10.1); Creatinine, Blood 0.63 mg/dL (0.60-1.20); Total Protein, Blood 5.5 g/dL (6.4-8.2)
[2023-06-03 05:12] LABS: Magnesium, Blood 1.9 mg/dL (1.6-2.4); Phosphorus, Blood 1.3 mg/dL (2.5-4.9)
--- NOTE | 2023-06-03 06:21 | NUR ---
SHIFT SUMMARY NO ACUTE EVENTS T/O NIGHT. PT REMAINS INTUBATED AND SEDATED. NO VENT CHANGES. PROPOFOL AND NS GTT INFUSING. CALL TO HOSP REGARDING MORNING LABS. ORDERS RECEIVED. VSS. BATH AND LINEN CHANGE DONE. Q2 TURNS. OGT TO LIS. JAMA PATENT AND DRAINING TO GRAVITY. WILL REPORT OFF TO ONCOMING RN.
--- NOTE | 2023-06-03 07:00 | NUR ---
ASSUMPTION OF CARE PT RECEIVING PROPOFOL 30MCG/KG/MIN AND NS 75ML/HR. HE NODS/SHAKES HEAD, FOLLOWS SIMPLE COMMANDS. OGT TO LIS. JAMA PATENT AND DRAINING TO GRAVITY. SEE SHIFT ASSESSMENT.
--- NOTE | 2023-06-03 17:01 | NUR ---
SHIFT SUMMARY PT RECEIVING PROPOFOL 30MCG/KG/MIN AND NS 75ML/HR. HE REMAINS INTUBATED WITH VENT SETTINGS AC/VC 12/450/5/30%. WITH PROPOFOL ON, PT IS ABLE TO OPEN EYES, NOD/SHAKE HEAD, AND FOLLOW SIMPLE COMMANDS. WHEN ASKED IF PT IS COMFORTABLE HE NODS HIS HEAD YES AND GIVES A THUMBS UP. SINUS TACH ON MONITOR WITH RATE IN 100S. BP STABLE. OGT TO LIS. JAMA PATENT AND DRAINING YELLOW/GREEN URINE.
--- NOTE | 2023-06-03 19:00 | NUR ---
ASSUMED CARE CARE WAS ASSUMED OF THE PT AT 1900, REPORT GIVEN BY DEEPALI LEUNG. PT RESTING UPON ARRIVAL INTO ROOM, PT WAKES TO VERBAL STIMULI AND CAN NOD HEAD YES AND NO TO QUESTIONS. PT INTUBATED AND SEDATED WITH 30 MCG/KG/MIN. VENT SETTINGS ACVC 12/450/5/30%. CONTINUOUS CARDIAC MONITORING REFLECTS NSR, SBP 110s. HR 90s-100s. NS TKO INFUSING. JAMA PATENT AND DRAINING TO GRAVITY.
[2023-06-04] VITALS (64 sets, daily range): BP systolic 104–165; BP diastolic 59–110
[2023-06-04 04:04] LABS: BASOPHILS ABSOLUTE AUTO 0.01 K/mm3 (0.00-0.23); BASOPHILS PERCENT AUTO 0 % (0-2); EOSINOPHILS ABSOLUTE AUTO 0.01 K/mm3 (0.00-0.68); EOSINOPHILS PERCENT AUTO 0 % (0-6); Hematocrit 31.6 % (37.0-53.0); Hemoglobin 10.2 g/dL (13.5-17.5); IMMATURE GRAN ABSOLUTE AUTO 0.06 K/mm3 (0.00-0.10); IMMATURE GRAN PERCENT AUTO 1 % (0-1); LYMPHOCYTES ABSOLUTE AUTO 2.36 K/mm3 (0.84-5.20); LYMPHOCYTES PERCENT AUTO 20 % (21-46); MONOCYTES ABSOLUTE AUTO 0.39 K/mm3 (0.16-1.47); MONOCYTES PERCENT AUTO 3 % (4-13); Mean Corpuscular HGB 29.6 pg (26.0-34.0); Mean Corpuscular HGB Conc 32.3 g/dL (31.5-36.5); Mean Corpuscular Volume 92 fL (80-100); Mean Platelet Volume 10.4 fL (9.1-12.4); NEUTROPHILS ABSOLUTE AUTO 8.82 K/mm3 (1.96-9.15); NEUTROPHILS PERCENT AUTO 76 % (41-73); Platelet Count 166 K/mm3 (150-400); RDW Standard Deviation 43.1 fL (35.1-46.3); Red Blood Cell Count 3.45 M/mm3 (4.30-5.90); White Blood Cell Count 11.65 K/mm3 (4.00-11.30)
[2023-06-04 04:49] LABS: Albumin, Blood 2.4 g/dL (3.4-5.0); Anion Gap 3 mmol/L (6-16); Blood Urea Nitrogen 22 mg/dL (8-24); Bun/Creatinine Ratio 36.4 (12.0-20.0); CO2, Blood 32 mmol/L (21-32); Calcium, Blood 8.5 mg/dL (8.5-10.1); Chloride, Blood 107 mmol/L (98-108); Creatinine, Blood 0.61 mg/dL (0.60-1.20); Glomerular Filtration Rate 110 (60-); Glucose, Blood 138 mg/dL (70-99); Potassium, Blood 3.8 mmol/L (3.5-5.5); Sodium, Blood 142 mmol/L (136-145)
--- NOTE | 2023-06-04 06:34 | NUR ---
SHIFT SUMMARY PT REMAINS INTUBATED AND SEDATED. PT IS ABLE TO ANSWER QUESTIONS BY NODDING HEAD YES AND NO. PT ALSO MAKES GESTURES WITH HANDS AT AN ATTEMPT TO MAKE NEEDS KNOWN. PT HAS HAD NO ACUTE EVENTS THIS SHIFT. VENT SETTINGS ACVC 12/450/5/30%. WHEN PT WAS AWAKEN THROUGHOUT THE NIGHT, PT WOULD BECOME ASYNCHRONOUS WITH VENTILATOR. ONCE PT FELL BACK ASLEEP OR CONSOLED, PT WOULD RETURN SYNCHRONOUS. LARGE AMOUNTS OF CLEAR ORAL SECRETIONS NOTED THROUGHOUT SHIFT, FREQUENT ORAL SUCTIONING PERFORMED. O2 SATS HAVE REMAINED > 95%. PROPOFOL GTT @ 40 MCG/KG/MIN. CONTINUOUS CARDIAC MONITORING REFLECTED NSR, SBP 110s, HR 90s. NS TKO INFUSING. JAMA CATHETER PATENT AND DRAINING TO GRAVITY. PT HAD BEDBATH THIS SHIFT. WILL CONTINUE TO MONITOR UNTIL CARE IS TRANSITIONED TO DAY SHIFT.
--- NOTE | 2023-06-04 07:00 | NUR ---
ASSUMPTION OF CARE: ASSUMED CARE OF PATIENT AT 0700 WITH RYANN HEATH RN. PATIENT SEDATED AND INTUBATED. VENT SETTINGS AT 14/450/5/30%. SPO2 >96%. NO RESPIRATORY DISTRESS NOTED. TOLERATING THE VENT. PROPOFOL GTT RUNNING AT 40 MCG/KG/HR FOR SEDATION. PATIENT RESPONDING TO VERBAL STIMULI. SBPS IN THE 110S-120S. HR IN THE 90S TO 100S. NS AT 75MLS/HR. PATIENT APPEARS COMFORTABLE.
[2023-06-04 09:58] LABS: PCO2 Arterial 44.1 mmHg (35-45); PO2 Arterial 72.5 mmHg (80-100); pH Blood Arterial 7.47 (7.35-7.45)
--- NOTE | 2023-06-04 13:05 | NUR ---
EXTUBATION: PATIENT EXTUBATED BY MARYCRUZ ASH AT 13:05 TO V30 BIPAP WITH 2L BLEED IN. SPO2 >92%. RR FROM 11-20 BPM. INCREASED RR WHEN ATTEMPTING TO SPEAK. CUED TO ALLOW VOCAL CORDS TO REST. PATIENT REQUESTING TO BE ABLE TO REST QUIETLY. QUIET ENVIORNMENT PROVIDED FOR PATIENT.
--- NOTE | 2023-06-04 13:26 | NUR ---
Brief supportive visit this afternoon. Pt is known to this technical proposal writer from previous hospital stay. Pt just recently extubated and wearing BIPAP. Offered brief supportive conversation. Primary RN Rosamaria at bedside. Rosamaria reports no immediate concerns at this time. Pt agreeable for this RN to F/U at a later time. Plan: Pt has severe COPD with multiple admissions. Will provide advanced care planning. Palliative Care will remain available
--- NOTE | 2023-06-04 18:54 | NUR ---
SHIFT SUMMARY: NEURO: PATIENT EXTUBATED TODAY AT 1305. PATIENT ALERT AND ORIENTED X4. DENIES NUMBNESS/TINGLING THROUGHOUT. PATIENT ABLE TO MOVE LIMBS FREELY AND FOLLOWS COMMANDS. MILD TREMOR NOTED WITH FINE MOTOR MOVEMENT. PATIENT REPORTS THIS HAS BEEN NORMAL. RESPIRATORY: PATIENT EXTUBATED AT 13:05 TODAY. PATIENT TRANSFERRED TO [facility] 05/20 WITH 2L O2 BLEED IN. PATIENT TOLERATING WELL. RESPIRATIONS 16-20 BPM. SPO2 >92%. PATIENT DENIES SHORTNESS OF BREATH OR DIFFICULTY BREATHING. ABLE TO TOLERATE BEING ON 2L VIA NC FOR DINNER. CARDIAC: PATIENT SBPS IN THE 110S-120S. HR IN THE 90S-100S. PATIENT DENIED CHEST PAIN OR DISCOMFORT. GI: PATIENT PASSED BEDSIDE SWALLOW EVALUATION. ABLE TO SIP LIQUIDS WITHOUT SHOFTNESS OF BREATH. PATIENT STARTED ON FULL LIQUIDS. PATIENT TOLERATED WELL TO BE ON 2L VIA NC WHILE EATING DINNER. : JAMA PATENT AND DRAINING FREELY. CATH CARE PERFORMED WITH CATHETER CARE WIPES. ADEQUATE LIGHT YELLOW OUTPUT. PATIENT DENIES BURNING OR DISCOMFORT RELATED TO CATHETER. PSYCHSOCIAL: PATIENT VISITED BY FRIEND PATRICIA. SHE AND THE PATIENT HAVE A SUPPORTIVE RELATIONSHIP. SHE CAME TO VISIT AND BRING THE PATIENT HIS PHONE. PATIENT WAS HESITANT TO HAVE THE BIPAP PLACED BACK ON AFTER DINNER. DISCUSSED PATIENT'S RECOVERY AND THE IMPORTANCE OF SUPPORTING HIS RESPIRATORY SYSTEM. PATIENT REPORTED UNDERSTANDING AND ALLOWED BIPAP TO BE PLACED.
--- NOTE | 2023-06-04 20:23 | NUR ---
ASSUMED CARE CARE WAS ASSUMED OF PT AT 1900, REPORT GIVEN BY RYANN LEUNG AND NATE RN. PT RESTING DURING SHIFT REPORT. PT A/O X4. PT ABLE TO ANSWER QUESTIONS APPROPRIATELY AND PARTICIPATE IN ASSESSMENT. PT ON BIPAP, 05/20 WITH 2 L O2 BLEEDING IN. PT TOLERATING WELL, O2 SATS > 95%. CARDIAC MONITORING REFLECTED SINUS TACH, HR 100s. SBP 130s. NS TKO INFUSING THROUGH PT'S POWERGLIDE. PIV SL. PT'S JAMA PATENT AND DRAINING TO GRAVITY.
[2023-06-05] VITALS (12 sets, daily range): BP systolic 130–173; BP diastolic 72–98
[2023-06-05 04:48] LABS: Albumin, Blood 2.6 g/dL (3.4-5.0); Anion Gap 3 mmol/L (6-16); Blood Urea Nitrogen 21 mg/dL (8-24); Bun/Creatinine Ratio 34.3 (12.0-20.0); CO2, Blood 31 mmol/L (21-32); Calcium, Blood 8.3 mg/dL (8.5-10.1); Chloride, Blood 108 mmol/L (98-108); Creatinine, Blood 0.61 mg/dL (0.60-1.20); Glomerular Filtration Rate 110 (60-); Glucose, Blood 123 mg/dL (70-99); Potassium, Blood 4.3 mmol/L (3.5-5.5); Sodium, Blood 142 mmol/L (136-145)
--- NOTE | 2023-06-05 05:15 | NUR ---
SHIFT SUMMARY JEFFREY REMAINS A/O X4. PT HAS BEEN ABLE TO MAKE NEEDS KNOWN, ANSWER QUESTIONS APRROPRIATELY WELL PARTICIPATE IN CONVERSATION THROUGHOUT THIS SHIFT. PT REMAINS ON BIPAP AND IS TOLERATING WELL. SETTINGS REMAIN AT 9/7 WITH 2 L O2 BLEEDING IN. O2 SATS >95%. CARDIAC MONITORING REFLECTS NSR. SBP 130s-140s. HR 70s-80s. PT AFEBRILE THIS SHIFT. PT ABLE TO REPOSITION INDEPENDENTLY, ONLY NEEDING ASSISTANCE WITH TUCKING PILLOWS UNDERNEATH HIPS WHEN DESIRED. STEPHANIE JAMA REMOVED THIS SHIFT. NO BLEEDING OR TRAUMA NOTED AFTER REMOVAL. WILL CONTINUE TO MONITOR UNTIL CARE IS TRANSITIONED TO DAY SHIFT.
--- NOTE | 2023-06-05 08:02 | NUR ---
Assumed care at approximately 0700, bedside report received from nightshift RN. Pt sleeping in bed at time of report. Transferred to PCU 3 at 0800. Report given to CROCHET BEADER. PT on NC at 2 L/min for transfer, VS stable. All personal belongings sent with patient.
[2023-06-05 09:55] LABS: Hematocrit 38.2 % (37.0-53.0); Hemoglobin 12.1 g/dL (13.5-17.5); Mean Corpuscular HGB 29.4 pg (26.0-34.0); Mean Corpuscular HGB Conc 31.7 g/dL (31.5-36.5); Mean Corpuscular Volume 93 fL (80-100); Mean Platelet Volume 10.6 fL (9.1-12.4); Platelet Count 231 K/mm3 (150-400); RDW Coefficient Variation 13.2 % (11.7-14.2); RDW Standard Deviation 44.7 fL (35.1-46.3); Red Blood Cell Count 4.12 M/mm3 (4.30-5.90); White Blood Cell Count 19.34 K/mm3 (4.00-11.30)
[2023-06-05 10:19] LABS: BASOPHILS PERCENT MAN 0 % (0-2); EOSINOPHILS PERCENT MAN 0 % (0-6); LYMPHOCYTES % ATYPICAL MANUAL 4 % (0-0); LYMPHOCYTES PERCENT MAN 26 % (21-46); MONOCYTES ABSOLUTE MAN 0.77 K/mm3 (0.16-1.47); MONOCYTES PERCENT MAN 4 % (4-13); NEUTROPHILS ABSOLUTE MAN 12.76 K/mm3 (1.96-9.15); SEG NEUTROPHILS PERCENT MAN 66 % (41-73); TOTAL CELLS COUNTED 100
[2023-06-05] MEDS ORDERED: BACLOFEN5 M1 PO (11:19)
[2023-06-05] MEDS ORDERED: LORA1 PO (11:21)
--- NOTE | 2023-06-05 18:29 | NUR ---
PT ARRIVED FROM ICU TO PCU03 AT APROX 0805. PT CONTINUES TO BE SEVERELY SOB, IS HIS BASELINE. PT PLACED ON BIPAP FOR RECOVERY AFTER CHANGING BEDS, 2L 02 BLEED IN AND 2L NC WHEN OFF BIPAP. SPOKE WITH DR ELIZONDO TO REQUEST PT'S HOME DOSE OF ANXIETY MEDICATIONS. PT TENDS TO HAVE PANIC ATTACKS WHEN HE FEELS THAT HE CANNOT BREATHE, WHICH IN TURN CAUSES HIM TO GO INTO RESPIRATORY FAILURE. ORDERS RECEIVED. PT ON AND OFF BIPAP T/O THE EARLY PART OF THE DAY. IN THE AFTERNOON WHILE THIS RN WAS OFF THE FLOOR, PT REPORTED TO HAVE A PANIC ATTACK AND DECLINING RESPIRATORY STATUS. DR LMOBARDO, COMPENSATION COORDINATOR, IN ROOM TO SEE PT, ORDERS GIVEN FOR IV ATIVAN. THIS RN RETURNED TO FLOOR AND TOOK OVER CARE. A SECOND DOSE OF ATIVAN WAS ORDERED BY DR LOMBARDO FOR PT'S ANXIETY. PT WAS ABLE TO REST WITH BIPAP ON FOR A FEW HOURS. DR LOMBARDO ROUNDED AGAIN ON PT THIS EVENING, APROX 1715, AND NEW ORDERS PLACED FOR MORPHINE IV D/T AIR HUNGER. PT TOLERATED THESE MEDICATIONS WELL AND APPEARED TO HAVE RELEIF OF RESPIRATORY DISTRESS, PT REPORTS HIS BREATHING FEELS BETTER. DR LOMBARDO DISCUSSED WITH PT AND HIS FRIEND AT BEDSIDE ABOUT PT'S PROGNOSIS AND BENEFITS OF USING MEDICATIONS FOR COMFORT. PT STATES HE DOES NOT WANT TO PERSUE COMFORT CARE AT THIS TIME AND WISHES TO REMAIN A FULL CODE. PT VERBALIZES UNDERSTANDING OF HIS POOR PROGNOSIS. PT SPENT SOME TIME THIS EVENING VISITING WITH HIS FRIEND. PT IS ABLE TO USE CALL LIGHT FOR NEEDS, CALL LIGHT IN REACH, WILL CONITNUE TO MONITOR AND GIVE REPORT TO ONCOMING SHIFT RN.
[2023-06-06] VITALS (15 sets, daily range): BP systolic 120–197; BP diastolic 82–107
[2023-06-06 04:09] LABS: BASOPHILS ABSOLUTE AUTO 0.02 K/mm3 (0.00-0.23); BASOPHILS PERCENT AUTO 0 % (0-2); EOSINOPHILS ABSOLUTE AUTO 0.01 K/mm3 (0.00-0.68); EOSINOPHILS PERCENT AUTO 0 % (0-6); Hematocrit 34.9 % (37.0-53.0); Hemoglobin 11.1 g/dL (13.5-17.5); IMMATURE GRAN ABSOLUTE AUTO 0.17 K/mm3 (0.00-0.10); IMMATURE GRAN PERCENT AUTO 1 % (0-1); LYMPHOCYTES ABSOLUTE AUTO 3.82 K/mm3 (0.84-5.20); LYMPHOCYTES PERCENT AUTO 27 % (21-46); MONOCYTES ABSOLUTE AUTO 0.75 K/mm3 (0.16-1.47); MONOCYTES PERCENT AUTO 5 % (4-13); Mean Corpuscular HGB 29.2 pg (26.0-34.0); Mean Corpuscular HGB Conc 31.8 g/dL (31.5-36.5); Mean Corpuscular Volume 92 fL (80-100); Mean Platelet Volume 10.4 fL (9.1-12.4); NEUTROPHILS ABSOLUTE AUTO 9.22 K/mm3 (1.96-9.15); NEUTROPHILS PERCENT AUTO 66 % (41-73); Platelet Count 195 K/mm3 (150-400); RDW Coefficient Variation 13.3 % (11.7-14.2); RDW Standard Deviation 44.4 fL (35.1-46.3); White Blood Cell Count 13.99 K/mm3 (4.00-11.30)
[2023-06-06 04:30] LABS: Albumin, Blood 2.6 g/dL (3.4-5.0); Anion Gap 2 mmol/L (6-16); Blood Urea Nitrogen 19 mg/dL (8-24); Bun/Creatinine Ratio 31.2 (12.0-20.0); CO2, Blood 34 mmol/L (21-32); Calcium, Blood 8.5 mg/dL (8.5-10.1); Chloride, Blood 104 mmol/L (98-108); Creatinine, Blood 0.61 mg/dL (0.60-1.20); Glomerular Filtration Rate 110 (60-); Glucose, Blood 116 mg/dL (70-99); Phosphorus, Blood 3.4 mg/dL (2.5-4.9); Potassium, Blood 4.3 mmol/L (3.5-5.5); Sodium, Blood 140 mmol/L (136-145)
--- NOTE | 2023-06-06 08:26 | NUR ---
SUMMARY NO CHANGES NOTED THROUGH THE NIGHT, PT KEPT CPAP ON WHILE SLEEPING, VSS, MEDICATED FOR ANXIETY X2, VOIDING WNL. RESTING QUIETLY THIS AM, REPORT GIVEN TO SRAVANI LEUNG, CALL LIGHT IN REACH
[2023-06-06 08:47] LABS: PO2 Arterial 71.6 mmHg (80-100)
[2023-06-06 08:49] LABS: PCO2 Arterial 86.8 mmHg (35-45); pH Blood Arterial 7.26 (7.35-7.45)
[2023-06-06 12:08] LABS: Base Excess Venous 14.5 mmol/L; Bicarbonate Venous 33.9 mmol/L (24.0-30.0); PCO2 Venous 74.6 mmHg (38-42); pH Blood Venous 7.34 (7.34-7.37)
--- NOTE | 2023-06-06 12:10 | NUR ---
ASSUMED CARE OF PT AT 0700. PT SITTING UP AT SIDE OF BED, ALERT, MUMBLED SPEECH, IN TRIPOD POSITION AND APPEARS TO BE IN RESPIRATORY DISTRESS, RR 26, SHALLOW. PT REQUESTING ATIVAN FOR ANXIETY. ATIVAN GIVEN, PT ASSISTED BACK TO BED, HOB ELEVATED. PT WITH INCREASED ORAL SECRETIONS, REQUIRED SUCTIONING. PT PLACED ON BIPAP, SPO2 84 AND NOT INCREASING ON 2L O2. INCREASED O2 TO 5L WITH SPO2 90%. RT PAGED FOR ASSISTANCE. BREATHING TX GIVEN BY RT AND ASSESSED. PT NOTED TO BE HAVING RETRACTIONS. BREATH SOUNDS EXTREMELY DIMINISHED T/O. PT APPEARS TO HAVE GENERALIZED 1+ EDEMA. JUANPABLO FACE. DR GIRON (HOSP) AND DR LOMBARDO (PULM) NOTIFIED, THEY WILL COME SEE PT. DR GIRON AT BEDSIDE, ORDER FOR STAT ABG. DR LOMBARDO AT BEDSIDE, ABG RESULTS AVAILABLE AND REVIEWED WITH HIM. PT GIVEN MORPHINE PER HIS REQUEST. EXPLAINS TO PT THAT HE NEEDS INTUBATION AT THIS TIME, PT DECLINES. CONTINUE TREATMENT WITH BIPAP FOR NOW. ADJUSTED BIPAP SETTINGS AND DISCUSSED WITH RT. BELIEVES THERE IS A HIGH LIKELYHOOD OF PT BEING INTUBATED TODAY, DECISION MADE TO TRANSFER PT TO ICU. PT TRANSFERRED TO ICU05 @ 0921. BEDSIDE REPORT GIVEN TO XOCHITL MAST. ALL BELONGINGS SENT WITH PT.
--- NOTE | 2023-06-06 13:21 | NUR ---
Assumed care of patient at 0920, bedside report received from GOLD TOOLER. Pt arrived with RT at bedside, on BiPAP, 13/, 5 L/min. Pt lethargic but arousable, able to answer questions appropriately and follow commands. Pt tachycardic and sats in upper 80s, VS otherwise stable. Dr. Moyer at bedside for assessment. Continue to monitor.
--- NOTE | 2023-06-06 17:23 | NUR ---
Call back- Juancho was coherent, able to verbalize he received morphine earlier today. Explored with pt any spiritual pain he might be experiencing. Pt was slightly resisitant at first. He began discussing the predicament of having rent raised. Pt appears to have some albin in God as he discussed trying to "make it right with Him." Pastoral residential child care counselor given congruent with what was shared. Pt explains that one regret was "not loving my mother more." Attempted to explore comfort care and hospice. Pt stated no one has mentioned hospice to him, though PC had conversation with RN pre-visit of pt verifying conversation had been had. Pt able to verbalize the need for POA and identified Connie, a friend, to fill that role. Pt explains he did not trust his sister for that role. Verbal prayer extended on behalf of pt for peace and comfort. He verbalize gratitude. [employer] Krystian will be contacted for follow up visit within the next couple of days. Updated manager of case Chet.
--- NOTE | 2023-06-06 17:37 | NUR ---
Party Plan Selling Distributor called in this afternoon for support. Patient struggling to deal with his condition, is hesitant to commit to comfort care but verbalizes understanding of risks associated with re-intubation. Patient expressed interest in having friend Brittany become medical power of compliance attorney. After speaking with friend, she does indicate that she is willing to become his legal decision-maker but is unsure of how to move forward. Friend requested interest in having care management contact her to discuss the matter further.
--- NOTE | 2023-06-06 18:30 | NUR ---
Shift summary. Pt resting in bed, on BiPAP, 27/05, 5 L/min. Pt able to take short breaks with high flow NC for oral care/meds. Meter Readers Supervisor in to see pt, see note. VS stable, see chart for further details. Will report off to nightshift RN.
[2023-06-07] VITALS (31 sets, daily range): BP systolic 95–161; BP diastolic 67–132
[2023-06-07 03:46] LABS: BASOPHILS ABSOLUTE AUTO 0.01 K/mm3 (0.00-0.23); BASOPHILS PERCENT AUTO 0 % (0-2); EOSINOPHILS ABSOLUTE AUTO 0.01 K/mm3 (0.00-0.68); EOSINOPHILS PERCENT AUTO 0 % (0-6); Hematocrit 37.4 % (37.0-53.0); IMMATURE GRAN ABSOLUTE AUTO 0.18 K/mm3 (0.00-0.10); IMMATURE GRAN PERCENT AUTO 1 % (0-1); LYMPHOCYTES PERCENT AUTO 29 % (21-46); MONOCYTES PERCENT AUTO 4 % (4-13); Mean Corpuscular HGB 29.4 pg (26.0-34.0); Mean Corpuscular HGB Conc 32.1 g/dL (31.5-36.5); Mean Corpuscular Volume 92 fL (80-100); Mean Platelet Volume 10.4 fL (9.1-12.4); NEUTROPHILS ABSOLUTE AUTO 8.16 K/mm3 (1.96-9.15); NEUTROPHILS PERCENT AUTO 66 % (41-73); Platelet Count 188 K/mm3 (150-400); RDW Standard Deviation 42.6 fL (35.1-46.3); Red Blood Cell Count 4.08 M/mm3 (4.30-5.90); White Blood Cell Count 12.46 K/mm3 (4.00-11.30)
[2023-06-07 04:00] LABS: Albumin, Blood 2.8 g/dL (3.4-5.0); Anion Gap 4 mmol/L (6-16); Blood Urea Nitrogen 20 mg/dL (8-24); Bun/Creatinine Ratio 31.7 (12.0-20.0); CO2, Blood 36 mmol/L (21-32); Calcium, Blood 8.6 mg/dL (8.5-10.1); Chloride, Blood 98 mmol/L (98-108); Creatinine, Blood 0.63 mg/dL (0.60-1.20); Glomerular Filtration Rate 109 (60-); Glucose, Blood 115 mg/dL (70-99); Phosphorus, Blood 3.4 mg/dL (2.5-4.9); Potassium, Blood 4.3 mmol/L (3.5-5.5); Sodium, Blood 138 mmol/L (136-145)
--- NOTE | 2023-06-07 05:52 | NUR ---
PT AOX4. REPORTS ANXIETY THAT IS RELIEVED BY PRN ATARAX. SR WITH STABLE BP. BIPAP 18/12 5L. TOLERATING LIQUID DIET W/O N/V. SMALL BOUTS OF INCONTINENCE D/T URGENCY.
--- NOTE | 2023-06-07 07:00 | NUR ---
ASSUMPTION OF CARE PT ON BIPAP 5L. PT REPOSITIIONS SELF SIDE TO SIDE. VSS AT THIS TIME. SEE SHIFT ASSESSMENT.
--- NOTE | 2023-06-07 09:17 | NUR ---
UPDATE PT ENCOURAGED TO SIT IN RECLINER THIS AM. MILD DIZZINESS THAT SUBSIDED, MINIMAL ASSIST TO RECLINER. PT ASSISTS WITH ADLS INCLUDING BRUSHING HAIR. TRANSITIONED TO 4L NC FOR BREAKFAST. MULTIPLE PROVIDERS ROUNDING THIS AM. VSS. CALL LIGHT WITHIN REACH.
--- NOTE | 2023-06-07 10:26 | NUR ---
UPDATE PT RESTING IN RECLINER AFTER BREAKFAST. REQUESTS BIPAP DUE TO WANTING TO TAKE A NAP. BIPAP IN PLACE WITH PREVIOUS SETTINGS L.
--- NOTE | 2023-06-07 13:16 | NUR ---
Spiritual care visit conducted. Patient is sitting on a chair and resting. Patient immediately awakens to the sound of his name. He tells me about his living situation at [facility] and how he is ready to pull up out of his current medical issues and get back to gaining enough strength to return to living in his trailer. He deflects any conversation aimed at his medical goals except that he says that he will recover from this event and keep fighting. We talk about his albin and patient explains about how his connection to God has only increased as his medical issues have worsened. He is clearly encouraged by conversations centered around God and albin. I reinforce his helpful attitudes and perspectives and provide therapeutic listening and prayer. Patient responded well and showed signs of an elevated mood and of being encouraged in his Adventist albin.
--- NOTE | 2023-06-07 13:23 | NUR ---
UPDATE PT REPORTS FEELING ANXIOUS. HE IS TACHYCARDIC ON MONITOR WITH RATE IN 110S-130S. HE REPORTS FEELING SOB WITH BIPAP ON AND NAUSEA. PT REQUESTING MEDICATION, ADMINISTERED PER EMAR. PT REPORTS SOME RELIEF OF ANXIETY AND NAUSEA HAS SUBSIDED. PT DENIES NEED FOR ADDITIONAL MEDICATION FOR ANXIETY. FRIEND SHARIF AT BEDSIDE AND UPDATED. SHE IS REQUESTING A MEETING WITH PALLIATIVE CARE/CASE MANAGEMENT TO DISCUSS PROCESS FOR OBTAINING POA.
--- NOTE | 2023-06-07 15:23 | NUR ---
UPDATE PT SAT IN CHAIR FOR SEVERAL HOURS AND TOLERATED WELL. PT REPORTS FEELING TIRED. MINIMAL ASSISTANCE TO TRANSFER FROM CHAIR TO BED. BIPAP IN PLACE 18//5L. BED IN LOW POSITION AND CALL LIGHT WITHIN REACH. PT TRANSITIONED TO PCU STATUS.
--- NOTE | 2023-06-07 16:35 | NUR ---
SHIFT SUMMARY PT IS ALERT AND ORIENTED WITH PLEASANT AFFECT. HE HAS BEEN ON BIPAP FOR MOST OF THE DAY WITH SETTINGS 18/12/4L. HE HAS TAKEN BREAKS DURING MEALS WITH NC 4L. HE SAT IN THE RECLINER FOR SEVERAL HOURS TODAY. HE DID EXPERIENCE SOME ANXIETY TODAY THAT RESOLVED WITH PRN ORAL MEDICATION. FRIEND SHARIF AT BEDSIDE THIS AFTERNOON. PT AND SHARIF DISCUSSED POWER OF DRYWALL CONTRACTOR PROCESS. PALLIATIVE CARE INVOLVED AND PLAN TO NOTARIZE PAPERWORK TOMORROW. HE REMAINS SALINE LOCKED. VSS THROUGHOUT THE DAY. PCU STATUS.
--- NOTE | 2023-06-07 18:18 | NUR ---
pt had episode of vtach and minimal cpr. updated family on treatments and reponse. pt nauseated and have chest pain until pacer turned off. cardiology and pulmonolgy at bedside. will follow pt for plan of care and prognosis. kps score 30%.
[2023-06-08 00:38] VITALS: BP 107/71
[2023-06-08 04:00] VITALS: BP 117/82
[2023-06-08 04:24] LABS: BASOPHILS ABSOLUTE AUTO 0.02 K/mm3 (0.00-0.23); BASOPHILS PERCENT AUTO 0 % (0-2); EOSINOPHILS ABSOLUTE AUTO 0.01 K/mm3 (0.00-0.68); EOSINOPHILS PERCENT AUTO 0 % (0-6); Hemoglobin 12.1 g/dL (13.5-17.5); IMMATURE GRAN ABSOLUTE AUTO 0.11 K/mm3 (0.00-0.10); IMMATURE GRAN PERCENT AUTO 1 % (0-1); LYMPHOCYTES ABSOLUTE AUTO 2.68 K/mm3 (0.84-5.20); LYMPHOCYTES PERCENT AUTO 22 % (21-46); MONOCYTES ABSOLUTE AUTO 0.68 K/mm3 (0.16-1.47); MONOCYTES PERCENT AUTO 6 % (4-13); Mean Corpuscular HGB 29.7 pg (26.0-34.0); Mean Corpuscular HGB Conc 32.7 g/dL (31.5-36.5); Mean Corpuscular Volume 91 fL (80-100); Mean Platelet Volume 10.8 fL (9.1-12.4); NEUTROPHILS ABSOLUTE AUTO 8.94 K/mm3 (1.96-9.15); NEUTROPHILS PERCENT AUTO 72 % (41-73); Platelet Count 183 K/mm3 (150-400); RDW Standard Deviation 42.5 fL (35.1-46.3); Red Blood Cell Count 4.07 M/mm3 (4.30-5.90); White Blood Cell Count 12.44 K/mm3 (4.00-11.30)
--- NOTE | 2023-06-08 06:40 | NUR ---
PATIENT AOX4. FOLLOWS COMMANDS AND MOVES ALL EXTREMITIES. SR/ST, BP STABLE. WEARING BIPAP 18/12 WITH 4L BLEED IN. ABLE TO TAKE BREAKES WITH 5L NC. TOLERATED DINNER. VOIDING IN URINAL.
[2023-06-08 07:48] VITALS: BP 131/94
--- NOTE | 2023-06-08 07:55 | NUR ---
ASSUMED CARE: REPORT RECEIVED FROM JENNI Andrew RN. ASSUMED CARE OF THIS PT AT APPROX 0700. ON ASSESSMENT, THE PT IS AWAKE, A&O TO ALL, DENIES PAIN. HE IS CURRENTLY USING THE BIPAP W/ SETTINGS: 18/12 & 4L O2 BLEED-IN, HAS TRANSITIONED TO 5L NC WHILE EATING BREAKFAST. LS ARE DIM T/O, PT STS INCREASED SOB W/ EXERTION, IMPROVES W/ FOCUSED BREATHING. MONITOR SHOWS ST W/ HR 100s, BP STABLE. PT DENIES GI COMPLAINTS & IS TOLERATING PO INTAKE WELL THIS AM. VOIDS URINE W/O DIFFICULTY USING URINAL AT BEDSIDE. ATTENDS IN PLACE FOR OCCASIONAL URGENCY INCONTINENCE. SKIN CONDITION OVERALL INTACT, PT REPOSITIONS HIMSELF PRN FOR COMFORT. WILL CONTINUE TO MONITOR & UPDATE NEEDED.
[2023-06-08 11:38] VITALS: BP 116/89
--- NOTE | 2023-06-08 13:04 | NUR ---
Patient is lying in bed and alert. Patient is in a very reflective mood and shares his thoughts about God, connecting to the unseen, the value of repentance from sins and sharing the love that he has received. Patient continues to have strong hope for improvement in his condition but admits today that he believes his life is drawing to a close. I offer theological insights, therapeutic listening, gentle careers counsellor and prayer. Patient responded well and showed signs of greater peace.
[2023-06-08 15:56] VITALS: BP 100/76
--- NOTE | 2023-06-08 18:20 | NUR ---
SHIFT SUMMARY: NO ACUTE CHANGES SINCE PRIOR UPDATES. THE PT REMAINS A&O, PLEASANT & COOPERATIVE W/ CARE MEASURES. LS DIM T/O, PT ALTERNATING BETWEEN BIPAP W/ SETTINGS: 18/12 & 4L O2 BLEED-IN OR 5L NC. O2 SATS > 92% ON AVG, DEEP BREATHES & IS ABLE TO RECOVER WELL AFTER EXERTION. MONTOR SHOWS ST W/ HR 100-110s, BP STABLE. PT HAS NO GI COMPLAINTS, TOLERATING PO INTAKE WELL. VOIDS USING URINAL, ATTENDS IN PLACE FOR OCCASIONAL URGENCY INCONTINENCE. SKIN CONDITION OVERALL INTACT W/ Q2H REPOSITIONING TO MAINTAIN SKIN INTEGRITY. WILL CONTINUE TO MONITOR & REPORT OFF TO ONCOMING RN.
[2023-06-08 19:43] VITALS: BP 151/88
--- NOTE | 2023-06-08 22:11 | NUR ---
ASSUMPTION OF CARE/ASSESSMENT: ASSUMED CARE OF PT AT 1900. PT A&O X 4, ANXIOUS AND FOLLOWING DIRECTIONS. PT CURRENTLY ON BIPAP WITH SETTINGS 18/12 AND 4L O2 BLEED IN; SPO2 96<, PT DENIES CHEST PAIN/PRESSURE. ST ON MONITOR WITH HR 110-130'S, SBP 150'S, PT DENIES CHEST PAIN/PRESSURE, CONTINUOUS CIRCUIT COURT CLERK IN PLACE. PT C/O CONSTIPATION, BOWEL CARE MED GIVEN PER EMAR. PT HAD A SMALL BM BUT STILL STATES THAT HE FEELS LIKE HE NEEDS TO GO MORE BUT CANNOT. HYPOACTIVE BOWEL SOUNDS IN ALL QUADRANTS AND PT TOLERATING PO INTAKE. PT SBA WITH TRANSFERS TO BEDSIDE COMMODE FOR ELIMINATION NEEDS. PT ANXIOUS AT THE START OF SHIFT AND GIVEN PRN ANXIETY MEDS PER EMAR. SKIN OVERALL INTACT, PPP X 4. PT ABLE TO COMMUNICATE ALL NEEDS. BED LOWERED, CALL LIGHT IN REACH.
[2023-06-09 00:15] VITALS: BP 166/111
[2023-06-09 04:42] VITALS: BP 123/87
--- NOTE | 2023-06-09 06:11 | NUR ---
SHIFT SUMMARY: NO ACUTE CHANGES OVERNIGHT; VSS THROUGHOUT THE SHIFT. PT REMAINS ON BIPAP WITH SETTINGS 18/12, 4L O2 BLEED IN. PT MODERATELY ANXIOUS THROUGHOUT THE SHIFT AND C/O DYSPNEA; LUNG SOUNDS REMAINED CLEAR AND DIM THROUGHOUT AND SPO2 94<. PT RECIEVED PRN ATIVAN PER EMAR THAT HELPED WITH ANXIETY. PT FINALLY ASLEEP EARLY THIS MORNING. BED LOWERED, CALL LIGHT IN REACH, WILL REPORT OFF TO ONCOMING RN.
[2023-06-09 09:42] VITALS: BP 140/91
[2023-06-09 12:41] VITALS: BP 151/84
[2023-06-09 17:29] VITALS: BP 147/97
--- NOTE | 2023-06-09 18:06 | NUR ---
ASSUMED CARE OF PT AT 0700 THIS AM. NO ACUTE CHANGES T/O THE DAY, PT SLEPT WITH BIPAP ON FOR THE MAJORITY OF THE SHIFT. PT AWAKE FOR BREAKFAST AND DINNER. +BM TODAY. PT GIVEN PRN ATARAX TWICE THIS SHIFT, APPEARS TO BE EFFECTIVE FOR ANXIETY TODAY. DISCUSSED DISCHARGE PLANNING WITH DAMIAN, CALCINER OPERATOR HELPER. PLAN AT [facility] THIS TIME IS FOR PT TO DC BACK TO [facility] WITH BIPAP AND 02 FOR PHYSICAL THERAPY. DAMIAN STATES THAT ACCORDING TO [facility], PT'S HOME TRILOGY HAS HAD MAINTENANCE AND IS WAITING AT [facility] FOR PT TO RETURN HOME. BPAPS USED AT [facility] ARE ALSO THROUGH [facility]. PT WORKED WITH PHYSICAL THERAPY TODAY WELL. PT IS PCU STATUS. PT IS ABLE TO USE CALL LIGHT FOR NEEDS, CALL LIGHT IN REACH. WILL CONTINUE TO MONITOR AND GIVE REPORT TO NOC SHIFT RN.
[2023-06-09 20:44] VITALS: BP 107/58
[2023-06-10] VITALS (59 sets, daily range): BP systolic 78–165; BP diastolic 55–114
[2023-06-10 04:05] LABS: BASOPHILS ABSOLUTE AUTO 0.02 K/mm3 (0.00-0.23); BASOPHILS PERCENT AUTO 0 % (0-2); EOSINOPHILS ABSOLUTE AUTO 0.18 K/mm3 (0.00-0.68); EOSINOPHILS PERCENT AUTO 2 % (0-6); Hematocrit 38.1 % (37.0-53.0); Hemoglobin 11.8 g/dL (13.5-17.5); IMMATURE GRAN ABSOLUTE AUTO 0.14 K/mm3 (0.00-0.10); IMMATURE GRAN PERCENT AUTO 1 % (0-1); LYMPHOCYTES ABSOLUTE AUTO 3.89 K/mm3 (0.84-5.20); LYMPHOCYTES PERCENT AUTO 32 % (21-46); MONOCYTES ABSOLUTE AUTO 1.16 K/mm3 (0.16-1.47); MONOCYTES PERCENT AUTO 10 % (4-13); Mean Corpuscular HGB 29.7 pg (26.0-34.0); Mean Platelet Volume 10.8 fL (9.1-12.4); NEUTROPHILS ABSOLUTE AUTO 6.76 K/mm3 (1.96-9.15); NEUTROPHILS PERCENT AUTO 56 % (41-73); Platelet Count 210 K/mm3 (150-400); RDW Coefficient Variation 13.1 % (11.7-14.2); RDW Standard Deviation 45.6 fL (35.1-46.3); Red Blood Cell Count 3.97 M/mm3 (4.30-5.90); White Blood Cell Count 12.15 K/mm3 (4.00-11.30)
[2023-06-10 04:07] LABS: Mean Corpuscular Volume 96 fL (80-100)
[2023-06-10 04:22] LABS: Albumin, Blood 2.8 g/dL (3.4-5.0); Anion Gap 1 mmol/L (6-16); Blood Urea Nitrogen 25 mg/dL (8-24); Bun/Creatinine Ratio 38.1 (12.0-20.0); CO2, Blood 41 mmol/L (21-32); Calcium, Blood 8.9 mg/dL (8.5-10.1); Chloride, Blood 100 mmol/L (98-108); Creatinine, Blood 0.66 mg/dL (0.60-1.20); Glomerular Filtration Rate 107 (60-); Glucose, Blood 81 mg/dL (70-99); Magnesium, Blood 2.2 mg/dL (1.6-2.4); Potassium, Blood 3.8 mmol/L (3.5-5.5); Sodium, Blood 142 mmol/L (136-145)
--- NOTE | 2023-06-10 05:54 | NUR ---
SHIFT SUMMARY: NO ACUTE CHANGES OVERNIGHT. PT REMAINS A&O X 4, FOLLOWING DIRECTIONS AND COMMUNICATES NEEDS APPROPRIATELY. PT ON BIPAP FOR MAJORITY OF THE SHIFT WITH SETTINGS 18/12, 6L O2 BLEED IN. SR ON MONITOR WITH HR 80-90'S, SBP 120'S AND PT DENIES CHEST PAIN/PRESSURE. PT USING URINAL AT BEDSIDE INDEPENDENTLY. HYPERACTIVE BOWEL SOUNDS IN ALL QUADRANTS; PT TOLERATING PO INTAKE. SKIN OVERALL INTACT. BED LOWERED, CALL LIGHT IN REACH, WILL REPORT OFF TO ONCOMING RN.
--- NOTE | 2023-06-10 09:03 | NUR ---
Assumed care of pt at 0700. Report received from Merlene LEUNG. Pt sleeping, wearing V30 BiPAP with 6 LPM bleed in. Even chest rise and fall noted. SpO2 88-92%. Shivani Perez and Chu in to see patient. On awakening, pt reported anxiety. This RN in room to give anxiety meds. Break given from BiPAP and pt placed on 6 LPM NC. On removing BiPAP, noted labored, grunting respriations with accessory muscle use. On listening to lungs, lungs silent. Speaking in 4-5 word sentences. Reports that his breathing feels labored. Findings discussed with RT, Bari, and requested he evaluate patient at bedside. Although he was reporting anxiety, pt was not acutely panicking. Pt able to do oral care and safely swallow PO meds without signs of choking/aspiration. Dr Christianson in to see patient at this time. Provider prescribed hour-long neb. Discussed changing pt's steroid regimen. This RN placed call to Dr Varma to update on pateint condition. Provider prescribed IV ativan and stated may escalate to precedex if needed. Pt changed back to ICU status. Hour long neb in progress, pt now on V60 BiPAP, IV ativan given. Lung sounds diminshed t/o, but overall more air movement noted than this AM.
--- NOTE | 2023-06-10 14:41 | NUR ---
Break given from BiPAP. Pt required only 4 LPM NC to maintain SpO2 90% or greater. Pt stated that he felt his breathing was better and when asked about his anxiety, patient stated he was not feeling anxious. Oral care done with suction swab. Patient provided with water, pudding, ensure, and 1400 meds. Tolerated these well. Pt allowed this RN to use electric razor to shave facial hair, except for mustache. Encouraged pt to go back on BiPAP, to which he stated "My breathing feels fine right now". Educated patient that BiPAP should be worn as much as possible due to labile respiratory status and effort. Pt agreeable. When placing BiPAP on patient, discussed that pt can have another break with more nutrition in a few hours, but he should be wearing the BiPAP as often as possible. Patient asks for how long he will be needing the BiPAP. This RN explained that patient should be wearing it for most of waking and sleeping hours to avoid repeated intubations. Pt stated "I had a feeling it would be that way". Currently on BiPAP, tolerating well.
--- NOTE | 2023-06-10 16:02 | NUR ---
Spiritual care visit conducted. Patient is sitting up in bed with Cpap on. Communication is somewhat strained but patient works hard to communicate. He talks about maintaining his albin amid challenging and discouraging news. We talk about his albin and I provide theological insights. He talks about his thoughts on heaven and the afterlife and I again provide theological insights that patient admits were extremely comforting. I also provide therapeutic listening and prayer. Patient requests a large print Bible which I deliver. I will continue to remain available.
--- NOTE | 2023-06-10 17:12 | NUR ---
SUMMARY Neuro: More lethargic than baseline, per this RN's previous encounters with patient. Resting for majority of day, but A&O x 4 while awake. PERRL. Musc: Strict bedrest today due to fragile respiratory status. Moves all ext with equal strength and range of motion. Oral care done Q4. Attempted Q2H reposition, however patient shifts hips off of pillows used for repositioning. Pt adequately repositions self in bed. Resp: Initally lungs had absent sounds, but now diminished air movement auscultated in all barlow. Switched from V30 to V60 BiPAP rate 12, 18/12, 40% FiO2. Periods of apnea noted while on BiPAP; these resolve spontaneously or with stimulation - Dr Varma notified. RT notified. Cardiac: SR-ST per monitor depending on how awake or anxious pt is feeling. BP stable. Hypertensive while pt was anxious. Presently low/normal - Dr Varma aware. GI: No BM this shift. Tolerated meds with thin liquids w/o signs of aspiration. Pt had one full ensure and one vanilla pudding. Will assess appopriateness for prescribed diet at dinner time. : One void into urinal, one incontinent void. Skin: Unchanged from initial assessment. Psych: Pleasant and cooperative with care. No anxiety issues following IV ativan this morning. Buspar dose increased per v/o Dr Varma.
[2023-06-10 17:16] LABS: Base Excess Venous 16.7 mmol/L; Bicarbonate Venous 38.1 mmol/L (24.0-30.0); PCO2 Venous 59.6 mmHg (38-42); pH Blood Venous 7.44 (7.34-7.37)
--- NOTE | 2023-06-10 21:29 | NUR ---
ASSUMPTION OF CARE/ASSESSMENT: ASSUMED CARE OF PT AT 1900. PT ASLEEP IN ROOM BUT WAKES EASILY TO VERBAL STIMULI. PT A&O X 4, APPEARS TIRED AND WITHDRAWN. PT CURRENTLY ON BIPAP WITH SETTINGS 18/12, FIO2 40%, PT TOLERATING WELL. PT TAKEN OFF OF BIPAP AND ON HFNC @ 4LPM FOR MED ADMINISTRATION AND ORAL CARE, TOLERATES WELL. LUNG SOUNDS ARE CLEAR IN THE UPPER LOBES AND DIMINISHED THROUGHOUT, SPO2 96<, AND PT DENIES SOB AT THIS TIME. CURRENTLY ST ON MONITOR WITH HR 110-120, SBP 110-130 AND PT DENIES CHEST PAIN PRESSURE AT THIS TIME. ABD SOFT, NON-TENDER AND MILDLY DISTENDED; HYPOACTIVE BOWEL SOUNDS NOTED IN ALL QUADRANTS. PT TOLERATES PO INTAKE. PT USING URINAL AT BEDSIDE INDEPENDENTLY; URINE CLEAR, YELLOW. PT INDEPENDENT WITH BED MOBILITY, REQUIRES ASSISTANCE AT TIMES TO HELP BOOST IN BED NEEDED. PT USING CALL LIGHT AND COMMUNICATES NEEDS APPROPRIATELY.
[2023-06-11] VITALS (48 sets, daily range): BP systolic 93–143; BP diastolic 62–117
[2023-06-11 04:17] LABS: BASOPHILS ABSOLUTE AUTO 0.01 K/mm3 (0.00-0.23); BASOPHILS PERCENT AUTO 0 % (0-2); EOSINOPHILS ABSOLUTE AUTO 0.12 K/mm3 (0.00-0.68); EOSINOPHILS PERCENT AUTO 1 % (0-6); IMMATURE GRAN PERCENT AUTO 1 % (0-1); LYMPHOCYTES PERCENT AUTO 29 % (21-46); MONOCYTES ABSOLUTE AUTO 1.31 K/mm3 (0.16-1.47); MONOCYTES PERCENT AUTO 11 % (4-13); Mean Corpuscular HGB 29.6 pg (26.0-34.0); Mean Corpuscular HGB Conc 31.4 g/dL (31.5-36.5); Mean Corpuscular Volume 94 fL (80-100); Mean Platelet Volume 10.7 fL (9.1-12.4); NEUTROPHILS ABSOLUTE AUTO 6.74 K/mm3 (1.96-9.15); NEUTROPHILS PERCENT AUTO 58 % (41-73); Platelet Count 233 K/mm3 (150-400); RDW Coefficient Variation 13.4 % (11.7-14.2); RDW Standard Deviation 46.3 fL (35.1-46.3); Red Blood Cell Count 3.71 M/mm3 (4.30-5.90); White Blood Cell Count 11.58 K/mm3 (4.00-11.30)
[2023-06-11 04:37] LABS: Albumin, Blood 2.7 g/dL (3.4-5.0); Anion Gap Unable to Calculate mmol/L (6-16); Blood Urea Nitrogen 32 mg/dL (8-24); Bun/Creatinine Ratio 43.5 (12.0-20.0); CO2, Blood 43 mmol/L (21-32); Chloride, Blood 98 mmol/L (98-108); Creatinine, Blood 0.74 mg/dL (0.60-1.20); Glomerular Filtration Rate 104 (60-); Glucose, Blood 136 mg/dL (70-99); Phosphorus, Blood 2.2 mg/dL (2.5-4.9); Sodium, Blood 140 mmol/L (136-145)
--- NOTE | 2023-06-11 06:12 | NUR ---
SHIFT SUMMARY: NO ACUTE CHANGES OVERNIGHT; VSS THROUGHOUT THE SHIFT. PT REMAINS ON BIPAP WITH SETTINGS 18/12, FIO2 40%. PT SLEPT FOR MAJORITY OF THE NIGHT; PT TOLERATES BREAK OFF BIPAP ON HFNC @ 4LPM FOR ORAL CARE, MEDS AND EATING. PT UP TO BEDSIDE COMMODE THIS SHIFT WITH NO COMPLICATIONS AND HAD A BOWEL MOVEMENT. PT TRANSFERS BACK TO BED INDEPENDENTLY WITH SBA FOR CORDS. BED LOWERED, CALL LIGHT IN REACH, WILL REPORT OFF TO ONCOMING RN.
--- NOTE | 2023-06-11 07:15 | NUR ---
Assumed care of pt at 0700. Report received from Merlene LEUNG. Pt resting in bed, wearing BiPAP 18/12 and 40% FiO2; back up rate 12. SR per monitor, HR high 90s. BP stable.
--- NOTE | 2023-06-11 18:26 | NUR ---
SUMMARY Neuro: Lethargic. Slept for most of day, wearing BiPAP. Awakes easily to verbal stimulus. Maintains alertness for at least 30 minutes. Confused immediately after waking but more oriented as time passes. Musc: Able to transfer to recliner using supervision. Has been in recliner for approx 5 hours. Worked with PT and OT today Resp: Coarse lung sounds auscultated in all barlow. Has worn V60 BiPAP all day except for breaks at meal time. SpO2 90% or greater with 3 LPM NC. Cardiac: SR to ST per monitor. HR 90s while sleeping and 120s while awake. GI: Able to tolerate PO without signs of aspiration. No BM this shift. : Good urine output into urinal. Continent of urine today. Skin: Unchanged from initial assessment. Psych: Improved from previous day shift. Belongings: Pt's home trilogy is in the room.
[2023-06-12] VITALS (21 sets, daily range): BP systolic 97–186; BP diastolic 70–138
[2023-06-12 04:02] LABS: BASOPHILS ABSOLUTE AUTO 0.01 K/mm3 (0.00-0.23); BASOPHILS PERCENT AUTO 0 % (0-2); EOSINOPHILS ABSOLUTE AUTO 0.07 K/mm3 (0.00-0.68); EOSINOPHILS PERCENT AUTO 1 % (0-6); Hematocrit 35.4 % (37.0-53.0); Hemoglobin 10.9 g/dL (13.5-17.5); IMMATURE GRAN PERCENT AUTO 1 % (0-1); LYMPHOCYTES ABSOLUTE AUTO 2.85 K/mm3 (0.84-5.20); LYMPHOCYTES PERCENT AUTO 32 % (21-46); MONOCYTES PERCENT AUTO 11 % (4-13); Mean Corpuscular HGB 29.2 pg (26.0-34.0); Mean Corpuscular HGB Conc 30.8 g/dL (31.5-36.5); Mean Corpuscular Volume 95 fL (80-100); NEUTROPHILS ABSOLUTE AUTO 4.85 K/mm3 (1.96-9.15); NEUTROPHILS PERCENT AUTO 55 % (41-73); RDW Coefficient Variation 13.6 % (11.7-14.2); RDW Standard Deviation 46.8 fL (35.1-46.3); Red Blood Cell Count 3.73 M/mm3 (4.30-5.90); White Blood Cell Count 8.88 K/mm3 (4.00-11.30)
[2023-06-12 04:19] LABS: Mean Platelet Volume 11.5 fL (9.1-12.4); Platelet Count 210 K/mm3 (150-400)
[2023-06-12 04:22] LABS: Bun/Creatinine Ratio 54.9 (12.0-20.0); Calcium, Blood 9.1 mg/dL (8.5-10.1); Creatinine, Blood 0.64 mg/dL (0.60-1.20); Potassium, Blood 4.1 mmol/L (3.5-5.5)
--- NOTE | 2023-06-12 06:40 | NUR ---
PATIENT AOX4. SR/ST WITH STABLE BP. BIPAP 16/10 35% FOR NEARLY THE ENTIRE SHIFT. 6L NC WHILE TAKING MEDICATIONS AND SNACKS. NAUSEA X1 RELIEVED BY ZOFRAN. PATIENT HAD BOWEL MOVEMENT OVERNIGHT. VOIDING IN URINAL WITH GOOD URINE OUTPUT. PRN ATARAX GIVEN X2 FOR ANXIETY.
--- NOTE | 2023-06-12 07:00 | NUR ---
Assumed care of pt at 0700. Report received from Kelton LEUNG. Pt A&O x 2. On BiPAP 16/10 and 30% FiO2. SpO2 90% or greater. SR per monitor. BP stable.
--- NOTE | 2023-06-12 12:10 | NUR ---
After shower, pt was anxious and wanted BiPAP. Hypertensive, tachycardic, gasping respirations. IV ativan given. Placed on BiPAP. Pt continued to experience air hunger. Morphine given. Pt resting and breathing comfortably on BiPAP. Settings 08/22 with 40%.
--- NOTE | 2023-06-12 18:41 | NUR ---
SUMMARY Neuro: A&O x 2. Answers questions, follows commands, verbalizes needs. Pleasant and cooperative with care. Musc: Transferred to recliner/shower chair/recliner/bed today. Supervision only for transfers. Dyspnea with exertion. Resp: Lungs coarse and dim t/o. BiPAP settings remain 20/10 and 35%. Tolerates breaks with 4.5 LPM NC. Required one dose IV ativan and IV morphine for anxiety and work of breathing. Cardiac: ST per monitor. Typically SR rate in 90s while sleeping and tachycardic when pt is anxious and/or has increased work of breathing. Hypertensive with anxiety and increased work of breathing as well. GI: Good PO intake for breakfast and dinner. Did not receive lunch due to respiratory distress. : Voids into urinal. Skin: Unchanged from initial assessment. Family contact: Pt's neighbor, Brittany, in to see patient today. This is pt's only "family". They have known each other for "over 30 years" and Juancho is "like a brother" to Brittany. When discussing goals of care over the past few days, pt has stated he would like to talk things over with Brittany and expects she will be taking care of him when he gets a trach. When Brittany in room to see patient, discussed that patient is not getting better and he needs to decide between pursuing tracheostomy with intermediate ventilator or pursing comfort measures. Patient insists "I want to live. I have a lot of life left to live". Pt also inquires about going back to his trailer or going back to [facility]. Discussed with patient that pursuing tracheostomy and home ventilator means he would likely be receiving rehab at [facility] in [place] as local nursing homes cannot accomodate tracheostomy with home vent. Brittany told patient that he will not be going back to his trailer and states it is "condemned" due to severe mold and mildew despite several cleanings. She also states that there are many safety concerns related to wiring in the ceiling. When discussing goals of care, Brittany discusses with patient that she will not be comfortable taking care of him if he has a home ventilator. She states that she would be comfortable taking care of him if he chooses to go home with hospice, as she has provided hospice care for family members before. At this time, patient has not reached a decision regarding plan of care.
[2023-06-13] VITALS (22 sets, daily range): BP systolic 87–159; BP diastolic 62–107
--- NOTE | 2023-06-13 05:40 | NUR ---
SHIFT SUMMARY NO ACUTE EVENTS T/O NIGHT. PT A/O X 4. ANXIOUS BUT COOPERATIVE WITH CARE. PT REPORTED FEELING "A LITTLE" ANXIOUS AT BEGINNING OF SHIFT. MEDICATED PER EMAR. THIS AM PT UP TO BEDSIDE TO VOID. PT BECAME VISIBLY TENSE, HR INCREASED, RR INCREASED AND PT REQUESTING MEDICATION FOR ANXIETY. PT GIVEN REASSURANCE, AND MEDICATED WITH PRN MEDICATIONS. THIS LASTED APPROX 15 MINS, UNTIL PT WAS ABLE TO CALM AND LOOKED MORE RELAXED. PT HAD NOT VOIDED ALL SHIFT AND STATED HE DID NOT HAVE TO VOID THIS AM. BLADDER SCAN DONE WITH RESULT OF 461 ML. PT ENCOURAGED TO TRY AND VOID AND WAS ABLE TO VOID 300ML'S. VSS. SR 80-90'S AT REST. HR AND BP INCREASED WITH PT MOBILITY. PT ON BIPAP 20/10 FIO2 35% INITIALLY, CHANGED TO 16/10 FIO2 35% THIS AM. ON 4L NC WITH MEDS, ORAL CARE, AND SNACK. SPO2 GREATER THEN 92%. WILL REPORT OFF TO ONCOMING RN.
--- NOTE | 2023-06-13 17:38 | NUR ---
SHIFT SUMMARY PT A&OX4, FOLLOWING COMMANDS, BEDOYA. ABLE TO STAND AND TRANSFER TO CHAIR WITH SBA. REMAINS ON BIPAP ON/OFF T/O DAY, TOLERATING BREAKS MUCH BETTER c 6LPM O2 VIA NC. ALSO MEDICATING WITH PRN MORPHINE FOR AIR HUNGER WHICH SEEMS TO BE HELPING SIGNIFICANTLY. OTHERWISE, NO OTHER ACUTE CHANGES TODAY. PT NOW PCU STATUS.
[2023-06-14] VITALS (32 sets, daily range): BP systolic 92–201; BP diastolic 68–132
--- NOTE | 2023-06-14 02:13 | NUR ---
ASSUMED CARE ASSUMED CARE AT 1900. BEDSIDE REPORT DONE AND ONE UNIT OF PRBC STARTED WITH DAY RN. PT INITIALLY CONFUSED, BUT SLOWLY WAS ABLE TO ANSWER ORIENTATION QUESTIONS CORRECTLY. DROWSY BUT FOLLOWS COMMANDS. ABLE TO MOVE ALL EXTREMITIES. BP SOFT. MAP GREATER THEN 65. ON HOME CPAP WITH 2L O2. ON 2L NC WHEN OFF CPAP. SR WITH BBB RATE 90'S. C/O 10/10 PAIN IN BACK. PT HAD DIFFICULTY RATING PAIN AND WAS SLOW TO ANSWER WHEN EDUCATED ON PAIN RATING SCALE. AT TIMES PT WILL STATE "I DON'T KNOW, I DON'T KNOW". PT MEDICATED PER EMAR. WOUND VAC TO RLE, RED DRAINAGE. JAMA PATENT AND DRAINING TO GRAVITY. ASSISTED PT ONTO BEDPAN AND PT HAD SMALL BM. PT TRANSFERRED TO BARIATRIC BED.
--- NOTE | 2023-06-14 07:15 | NUR ---
CARE ASSUMPTION DURING BEDSIDE SHIFT REPORT W KARIN LEUNG THE PT IS SITTING UPRIGHT IN BED WEARING THE BIPAP 16/10 W 35% FIO2, RT AT BEDSIDE AT THAT TIME. PT IS VISIBLY ANXIOUS GRASPING THE SIDERAILS OF THE BED, PT MEDICATED FOR ANXIETY BY FRANCO RN. PT'S BP WNL AND STABLE. MONITOR SHOWING ST 100'S-110'S. PT ALERT AND COMMUNICATING APPROPRIATELY W STAFF DESPITE BEING LIMITED BY BIPAP MASK AND DYSPNEA.
--- NOTE | 2023-06-14 07:29 | NUR ---
SHIFT SUMMARY PT A/O X 4. FORGETFUL AFTER MORPHINE AND WITH ANXIETY. PT VERY ANXIOUS THIS AM. HR/BP INCREASED. MEDICATED WITH 2MG MORPHINE AND ATARAX. PT NOT ABLE TO CALM AFTER 45 MINS SO SECOND DOSE OF 2MG GIVEN. PT THEN REPORTED LESS ANXIETY, ABLE TO SPEAK IN FULL SENTENCE'S AND APPEARS LESS TENSE. APPROX 0645 PT AGAIN REPORTING ANXIETY WITH HR AND BP INCREASED. MEDICATED WITH PO ATIVAN. VSS. SR/ST RATE 80-90 WHEN CALM. PT WORE BIPAP 16/10 FIO2 35% T/O NIGHT. ABLE TO VOID USING URINAL AT BEDSIDE. WILL REPORT OFF TO ONCOMING RN.
[2023-06-14 08:57] LABS: Hematocrit 40.9 % (37.0-53.0); Hemoglobin 12.5 g/dL (13.5-17.5); Mean Corpuscular HGB 29.4 pg (26.0-34.0); Mean Corpuscular HGB Conc 30.6 g/dL (31.5-36.5); Mean Corpuscular Volume 96 fL (80-100); Mean Platelet Volume 10.4 fL (9.1-12.4); Platelet Count 388 K/mm3 (150-400); RDW Standard Deviation 48.6 fL (35.1-46.3); Red Blood Cell Count 4.25 M/mm3 (4.30-5.90); White Blood Cell Count 22.87 K/mm3 (4.00-11.30)
[2023-06-14 09:39] LABS: Albumin, Blood 3.3 g/dL (3.4-5.0); Albumin/Globulin Ratio 0.9 (0.8-1.8); Bilirubin, Total 0.3 mg/dL (0.1-1.0); Bun/Creatinine Ratio 50.1 (12.0-20.0); Calcium, Blood 9.5 mg/dL (8.5-10.1); Creatinine, Blood 0.64 mg/dL (0.60-1.20); Globulin, Blood 3.6 g/dL (2.2-4.0); Magnesium, Blood 2.1 mg/dL (1.6-2.4); Potassium, Blood 4.2 mmol/L (3.5-5.5); Total Protein, Blood 6.9 g/dL (6.4-8.2)
[2023-06-14 09:43] LABS: BASOPHILS PERCENT MAN 0 % (0-2); EOSINOPHILS PERCENT MAN 0 % (0-6); LYMPHOCYTES ABSOLUTE MAN 7.31 K/mm3 (0.84-5.20); LYMPHOCYTES PERCENT MAN 32 % (21-46); MONOCYTES ABSOLUTE MAN 1.37 K/mm3 (0.16-1.47); MONOCYTES PERCENT MAN 6 % (4-13); NEUTROPHILS ABSOLUTE MAN 14.17 K/mm3 (1.96-9.15); SEG NEUTROPHILS PERCENT MAN 62 % (41-73); TOTAL CELLS COUNTED 100
[2023-06-14 12:33] LABS: Base Excess Venous 15.4 mmol/L; Bicarbonate Venous 35.4 mmol/L (24.0-30.0); PCO2 Venous 95.3 mmHg (38-42); pH Blood Venous 7.26 (7.34-7.37)
--- NOTE | 2023-06-14 12:59 | NUR ---
Spiritual care visit conducted. Patient talks about how rough his night was. I talk with patient about comfort care and hospice again. Patient is agrees with the need to keep his symptoms managed but also expresses his strong desire to live. We relook at the issues of afterlife and ways of finding peace about and quality of life while he is alive. We discuss his fears and ways to reduce anxiety through prayer. Patient responded well to these conversations and to the prayer which led to reduced stress (at least for the moment). I will continue to remain available to patient and family.
--- NOTE | 2023-06-14 17:49 | NUR ---
DAY SHIFT SUMMARY PT BEGAN THE SHIFT VERY ANXIOUS GRIPPING THE SIDES OF HIS BED REPORTING FEELING SOB DESPITE SPO2 >90% ON BIPAP 16/10 W 50% FIO2. PT RECIEVED 0.5MG IV ATIVAN THIS AM AND THEN HAD BIPAP SETTING CHANGED TO 8/6 AND THE PT DID BECOME LETHARGIC SO VBG DRAWN SHOWING CO2 OF 95. BIPAP SETTINGS ADJUSTED BY RT AND PT'S MENTATION IMPROVED. PT MAINTINED SPO2 >92% ON BIPAP 12/6 W 45% FIO2 UNTIL 1700 WHERE HE WAS PLACED ON 5L NC SO HE COULD EAT DINNER. PT HAD POOR PO INTAKE THIS SHIFT AND ONLY VOIDED 300ML JOAQUIM URINE, BLADDER SCAN SHOWING <250ML POST VOID. ENCOURAGING PT TO DRINK FLUIDS. PT'S BP WAS ELEVATED AT THE START OF THE SHIFT SO CLONODINE PATCH PLACED ON THE PT'S L SHOULDER AND HIS BP IMPROVED T/O THE SHIFT AND IS WNL AND STABLE. PT TACHYCARDIC THIS AM W HR AT 125, HR IMPROVING T/IO THE SHIFT BUT REMAINS ST 100'S-110'S. PT ABLE TO EAT MOST OF HIS DINNER THIS AFTERNOON AND IS SITTING COMFORTABLY IN BED WATCHING TV. WILL REPORT TO ONCOMING RN.
--- NOTE | 2023-06-14 20:06 | NUR ---
ASSUMED CARE OF PT AT 1900. REPORT RECEIVED. PT PRESENTS IN BED. ALERT AND ORIENTED. CALM AND COOPERATIVE WITH CARE AND ASSESSMENT. PT REQUESTING OF RESPIRATORY THERAPY TO GO BACK TO HIS BIPAP AT THIS TIME. WILL REVIEW CHART AND PLAN OF CARE FOR THIS PT.
--- NOTE | 2023-06-14 22:05 | NUR ---
PT ABLE TO SIT UP AT SIDE OF BED TO VOID. PT DOES STATE HE FEELS ANXIOUS WITH ANY MOVEMENTS. HAS BEEN ABLE TO TAKE HIS MEDICATIONS WITHOUT ISSUES. ENCOURAGED PT TO DO MUCH OF HIS ADL'S HE IS ABLE. REINFORCED IMPORTANCE TO BE UP DURING THE DAYTIME TO RECLINER CHAIR. PT VERBALIZES AGREEMENT. PT CURRENTLY SITTING UP AT SIDE OF BED DRINKING AN ENSURE SUPPLEMENT. WILL CONTINUE TO MONITOR PT.
--- NOTE | 2023-06-14 23:12 | NUR ---
MEDICATED PT WITH 1 MG ATIVAN PER HIS REQUEST. HAS BEEN SITTING UP AT SIDE OF BED. STATES HE WOULD LIKE TO LAY DOWN THOUGH EVERY TIME EFFORT MADE TO HAVE PT LAY DOWN PT DELAYS. IS VERY ANXIOUS WHICH INCREASES WITH EFFORTS TO GET PT TO ASSIST IN HIS OWN ADLS. PENDING RESULTS OF ATIVAN. PT DOES REQUEST EXPLANATION OF XANAX VERSUS ATIVAND AND VALIUM. THIS PROVIDED. WILL CONTINUE TO AWAIT PT'S DECISION TO LAY BACK IN BED WHEH HE FEELS IT IS TIME. CALL LIGHT PLACED WITHIN REACH FOR PT TO CALL FOR ASSIST. CURRENTLY ON 5 LITERS OXYGEN PER NASAL CANNULA.
[2023-06-14 23:42] LABS: PCO2 Venous 80.2 mmHg (38-42); pH Blood Venous 7.33 (7.34-7.37)
[2023-06-15] VITALS (11 sets, daily range): BP systolic 108–144; BP diastolic 71–102
[2023-06-15 01:15] LABS: Base Excess Venous 17.8 mmol/L; Bicarbonate Venous 38.1 mmol/L (24.0-30.0); PCO2 Venous 72.6 mmHg (38-42); pH Blood Venous 7.38 (7.34-7.37)
--- NOTE | 2023-06-15 03:25 | NUR ---
SPOKE WITH DR LOMBARDO PER PHONE WITH VBG RESULTS, AND REPEAT OF VBG AT 0100. OK FOR RT TO ADJUST BIPAP PER VBG RESULTS. THIS PASSED ON TO JOE MCKEE. PT CURRENTLY WEARING BIPAP, AND HAS BEEN ABLE TO TURN HIMSELF IN BED. NO FURTHER ANXIOUS AFFECT NOTED. WILL CONTINUE TO MONITOR.
[2023-06-15 05:07] LABS: Hematocrit 34.1 % (37.0-53.0); Hemoglobin 10.6 g/dL (13.5-17.5); Mean Corpuscular HGB 29.8 pg (26.0-34.0); Mean Corpuscular HGB Conc 31.1 g/dL (31.5-36.5); Mean Corpuscular Volume 96 fL (80-100); Mean Platelet Volume 10.5 fL (9.1-12.4); Platelet Count 274 K/mm3 (150-400); RDW Coefficient Variation 13.5 % (11.7-14.2); RDW Standard Deviation 47.6 fL (35.1-46.3); Red Blood Cell Count 3.56 M/mm3 (4.30-5.90); White Blood Cell Count 10.44 K/mm3 (4.00-11.30)
--- NOTE | 2023-06-15 05:57 | NUR ---
PT HAS BEEN ABLE TO REST SOME THIS NIGHT. CALLS OUT SECONDARY TO HAVING TO URINATE. STATES THAT HE IS UNABLE TO MANAGE URINAL TO VOID. PT THEN ADDS THAT HE IS VERY ANXIOUS AND WANTS MEDS. WHEN BRINGING ATARAX AND HIS AM PROTONIX, PT WAS ASLEEP. AWAKENS TO VERBAL. PT CURRENTLY RESTING IN BED. WILL CONTINUE TO MONITOR PT, AND WILL REPORT OFF TO ONCOMING RN.
[2023-06-15 06:02] LABS: Bun/Creatinine Ratio 46.8 (12.0-20.0); Calcium, Blood 8.8 mg/dL (8.5-10.1); Creatinine, Blood 0.66 mg/dL (0.60-1.20)
--- NOTE | 2023-06-15 15:09 | NUR ---
Pt resting in bed with his eyes closed wearing BIPAP. Several attempts with verbal stimuli before Pt wakes. Pt appears to struggle with keeping his eyes opened. Will attempt to visit with Pt at a later time. Spoke with Primary RN Sin and reviewed plan of care. Palliative Care will remain available
--- NOTE | 2023-06-15 16:27 | NUR ---
Spiritual care visit conducted. Patient is lying in bed and resting. He easily awakens to his name. He immediately asks if I am coming into tell him bad news. When I ask him why he would think that, he says that he feels like that is all he ever hears about his health. So I ask him what good news that he would like to hear about anything other than medical things. He says that he would like to read the Bible but he is too tired and his mask and eyesight make it too challenging. I tell him that I could read the Bible to him and I do. I read one and a half chapters before his eyes start getting a bit heavy. He perks right up to talk about what we read and is very encouraged by our conversation. I also read another inspiring song to him and provide prayer. Patient displays evidence of an elevated mood. I will continue to remain available to patient and family.
--- NOTE | 2023-06-15 16:38 | NUR ---
SHIFT SUMMARY NO ACUTE CHANGES THIS SHIFT. PT REMAINS ALERT AND ORIENTED, WITH OCCASIONAL NONSENSICAL SPEECH THIS SHIFT. PT IS MORE AWAKE THIS AFTERNOON, SITTING UP WATCHING TV. PT WORKED WITH PT/OT THIS SHIFT. PT REMAINS ON BIPAP 14/8, FIO2 30%. PT COMPLAINS OF DYSPNEA WHEN TAKING BREAKS FROM BIPAP ON NC. IV AND PG REMAIN SALINE LOCKED. CONDOM CATH IN PLACE WITHOUT ANY OUTPUT THIS AFTERNOON. VITAL SIGNS HAVE REMAINED STABLE. WILL CONTINUE TO MONITOR AND REPORT OFF TO ONCOMING RN.
--- NOTE | 2023-06-15 20:00 | NUR ---
ASSUMED CARE OF PT AT 1900. REPORT RECEIVED. PT PRESENTS IN BED WEARING BIPAP MASK. *FULL FACE MASK* PT STATES THAT HE FEELS MUCH MORE COMFORTABLE WITH THIS MASK. PT NOTED TO HAVE IMPROVED CLARITY VERSUS PREVIOUS ENCOUNTER WITH THIS PT. WILL REVIEW CHART AND PLAN OF CARE FOR THIS PT.
--- NOTE | 2023-06-16 01:41 | NUR ---
PT RESTING IN BED AT THIS TIME. ABLE TO KEEP HIMSELF TURNED IN BED. HAS BEEN MEDICATED EARLIER WITH ROXANOL 10 MG. PT STATES THIS HAS BEEN VERY HELPFUL IN KEEPING HIM CALM. WILL CONTINUE TO MONITOR,
[2023-06-16 04:44] VITALS: BP 131/90
--- NOTE | 2023-06-16 05:56 | NUR ---
PT HAS BEEN ABLE TO REST THIS NIGHT. HAS BEEN MEDICATED SEVERAL TIMES WITH 10 MG ROXANOL FOR AIR HUNGER WITH GOOD RESULTS. PT HAS BEEN ABLE TO MOVE ABOUT IN BED ON HIS OWN. WILL CONTINUE TO MONITOR PT, AND WILL REPORT OFF TO ONCOMING RN.
--- NOTE | 2023-06-16 07:00 | NUR ---
ASSUMPTION OF CARE PT ON BIPAP 26/04/45%. PT TOLERATING WELL. CONDOM CATH IN PLACE. VSS AT THIS TIME. SEE SHIFT ASSESSMENT
[2023-06-16 08:20] VITALS: BP 158/104
--- NOTE | 2023-06-16 08:30 | NUR ---
UPDATE PT TRANSITIONED FROM BIPAP TO 5L NC. PT IS TACHYPNEIC, SPO2 DECREASING. TITRATED TO 9L NC. PT INSTRUCTED TO TAKE DEEP BREATHS THROUGH NOSE. PT ATTEMPTING BUT UNABLE TO TAKE DEEP BREATH. PT ANXIOUS AND APPEARS DISTRESSED. BIPAP MASK BACK IN PLACE WITH PREVIOUS SETTINGS 14/8/40%. SPO2 >90%, PT APPEARS MORE CALM. MORNING PO MEDICATIONS HELD AT THIS TIME.
[2023-06-16 13:28] VITALS: BP 158/98
--- NOTE | 2023-06-16 14:42 | NUR ---
UPDATE PT ABLE TO TOLERATE TRANSITION TO 5L NC FOR LUNCH AND TAKE MEDICATIONS. AFTER MEAL, PT PLACED BACK ON BIPAP. BED IN LOW POSITION, CALL LIGHT WITHIN REACH.
--- NOTE | 2023-06-16 17:04 | NUR ---
CODE STATUS DISCUSSION WITH PT, STUART OLGUIN, AND RADIOLOGIST PRO REGARDING CODE STATUS. PT REPORTS FEELING A LARGE WEIGHT ON HIS SHOULDERS REGARDING THIS DECISION AND EXPRESSES FEAR OF DYING. PT VERBALIZES UNDERSTANDING OF FULL CODE, DNR AND COMFORT CARE. PT VERBALIZES DNR/DNI STATUS PRIOR TO TRANSFER TO PCU. PURPLE ARMBAND APPLIED TO R WRIST.
--- NOTE | 2023-06-16 17:10 | NUR ---
CODE STATUS WHILE ATTEMPTING TO PLACE DNR BAND PT STS "WHAT IS THIS?". EXPLAINED PURPOSE OF BAND AND PT STS "I DON'T WANT TO ". STUART OLGUIN REMAINS AT BEDSIDE DURING THIS. SHARIF AND THIS RN ASK GUS ABOUT HIS WISHES AND THAT HE VERBALIZED DNR/DNI. AT THIS TIME, PT REVOKES DNR/DNI AND WOULD LIKE TO BE FULL CODE.
--- NOTE | 2023-06-16 17:11 | NUR ---
"Spiritual Care | Nurse Request Pt. is awake in his bed when we waved me into his room. Spouse and Nurse More are present. Pt. verbalized that he felt that he had to make a decision and that he felt the weight of it on his shoulders. Listened with emapthy and a calm presence. Through a series of questions from this air conditioning technician, Pts. Spouse and the nurse, the Pt. verbalized that he did not want to be intubated again. Pt. asked for prayer after making the decision. Prayed with Pt. spouse and nurse. Afterward clarified once again his decision to not be intubated again. Nurse Aguero and this air conditioning technician reported the Pts. wishes to Latasha the charge nurse."
[2023-06-16 19:42] VITALS: BP 123/79
--- NOTE | 2023-06-16 19:50 | NUR ---
ASSUMPTION OF CARE: PATIENT IS ALERT AND ORIENTED X 3. NO ACTIVE SIGNS OF DISTRESS, DENIES CP, SOB., OR PAIN. VSS CURRENLTY ON NC AT 8. SPO2 >95%. SLOW TO RESPOND, BIPAP AT BEDSIDE, NOTHING INFUSING.
[2023-06-16 23:53] VITALS: BP 166/91
[2023-06-17 05:00] VITALS: BP 122/87
[2023-06-17 07:53] VITALS: BP 125/90
--- NOTE | 2023-06-17 08:00 | NUR ---
INITIAL ASSESSMENT: Patient is resting with the Bi-Pap on settings 14/ 40% FIO2. I took him off the Bi-Pap and he is tolerating it well with 5l via NC. He is oriented to himself, place, and event. He denies pain at this time. He has a high level of baseline anxiety related to his end stage COPD, he rates his anxiety at a 6/10. He is medicated with 10 mg Roxanol. HRR, SR in the 90s. Per the engineering technician parking the patient was in Junctional Rhythm during the night and has changed to SR. He denies CP or pressure. LS very diminished T/O, he has a dry NPC. He is using his accessory muscles to breathe. BT+, ABD distended, he has not had a BM since the 09 of July. Bowel care protocol in place. at the bedside and would like to give the patient some prune juice with butter. VSS. Patient denies other needs at this time. Call light in reach.
[2023-06-17 12:40] VITALS: BP 134/76
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
[2023-06-17 16:20] VITALS: BP 121/85
--- NOTE | 2023-06-17 18:14 | NUR ---
Summary: Patient has been alert and oriented x3 T/O the shift. No C/O pain. He has been anxious T/O the shift, he was medicated with Roxanol twice this shift. Heart rate has been between junctional and sinus rhythm-his rate has been 90s-low 100s. LS DIM T/O, he has been tachypnec and using his accesory muscles at times during the day. He has been on the Bi-Pap for a few hours during the shift, when he is off his oxygen is titrated down to 3l via NC. BT+, ABD distended and he has not had a bowel movement since the . He wanted to try prune juice with butter, he didn't drink it all and did not want his other bowel care medications. VSS T/O the shift. Pastoral care visited with the patient, he just feels like the staff are "trying to kill me off with all of these converstaions." Palliative care stopped by briefly, thinks it would be more beneficial to have further converstaions with his POA at bedside. No other acute changes this shift, will report to oncoming RN.
[2023-06-17 19:34] VITALS: BP 126/68
[2023-06-17 23:41] VITALS: BP 125/80
[2023-06-18 05:26] VITALS: BP 127/89
[2023-06-18 08:54] VITALS: BP 131/80
[2023-06-18 16:33] VITALS: BP 137/68
--- NOTE | 2023-06-18 17:53 | NUR ---
ASSUMED CARE OF PT AT 0700. NO ACUTE EVENTS T/O THE SHIFT. PT HAS BEEN OOB TO CHAIR FOR MOST OF THE DAY. ON AND OFF BIPAP. MEDICATED PER EMAR FOR ANXIETY AND AIR HUNGER. PT'S FRIEND SHARIF IN TO VISIT TODAY. PLAN IS TO D/C TO [facility] TOMORROW. PT IS ABLE TO USE CALL LIGHT FOR NEEDS, CALL LIGHT IN REACH, WILL CONTINUE TO MONITOR AND GIVE REPORT TO ONCOMING SHIFT RN. OF NOTE: 1200 VITALS SKIPPED TO PROMOTE PT REST.
[2023-06-18 19:42] VITALS: BP 123/90
[2023-06-19] VITALS (7 sets, daily range): BP systolic 109–142; BP diastolic 68–97
--- NOTE | 2023-06-19 05:32 | NUR ---
SHIFT SUMMARY PATIENT ALERT, ORIENTED x4, ABLE TO MAKE NEEDS KNOWN TO STAFF. PATIENT AT TIMES WILL MAKE COMMENTS THAT DO NOT PERTAIN TO SITUATION. VITALS STABLE. TELE READING SR/ST, DENIED CHEST PAIN. PATIENT WEARING BIPAP FOR MAJORITY OF SHIFT. ABLE TO TOLERATE NC FOR SHORT PERIODS OF TIME. SPO2 >95%. MEDICATED FOR ANXIETY PER EMAR. CONDOM CATH IN PLACE, DRAINING YELLOW URINE. NO OTHER SIGNIFICANT CHANGES, WILL REPORT TO DAY SHIFT RN.
--- NOTE | 2023-06-19 12:05 | NUR ---
ASSUMED CARE OF PT AT 0700 THIS AM. NO ACUTE CHANGES REPORTED OVERNIGHT, PT TOLERATING BIPAP WELL. PT SLEEPING ON BIPAP UNTIL ABOUT 0900. SEE VS AND ASSESSMENT DOCUMENTATION. PT PLACED ON 4L O2 NC. CONTINUOS PULSE OX MONITORING IN PLACE. PT MEDICATED FOR ANXIETY PER EMAR. PT STATES HE HAS NOT HAD A BM IN SEVERAL DAYS, ABD IS FIRM AND MODERATLY DISTENDED, PT DENIES ABD PAIN, N/V. PRN BOWEL CARE GIVEN WITH PRUNE JUICE WELL. PT IS ABLE TO USE CALL LIGHT FOR NEEDS, CALL LIGHT IN REACH. WCTM.
[2023-06-19 14:59] LABS: SARS-Cov-2 (COVID-19) PCR, MMC NEGATIVE (NEGATIVE)
--- NOTE | 2023-06-19 16:56 | NUR ---
NO ACUTE EVENTS T/O THE SHIFT. PTs DISCHARGE WILL BE DELAYED UNTIL WEDNESDAY D/T PROBLEMS SECURING PTs OUTPT BIPAP. PT HAS HIS HOME TRILOGY AT BEDSIDE, BUT REHAB WILL NOT USE THAT MACHINE. TRUCK MECHANIC MARIE INVOLVED AND IN CONTACT WITH [facility] STAFF. MD AND PT MADE AWARE OF DELAYED DISCHARGE. PT HAS BEEN ON 4L NC FOR MOST OF THE DAY, ON BIPAP AFTER LUNCH. TOLERATING WELL. PT IS ABLE TO USE CALL LIGHT, CALL LIGHT IN REACH. WCTM AND GIVE REPORT TO ONCOMING SHIFT RN.
[2023-06-20 03:45] VITALS: BP 116/86
[2023-06-20 03:54] LABS: Hematocrit 35.1 % (37.0-53.0)
[2023-06-20 04:12] LABS: Bun/Creatinine Ratio 49.4 (12.0-20.0); Calcium, Blood 8.8 mg/dL (8.5-10.1); Creatinine, Blood 0.59 mg/dL (0.60-1.20); Potassium, Blood 4.6 mmol/L (3.5-5.5)
--- NOTE | 2023-06-20 06:01 | NUR ---
SHIFT SUMMARY PATIENT ALERT AND ORIENTED, ABLE TO MAKE NEEDS KNOWN TO STAFF. BP STABLE, TELE READING SR-ST DURING THE NIGHT, PATIENT ALTERNATING BETWEEN NC AND BIPAP, SPO2 >90%. PATIENT MEDICATED PER EMAR FOR ANXIETY AND AIR HUNGER. PATIENT SHIFTING SELF IN BED. CONDOM CATH IN PLACE DRAINING YELLOW URINE, EDUCATED PATIENT OVERNIGHT REGARDING ATTEMPT TO USE URINAL, PATIENT STATED "I'M NOT READY TO START USING THE URINAL YET". CONDOM CATH REPLACED PRN. PATIENT HAD LARGE BM OVERNIGHT WELL. NO OTHER SIGNIFICANT CHANGES DURING THE NIGHT. WILL REPORT TO DAY SHIFT RN.
[2023-06-20 09:50] VITALS: BP 143/83
[2023-06-20 15:11] VITALS: BP 127/83
--- NOTE | 2023-06-20 18:20 | NUR ---
SHIFT SUMMARY: NO ACUTE CHANGES T/O THE SHIFT. [facility]. PT IS ABLE TO USE CALL LIGHT FOR NEEDS, CALL LIGHT IN REACH. WILL CONTINUE TO MONITOR AND GIVE REPORT TO ONCOMING SHIFT RN.
[2023-06-20 20:23] VITALS: BP 126/86
[2023-06-21 00:59] VITALS: BP 113/87
[2023-06-21 04:03] LABS: Hematocrit 35.7 % (37.0-53.0); Hemoglobin 11.5 g/dL (13.5-17.5)
[2023-06-21 04:08] VITALS: BP 122/97
[2023-06-21 04:45] LABS: Albumin, Blood 2.8 g/dL (3.4-5.0); Bilirubin, Total 0.2 mg/dL (0.1-1.0); Bun/Creatinine Ratio 50.6 (12.0-20.0); Creatinine, Blood 0.63 mg/dL (0.60-1.20); Globulin, Blood 2.9 g/dL (2.2-4.0); Potassium, Blood 4.5 mmol/L (3.5-5.5); Total Protein, Blood 5.7 g/dL (6.4-8.2)
--- NOTE | 2023-06-21 04:46 | NUR ---
End of shift note. Pt has had a good night. Pt reports he has had large periods of rest. Pt reports that anxiety has been under control with current meds. Pt has been in bed all shift, encouraged more movement during the day. Pt is able to make needs known, call light is within reach.
[2023-06-21 07:33] VITALS: BP 124/95
--- NOTE | 2023-06-21 10:38 | NUR ---
STUDENT ASSESMENT REVIEWED AND AGREED WITH.
[2023-06-21 11:29] VITALS: BP 138/75
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
[2023-06-21 15:07] LABS: SARS-Cov-2 (COVID-19) PCR, MMC NEGATIVE (NEGATIVE)
--- NOTE | 2023-06-21 16:27 | NUR ---
REPORT GIVEN TO [facility] FOR TRANSFER, PACKET GIVEN TO BOAT OFFICER, CRYSTAL'D ON 4L O2 VIA NC IN NO DISTRESS.
[2023-06-22] MEDS ORDERED: DOCU100 PO (10:56)
[2023-06-22] MEDS ORDERED: DULCOLAX400 MG/5 M PO (10:56)
[2023-06-22] MEDS ORDERED: SENN187 PO (10:57)
[2023-06-22] MEDS ORDERED: MORP20L PO (11:11)
[2023-06-22] MEDS ORDERED: Prednisone10 MG PO ×6 (11:18→11:41)
== END 2023-06-21 16:20 | DRG 208 ==
LOC: ER 12:51 → ICUE 14:53 → PCU 06-05 08:01 → ICUE 06-06 09:22 → PCU 06-16 19:12
PROVIDERS: Family Medicine; Family Medicine Adult Medicine; Hospitalist; Internal Medicine; Internal Medicine Critical Care Medicine; Student in an Organized Health Care Education/Training Program; ADMIT Internal Medicine
PROC: 5A1945Z Respiratory Ventilation, 24-96 Consecutive Hours (ICD-10-PCS; principal; 2023-06-02)
PROC: 0BH17EZ Insertion of Endotracheal Airway into Trachea, Via Natural or Artificial Opening (ICD-10-PCS; 2023-06-02)
PROC: 0T9B70Z Drainage of Bladder with Drainage Device, Via Natural or Artificial Opening (ICD-10-PCS; 2023-06-02)
PROC: 4A133R1 Monitoring of Arterial Saturation, Peripheral, Percutaneous Approach (ICD-10-PCS; 2023-06-04)
PROC: 5A09557 Assistance with Respiratory Ventilation, Greater than 96 Consecutive Hours, Continuous Positive Airway Pressure (ICD-10-PCS; 2023-06-05)
DX: J96.21 Acute and chronic respiratory failure with hypoxia (principal); G93.41 Metabolic encephalopathy; E43 Unspecified severe protein-calorie malnutrition; J44.1 Chronic obstructive pulmonary disease with (acute) exacerbation; E87.29 Other acidosis; B37.0 Candidal stomatitis; J96.22 Acute and chronic respiratory failure with hypercapnia; Z66 Do not resuscitate; Z51.5 Encounter for palliative care; F43.10 Post-traumatic stress disorder, unspecified; F41.9 Anxiety disorder, unspecified; J44.9 Chronic obstructive pulmonary disease, unspecified; Z20.822 Contact with and (suspected) exposure to COVID-19; K21.9 Gastro-esophageal reflux disease without esophagitis; I10 Essential (primary) hypertension; N40.0 Benign prostatic hyperplasia without lower urinary tract symptoms; B96.89 Other specified bacterial agents as the cause of diseases classified elsewhere; E88.09 Other disorders of plasma-protein metabolism, not elsewhere classified; K59.00 Constipation, unspecified; D72.829 Elevated white blood cell count, unspecified; D64.9 Anemia, unspecified; J38.3 Other diseases of vocal cords; Z87.891 Personal history of nicotine dependence; Z86.74 Personal history of sudden cardiac arrest; Z90.2 Acquired absence of lung [part of]; Z79.52 Long term (current) use of systemic steroids; Z79.899 Other long term (current) drug therapy; Z91.048 Other nonmedicinal substance allergy status; Z68.21 Body mass index [BMI] 21.0-21.9, adult
CPT/HCPCS: 0241U; 31500; 31720; 36415; 36600; 51702; 71045; 80048; 80053; 80069; 81001; 82803; 82947; 83735; 83880; 84100; 85014; 85018; 85025; 85027; 87070; 87205; 93005; 93010; 94002; 94003; 94640; 94644; 94660; 94664; 94762; 96361-59; 96374-59; 96375-59; 97110; 97110-CQ; 97162; 97166; 97530; 97535; 99291-25; 99292; A9270; C1751; C9113; J1650; J2060; J2270; J2310; J2405; J2704; J2920; J2930; J3010; J7030; J7060; J7120; J7512; U0002

== ENCOUNTER 2023-06-21 22:58 | Observation (INO) | payer OTHER ==
[~2023-06-21] VITALS: Ht 170.2 cm; Wt 72.0 kg
[~2023-06-21 22:58] MED LIST changes: +BACLOFEN5 M1 PO; +LORA1 PO
[2023-06-21 23:12] LABS: Hematocrit 42.2 % (37.0-53.0); Hemoglobin 13.1 g/dL (13.5-17.5); Mean Corpuscular HGB 29.1 pg (26.0-34.0); Mean Corpuscular Volume 94 fL (80-100); Mean Platelet Volume 10.6 fL (9.1-12.4); NRBC ABSOLUTE 0.02 K/mm3 (0.00-0.02); NRBC Auto 0.1 /100 WBC (0.0-0.2); Platelet Count 332 K/mm3 (150-400); RDW Coefficient Variation 14.5 % (11.7-14.2); RDW Standard Deviation 49.8 fL (35.1-46.3); White Blood Cell Count 29.86 K/mm3 (4.00-11.30)
[2023-06-21 23:43] LABS: BASOPHILS PERCENT MAN 0 % (0-2); EOSINOPHILS PERCENT MAN 0 % (0-6); LYMPHOCYTES ABSOLUTE MAN 11.64 K/mm3 (0.84-5.20); LYMPHOCYTES PERCENT MAN 39 % (21-46); MONOCYTES ABSOLUTE MAN 2.09 K/mm3 (0.16-1.47); MONOCYTES PERCENT MAN 7 % (4-13); NEUTROPHILS ABSOLUTE MAN 16.12 K/mm3 (1.96-9.15); SEG NEUTROPHILS PERCENT MAN 54 % (41-73); TOTAL CELLS COUNTED 100
[2023-06-21 23:55] LABS: Albumin, Blood 3.3 g/dL (3.4-5.0); Albumin/Globulin Ratio 0.9 (0.8-1.8); Bilirubin, Total 0.1 mg/dL (0.1-1.0); Calcium, Blood 8.8 mg/dL (8.5-10.1); Creatinine, Blood 0.78 mg/dL (0.60-1.20); Globulin, Blood 3.7 g/dL (2.2-4.0); Potassium, Blood 4.6 mmol/L (3.5-5.5)
[2023-06-22] VITALS (9 sets, daily range): BP systolic 87–117; BP diastolic 62–79
[2023-06-22 00:02] LABS: Base Excess Venous 10.7 mmol/L; Bicarbonate Venous 32.9 mmol/L (24.0-30.0); pH Blood Venous 7.45 (7.34-7.37)
--- NOTE | 2023-06-22 06:08 | NUR ---
ADMISSION/SHIFT SUMMARY PATIENT ARRIVED TO PCU AROUND 0400. ALERT, ORIENTED x2-3. BIPAP IN PLACE, 16/8 65% WITH SPO2 MID 90s AND RR MID 20s ON ADMISSION. TELE READING SINUS RHYTHM 90s. BP STABLE. PATIENT ORIENTED TO ROOM/CALL LIGHT SYSTEM. PATIENT CONTINENT/INCONTINENT. SOILED UPON ADMISSION, ATTENDS REPLACED. NO OTHER CHANGES SINCE ADMISSION, WILL REPORT TO DAY SHIFT RN.
[2023-06-22 06:47] LABS: BASOPHILS ABSOLUTE AUTO 0.03 K/mm3 (0.00-0.23); BASOPHILS PERCENT AUTO 0 % (0-2); EOSINOPHILS PERCENT AUTO 0 % (0-6); Hematocrit 35.6 % (37.0-53.0); Hemoglobin 11.2 g/dL (13.5-17.5); IMMATURE GRAN ABSOLUTE AUTO 0.54 K/mm3 (0.00-0.10); IMMATURE GRAN PERCENT AUTO 3 % (0-1); LYMPHOCYTES ABSOLUTE AUTO 3.38 K/mm3 (0.84-5.20); LYMPHOCYTES PERCENT AUTO 20 % (21-46); MONOCYTES ABSOLUTE AUTO 0.32 K/mm3 (0.16-1.47); MONOCYTES PERCENT AUTO 2 % (4-13); Mean Corpuscular HGB 29.1 pg (26.0-34.0); Mean Corpuscular HGB Conc 31.5 g/dL (31.5-36.5); Mean Corpuscular Volume 93 fL (80-100); Mean Platelet Volume 10.8 fL (9.1-12.4); NEUTROPHILS ABSOLUTE AUTO 12.29 K/mm3 (1.96-9.15); NEUTROPHILS PERCENT AUTO 74 % (41-73); NRBC ABSOLUTE 0.02 K/mm3 (0.00-0.02); NRBC Auto 0.1 /100 WBC (0.0-0.2); Platelet Count 242 K/mm3 (150-400); RDW Coefficient Variation 14.6 % (11.7-14.2); RDW Standard Deviation 48.9 fL (35.1-46.3); Red Blood Cell Count 3.85 M/mm3 (4.30-5.90); White Blood Cell Count 16.56 K/mm3 (4.00-11.30)
[2023-06-22 07:20] LABS: Albumin, Blood 2.8 g/dL (3.4-5.0); Anion Gap 1 mmol/L (6-16); Blood Urea Nitrogen 39 mg/dL (8-24); Bun/Creatinine Ratio 57.8 (12.0-20.0); CO2, Blood 35 mmol/L (21-32); Calcium, Blood 8.4 mg/dL (8.5-10.1); Chloride, Blood 103 mmol/L (98-108); Creatinine, Blood 0.68 mg/dL (0.60-1.20); Glomerular Filtration Rate 106 (60-); Glucose, Blood 186 mg/dL (70-99); Magnesium, Blood 2.5 mg/dL (1.6-2.4); Phosphorus, Blood 4.6 mg/dL (2.5-4.9); Potassium, Blood 4.7 mmol/L (3.5-5.5); Sodium, Blood 139 mmol/L (136-145)
[2023-06-22] MEDS ORDERED: DOCU100 PO (10:56)
[2023-06-22] MEDS ORDERED: DULCOLAX400 MG/5 M PO (10:56)
[2023-06-22] MEDS ORDERED: SENN187 PO (10:57)
[2023-06-22] MEDS ORDERED: MORP20L PO (11:11)
[2023-06-22] MEDS ORDERED: Prednisone10 MG PO ×6 (11:18→11:41)
[2023-06-22 11:38] LABS: SARS-Cov-2 (COVID-19) PCR, MMC NEGATIVE (NEGATIVE)
--- NOTE | 2023-06-22 15:58 | NUR ---
REPORT TO FACILITY THIS RN CALLED [facility] AT 1555. REPORT GIVEN ON PATIENT TO NURSE MARCH. DISCUSSED NEW BIPAP SETTINGS OF 16/8 WITH FIO2 30% AND PREDNISONE TAPER STARTING WITH 60MG AND DECREASING BY 10MG EVERY 3 DAYS PER ORDERS. VSS AT THIS TIME. ATIVAN ORDERS RECEIVED, WILL ADMINISTER PRIOR TO DISCHARGE.
--- NOTE | 2023-06-22 17:44 | NUR ---
END OF SHIFT/DISCHARGE NOTE: NO ACUTE EVENTS THIS SHIFT. PT ALERT AND ORIENTED X3-4, ABLE TO CALL APPROPRIATELY. PLEASANT AND COOPERATIVE WITH CARE. HR 80-90'S, SBP 90-110'S. PT DENIES CP/PRESSURE. SPO2 >93% ON BIPAP 16/8 WITH FIO2 30% AND 4L NC DURING BIPAP BREAKS. ATIVAN ADMINISTERED PER EMAR PRIOR TO D/C. IV CATHETERS REMOVED, TIPS INTACT. PT EDUCATED ON DISCHARGE INSTRUCTIONS. TRANSFER FACILITY WHEELED PT OUT FOR TRANSPORT TO [facility] AT 1734.
== END 2023-06-22 17:34 | disposition home or self-care (01) ==
LOC: ER 22:58 → PCU 22:59
PROVIDERS: Family Medicine; Student in an Organized Health Care Education/Training Program; ADMIT Internal Medicine
DX: J96.22 Acute and chronic respiratory failure with hypercapnia (principal); J96.21 Acute and chronic respiratory failure with hypoxia; F41.9 Anxiety disorder, unspecified; J44.9 Chronic obstructive pulmonary disease, unspecified; Z87.891 Personal history of nicotine dependence
CPT/HCPCS: 36415; 71045; 80053; 80069; 82803; 83735; 83880; 84484; 85025; 93005; 93010; 94640; 94660; 94664; 94762; 96365; 96366; 96372; 96375; 99285-25; A9270; G0378; J0456; J0696; J1650; J2060; J7050; U0002

== ENCOUNTER 2023-07-18 16:16 | Inpatient (IN) | payer OTHER ==
[~2023-07-18] VITALS: Ht 177.8 cm; Wt 73.9 kg
[~2023-07-18 16:16] MED LIST changes: +DOCU100 PO; +DULCOLAX400 MG/5 M PO; +MORP20L PO; +SENN187 PO
[2023-07-18 16:46] LABS: BASOPHILS ABSOLUTE AUTO 0.04 K/mm3 (0.00-0.23); BASOPHILS PERCENT AUTO 0 % (0-2); EOSINOPHILS ABSOLUTE AUTO 0.13 K/mm3 (0.00-0.68); EOSINOPHILS PERCENT AUTO 1 % (0-6); Hematocrit 41.7 % (37.0-53.0); Hemoglobin 12.4 g/dL (13.5-17.5); IMMATURE GRAN ABSOLUTE AUTO 0.06 K/mm3 (0.00-0.10); IMMATURE GRAN PERCENT AUTO 1 % (0-1); LYMPHOCYTES ABSOLUTE AUTO 2.36 K/mm3 (0.84-5.20); LYMPHOCYTES PERCENT AUTO 22 % (21-46); MONOCYTES ABSOLUTE AUTO 0.72 K/mm3 (0.16-1.47); MONOCYTES PERCENT AUTO 7 % (4-13); Mean Corpuscular HGB 29.2 pg (26.0-34.0); Mean Corpuscular HGB Conc 29.7 g/dL (31.5-36.5); Mean Corpuscular Volume 98 fL (80-100); Mean Platelet Volume 10.6 fL (9.1-12.4); NEUTROPHILS ABSOLUTE AUTO 7.47 K/mm3 (1.96-9.15); NEUTROPHILS PERCENT AUTO 69 % (41-73); Platelet Count 256 K/mm3 (150-400); RDW Coefficient Variation 13.5 % (11.7-14.2); RDW Standard Deviation 49.3 fL (35.1-46.3); Red Blood Cell Count 4.25 M/mm3 (4.30-5.90); White Blood Cell Count 10.78 K/mm3 (4.00-11.30)
[2023-07-18 16:53] LABS: Base Excess Venous 11.1 mmol/L; Bicarbonate Venous 31.1 mmol/L (24.0-30.0); PCO2 Venous 95.5 mmHg (38-42)
[2023-07-18 16:54] LABS: pH Blood Venous 7.22 (7.34-7.37)
[2023-07-18 17:23] LABS: Influenza A, PCR NEGATIVE (NEGATIVE); Influenza B, PCR NEGATIVE (NEGATIVE); Resp Syncytial Virus, PCR NEGATIVE (NEGATIVE); SARS-Cov-2 (COVID-19) PCR, MMC NEGATIVE (NEGATIVE)
[2023-07-18 17:30] LABS: Base Excess Venous 9.7 mmol/L; Bicarbonate Venous 30.5 mmol/L (24.0-30.0); PCO2 Venous 87.8 mmHg (38-42); pH Blood Venous 7.24 (7.34-7.37)
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
[2023-07-18 19:32] VITALS: BP 104/67
[2023-07-18 20:56] LABS: Base Excess Venous 9.1 mmol/L; Bicarbonate Venous 31.3 mmol/L (24.0-30.0); PCO2 Venous 58.2 mmHg (38-42); pH Blood Venous 7.38 (7.34-7.37)
--- NOTE | 2023-07-18 21:38 | NUR ---
ASSUMPTION OF CARE THIS RN ASSUMED CARE AT APPROX 1915. PT AOX2-3. LETHARGIC, EASILY AROUSABLE TO VERBAL STIMULI. IS ABLE TO REPORT NAME, DATE OF , LOCATION, AND MODERATE UNDERSTANDING OF CURRENT SITUATION. UNABLE TO REPORT TIME/DATE. BED ALARM IN PLACE. IS COOPERATIVE W/ CARE. VSS. TELEMETRY SHOWING SINUS 80's. DENIES CHEST PAIN OR PRESSURE. BP SOFT, SBP 100's. CURRENTLY ON BIPAP FI02 35%, SATS >90%. REPEAT VBG OBTAINED EARLIER. BEDREST DUE TO BIPAP USE. CURRENTLY RESTING IN BED. CALL LIGHT IN REACH.
[2023-07-18 23:12] VITALS: BP 110/71
--- NOTE | 2023-07-18 23:52 | NUR ---
UPDATE PT REMAINS AOX2-3. LETHARGIC, EASILY AROUSABLE TO VERBAL STIMULI. VS REMAIN STABLE. ON BIPAP, FI02 25%, SATS >90%. PT INCONTINENT OF URINE, CONDOM CATHETER NOW IN PLACE. PARTIAL BEDBATH AND ATTENDS CHANGE PERFORMED. REPOSITIONED IN BED. BED ALARM ON. CALL LIGHT IN REACH. PT IS CURRENTLY RESTING IN BED. NO SIGNS OF DISTRESS NOTED, EYES CLOSED, RESPIRATIONS EVEN.
[2023-07-19] VITALS (13 sets, daily range): BP systolic 96–129; BP diastolic 59–80
[2023-07-19 01:09] LABS: Albumin, Blood 2.9 g/dL (3.4-5.0); Albumin/Globulin Ratio 0.8 (0.8-1.8); Bilirubin, Total 0.3 mg/dL (0.1-1.0); Bun/Creatinine Ratio 35.4 (12.0-20.0); Calcium, Blood 8.4 mg/dL (8.5-10.1); Creatinine, Blood 0.59 mg/dL (0.60-1.20); Globulin, Blood 3.6 g/dL (2.2-4.0); Potassium, Blood 4.6 mmol/L (3.5-5.5); Total Protein, Blood 6.5 g/dL (6.4-8.2)
[2023-07-19 04:29] LABS: BASOPHILS PERCENT AUTO 0 % (0-2); EOSINOPHILS PERCENT AUTO 0 % (0-6); Hematocrit 33.6 % (37.0-53.0); Hemoglobin 10.4 g/dL (13.5-17.5); IMMATURE GRAN ABSOLUTE AUTO 0.03 K/mm3 (0.00-0.10); IMMATURE GRAN PERCENT AUTO 1 % (0-1); LYMPHOCYTES ABSOLUTE AUTO 1.51 K/mm3 (0.84-5.20); LYMPHOCYTES PERCENT AUTO 29 % (21-46); MONOCYTES PERCENT AUTO 2 % (4-13); Mean Corpuscular HGB 29.1 pg (26.0-34.0); Mean Corpuscular Volume 94 fL (80-100); Mean Platelet Volume 10.7 fL (9.1-12.4); NEUTROPHILS ABSOLUTE AUTO 3.62 K/mm3 (1.96-9.15); NEUTROPHILS PERCENT AUTO 69 % (41-73); Platelet Count 250 K/mm3 (150-400); RDW Coefficient Variation 13.3 % (11.7-14.2); Red Blood Cell Count 3.57 M/mm3 (4.30-5.90); White Blood Cell Count 5.26 K/mm3 (4.00-11.30)
[2023-07-19 04:47] LABS: Albumin, Blood 2.8 g/dL (3.4-5.0); Albumin/Globulin Ratio 0.9 (0.8-1.8); Bilirubin, Total 0.2 mg/dL (0.1-1.0); Bun/Creatinine Ratio 35.3 (12.0-20.0); Calcium, Blood 8.6 mg/dL (8.5-10.1); Creatinine, Blood 0.6 mg/dL (0.60-1.20); Globulin, Blood 3.2 g/dL (2.2-4.0); Potassium, Blood 4.1 mmol/L (3.5-5.5)
--- NOTE | 2023-07-19 05:35 | NUR ---
END OF SHIFT NOTE NO ACUTE CHANGES SINCE PREVIOUS NOTES. PT REMAINS AOX2-3. REQUIRES FREQUENT REORIENTATION TO LOCATION AND PLAN OF CARE WHILE AWAKE. PT DOES NOT FIDGET WITH LINES OR DEVICES, INCLUDING BIPAP MASK. HAS NOT ATTEMPTED TO AMBULATE OUT OF BED, BED ALARM IN PLACE. VS REMAIN STABLE. TELEMETRY CONTINUING TO SHOW SINUS 80's-90's. BP STABLE. HAS SLEPT THROUGHOUT SHIFT, EASILY AROUSABLE TO VERBAL STIMULI. BIPAP IN PLACE THROUGHOUT SHIFT, FI02 25%, SATS >90%. INCONTINENT OF URINE, CONDOM CATH AND ATTENDS IN PLACE, C/D/I. NO BM THIS SHIFT. PT CURRENTLY NPO, IVF INFUSING PER EMAR. CALL LIGHT IN REACH. WILL REPORT TO ONCOMING RN.
--- NOTE | 2023-07-19 17:18 | NUR ---
SHIFT SUMMARY PT REMAINS ALERT AND ORIENTED X2-3 AT TIMES. UPON WAKING, PT IS MORE CONFUSED, BUT IS EASILY REORIENTED. BP STABLE. HR REMAINS NSR. O2 SATS HAVE BEEN >90% ON 3L NC. PT HAS BEEN OFF BIPAP SINCE THIS AM. LS WHEEZES THROUGHOUT. PT ABLE TO TOLERATE GETTING UP TO THE CHAIR MULTIPLE TIMES THIS SHIFT WITH SATS REMAINING ABOVE 90%. PT ANXIOUS WHILE WORKING WITH OT AND MEDICATED PER EMAR. BED BATH PROVIDED THIS AFTERNOON. PT DENIES ANY PAIN. WILL CONTINUE TO MONITOR AND REPORT TO ONCOMING RN
--- NOTE | 2023-07-19 21:59 | NUR ---
ASSUMPTION OF CARE THIS RN ASSUMED CARE AT APPROX 1915. PT REMAINS AOX2-3. ABLE TO REPORT NAME, DATE OF , AND MONTH. REQUIRES FREQUENT REORIENTATION TO LOCATION. BED ALARM IN PLACE FOR SAFETY. PT DOES NOT ATTEMPT TO AMBULATE OUT OF BED OR PULL AT LINES/CORDS/DEVICES. VSS. TELEMETRY SHOWING SINUS 70's. BP STABLE, SBP 90's. ST CHANGES NOTED ON TELEMETRY. REPEAT EKG OBTAINED, CHANGES NOTED. DENIES CHEST PAIN OR PRESSURE. MD AWARE, NO NEW ORDERS RECEIVED AT THIS TIME. CURRENTLY ON BIPAP FI02 25%, SATS >90%, WHILE SLEEPING. RESPIRATIONS EVEN AND UNLABORED. WHILE AWAKE, PT ON 4L VIA NC, SATS >90%. WILL CONTINUE TO MONITOR. CALL LIGHT IN REACH.
--- NOTE | 2023-07-19 23:43 | NUR ---
UPDATE MD TO UNIT TO VIEW EKG. NO NEW ORDERS RECEIVED. CONTINUING TO MONITOR. PT REMAINS ASYMPTOMATIC OF ST CHANGES. NO CHEST PAIN/PRESSURE. BP STABLE. REMAINS ON BIPAP 25% WHILE SLEEPING, >90%. CALL LIGHT IN REACH.
[2023-07-20 05:02] VITALS: BP 131/77
[2023-07-20 05:46] LABS: BASOPHILS ABSOLUTE AUTO 0.01 K/mm3 (0.00-0.23); BASOPHILS PERCENT AUTO 0 % (0-2); EOSINOPHILS PERCENT AUTO 0 % (0-6); Hematocrit 31.5 % (37.0-53.0); IMMATURE GRAN ABSOLUTE AUTO 0.03 K/mm3 (0.00-0.10); IMMATURE GRAN PERCENT AUTO 0 % (0-1); LYMPHOCYTES ABSOLUTE AUTO 2.19 K/mm3 (0.84-5.20); LYMPHOCYTES PERCENT AUTO 26 % (21-46); MONOCYTES ABSOLUTE AUTO 0.55 K/mm3 (0.16-1.47); MONOCYTES PERCENT AUTO 6 % (4-13); Mean Corpuscular HGB 29.2 pg (26.0-34.0); Mean Corpuscular HGB Conc 31.7 g/dL (31.5-36.5); Mean Corpuscular Volume 92 fL (80-100); Mean Platelet Volume 11.1 fL (9.1-12.4); NEUTROPHILS ABSOLUTE AUTO 5.82 K/mm3 (1.96-9.15); NEUTROPHILS PERCENT AUTO 68 % (41-73); Platelet Count 258 K/mm3 (150-400); RDW Standard Deviation 47.2 fL (35.1-46.3); Red Blood Cell Count 3.43 M/mm3 (4.30-5.90)
--- NOTE | 2023-07-20 06:19 | NUR ---
END OF SHIFT NOTE NO ACUTE CHANGES SINCE PREVIOUS NOTES. PT REMAINS AOX2-3. REQUIRING REORIENTATION TO LOCATION, CURRENT SITUATION. HAS NOT ATTEMPTED TO AMBULATE OUT OF BED, DOES NOT PULL AT LINES, DEVICES. VS REMAIN STABLE. TELEMETRY CONTINUING TO SHOW SINUS 70's. CONTINUED ST ELEVATION NOTED. BP STABLE, NO REPORT OF CHEST PAIN OR PRESSURE. ON BIPAP FI02 25% FOR MAJORITY OF SHIFT, IS CURRENTLY ON 4L VIA NC, SATS >90%. URINARY RETENTION NOTED THIS SHIFT, MONITORED W/ BLADDER SCAN THROUGHOUT SHIFT. STRAIGHT CATH PROCEDURE PERFORMED PER PROTOCOL. BLADDER SCAN SHOWING >500ML, 400ML OUT. 150ML SHOWN PER BLADDER SCAN POST CATH. PT REPORTING RELIEF. BM THIS SHIFT. ATTENDS IN PLACE. CALL LIGHT IN REACH. WILL REPORT TO ONCOMING RN.
[2023-07-20 06:47] LABS: Bilirubin, Total 0.2 mg/dL (0.1-1.0); Bun/Creatinine Ratio 35.5 (12.0-20.0); Calcium, Blood 8.8 mg/dL (8.5-10.1); Creatinine, Blood 0.68 mg/dL (0.60-1.20); Globulin, Blood 2.9 g/dL (2.2-4.0); Potassium, Blood 3.7 mmol/L (3.5-5.5); Total Protein, Blood 5.9 g/dL (6.4-8.2)
[2023-07-20 07:33] VITALS: BP 131/84
--- NOTE | 2023-07-20 08:55 | NUR ---
AM NOTE: PATIENT ALERT AND ORIENTED X2-3. CONFUSED ON TIMELINE OF EVENTS, STATES HE HAS BEEN HERE SINCE . CONFUSING TIMELINE OF LAST HOSPITAL STAY AND [facility]. UP WITH ONE PERSON ASSIST. REFUSING RECLINER THIS AM. DENIES HEADACHE/VISION CHANGES. PERRLA. DENIES NUMBNESS/TINGLING. ON 4L NASAL CANNULA SATING MID 90'S. BIPAP ON STANDBY AT BEDSIDE. LUNGS SOUNDS DIMINSHED THROUGHOUT. RT IN TO GIVE TREATMENTS. TELE SHOWING SR/WAP WITH HR 70-80'S. DENIES CHEST PAIN/PRESSURE/PAPLITATIONS. BP STABLE. PPP. DENIES ABDOMINAL PAIN/NAUSEA. EATING WNL. REFUSING STOOL SOFTNERS THIS AM. NOC SHIFT REPORTS URINARY RETENTION, PO FLOMAX GIVEN THIS AM. URINAL AT BEDSIDE. PATIENT ABLE TO TURN SELF IN BED. ATTENDS C/D/I. EATING BREAKFAST AT THIS TIME. CALL LIGHT IN REACH. DENIES NEEDS. DR. TIDWELL BY THIS AM, NO NEW ORDERS FOR THIS RN TO PLACE.
--- NOTE | 2023-07-20 09:43 | NUR ---
DR. HERNANDEZ BY TO ASSESS JADA, THIS RN AT BEDSIDE. NO NEW ORDERS FOR THIS RN TO PLACE. PATIENT HAVING ANXIETY AND INCREASED SOB. PRN ROXANOL GIVEN PER EMAR, PATIENT LAYING IN BED AT THIS TIME WITH BIPAP IN PLACE. CALL LIGHT IN REACH.
[2023-07-20 11:04] VITALS: BP 114/74
--- NOTE | 2023-07-20 11:08 | NUR ---
PHYSICAL THERAPY WORKING WITH PATIENT AT THIS TIME. AFTERNOON VITALS STABLE. PATIENT REMAINS ON 4L NASAL CANNULA. REPORTS IMPROVED ANXIETY FROM THIS AM.
--- NOTE | 2023-07-20 12:55 | NUR ---
Patient is lying in bed and has breathing support. Patient tells me about the challenges to gain ground in what feels like a downward spiral. He continues to maintain that he wants every effort made to keep living and that he will know when it is time to de-escalate care but that time is not now. He talks about the anxiety he feels when he struggles to breath, when he watches the news and when he feels help is not readily available. He shares at length about this Congregational albin and his reliance on his prayers for peace when he feels restless. I provide therapeutic listening and prayer. Patient responded well and showed signs of reduced stress.
[2023-07-20 15:02] VITALS: BP 114/70
--- NOTE | 2023-07-20 18:09 | NUR ---
SHIFT SUMMARY: NO ACUTE CHANGES. PATIENT REMAINS ON 4L NASAL CANNULA SATING MID 90'S. NO CHANGES TO TELE. DENIES PAIN. ABX INFUSING AT THIS TIME. EATING DINNER. UP TO [facility] TO URINATE AND HAVE BOWEL MOVEMENT. BIPAP ON STANDBY AT BEDSIDE, USING FOR AFTERNOON NAP. CALL LIGHT IN REACH. PATIENT DENIES NEEDS.
[2023-07-20 20:07] VITALS: BP 120/74
--- NOTE | 2023-07-20 21:06 | NUR ---
ASSUMPTION OF CARE THIS RN ASSUMED CARE AT APPROX 1915. UPON ENTERING ROOM, PATIENT RESTING ON RIGHT SIDE WITH BIPAP, FI02 25%, MASK ON. THIS RN SWITCHED PATIENT TO 4L VIA NASAL CANNULA TO ADMINISTER EVENING MEDICATIONS. PATIENT ABLE TO REPOSITION HIMSELF IN BED, REPOSITION HIGH RAYMUNDO's. PT AOX2-3. IS CONFUSED TO TIMELINE OF EVENTS CAUSING THIS ADMISSION. DOES SEEM TO BE AT BASELINE MENTATION, IS ABLE TO FOLLOW AND PARTICIPATE IN CONVERSATION. EXPRESSING MODERATE ANXIETY RELATED TO DISCHARGE HOME, EDUCATION PROVIDED REGARDING DISCHARGE PROCESS AND PO BUSPAR ADMINISTERED PER EMAR. VSS. TELEMETRY SHOWING SINUS 70's-80's WITH OCCASSIONAL ALARM FOR ST ELEVATION. MD AWARE OF LAST NIGHT. DENIES CHEST PAIN OR PRESSURE. BP STABLE. FOLLOWING ORAL CARE, PATIENT SWITCHED TO BIPAP MASK TO SLEEP, SATS >90%. HEAD OF BED LOWERED. THIS RN PERFORMED X1 STRAIGHT CATH 07/20, PRIOR TO DAY SHIFT ARRIVAL. PO FLOMAX ADMINISTERED THIS MORNING BY DAY RN, RECEIVED IN REPORT THAT PATIENT IS VOIDING WITHOUT DIFFICULTY. PATIENT CURRENTLY REPORTING NO NEED TO VOID, WILL MONITOR FOR RETENTION THROUGHOUT THE SHIFT. CALL LIGHT IN REACH.
[2023-07-20 23:06] VITALS: BP 109/67
--- NOTE | 2023-07-20 23:09 | NUR ---
UPDATE NO ACUTE CHANGES SINCE ASSUMPTION OF CARE NOTE. PT IS CURRENTLY SLEEPING. RESPIRATIONS EVEN, UNLABORED. EASILY AROUSABLE TO VERBAL STIMULI. VS REMAIN STABLE. ON BIPAP, FI02 25%, SATS >90%. CALL LIGHT IN REACH.
[2023-07-21 03:38] VITALS: BP 113/83
--- NOTE | 2023-07-21 04:47 | NUR ---
END OF SHIFT NOTE NO ACUTE CHANGES SINCE PREVIOUS NOTES. REMAINS ALERT AND ORIENTED X2-3. COOPERATIVE WITH CARE AND ABLE TO COMMUNICATE NEEDS EFFECTIVELY NEEDED. ANXIETY REGARDING DISCHARGE REMAINS TOLERABLE WITH PO BUSPAR AND THERAPEUTIC DISCUSSION. VS REMAIN STABLE. TELEMETRY CONTINUING TO SHOW SINUS 70's. INTERMITTENT EPISODES OF RATE DECREASE NOTED, 60's, WITH SLEEP. BP STABLE. CONTINUES TO DENY CHEST PAIN OR PRESSURE. REMAINS ON BIPAP, FI02 25%, WHILE SLEEPING, SATS >90%. VOIDING. NO BM THIS SHIFT. CALL LIGHT IN REACH. WILL REPORT TO ONCOMING RN.
[2023-07-21 06:01] LABS: BASOPHILS PERCENT AUTO 0 % (0-2); EOSINOPHILS PERCENT AUTO 0 % (0-6); Hematocrit 31.7 % (37.0-53.0); Hemoglobin 10.1 g/dL (13.5-17.5); IMMATURE GRAN ABSOLUTE AUTO 0.04 K/mm3 (0.00-0.10); IMMATURE GRAN PERCENT AUTO 0 % (0-1); LYMPHOCYTES ABSOLUTE AUTO 2.74 K/mm3 (0.84-5.20); LYMPHOCYTES PERCENT AUTO 30 % (21-46); MONOCYTES ABSOLUTE AUTO 0.31 K/mm3 (0.16-1.47); MONOCYTES PERCENT AUTO 3 % (4-13); Mean Corpuscular HGB 29.4 pg (26.0-34.0); Mean Corpuscular HGB Conc 31.9 g/dL (31.5-36.5); Mean Corpuscular Volume 92 fL (80-100); Mean Platelet Volume 11.1 fL (9.1-12.4); NEUTROPHILS ABSOLUTE AUTO 6.19 K/mm3 (1.96-9.15); NEUTROPHILS PERCENT AUTO 67 % (41-73); Platelet Count 253 K/mm3 (150-400); RDW Coefficient Variation 14.3 % (11.7-14.2); RDW Standard Deviation 48.3 fL (35.1-46.3); Red Blood Cell Count 3.44 M/mm3 (4.30-5.90); White Blood Cell Count 9.28 K/mm3 (4.00-11.30)
[2023-07-21 06:27] LABS: Albumin, Blood 2.9 g/dL (3.4-5.0); Albumin/Globulin Ratio 1.1 (0.8-1.8); Bilirubin, Total 0.2 mg/dL (0.1-1.0); Bun/Creatinine Ratio 48.8 (12.0-20.0); Calcium, Blood 8.7 mg/dL (8.5-10.1); Creatinine, Blood 0.66 mg/dL (0.60-1.20); Globulin, Blood 2.7 g/dL (2.2-4.0); Potassium, Blood 3.9 mmol/L (3.5-5.5); Total Protein, Blood 5.6 g/dL (6.4-8.2)
[2023-07-21 08:19] VITALS: BP 115/77
[2023-07-21 11:31] VITALS: BP 125/74
--- NOTE | 2023-07-21 13:10 | NUR ---
I spend a great deal of time with the patient and his friend Connie. We fill out an advance directive, collect witnesses and hand the documents in to be entered the medical record. We also talk about their long time connection through work and that Connie has assisted the patient in many of his needs before being hospitalized (cleaning, replacing broken appliances and cookware and tarpping the roof of his trailer until a more permenant deena solution can be achieved). THe patient sets her as his health care premium representative. I will continue to remain available to patient and family.
[2023-07-21 15:37] VITALS: BP 121/77
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
[2023-07-21 20:15] VITALS: BP 101/58
[2023-07-21 23:38] VITALS: BP 105/73
[2023-07-22 04:17] VITALS: BP 122/74
[2023-07-22 04:22] LABS: BASOPHILS ABSOLUTE AUTO 0.01 K/mm3 (0.00-0.23); BASOPHILS PERCENT AUTO 0 % (0-2); EOSINOPHILS ABSOLUTE AUTO 0.01 K/mm3 (0.00-0.68); EOSINOPHILS PERCENT AUTO 0 % (0-6); Hematocrit 34.5 % (37.0-53.0); IMMATURE GRAN ABSOLUTE AUTO 0.07 K/mm3 (0.00-0.10); IMMATURE GRAN PERCENT AUTO 1 % (0-1); LYMPHOCYTES ABSOLUTE AUTO 4.37 K/mm3 (0.84-5.20); LYMPHOCYTES PERCENT AUTO 38 % (21-46); MONOCYTES ABSOLUTE AUTO 1.03 K/mm3 (0.16-1.47); MONOCYTES PERCENT AUTO 9 % (4-13); Mean Corpuscular HGB 29.4 pg (26.0-34.0); Mean Corpuscular HGB Conc 31.9 g/dL (31.5-36.5); Mean Corpuscular Volume 92 fL (80-100); Mean Platelet Volume 10.6 fL (9.1-12.4); NEUTROPHILS ABSOLUTE AUTO 5.92 K/mm3 (1.96-9.15); NEUTROPHILS PERCENT AUTO 52 % (41-73); Platelet Count 237 K/mm3 (150-400); RDW Coefficient Variation 14.3 % (11.7-14.2); RDW Standard Deviation 48.5 fL (35.1-46.3); Red Blood Cell Count 3.74 M/mm3 (4.30-5.90); White Blood Cell Count 11.41 K/mm3 (4.00-11.30)
[2023-07-22 04:51] LABS: Bilirubin, Total 0.3 mg/dL (0.1-1.0); Bun/Creatinine Ratio 43.3 (12.0-20.0); Calcium, Blood 8.8 mg/dL (8.5-10.1); Creatinine, Blood 0.65 mg/dL (0.60-1.20); Globulin, Blood 2.9 g/dL (2.2-4.0); Potassium, Blood 3.7 mmol/L (3.5-5.5); Total Protein, Blood 5.9 g/dL (6.4-8.2)
--- NOTE | 2023-07-22 05:00 | NUR ---
SHIFT SUMMARY VSS, 02 SATS REMAINED >90% ON BIPAP AND 3L VIA NC T/O THE NIGHT. PT ONLY REMOVED BIPAP BRIEFLY. PT SLEPT WELL T/O THE NIGHT. MINIMAL PO INTAKE NOTED. PT VOIDED ONCE, CLOUDY URINE NOTED. PT MEDICATED FOR ANXIETY ONCE WITH ATARAX. PT SPOKE IN GREAT LENGTH ABOUT HIS ANXIETY AND FEAR OF BEING REINTUBATED. NO ACUTE EVENTS NOTED. PLAN TO POSSIBLY D/C TODAY.
[2023-07-22 08:21] VITALS: BP 120/66
[2023-07-22 11:33] LABS: SARS-Cov-2 (COVID-19) PCR, MMC NEGATIVE (NEGATIVE)
[2023-07-22] MEDS ORDERED: PRED20 PO ×2 (12:30→12:31)
--- NOTE | 2023-07-22 14:51 | NUR ---
CALLED [facility] TO GIVE REPORT AND I WAS UNABLE TO REACH THE RN. I LEFT MY NUMBER WITH A LANGUAGE AND LITERATURE DIVISION CHAIR.
--- NOTE | 2023-07-22 15:03 | NUR ---
MORNING SUMMARY PT IS A&OX3-4, BUT WORKS HIMSELF UP AND GETS ANXIOUS/SOB. WHEN ANXIOUS THE PT IS PUT ON HIS BIPAP FOR COMFORT. HE HAS GOTTEN ATARAX ONCE FOR ANXIETY. WE HAVE TRANSPORT SET UP FOR 1630. SHARIF HAS BEEN UPDATED ON CARE AND VISITED THE PT. NO ACUTE EVENTS.
--- NOTE | 2023-07-22 15:31 | NUR ---
REPORT GIVEN TO MYRA AT [facility].
[2023-07-22 15:37] VITALS: BP 128/71
== END 2023-07-22 16:44 | DRG 189 ==
LOC: ER 16:16 → PCU 17:36
PROVIDERS: Emergency Medicine; ADMIT Student in an Organized Health Care Education/Training Program
PROC: 5A09457 Assistance with Respiratory Ventilation, 24-96 Consecutive Hours, Continuous Positive Airway Pressure (ICD-10-PCS; principal; 2023-07-18)
DX: J96.21 Acute and chronic respiratory failure with hypoxia (principal); G93.41 Metabolic encephalopathy; J44.1 Chronic obstructive pulmonary disease with (acute) exacerbation; B37.0 Candidal stomatitis; J96.22 Acute and chronic respiratory failure with hypercapnia; F41.9 Anxiety disorder, unspecified; Z66 Do not resuscitate; D64.9 Anemia, unspecified; N44.2 Benign cyst of testis; F43.10 Post-traumatic stress disorder, unspecified; N40.0 Benign prostatic hyperplasia without lower urinary tract symptoms; N50.3 Cyst of epididymis; Z90.2 Acquired absence of lung [part of]; Z86.74 Personal history of sudden cardiac arrest; Z98.890 Other specified postprocedural states; Z79.52 Long term (current) use of systemic steroids; Z91.048 Other nonmedicinal substance allergy status; Z87.891 Personal history of nicotine dependence; Z99.81 Dependence on supplemental oxygen; Z79.891 Long term (current) use of opiate analgesic
CPT/HCPCS: 0241U; 36415; 71045; 71260; 80053; 82803; 82947; 83735; 83880; 84484; 85025; 85379; 93005; 93010; 94640; 94644; 94660; 94664; 94762; 96365; 96375; 97110; 97162; 97165; 97530; 97535; 99285-25; A9270; J0456; J1650; J2930; J3475; J7030; J7050; J7120; J7512; Q9967; U0002

== ENCOUNTER 2023-10-04 17:53 | Inpatient (IN) | payer OTHER ==
[~2023-10-04] VITALS: Ht 177.8 cm; Wt 77.0 kg
[~2023-10-04 17:53] MED LIST changes: -LORA1 PO
[2023-10-04 19:17] LABS: BASOPHILS ABSOLUTE AUTO 0.04 K/mm3 (0.00-0.23); BASOPHILS PERCENT AUTO 0 % (0-2); EOSINOPHILS PERCENT AUTO 1 % (0-6); Hematocrit 41.7 % (37.0-53.0); Hemoglobin 12.9 g/dL (13.5-17.5); IMMATURE GRAN ABSOLUTE AUTO 0.05 K/mm3 (0.00-0.10); IMMATURE GRAN PERCENT AUTO 1 % (0-1); LYMPHOCYTES ABSOLUTE AUTO 1.68 K/mm3 (0.84-5.20); LYMPHOCYTES PERCENT AUTO 17 % (21-46); MONOCYTES ABSOLUTE AUTO 0.34 K/mm3 (0.16-1.47); MONOCYTES PERCENT AUTO 4 % (4-13); Mean Corpuscular HGB 28.7 pg (26.0-34.0); Mean Corpuscular HGB Conc 30.9 g/dL (31.5-36.5); Mean Corpuscular Volume 93 fL (80-100); Mean Platelet Volume 10.4 fL (9.1-12.4); NEUTROPHILS ABSOLUTE AUTO 7.46 K/mm3 (1.96-9.15); NEUTROPHILS PERCENT AUTO 77 % (41-73); Platelet Count 219 K/mm3 (150-400); RDW Coefficient Variation 12.8 % (11.7-14.2); RDW Standard Deviation 43.8 fL (35.1-46.3); Red Blood Cell Count 4.49 M/mm3 (4.30-5.90); White Blood Cell Count 9.67 K/mm3 (4.00-11.30)
[2023-10-04 19:18] LABS: Alanine Aminotransfer (ALT/SGP 18 U/L (12-78); Albumin, Blood 3.7 g/dL (3.4-5.0); Albumin/Globulin Ratio 1.1 (0.8-1.8); Alk Phos 112 U/L (50-136); Anion Gap Unable to Calculate mmol/L (6-16); Aspartate Aminotrans (AST/SGOT 22 U/L (12-37); Bilirubin, Total 0.3 mg/dL (0.1-1.0); Blood Urea Nitrogen 25 mg/dL (8-24); Bun/Creatinine Ratio 31.4 (12.0-20.0); CO2, Blood 34 mmol/L (21-32); Calcium, Blood 8.6 mg/dL (8.5-10.1); Chloride, Blood 106 mmol/L (98-108); Globulin, Blood 3.3 g/dL (2.2-4.0); Glomerular Filtration Rate 101 (60-); Glucose, Blood 109 mg/dL (70-99); Potassium, Blood 5.5 mmol/L (3.5-5.5); Sodium, Blood 139 mmol/L (136-145)
[2023-10-04 19:31] LABS: Base Excess Venous 8.3 mmol/L; Bicarbonate Venous 28.3 mmol/L (24.0-30.0); PCO2 Venous 97.9 mmHg (38-42); pH Blood Venous 7.18 (7.34-7.37)
[2023-10-04 19:37] LABS: SARS-Cov-2 (COVID-19) PCR, MMC NEGATIVE (NEGATIVE)
[2023-10-04 19:39] LABS: Influenza A Negative (NEGATIVE); Influenza B Negative (NEGATIVE)
[2023-10-04 21:48] VITALS: BP 104/68
[2023-10-04 22:04] LABS: Base Excess Venous 7.4 mmol/L; Bicarbonate Venous 29.8 mmol/L (24.0-30.0); PCO2 Venous 52.9 mmHg (38-42)
[2023-10-04] MEDS ORDERED: CYCL10 PO (22:21)
[2023-10-04 23:10] VITALS: BP 91/59
[2023-10-05] VITALS (8 sets, daily range): BP systolic 95–122; BP diastolic 54–75
[2023-10-05 10:27] LABS: Base Excess Venous 3.7 mmol/L; Bicarbonate Venous 26.8 mmol/L (24.0-30.0); PCO2 Venous 52.4 mmHg (38-42); PO2 Venous 62.7 mmHg (38-42); pH Blood Venous 7.36 (7.34-7.37)
[2023-10-06 02:52] VITALS: BP 120/68
[2023-10-06 07:41] VITALS: BP 123/63
[2023-10-06 14:45] VITALS: BP 115/68
[2023-10-06 21:02] VITALS: BP 109/68
[2023-10-07 03:56] LABS: Hematocrit 37.8 % (37.0-53.0)
[2023-10-07 04:10] LABS: Bun/Creatinine Ratio 35.6 (12.0-20.0); Calcium, Blood 8.4 mg/dL (8.5-10.1); Creatinine, Blood 0.73 mg/dL (0.60-1.20); Potassium, Blood 4.4 mmol/L (3.5-5.5)
[2023-10-07 04:52] VITALS: BP 12/88
[2023-10-07 07:23] VITALS: BP 120/71
[2023-10-07] MEDS ORDERED: CLON1 PO (08:18)
[2023-10-07] MEDS ORDERED: PRED20 PO (08:19)
[2023-10-07] MEDS ORDERED: AZIT250 PO (08:24)
[2023-10-07] MEDS ORDERED: LORA1 PO (11:52)
[2023-10-07 12:58] LABS: SARS-Cov-2 (COVID-19) PCR, MMC NEGATIVE (NEGATIVE)
== END 2023-10-07 13:50 | disposition home or self-care (01) | DRG 189 ==
LOC: ER 17:53 → PCU 19:53
PROVIDERS: Emergency Medicine; Family Medicine; Internal Medicine; Nurse Practitioner Acute Care; Student in an Organized Health Care Education/Training Program; ADMIT Internal Medicine
PROC: 5A09457 Assistance with Respiratory Ventilation, 24-96 Consecutive Hours, Continuous Positive Airway Pressure (ICD-10-PCS; principal; 2023-10-04)
DX: J96.22 Acute and chronic respiratory failure with hypercapnia (principal); J44.1 Chronic obstructive pulmonary disease with (acute) exacerbation; F41.9 Anxiety disorder, unspecified; N40.0 Benign prostatic hyperplasia without lower urinary tract symptoms; K21.9 Gastro-esophageal reflux disease without esophagitis; D64.9 Anemia, unspecified; Z11.52 Encounter for screening for COVID-19; K59.00 Constipation, unspecified; F43.10 Post-traumatic stress disorder, unspecified; F17.210 Nicotine dependence, cigarettes, uncomplicated; Z86.74 Personal history of sudden cardiac arrest; Z90.2 Acquired absence of lung [part of]; Z91.048 Other nonmedicinal substance allergy status; Z79.899 Other long term (current) drug therapy; Z79.891 Long term (current) use of opiate analgesic
CPT/HCPCS: 36415; 71045; 80048; 80053; 82803; 83880; 84484; 85014; 85018; 85025; 87804; 87807; 93005; 93010; 94640; 94644; 94660; 94664; 94762; 96365; 99285-25; A9270; J0456; J1650; J2930; J7030; J7050; U0002

== ENCOUNTER 2024-06-21 14:40 | Inpatient (IN) | payer OTHER ==
[~2024-06-21] VITALS: Ht 177.8 cm; Wt 81.2 kg
[~2024-06-21 14:40] MED LIST changes: +CLON1 PO; +LORA1 PO
[2024-06-21 15:14] LABS: BASOPHILS ABSOLUTE AUTO 0.01 K/mm3 (0.00-0.23); BASOPHILS PERCENT AUTO 0 % (0-2); EOSINOPHILS ABSOLUTE AUTO 0.28 K/mm3 (0.00-0.68); EOSINOPHILS PERCENT AUTO 6 % (0-6); Hematocrit 43.9 % (37.0-53.0); Hemoglobin 14.3 g/dL (13.5-17.5); IMMATURE GRAN ABSOLUTE AUTO 0.01 K/mm3 (0.00-0.10); IMMATURE GRAN PERCENT AUTO 0 % (0-1); LYMPHOCYTES ABSOLUTE AUTO 1.82 K/mm3 (0.84-5.20); LYMPHOCYTES PERCENT AUTO 37 % (21-46); MONOCYTES ABSOLUTE AUTO 0.65 K/mm3 (0.16-1.47); MONOCYTES PERCENT AUTO 13 % (4-13); Mean Corpuscular HGB 29.2 pg (26.0-34.0); Mean Corpuscular HGB Conc 32.6 g/dL (31.5-36.5); Mean Corpuscular Volume 90 fL (80-100); Mean Platelet Volume 10.3 fL (9.1-12.4); NEUTROPHILS PERCENT AUTO 44 % (41-73); Platelet Count 157 K/mm3 (150-400); RDW Coefficient Variation 13.2 % (11.7-14.2); RDW Standard Deviation 43.4 fL (35.1-46.3); Red Blood Cell Count 4.89 M/mm3 (4.30-5.90); White Blood Cell Count 4.97 K/mm3 (4.00-11.30)
[2024-06-21] MEDS ORDERED: OxyCODONE HCL 5 MG TAB PO ONE (15:45)
[2024-06-21 15:56] LABS: Albumin, Blood 3.4 g/dL (3.4-5.0); Albumin/Globulin Ratio 1.1 (0.8-1.8); Bilirubin, Total 0.4 mg/dL (0.1-1.0); Bun/Creatinine Ratio 22.6 (12.0-20.0); Calcium, Blood 8.4 mg/dL (8.5-10.1); Creatinine, Blood 0.89 mg/dL (0.60-1.20); Potassium, Blood 4.2 mmol/L (3.5-5.5); Total Protein, Blood 6.4 g/dL (6.4-8.2)
[2024-06-21] MEDS ORDERED: OxyCODONE HCL 5 MG TAB PO PRN (19:20)
[2024-06-21] MEDS ORDERED: Acetaminophen 325 MG TABLET PO PRN (19:20)
[2024-06-21] MEDS ORDERED: Ondansetron HCl 2 MG / ML 2ML Vial IV PRN (19:20)
[2024-06-21] MEDS ORDERED: FLU VACC TS2024-25(6MOS UP)/PF 45 MCG/0.5 ML SYRINGE IM SCH (19:20)
[2024-06-21] MEDS ORDERED: NS 1,000 ML IV SCH (19:20)
[2024-06-21] MEDS ORDERED: Albuterol 2.5 MG/3 ML VIAL INH PRN (19:25)
[2024-06-21] MEDS ORDERED: Ipratropium/Albuterol SulF 2.5-0.5MG/3 ML Amp INH SCH (19:25)
[2024-06-21] MEDS ORDERED: HydrOXYzine Pamoate 25 MG Cap PO PRN (19:25)
[2024-06-21] MEDS ORDERED: LORazepam 1 MG Tab PO PRN (19:25)
[2024-06-21] MEDS ORDERED: Tiotropium Bromide 2.5 MCG/ACT MIST INHAL (10 ACT/4 GM) INH SCH (19:30)
[2024-06-21] MEDS ORDERED: Mometasone/Formoterol MDI 100/5 mcg 13 GM INH SCH (20:05)
[2024-06-21] MEDS ORDERED: Baclofen 10 MG Tab PO SCH (21:00)
[2024-06-21] MEDS ORDERED: Metoprolol Tartrate 25 MG Tab PO SCH (21:00)
[2024-06-21] MEDS ORDERED: Sennosides 8.6 MG Tab PO SCH (21:00)
[2024-06-21 21:02] VITALS: BP 160/95
--- NOTE | 2024-06-21 23:52 | NUR ---
ARRIVAL TO UNIT PT ARRIVED TO UNIT AT 2250. PT ON 2L LFNC. PT STATES HE USES 6L LFNC AT BASELINE AT HOME. FLOW INCREASED TO 6L. PT SPO2 93-95%. PT REPORTS 7-8/10 PAIN R-HIP, WORSE WITH MOVEMENT. MANAGED UTLIZING NPIS AND PER EMAR. PT A&OX4, ABLE TO VOICE NEEDS, USING CALL LIGHT APPROPRIATELY. PT SHARES SOME PARANOID THOUGHTS INCLUDING STATEMENT, "WHEN SHE FINDS OUT I AM IN THE HOSPITAL, SHE WILL BE STANDING OUTSIDE THIS DOOR LISTENING TO EVERYTHING I SAY" WHEN ASKED ABOUT ADVANCED DIRECTIVES. THIS RN OFFERED SERVICES TO EVALUATE/ADJUST ADVANCE DIRECTIVES. PT DECLINES, SAYS HE WISHES TO KEEP ADVANCE DIRECTIVES THEY ARE. SAYS HIS BENEFICIARY AND MPOA, "[employer]" HAS A COPY OF THE ADVANCE DIRECTIVES. PT ALSO STATES, "I HAVE TO BE CAREFUL WHERE I LIVE, LOTS OF NEFARIOUS INDIVIDUALS". WHEN ASKED TO ELABORATE, PT SHRUGS SHOULDERS AND DECLINES. PT VOICED THAT HE FEELS SAFE AT HOME.
[2024-06-22 04:05] VITALS: BP 115/76
--- NOTE | 2024-06-22 04:51 | NUR ---
SHIFT SUMMARY HD1 FOR R HIP FX AFTER GLF. PAIN MANAGED UTILIZING NPIS AND PER EMAR. NPO AT MIDNIGHT. BIPAP SETUP BY RT. ALTAMIRANO, STAFF NURSE AT [facility], CALLED FOR UPDATE & RELAYED BIPAP SETTINGS. SPO2 90-95% OVERNIGHT WITH BIPAP. PT ABLE TO REST DURING SHIFT. PT VOICED UNDERSTANDING OF PLAN OF CARE, DENIES QUESTIONS/CONCERNS AT THIS TIME.
[2024-06-22] MEDS ORDERED: Pantoprazole Sodium 40 MG Tab PO SCH (06:00)
--- NOTE | 2024-06-22 06:37 | NUR ---
CONTINUOUS BLADDER IRRIGATION SHIFT IN: 20,350 SHIFT OUT: ,
[2024-06-22 07:30] VITALS: BP 111/73
[2024-06-22] MEDS ORDERED: Tamsulosin HCl 0.4 MG Cap PO SCH (09:00)
[2024-06-22] MEDS ORDERED: PAXLOVID 300-11 EAC1 PO (11:39)
[2024-06-22 17:00] VITALS: BP 106/69
[2024-06-22 19:25] VITALS: BP 106/72
--- NOTE | 2024-06-22 19:38 | NUR ---
SHIFT SUMMARY S/P R FEMORAL FX. NO ACUTE CHANGES THIS SHIFT. VSS, CONT BI OX IN USE, O2 SAT >90% ON 4L O2 VIA NC. PRN USE OF BIPAP WHEN ASLEEP. TOLERATING REGULAR DIET, NPO AT MIDNIGHT IN ANTICIPATION OF SURG TOMORROW. BEDREST ORDERED AT THIS TIME, PT CAN MIN REPOSITION SELF IN BED. VOIDING DARK YELLOW URINE IN URINAL. IV FLUIDS INFUSING. PT REPORTS PAIN TOLERABLE, MEDICATED PER EMAR. ANXIOUS AT TIMES, MEDICATED PER EMAR. CALL LIGHT IN REACH, BED IN LOWEST POSITION, REPORT GIVEN TO FRANCO RN.
[2024-06-22] MEDS ORDERED: Lidocaine 2% Jelly Uro-Jet UR ONE (22:25)
--- NOTE | 2024-06-22 23:01 | NUR ---
ACUTE URINARY RETENTION PT UNABLE TO VOID. BLADDER SCAN 515ML. RECEIVED ORDERS FOR INDWELLING URINARY CATHETER. 750ML OUTPUT UPON INSERTION. DARK YELLOW, CLEAR. PT ROBINSON WELL.
[2024-06-23 04:15] VITALS: BP 97/61
[2024-06-23 04:39] LABS: Hematocrit 38.1 % (37.0-53.0); Hemoglobin 12.2 g/dL (13.5-17.5); Mean Corpuscular HGB 28.8 pg (26.0-34.0); Mean Corpuscular Volume 90 fL (80-100); Mean Platelet Volume 10.6 fL (9.1-12.4); Platelet Count 133 K/mm3 (150-400); RDW Coefficient Variation 13.4 % (11.7-14.2); RDW Standard Deviation 44.8 fL (35.1-46.3); Red Blood Cell Count 4.23 M/mm3 (4.30-5.90); White Blood Cell Count 4.62 K/mm3 (4.00-11.30)
--- NOTE | 2024-06-23 04:48 | NUR ---
SHIFT SUMMARY HD2 FOR R HIP FX. PAIN MANAGED UTILIZING NPIS AND PER EMAR. INDWELLING URINARY CATHETER INITIATED LAST NIGHT DUE TO ACUTE URINARY RETENTION. PT ROBINSON WELL. NPO AT MIDNIGHT ORDERED. PT ABLE TO REST DURING SHIFT. PT VOICED UNDERSTANDING OF PLAN OF CARES, DENIES QUESTIONS/CONCERNS AT THIS TIME.
[2024-06-23 08:09] VITALS: BP 102/66
[2024-06-23 13:06] LABS: Influenza A, PCR NEGATIVE (NEGATIVE); Influenza B, PCR NEGATIVE (NEGATIVE); Resp Syncytial Virus, PCR NEGATIVE (NEGATIVE)
[2024-06-23 13:20] LABS: SARS-Cov-2 (COVID-19) PCR, MMC POSITIVE (NEGATIVE)
[2024-06-23 15:07] VITALS: BP 99/69
--- NOTE | 2024-06-23 15:43 | NUR ---
[facility]PORT [facility] AT THIS [facility]
--- NOTE | 2024-06-23 16:43 | NUR ---
DISCHARGE: TRANSPORT HERE FOR PT AT 1600. IV DC'D WNL, TIP INTACT. PT TRANSFERED TO WHEELCHAIR WITH 2 ASSIST. PT ON FOR TRANSPORT. TRANSPORTER GIVEN DC PACKET, AND PT LEFT UNIT AT ABOUT 1630
== END 2024-06-23 16:20 | DRG 536 ==
LOC: ER 14:40 → SURS 14:41
PROVIDERS: Emergency Medicine; Family Medicine; Internal Medicine; ADMIT Student in an Organized Health Care Education/Training Program
DX: S72.011A Unspecified intracapsular fracture of right femur, initial encounter for closed fracture (principal); J96.11 Chronic respiratory failure with hypoxia; N40.0 Benign prostatic hyperplasia without lower urinary tract symptoms; J44.9 Chronic obstructive pulmonary disease, unspecified; F41.9 Anxiety disorder, unspecified; D64.9 Anemia, unspecified; K21.9 Gastro-esophageal reflux disease without esophagitis; G89.4 Chronic pain syndrome; Z79.899 Other long term (current) drug therapy; Z99.81 Dependence on supplemental oxygen; W18.30XA Fall on same level, unspecified, initial encounter
CPT/HCPCS: 0241U; 36415; 72192; 73502; 73721; 80053; 85025; 85027; 93005; 93010; 94640; 94660; 94664; 94762; 99285-25; A9270; G0378; J7030; Q0177

== ENCOUNTER 2024-09-20 09:57 | Observation (INO) | payer OTHER ==
[~2024-09-20] VITALS: Ht 175.3 cm; Wt 77.2 kg
[~2024-09-20 09:57] MED LIST changes: +PAXLOVID 300-11 EAC1 PO
[2024-09-20] MEDS ORDERED: MethylPREDNISolone Sod Succ 125 MG Vial IV ONE (11:05)
[2024-09-20] MEDS ORDERED: Albuterol 2.5 MG/3 ML VIAL INH SCH (11:05)
[2024-09-20 11:11] LABS: BASOPHILS ABSOLUTE AUTO 0.07 K/mm3 (0.00-0.23); BASOPHILS PERCENT AUTO 1 % (0-2); EOSINOPHILS ABSOLUTE AUTO 0.26 K/mm3 (0.00-0.68); EOSINOPHILS PERCENT AUTO 2 % (0-6); Hemoglobin 13.5 g/dL (13.5-17.5); IMMATURE GRAN ABSOLUTE AUTO 0.04 K/mm3 (0.00-0.10); IMMATURE GRAN PERCENT AUTO 0 % (0-1); LYMPHOCYTES ABSOLUTE AUTO 2.89 K/mm3 (0.84-5.20); LYMPHOCYTES PERCENT AUTO 24 % (21-46); MONOCYTES ABSOLUTE AUTO 0.54 K/mm3 (0.16-1.47); MONOCYTES PERCENT AUTO 5 % (4-13); Mean Corpuscular HGB 29.5 pg (26.0-34.0); Mean Corpuscular HGB Conc 32.1 g/dL (31.5-36.5); Mean Corpuscular Volume 92 fL (80-100); Mean Platelet Volume 10.4 fL (9.1-12.4); NEUTROPHILS PERCENT AUTO 68 % (41-73); Platelet Count 226 K/mm3 (150-400); RDW Coefficient Variation 12.9 % (11.7-14.2); Red Blood Cell Count 4.57 M/mm3 (4.30-5.90)
[2024-09-20 11:29] LABS: Albumin/Globulin Ratio 1.2 (0.8-1.8); Bilirubin, Total 0.4 mg/dL (0.1-1.0); Bun/Creatinine Ratio 36.2 (12.0-20.0); Creatinine, Blood 0.72 mg/dL (0.60-1.20); Globulin, Blood 3.3 g/dL (2.2-4.0); Potassium, Blood 4.2 mmol/L (3.5-5.5); Total Protein, Blood 7.3 g/dL (6.4-8.2)
[2024-09-20 11:39] LABS: Base Excess Venous 2.1 mmol/L; Bicarbonate Venous 24.5 mmol/L (24.0-30.0); pH Blood Venous 7.22 (7.34-7.37)
[2024-09-20 12:06] LABS: CORONAVIRUS COVID-19 AG Negative (NEGATIVE); INFLUENZA A AG Negative (NEGATIVE); INFLUENZA B AG Negative (NEGATIVE)
[2024-09-20] MEDS ORDERED: FLU VACC TS2024-25(6MOS UP)/PF 45 MCG/0.5 ML SYRINGE IM SCH (14:00)
[2024-09-20 16:05] VITALS: BP 152/84
[2024-09-20] MEDS ORDERED: Morphine Sulfate 20 MG/1ML 1 ML Oral Syringe PO PRN (17:00)
[2024-09-20] MEDS ORDERED: Ipratropium/Albuterol SulF 2.5-0.5MG/3 ML Amp INH SCH (17:00)
[2024-09-20] MEDS ORDERED: Baclofen 10 MG Tab PO PRN (17:00)
[2024-09-20] MEDS ORDERED: LORazepam 1 MG Tab PO PRN (17:00)
[2024-09-20] MEDS ORDERED: Acetaminophen 325 MG TABLET PO PRN (17:05)
[2024-09-20] MEDS ORDERED: Albuterol 2.5 MG/3 ML VIAL INH PRN (17:05)
[2024-09-20] MEDS ORDERED: Ipratropium/Albuterol SulF 2.5-0.5MG/3 ML Amp INH PRN (17:05)
[2024-09-20] MEDS ORDERED: Azithromycin 500 MG in NS 250 ML IV SCH (18:00)
--- NOTE | 2024-09-20 18:31 | NUR ---
SHIFT SUMMARY ASSUMED CARE OF PT THIS AFTERNOON. REPORT RECEIVED FROM ED RN SABRINA. PT ARRIVED TO PCU VIA [facility] AND WAS SLID FROM [facility] TO PCU BED. HE IS A&O X4, MUMMBLES WORDS AT TIMES. HR IN THE 90'S, SR, KENDELL CP/PRESSURE, NUMB/TINGLING, SBP STABLE. O2 >92%, ALTERNATING BETWEEN BIPAP AND NC. PT ON 4L NC UPON ARRIVAL, PT REPORTS SOB AND THAT HE WOULD LIKE TO BE ON BIPAP. RT TO ROOM TO SET UP PTS BIPAP. PT ON 3L VIA NC AT BASELINE AND BIPAP FOR NOC USE AT HOME. URINAL AT BEDSIDE. PT CHECKED OUT OF UVR TO HOME AND WAS ADMITTED TWO DAYS LATER. PT TO RECEIVE ABX AND STERIODS. POSSIBLE D/C TOMORROW. PT WILL NEED TO BE D/C TO NURSING HOME FACILTY FOR CARE NEEDS. WILL MONITOR PT AND REPORT TO DIRECTOR OF PROGRAMMING RN.
[2024-09-20 18:55] LABS: Base Excess Venous 1.3 mmol/L; Bicarbonate Venous 25.1 mmol/L (24.0-30.0); PCO2 Venous 46.4 mmHg (38-42); pH Blood Venous 7.37 (7.34-7.37)
[2024-09-20 20:29] VITALS: BP 113/76
[2024-09-20] MEDS ORDERED: BusPIRone HCl 10 MG Tab PO SCH (21:00)
[2024-09-20] MEDS ORDERED: Sennosides 8.6 MG Tab PO SCH (21:00)
[2024-09-20] MEDS ORDERED: HyDROXyzine HCl 25 MG Tab PO SCH (21:00)
[2024-09-21] MEDS ORDERED: MethylPREDNISolone Sod Succ 125 MG Vial IV SCH
[2024-09-21 00:14] VITALS: BP 122/74
[2024-09-21 04:18] VITALS: BP 120/78
--- NOTE | 2024-09-21 04:35 | NUR ---
SHIFT SUMMARY PATIENT HAD NO ACUTE CHANGES. AXOX 4 AND ONE ASSIST W/FWW. DENIES CHEST PAIN, SOB, AND N/V. VSS/AFEBRILE. HR IN THE 90'S. USES BIPAP WITH 1L O2 BLEED IN. ON 5L O2 NC AND 3L O2 BASELINE. USES URINAL AT BEDSIDE. RT IN A FEW TIMES TO ASSESS AND ADJUST BIPAP. SLEPT MOST OF THE SHIFT. CALL LIGHT IN REACH. BED IN LOWEST POSITION. WILL CONTINUE TO MONITOR UNTIL DAY SHIFT NURSE ASSUMES CARE.
[2024-09-21 07:16] VITALS: BP 135/86
[2024-09-21] MEDS ORDERED: Sertraline HCl 100 MG Tab PO SCH (09:00)
[2024-09-21] MEDS ORDERED: Tamsulosin HCl 0.4 MG Cap PO SCH (09:00)
[2024-09-21] MEDS ORDERED: Enoxaparin 40 MG/0.4 ML SYR SC SCH (09:00)
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
[2024-09-21 11:28] VITALS: BP 117/82
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
== END 2024-09-21 16:23 | disposition home or self-care (01) ==
LOC: ER 09:57 → PCU 09:58
PROVIDERS: Emergency Medicine; ADMIT Family Medicine
DX: J96.21 Acute and chronic respiratory failure with hypoxia (principal); J96.22 Acute and chronic respiratory failure with hypercapnia; J44.1 Chronic obstructive pulmonary disease with (acute) exacerbation; F41.9 Anxiety disorder, unspecified; M62.838 Other muscle spasm; N40.0 Benign prostatic hyperplasia without lower urinary tract symptoms; D64.9 Anemia, unspecified; Z99.81 Dependence on supplemental oxygen; Z91.048 Other nonmedicinal substance allergy status; Z79.899 Other long term (current) drug therapy
CPT/HCPCS: 36415; 71045; 80053; 82803; 83605; 83880; 84145; 84484; 85025; 87428-QW; 93005; 93010; 94640; 94644; 94660; 94664; 94762; 96372; 96374; 96375; 96376; 99285-25; A9270; G0378; J0456; J1650; J2919; J7050

== ENCOUNTER 2024-11-10 12:42 | Inpatient (IN) | payer OTHER ==
[~2024-11-10] VITALS: Ht 175.3 cm; Wt 73.1 kg
[2024-11-10] VITALS (11 sets, daily range): BP systolic 88–114; BP diastolic 55–78
[~2024-11-10 12:42] MED LIST changes: +ARTHRITIS PAIN150 GM TOP; +Norco 5-325 Ta1 EACH PO
[2024-11-10] MEDS ORDERED: NS 1,000 ML IV SCH ×2 (12:50→14:10)
[2024-11-10] MEDS ORDERED: Doxycycline Hyclate 100 MG in Dextrose 5% 250 ML IV ONE (12:50)
[2024-11-10] MEDS ORDERED: Albuterol 2.5 MG/3 ML VIAL INH SCH ×2 (12:50→13:15)
[2024-11-10 13:05] LABS: BASOPHILS ABSOLUTE AUTO 0.07 K/mm3 (0.00-0.23); BASOPHILS PERCENT AUTO 0 % (0-2); EOSINOPHILS ABSOLUTE AUTO 0.51 K/mm3 (0.00-0.68); EOSINOPHILS PERCENT AUTO 3 % (0-6); Hematocrit 42.1 % (37.0-53.0); Hemoglobin 13.4 g/dL (13.5-17.5); IMMATURE GRAN ABSOLUTE AUTO 0.18 K/mm3 (0.00-0.10); IMMATURE GRAN PERCENT AUTO 1 % (0-1); LYMPHOCYTES ABSOLUTE AUTO 8.05 K/mm3 (0.84-5.20); LYMPHOCYTES PERCENT AUTO 41 % (21-46); MONOCYTES ABSOLUTE AUTO 1.44 K/mm3 (0.16-1.47); MONOCYTES PERCENT AUTO 7 % (4-13); Mean Corpuscular HGB 29.5 pg (26.0-34.0); Mean Corpuscular HGB Conc 31.8 g/dL (31.5-36.5); Mean Corpuscular Volume 93 fL (80-100); Mean Platelet Volume 10.4 fL (9.1-12.4); NEUTROPHILS ABSOLUTE AUTO 9.29 K/mm3 (1.96-9.15); NEUTROPHILS PERCENT AUTO 48 % (41-73); Platelet Count 303 K/mm3 (150-400); RDW Coefficient Variation 13.8 % (11.7-14.2); RDW Standard Deviation 46.9 fL (35.1-46.3); Red Blood Cell Count 4.54 M/mm3 (4.30-5.90); White Blood Cell Count 19.54 K/mm3 (4.00-11.30)
[2024-11-10] MEDS ORDERED: Metoclopramide HCl 5MG / ML 2ML Vial IV ONE (13:05)
[2024-11-10] MEDS ORDERED: DiphenhydrAMINE HCl 50 MG/ML 1ML Vial IV ONE (13:05)
[2024-11-10] MEDS ORDERED: Ketorolac Tromethamine 30mg Vial IV ONE (13:05)
[2024-11-10 13:09] LABS: Base Excess Venous 4.5 mmol/L; Bicarbonate Venous 25.3 mmol/L (24.0-30.0); PCO2 Venous 82.8 mmHg (38-42)
[2024-11-10 13:22] LABS: Albumin, Blood 3.8 g/dL (3.4-5.0); Albumin/Globulin Ratio 1.1 (0.8-1.8); Bilirubin, Total 0.7 mg/dL (0.1-1.0); Bun/Creatinine Ratio 46.4 (12.0-20.0); Calcium, Blood 8.9 mg/dL (8.5-10.1); Creatinine, Blood 0.65 mg/dL (0.60-1.20); Globulin, Blood 3.5 g/dL (2.2-4.0); Potassium, Blood 4.4 mmol/L (3.5-5.5); Total Protein, Blood 7.3 g/dL (6.4-8.2)
[2024-11-10] MEDS ORDERED: Acetaminophen 500 MG Tab PO PRN (14:05)
[2024-11-10] MEDS ORDERED: FLU VACC TS2024-25(6MOS UP)/PF 45 MCG/0.5 ML SYRINGE IM PRN (14:10)
[2024-11-10] MEDS ORDERED: Polyethylene Glycol 3350 17 gm PO PRN (14:10)
[2024-11-10] MEDS ORDERED: Prochlorperazine Edisylate 10 mg Vial IV PRN (14:10)
[2024-11-10 14:18] LABS: Base Excess Venous 4.3 mmol/L; PCO2 Venous 74.2 mmHg (38-42); pH Blood Venous 7.23 (7.34-7.37)
[2024-11-10] MEDS ORDERED: MethylPREDNISolone Sod Succ 125 MG Vial IV SCH (16:00)
[2024-11-10] MEDS ORDERED: Ipratropium/Albuterol SulF 2.5-0.5MG/3 ML Amp INH SCH (16:15)
[2024-11-10] MEDS ORDERED: Albuterol 2.5 MG/3 ML VIAL INH PRN (16:15)
--- NOTE | 2024-11-10 16:59 | NUR ---
PT IS A NEW ADMIT THIS AFTERNOON FROM THE ER. REPORT FROM [facility]. THE PT IS A&OX4, BUT IS DROWSY AND WOULD LIKE TIME TO REST. HE REPORTS BEING IND AT HOME AND HAS NOT BEEN USING HIS CANE OR FWW. HE IS ABLE TO MOVE HIMSELF IN THE BED, BUT D/T HYPOTENSION AND RESP DEMAND HE IS BEDREST AT THIS TIME. THE PT IS ON THE BIPAP 16/7 @ 30% W/ RESP 14-24 BPM AND HE IS USING HIS BELLY MUSCLES WHEN BREATHING. HE HAS CHRONIC SOB, BUT STATES HE IS FEELING BETTER SINCE BEING ON THE BIPAP AND COMING TO THE ER. VBG ABNORMAL AND PLAN FOR A REDRAW 1700 TODAY. ON TELE HE IS SR, AND HIS BLOOD PRESSURE IS NOTEABLY SOFT. HE RECIEVED 1L NC BOLUS IN THE ER AND IS GETTING NS @ 75ML/HR X1 BAG. CURRENTLY INFUSING. BP SOFT BUT STABLE. PROVIDER AWARE. PT HAS C/O HEADACHE SINCE COMING TO THE ER, BUT HE STATES IT IS IMPROVED SINCE RECIVING MEDICATIONS IN THE ER. PAIN MANGAGED AT THIS TIME. THE PT'S ABD IS DISTENDED BUT NON TENDER. PT STATES IT IS NOT HIS NORMAL. LAST REPORTED BOWEL MOVEMENT WAS 11/09 AND HE STATES IT WAS NORMAL FOR HIM. URINAL AT BEDSIDE. CALL LIGHT IN REACH, BED IN LOW, AND BED ALARM ON. SEE NOTES FOR ANY UPDATES.
[2024-11-10 17:16] LABS: Base Excess Venous 2.6 mmol/L; Bicarbonate Venous 25.6 mmol/L (24.0-30.0); PCO2 Venous 50.1 mmHg (38-42); pH Blood Venous 7.36 (7.34-7.37)
--- NOTE | 2024-11-10 17:32 | NUR ---
DR. WILKERSON AWARE THAT THE PT'S MED REC WAS RECONCILED.
--- NOTE | 2024-11-10 20:30 | NUR ---
ASSUMED CARE OF THIS PT AT 1915. PT IS A+O X4, ABLE TO MAKE NEEDS KNOWN. ON BIPAP ROBINSON WELL. OXYGEN SATURATION ABOVE 92% ON CONTINUS BIOX. BREATHING EVEN AND UNLABORED. IN NO ACUTE DISTRESS. CALL LIGHT IN REACH, WILL CONTINUE WITH PLAN OF CARE.
[2024-11-10] MEDS ORDERED: GuaiFENesin 600 MG TabCR PO SCH (21:00)
[2024-11-10] MEDS ORDERED: Lactobacil 2-S.Thermo-Bifido 1 1 Cap PO SCH (21:00)
[2024-11-10] MEDS ORDERED: Doxycycline Hyclate 100 MG in Dextrose 5% 250 ML IV SCH (21:00)
[2024-11-10] MEDS ORDERED: Docusate Sodium/Senna 1 Tab PO SCH (21:00)
[2024-11-11 03:50] VITALS: BP 107/63
[2024-11-11 04:05] LABS: Base Excess Venous 0.5 mmol/L; PCO2 Venous 36.2 mmHg (38-42); pH Blood Venous 7.44 (7.34-7.37)
[2024-11-11 04:51] LABS: Hematocrit 33.9 % (37.0-53.0); Mean Corpuscular HGB 29.3 pg (26.0-34.0); Mean Corpuscular HGB Conc 32.4 g/dL (31.5-36.5); Mean Corpuscular Volume 90 fL (80-100); Mean Platelet Volume 10.8 fL (9.1-12.4); Platelet Count 189 K/mm3 (150-400); RDW Coefficient Variation 13.6 % (11.7-14.2); RDW Standard Deviation 44.8 fL (35.1-46.3); Red Blood Cell Count 3.76 M/mm3 (4.30-5.90); White Blood Cell Count 7.31 K/mm3 (4.00-11.30)
[2024-11-11 05:13] LABS: Albumin, Blood 2.9 g/dL (3.4-5.0); Anion Gap 10 mmol/L (3-11); Blood Urea Nitrogen 26 mg/dL (8-24); Bun/Creatinine Ratio 48.9 (12.0-20.0); CO2, Blood 25 mmol/L (21-32); Calcium, Blood 8.5 mg/dL (8.5-10.1); Chloride, Blood 104 mmol/L (98-108); Creatinine, Blood 0.53 mg/dL (0.60-1.20); Glomerular Filtration Rate 114 (60-); Glucose, Blood 193 mg/dL (70-99); Magnesium, Blood 1.8 mg/dL (1.6-2.4); Potassium, Blood 4.1 mmol/L (3.5-5.5); Sodium, Blood 135 mmol/L (136-145)
--- NOTE | 2024-11-11 06:18 | NUR ---
SHIFT SUMMARY PT IS A/O X4 ABLE TO MAKE NEEDS KNOWN, REPOSTIONS SELF IN BED. PATIENT WAS UNABLE TO SLEEP AT ALL LAST NIGHT. PT HOMEMEDICATIONS HAVE NOT BEEN ORDERED AT THIS TIME AND HE WOULD LIKE HIS PAIN MED AND ANXIETY MEDS. DENIES CHEST PAIN OR PRESSURE, REMAINS ON TELE SR IN THE 80s at this time. ON BIPAP ROBINSON WELL, SATTING 92% AND ABOVE DURING SHIFT. BREATHING EVEN AND UNLABORED AT THIS TIME. IN NO ACUTE DISTRESS. PT DID ENDORSE PAIN IN HIS BACK WHICH IS CHRONIC. PATIENT IS HOPEFUL TO BED ABLE TO REST DURING THE DAY SINCE HE DID NOT SLEEP LAST NIGHT. BED IN LOWEST POSTION FOR SAFETY, CALL, LIGHT IN REACH WILL CONTINUE WITH PLAN OF CARE AND REPORT TO ONCOMING RN.
[2024-11-11] MEDS ORDERED: LORazepam 1 MG Tab PO PRN (07:55)
[2024-11-11] MEDS ORDERED: HYDROcodone 5-APAP 325 TAB PO PRN (07:55)
[2024-11-11 08:10] VITALS: BP 106/65
[2024-11-11] MEDS ORDERED: HyDROXyzine HCl 25 MG Tab PO SCH (09:00)
[2024-11-11] MEDS ORDERED: Enoxaparin 40 MG/0.4 ML SYR SC SCH (09:00)
[2024-11-11] MEDS ORDERED: BusPIRone HCl 10 MG Tab PO SCH (09:00)
[2024-11-11] MEDS ORDERED: Mometasone/Formoterol MDI 100/5 mcg 13 GM INH SCH (09:10)
[2024-11-11 14:51] VITALS: BP 115/72
[2024-11-11] MEDS ORDERED: Sertraline HCl 100 MG Tab PO SCH (16:00)
--- NOTE | 2024-11-11 17:27 | NUR ---
SHIFT SUMMARY PT REMAINS ALERT AND ORIENTED. PT ANXIOUS AT TIMES THROUGHOUT SHIFT. BP REMAINS STABLE. HR REMAINS NSR. PT COMPLAINED OF PAIN IN THE BEGINNING OF THE SHIFT THAT WAS RELEIVED WITH MEDICATION ADMINISTRATION. PT VOIDING USING THE URINAL. PT ON BIPAP MOST OF SHIFT 28/03 30% WITH SATS >90%. PT ABLE TO TOLERATE BREAKS ON 3L NC WITH SATS >90%. PT REQUESTS BIPAP BE PLACED ON AFTER APPROXIMATELY 1 HOUR OF BEING OFF. PT ABLE TO REPOSITION HIMSELF IN THE BED INDEPENDENTLY. PT CHANGED TO MEDICAL STATUS THIS SHIFT. WILL REPORT OFF TO ONCOMING RN
--- NOTE | 2024-11-11 19:12 | NUR ---
ASSUMPTION NOTE: THIS RN TO ASSUME CARE. PATIENT IS WEARING THE BIPAP AND WATCHING TV. THIS RN INTRODUCED HERSELF AND DAY TEAM GAVE BEDSIDE SHIFT REPORT. PATIENT HAS CALL LIGHT WITHIN REACH AND BED IN LOWEST POSITION. STATED NOTHING IS NEEDED AND THIS RN NOTIFIED PATIENT RN WILL BE BACK FRO VITALS AFTER GETTING REPORT ON OTHER PATIENTS.
[2024-11-11 19:23] VITALS: BP 123/76
[2024-11-11] MEDS ORDERED: Baclofen 10 MG Tab PO SCH (21:00)
[2024-11-11] MEDS ORDERED: Tamsulosin HCl 0.4 MG Cap PO SCH (21:00)
[2024-11-11] MEDS ORDERED: Doxycycline Hyclate 100 MG TAB PO SCH (21:00)
[2024-11-11] MEDS ORDERED: MethylPREDNISolone Sod Succ 125 MG Vial IV SCH (21:00)
--- NOTE | 2024-11-11 22:57 | NUR ---
TRANSFER NOTE: THIS RN TRANFFERED PATIENT TO ROOM 301. PRIOR TO ARIVAL REPORT WAS GIVEN TO DAVID LEUNG. PATIENT WENT UP VIA BED AND WITH ALL PERSONAL BELONGINGS. RT BROUGHT UP A V60 MACHINE AND PATIENT PLACED ON 3 LITERS VIA NASAL CANULA ON THE TRANSFFER. SATTING >92% DURING TRANSFER. PATIENT CONTNIUES TO BE ON TELE ON TRANSFER.
[2024-11-12] VITALS (7 sets, daily range): BP systolic 101–124; BP diastolic 57–98
--- NOTE | 2024-11-12 06:36 | NUR ---
SHIFT SUMMARY: Pt is admitted for acute on chronic respiratory failure with hypoxia and is a full code. Is alert and able to make needs known. ADLs have been SBA. Pain has been managed with PRN medication. Dhruv reports sinus in the 70s with no events.
--- NOTE | 2024-11-12 20:28 | NUR ---
SHIFT SUMMARY- PT HAS HAD NO ACUTE CHANGE T/O THE DAY. HE PREFERS TO REMAIN ON THE BIPAP CONTINUIOUSLY T/O THE DAY, WITH A 3L BLEED IN. PT IN BED BUT NEEDED TO USE THE COMODE AT THE TIME OF SHIFT CHANGE, NIGHT HELENA ORDOÑEZ ASSISTED THE PT TO THE COMODE AT THE TIME OF REPORT. PT ASSISTED BACK TO BED, REMAINING ON BIPAP FOR THE ACTIVITY. NO S&S OF DISTRESS NOTED AT THIS TIME.
[2024-11-13 04:30] VITALS: BP 126/97
--- NOTE | 2024-11-13 06:42 | NUR ---
SHIFT SUMMARY: Pt is admitted for acute on chronic respiratory failure with hypoxia and is a full code. Is alert and able to make needs known. ADLs have been SBA. Pain has been managed with PRN medication. Dhruv reports sinus in the 60s with no events.
[2024-11-13 07:11] VITALS: BP 122/83
[2024-11-13] MEDS ORDERED: dilTIAZem HCL 30 MG TAB PO SCH (11:00)
[2024-11-13] MEDS ORDERED: Morphine Sulfate 20 MG/1ML 1 ML Oral Syringe PO PRN (11:00)
[2024-11-13] MEDS ORDERED: Morphine Sulfate 20 MG/1ML 1 ML Oral Syringe PO ONE (11:00)
[2024-11-13 11:31] VITALS: BP 149/95
--- NOTE | 2024-11-13 12:09 | NUR ---
Spiritual care visit conducted. Lengthy visit with the patient today. He explains about his many stressors i.e. no hot water in his trailer, conflicts with folks in [place], conflicts with caregivers and the the company that supplies them, fears about his financial situation, etc. Patient worked his own anxiety up and then was not responsive to any interventions except prayer, which I gladly supplied. I will continue to remain available.
--- NOTE | 2024-11-13 19:14 | NUR ---
SHIFT SUMMARY PT IS A/OX4, SBA TO BATHROOM. PT IS OFTEN ANXIOUS. ON TELE RUNNING SINUS RYTHYM 60-130 BPM. ON 3L NC, PT REPORTS IS HIS BASELINE. BIPAP USE AT NIGHT AND AT TIMES DURING THE DAY D/T PT PREFERENCE. CONTINUING IV STEROIDS AND BLOOD PRESSURE MEDS ADJUSTED THIS SHIFT. PT PLEASANT AND COOPERATIVE WITH CARE AND CALLS APPROPRIATELY USING THE CALL LIGHT.
[2024-11-13 19:16] VITALS: BP 129/86
[2024-11-13 23:55] VITALS: BP 123/67
[2024-11-14 04:43] VITALS: BP 121/83
--- NOTE | 2024-11-14 06:37 | NUR ---
Shift Summary Pt slept well t/o most of the night while on BiPap with 3L bleed in. This AM he c/o chronic back pain and anxiety, medicated per emar. This AM he also used the urinal and desatted down tp 85%. I temporarily turned up his CPAP O2 bleed in to 5L and instructed to breath deeply, he O2 sat soon returned to 95%. Pt states his lungs did not feel tight and they did not sound any more wheezy than my initial assessment. Once back above 92% I turned his O2 down to 2L and his SPO2 has been stable since. He is AOx4, using urinal independently.
[2024-11-14 07:43] VITALS: BP 128/87
[2024-11-14 11:23] VITALS: BP 124/77
[2024-11-14 15:07] VITALS: BP 107/57
--- NOTE | 2024-11-14 18:40 | NUR ---
SHIFT SUMMARY PT IS A/OX4, SBA IN THE ROOM. PT ON 4L NC THROUGHOUT THIS SHIFT, SATS MAINTIANING >90% ON CONT PULSE OX. PT REPORTS 3L AT BASELINE. ON TELE RUNNING NORMAL SINUS RYTHYM/SINUS TACH RANGING FROM THE 60-120'S THIS SHIFT. PT IS OFTEN ANXIOUS, MEDICATED PER MAR. PT PLEASANT AND COOPERATIVE WITH CARE AND CALLS APPROPRAITELY USING THE CALL LIGHT.
[2024-11-14 19:22] VITALS: BP 137/77
[2024-11-14 23:39] VITALS: BP 122/74
[2024-11-15 03:54] VITALS: BP 119/78
--- NOTE | 2024-11-15 05:47 | NUR ---
Shift Summary No acute changes. Pt on 4L NC or BiPap, he slept well t/o the night on BiPap. No c/o pain, using urinal independently. On tele and BiOX, no cardiac or desat events.
[2024-11-15 07:38] VITALS: BP 126/82
[2024-11-15 11:23] VITALS: BP 145/93
[2024-11-15] MEDS ORDERED: DOCUZEN 8.6-501 EACH PO (13:14)
[2024-11-15] MEDS ORDERED: MIRALAX17 GM PO (13:15)
[2024-11-15] MEDS ORDERED: MORP20L PO (13:15)
[2024-11-15] MEDS ORDERED: DILT60ER PO (13:16)
[2024-11-15] MEDS ORDERED: PRED20 PO (13:17)
--- NOTE | 2024-11-15 16:33 | NUR ---
PT DISCHARGED 1600 WITH DC INSTRUCTIONS, WHEELCHAIR TRANSPORT TO HOME WITH PORTABLE OXYGEN AT 6LPM. PT PREMEDICATED WITH ATIVAN, MOD SOB, ABLE TO STAND/TX TO WHEELCHAIR. SENT HOME WITH BELONGINGS INCLUDING WRITTEN SCRIPT FOR ROXONOL.
== END 2024-11-15 16:20 | disposition home or self-care (01) | DRG 189 ==
LOC: ER 12:42 → ERHOLD 14:02 → MEDS 14:02 → PCU 15:51 → MEDS 11-11 22:50
PROVIDERS: Student in an Organized Health Care Education/Training Program; ADMIT Internal Medicine
PROC: 5A09457 Assistance with Respiratory Ventilation, 24-96 Consecutive Hours, Continuous Positive Airway Pressure (ICD-10-PCS; principal; 2024-11-10)
DX: J96.21 Acute and chronic respiratory failure with hypoxia (principal); J44.1 Chronic obstructive pulmonary disease with (acute) exacerbation; J96.22 Acute and chronic respiratory failure with hypercapnia; F41.9 Anxiety disorder, unspecified; D63.8 Anemia in other chronic diseases classified elsewhere; M62.838 Other muscle spasm; N40.0 Benign prostatic hyperplasia without lower urinary tract symptoms; K21.9 Gastro-esophageal reflux disease without esophagitis; Z51.5 Encounter for palliative care; Z86.74 Personal history of sudden cardiac arrest; Z98.890 Other specified postprocedural states; Z87.891 Personal history of nicotine dependence; Z91.09 Other allergy status, other than to drugs and biological substances; Z79.899 Other long term (current) drug therapy; Z87.81 Personal history of (healed) traumatic fracture; Z79.891 Long term (current) use of opiate analgesic; Z99.81 Dependence on supplemental oxygen; Z79.52 Long term (current) use of systemic steroids; Z79.51 Long term (current) use of inhaled steroids
CPT/HCPCS: 36415; 71045; 80053; 80069; 82803; 83735; 83880; 84145; 85025; 85027; 93005; 93010; 94640; 94644; 94645; 94660; 94664; 94762; 96365; 96375; 99285-25; A9270; J1200; J1650; J1885; J2765; J2919; J7030; J7060

== ENCOUNTER 2024-11-27 20:24 | Inpatient (IN) | payer OTHER ==
[~2024-11-27] VITALS: Ht 180.3 cm; Wt 66.9 kg
[~2024-11-27 20:24] MED LIST changes: +DILT60ER PO; +DOCUZEN 8.6-501 EACH PO; +MIRALAX17 GM PO
[2024-11-27] MEDS ORDERED: Albuterol 2.5 MG/3 ML VIAL INH SCH (20:30)
[2024-11-27] MEDS ORDERED: MethylPREDNISolone Sod Succ 125 MG Vial IV ONE (20:30)
[2024-11-27 20:55] LABS: BASOPHILS ABSOLUTE AUTO 0.03 K/mm3 (0.00-0.23); BASOPHILS PERCENT AUTO 0 % (0-2); EOSINOPHILS ABSOLUTE AUTO 0.02 K/mm3 (0.00-0.68); EOSINOPHILS PERCENT AUTO 0 % (0-6); Hematocrit 44.1 % (37.0-53.0); Hemoglobin 13.8 g/dL (13.5-17.5); IMMATURE GRAN ABSOLUTE AUTO 0.09 K/mm3 (0.00-0.10); IMMATURE GRAN PERCENT AUTO 1 % (0-1); LYMPHOCYTES PERCENT AUTO 18 % (21-46); MONOCYTES ABSOLUTE AUTO 1.02 K/mm3 (0.16-1.47); MONOCYTES PERCENT AUTO 6 % (4-13); Mean Corpuscular HGB 29.4 pg (26.0-34.0); Mean Corpuscular HGB Conc 31.3 g/dL (31.5-36.5); Mean Corpuscular Volume 94 fL (80-100); Mean Platelet Volume 9.8 fL (9.1-12.4); NEUTROPHILS ABSOLUTE AUTO 12.77 K/mm3 (1.96-9.15); NEUTROPHILS PERCENT AUTO 75 % (41-73); Platelet Count 250 K/mm3 (150-400); RDW Standard Deviation 48.9 fL (35.1-46.3); White Blood Cell Count 17.03 K/mm3 (4.00-11.30)
[2024-11-27 21:12] LABS: Albumin, Blood 3.7 g/dL (3.4-5.0); Bilirubin, Total 0.4 mg/dL (0.1-1.0); Bun/Creatinine Ratio 40.8 (12.0-20.0); Creatinine, Blood 0.64 mg/dL (0.60-1.20); Globulin, Blood 3.8 g/dL (2.2-4.0); Potassium, Blood 4.3 mmol/L (3.5-5.5); Total Protein, Blood 7.5 g/dL (6.4-8.2)
[2024-11-27 21:16] LABS: Bicarbonate Venous 29.5 mmol/L (24.0-30.0); PCO2 Venous 80.2 mmHg (38-42); pH Blood Venous 7.26 (7.34-7.37)
[2024-11-27 21:16] LABS: Influenza A, PCR NEGATIVE (NEGATIVE); Influenza B, PCR NEGATIVE (NEGATIVE); Resp Syncytial Virus, PCR NEGATIVE (NEGATIVE); SARS-Cov-2 (COVID-19) PCR, MMC NEGATIVE (NEGATIVE)
[2024-11-27] MEDS ORDERED: Ondansetron HCl 2 MG / ML 2ML Vial IV PRN (22:05)
[2024-11-27] MEDS ORDERED: FLU VACC TS2024-25(6MOS UP)/PF 45 MCG/0.5 ML SYRINGE IM ONE (22:05)
[2024-11-27] MEDS ORDERED: Ipratropium/Albuterol SulF 2.5-0.5MG/3 ML Amp INH SCH (22:10)
[2024-11-28 00:22] VITALS: BP 143/65
[2024-11-28 00:42] LABS: PCO2 Venous 55.7 mmHg (38-42); pH Blood Venous 7.37 (7.34-7.37)
--- NOTE | 2024-11-28 03:13 | NUR ---
ARRIVAL TO PCU PT ARRIVED TO PCU AT 2358 ON 11/27/24, HE WAS SLIDE OVER TO PCU BED BY 4 STAFF MEMBERS. PT ARRIVED ON HOME OXYGEN LEVEL OF 3 LITERS VIA NC SATTING 100% ON THE MONITOR. CONTINUS PULSE OX PLACED, PT WAS SWITCHED OVER TO BIPAP, WEARS BIPAP WITH NO ISSUES. WHEN HE ARRIVED TO THE UNIT HE WAS SATURATED IN URINE AND BM. PT WAS PROVIDED BED BATH AND DRESSED DOWN TO HOSPITAL GOWN. NO SKIN ISSUES NOTED ON PT ASIDE FROM REDNESS ON THE BRIGE OF HIS NOSE FROM BIPAP, WHEN OFFERED PROTECTIVE GEL PADDING FOR THIS ISSUE PT DENIED IT AND DID NOT WANT IT PLACED. PT IS A 1-2 PERSON TRANSFER TO THE [facility] WITH FWW. PT HAS A HARD TIME FOLLOWING DIRECTIONS AND WILL SPEAK OVER STAFF MEMBERS MAKING TRANSFERS DIFFICULT AT TIMES. WHEN TRYING TO COMMUNICATE WITH PATIENT AND EXPLAIN WE NEED TO BE ON THE SAME PAGE FOR TRANSFERS PATIENT SAID HE HAD ANXIETY AND NEEDED STAFF TO STOP TALKING TO HIM. AFTER PATIENT SAT ON THE BSC FOR SOME TIME THIS RN APPROCHED PT AGAIN AND EXPLAINED HOW MYSELF AND THE CONSULTING PSYCHIATRIST NEEDED TO GET HIM SAFETLY BACK TO BED WHICH HE ALLOWED US TO DO. PT WAS ABLE TO HAVE A LARGE BM WHILE ON THE BSC AND IS CURRENTLY BACK IN BED, BED ALARM ON, CALL LIGHT IN REACH. WILL CONTINUE WITH PLAN OF CARE.
[2024-11-28 03:47] VITALS: BP 106/70
[2024-11-28 04:38] LABS: BASOPHILS ABSOLUTE AUTO 0.02 K/mm3 (0.00-0.23); BASOPHILS PERCENT AUTO 0 % (0-2); EOSINOPHILS PERCENT AUTO 0 % (0-6); Hematocrit 42.8 % (37.0-53.0); Hemoglobin 13.4 g/dL (13.5-17.5); IMMATURE GRAN ABSOLUTE AUTO 0.06 K/mm3 (0.00-0.10); IMMATURE GRAN PERCENT AUTO 1 % (0-1); LYMPHOCYTES ABSOLUTE AUTO 2.01 K/mm3 (0.84-5.20); LYMPHOCYTES PERCENT AUTO 18 % (21-46); MONOCYTES ABSOLUTE AUTO 0.42 K/mm3 (0.16-1.47); MONOCYTES PERCENT AUTO 4 % (4-13); Mean Corpuscular HGB 29.3 pg (26.0-34.0); Mean Corpuscular HGB Conc 31.3 g/dL (31.5-36.5); Mean Corpuscular Volume 93 fL (80-100); NEUTROPHILS ABSOLUTE AUTO 8.84 K/mm3 (1.96-9.15); NEUTROPHILS PERCENT AUTO 78 % (41-73); Platelet Count 226 K/mm3 (150-400); RDW Coefficient Variation 14.2 % (11.7-14.2); RDW Standard Deviation 48.7 fL (35.1-46.3); Red Blood Cell Count 4.58 M/mm3 (4.30-5.90); White Blood Cell Count 11.35 K/mm3 (4.00-11.30)
[2024-11-28 05:04] LABS: Albumin, Blood 3.5 g/dL (3.4-5.0); Albumin/Globulin Ratio 0.9 (0.8-1.8); Bilirubin, Total 0.5 mg/dL (0.1-1.0); Bun/Creatinine Ratio 50.5 (12.0-20.0); Calcium, Blood 9.1 mg/dL (8.5-10.1); Creatinine, Blood 0.56 mg/dL (0.60-1.20); Globulin, Blood 3.7 g/dL (2.2-4.0); Magnesium, Blood 2.4 mg/dL (1.6-2.4); Potassium, Blood 4.3 mmol/L (3.5-5.5); Total Protein, Blood 7.2 g/dL (6.4-8.2)
--- NOTE | 2024-11-28 05:13 | NUR ---
SHIFT SUMMARY NO ACTUE CHANGES FROM LAST NOTE. REMAINS ON BIPAP RESTING ON LEFT SIDE, BED IN LOWEST POSTION CALL LIGHT IN REACH WILL CONTINUE WITH PLAN OF CARE.
[2024-11-28] MEDS ORDERED: Budesonide 0.5 MG/2 ML RESP INH SCH (08:25)
[2024-11-28] MEDS ORDERED: Acetaminophen 325 MG TABLET PO PRN (08:30)
[2024-11-28] MEDS ORDERED: HYDROcodone 5-APAP 325 TAB PO PRN (08:30)
[2024-11-28] MEDS ORDERED: LORazepam 1 MG Tab PO PRN (08:30)
[2024-11-28] MEDS ORDERED: Morphine Sulfate 20 MG/1ML 1 ML Oral Syringe PO PRN (08:35)
[2024-11-28] MEDS ORDERED: BusPIRone HCl 10 MG Tab PO SCH (09:00)
[2024-11-28] MEDS ORDERED: GuaiFENesin 600 MG TabCR PO SCH (09:00)
[2024-11-28] MEDS ORDERED: dilTIAZem HCL 60 MG CAP.SR PO SCH (09:00)
[2024-11-28] MEDS ORDERED: Azithromycin 250 MG Tab PO SCH (09:00)
[2024-11-28] MEDS ORDERED: Polyethylene Glycol 3350 17 gm PO SCH (09:00)
[2024-11-28] MEDS ORDERED: HyDROXyzine HCl 25 MG Tab PO SCH (09:00)
[2024-11-28] MEDS ORDERED: Enoxaparin 40 MG/0.4 ML SYR SC SCH (09:00)
[2024-11-28] MEDS ORDERED: Lactobacil 2-S.Thermo-Bifido 1 1 Cap PO SCH (09:00)
[2024-11-28] MEDS ORDERED: MethylPREDNISolone Sod Succ 125 MG Vial IV SCH (09:00)
[2024-11-28 09:32] VITALS: BP 123/86
[2024-11-28 11:12] VITALS: BP 96/57
[2024-11-28 15:14] VITALS: BP 95/59
[2024-11-28] MEDS ORDERED: Sertraline HCl 100 MG Tab PO SCH (16:00)
--- NOTE | 2024-11-28 18:48 | NUR ---
SHIFT SUMMARY PATIENT AOX4 ABLE TO MAKES NEEDS KNOWN. HE DENIES CHEST PAIN BUT DOES HAVE SOB WITH EXERTION. HE SLEEPS WITH BIPAP ON AND HE IS ON 3L NASAL CANNULA AND ALTNERATES THAT WITH BIPAP WHILE AWAKE. HE IS ABLE TO WALK TO THE BATHROOM WITH STANDBY ASSIST WITH A WALKER. HE HAD LARGE BM IN THE BATHROOM AND ABLE TO VOID URINE WHILE SITTING ON THE TOILET. HE DOES COMPLAIN OF ANXIETY BUT CONTROLLE BY HIS SCHEDULED MEDICATIONS. HE DOSE HAVE ATIVAN PRN WHICH WAS NOT USED FOR THE DAY SHIFT. VITAL SIGN STABLE AND BACK ON BIPAP PRIOR TO SHIFT CHANGE.
[2024-11-28 20:32] VITALS: BP 115/72
[2024-11-28] MEDS ORDERED: Tamsulosin HCl 0.4 MG Cap PO SCH (21:00)
[2024-11-28] MEDS ORDERED: Docusate Sodium/Senna 1 Tab PO SCH (21:00)
[2024-11-28] MEDS ORDERED: Baclofen 10 MG Tab PO SCH (21:00)
[2024-11-29 00:10] VITALS: BP 107/68
[2024-11-29 04:18] LABS: Base Excess Venous 10.1 mmol/L
[2024-11-29 04:21] LABS: pH Blood Venous 7.51 (7.34-7.37)
[2024-11-29 04:23] LABS: PCO2 Venous 41.4 mmHg (38-42)
[2024-11-29 04:32] LABS: Hematocrit 34.9 % (37.0-53.0); Hemoglobin 11.6 g/dL (13.5-17.5); Mean Corpuscular HGB 29.4 pg (26.0-34.0); Mean Corpuscular HGB Conc 33.2 g/dL (31.5-36.5); Mean Corpuscular Volume 89 fL (80-100); Mean Platelet Volume 9.8 fL (9.1-12.4); Platelet Count 223 K/mm3 (150-400); RDW Standard Deviation 45.4 fL (35.1-46.3); Red Blood Cell Count 3.94 M/mm3 (4.30-5.90); White Blood Cell Count 12.24 K/mm3 (4.00-11.30)
[2024-11-29 04:56] VITALS: BP 113/73
[2024-11-29 04:56] LABS: Bun/Creatinine Ratio 59.3 (12.0-20.0); Creatinine, Blood 0.61 mg/dL (0.60-1.20); Potassium, Blood 4.2 mmol/L (3.5-5.5)
--- NOTE | 2024-11-29 06:42 | NUR ---
PT STABLE THROUGHOUT THE SHIFT. PT AGREEABLE TO BIPAP AND DID WEAR IT FOR A LARGE PORTION OF THE SHIFT. WHEN NOT WEARING BIPAP PT WAS AT BASELINE 3L O2 NASAL CANNULA. PT AOX4, ABLE TO MAKE NEEDS KNOWN BUT HAS AN ODD AFFECT AND IS VERY TALKATIVE. PT MAINTAINED GOOD O2 SATS ON BOTH BIPAP AND NASAL CANNULA. PT WAS UP AND ABLE TO WALK TO BATHROOM JUST PRIOR TO SHIFT BUT HAS NOT NEEDED TO TONIGHT. PT HAS NOT SLEPT MUCH IF ANY THIS SHIFT.
[2024-11-29 07:41] VITALS: BP 147/89
[2024-11-29 12:26] VITALS: BP 117/70
--- NOTE | 2024-11-29 15:25 | NUR ---
ROUNDED ON PATIENT HE WAS ALSEEP AT THIS TIME. DISCUSSED WITH BEDSIDE RN AND PROVIDED ADVANCED DIRECTIVE.
[2024-11-29] MEDS ORDERED: AZIT500 PO (15:28)
[2024-11-29] MEDS ORDERED: PRED20 PO (15:28)
[2024-11-29 16:13] VITALS: BP 143/84
--- NOTE | 2024-11-29 16:18 | NUR ---
Patient is sitting up in bed and states that he will discharge soon. He explains about the events that led to his hospital admission and his concerns about going back to his trailer if his breathing equipment is not working properly. He talks with a neighbor on the phone, while I am present, who assures the patient that everything is set up and in working order in the trailer. He asks for Ativan because he is anxious about the ride home. I ask him if he would like me to say a prayer for him and he expresses his approval. I gladly provided prayer, therapeutic listening and anxiety containment. Patient responded well to all interventions and showed signs of reduced stress.
--- NOTE | 2024-11-29 17:55 | NUR ---
SHIFT SUMMARY AND DISCHARGE PATIENT AOX4 ABLE TO MAKE NEEDS KNOWN. HE IS ALTERNATING BETWEEN THE BIPAP AND 3-4 L NC SATTING GREATER THAN 92%. PATIENT DENIES CHEST PAIN. HE IS ANXIOUS ABOUT BEING DISCHARGED HOME TODAY BUT HE DOES ACCEPT IT AND HIS ANXIETY IS CONTROLLED BY HIS SCHEDULED AND PRN MEDICATIONS. THE DRY CELL ASSEMBLY SUPERVISOR SET UP TRANSPORTATION AND OXYGEN FOR THE DISCHARGE AND PATIENT AGREES AND UNDERSTANDS ALL DISCHARGE AND FOLLOWUP INFORMATION AND HAS NO FURTHER QUESTIONS.
== END 2024-11-29 16:59 | disposition home or self-care (01) | DRG 189 ==
LOC: ER 20:24 → PCU 22:03
PROVIDERS: Emergency Medicine; Internal Medicine; ADMIT Student in an Organized Health Care Education/Training Program
DX: J96.21 Acute and chronic respiratory failure with hypoxia (principal); G93.41 Metabolic encephalopathy; J44.1 Chronic obstructive pulmonary disease with (acute) exacerbation; J96.22 Acute and chronic respiratory failure with hypercapnia; F41.9 Anxiety disorder, unspecified; N40.0 Benign prostatic hyperplasia without lower urinary tract symptoms; K21.9 Gastro-esophageal reflux disease without esophagitis; I10 Essential (primary) hypertension; G89.29 Other chronic pain; Z91.048 Other nonmedicinal substance allergy status; Z79.899 Other long term (current) drug therapy; Z79.52 Long term (current) use of systemic steroids; Z99.81 Dependence on supplemental oxygen; Z90.2 Acquired absence of lung [part of]; Z87.891 Personal history of nicotine dependence; Z86.74 Personal history of sudden cardiac arrest; Z91.199 Patient's noncompliance with other medical treatment and regimen due to unspecified reason
CPT/HCPCS: 0241U; 36415; 71045; 80048; 80053; 82803; 83605; 83735; 84145; 84484; 85025; 85027; 93005; 93010; 94640; 94644; 94660; 94664; 94762; 96374; 99285-25; A9270; J1650; J2919

== ENCOUNTER 2025-02-13 12:36 | Emergency (ER) | payer OTHER ==
[~2025-02-13] VITALS: Ht 175.3 cm; Wt 65.8 kg
[2025-02-13 13:50] LABS: BASOPHILS ABSOLUTE AUTO 0.04 K/mm3 (0.00-0.23); BASOPHILS PERCENT AUTO 0 % (0-2); EOSINOPHILS ABSOLUTE AUTO 0.25 K/mm3 (0.00-0.68); EOSINOPHILS PERCENT AUTO 2 % (0-6); Hematocrit 41.2 % (37.0-53.0); Hemoglobin 13.2 g/dL (13.5-17.5); IMMATURE GRAN ABSOLUTE AUTO 0.03 K/mm3 (0.00-0.10); IMMATURE GRAN PERCENT AUTO 0 % (0-1); LYMPHOCYTES ABSOLUTE AUTO 2.54 K/mm3 (0.84-5.20); LYMPHOCYTES PERCENT AUTO 23 % (21-46); MONOCYTES ABSOLUTE AUTO 0.57 K/mm3 (0.16-1.47); MONOCYTES PERCENT AUTO 5 % (4-13); Mean Corpuscular HGB 29.7 pg (26.0-34.0); Mean Corpuscular Volume 93 fL (80-100); Mean Platelet Volume 10.7 fL (9.1-12.4); NEUTROPHILS ABSOLUTE AUTO 7.72 K/mm3 (1.96-9.15); NEUTROPHILS PERCENT AUTO 69 % (41-73); Platelet Count 217 K/mm3 (150-400); RDW Coefficient Variation 13.2 % (11.7-14.2); Red Blood Cell Count 4.44 M/mm3 (4.30-5.90); White Blood Cell Count 11.15 K/mm3 (4.00-11.30)
[2025-02-13 14:06] LABS: Albumin, Blood 3.7 g/dL (3.4-5.0); Albumin/Globulin Ratio 1.1 (0.8-1.8); Bilirubin, Total 0.8 mg/dL (0.1-1.0); Bun/Creatinine Ratio 35.8 (12.0-20.0); Calcium, Blood 8.8 mg/dL (8.5-10.1); Creatinine, Blood 0.67 mg/dL (0.60-1.20); Globulin, Blood 3.4 g/dL (2.2-4.0); Potassium, Blood 5.2 mmol/L (3.5-5.5); Total Protein, Blood 7.1 g/dL (6.4-8.2)
[2025-02-13] MEDS ORDERED: Prednisone20 MG PO (14:52)
[2025-02-13 15:30] VITALS: BP 132/66
--- NOTE | 2025-02-13 16:18 | NUR ---
Patient is sitting in the ED waiting area and invites me over to talk. The patient is known to this emr specialist from prior admissions to the hospital. He tells me about the [place] He also shares about the health risks to him with all the burning and weed spraying which sets his many medical conditions into a debilitating downward spiral. He shares about his albin and his prayer to find better living arrangements. I provided therapeutic listening and prayer. The patient responded well and showed signs of reduced stress.
--- NOTE | 2025-02-13 16:40 | NUR ---
Pt. is waiting for a ride after discharge. Pt. is on oxygen and is on a hospital wheelchair. Facilitated an update based on his health journey. Pt. requested assistance from this porter baggage to notify the admissions desk that he was laying down. Pt. also verbalized that he uses less oxygen when he lays down. This porter baggage notified the desk that Pt. remained in the waiting lounge. Pt. verbalized gratitude for the spiritual care assistance.
== END 2025-02-13 15:55 | disposition home or self-care (01) ==
LOC: ER 12:36
PROVIDERS: Emergency Medicine
DX: J44.1 Chronic obstructive pulmonary disease with (acute) exacerbation (principal); N40.0 Benign prostatic hyperplasia without lower urinary tract symptoms; K21.9 Gastro-esophageal reflux disease without esophagitis; Z99.81 Dependence on supplemental oxygen; Z87.891 Personal history of nicotine dependence; Z91.048 Other nonmedicinal substance allergy status; Z79.51 Long term (current) use of inhaled steroids; Z79.899 Other long term (current) drug therapy
CPT/HCPCS: 71046; 80053; 83880; 85025; 93005; 93010; 99285-25

== ENCOUNTER 2025-03-06 10:23 | Inpatient (IN) | payer OTHER ==
[~2025-03-06] VITALS: Ht 175.3 cm; Wt 72.9 kg
[2025-03-06] MEDS ORDERED: Albuterol 2.5 MG/3 ML VIAL INH SCH ×2 (10:35→11:25)
[2025-03-06] MEDS ORDERED: Albuterol 2.5 MG/3 ML VIAL ONE (10:35)
[2025-03-06 10:46] LABS: Base Excess Venous 3.9 mmol/L; Bicarbonate Venous 26.5 mmol/L (24.0-30.0); PCO2 Venous 60.6 mmHg (38-42); pH Blood Venous 7.31 (7.34-7.37)
[2025-03-06 11:18] LABS: Albumin, Blood 3.7 g/dL (3.4-5.0); Albumin/Globulin Ratio 1.2 (0.8-1.8); Bilirubin, Total 0.4 mg/dL (0.1-1.0); Bun/Creatinine Ratio 29.4 (12.0-20.0); Calcium, Blood 8.6 mg/dL (8.5-10.1); Creatinine, Blood 0.75 mg/dL (0.60-1.20); Potassium, Blood 4.1 mmol/L (3.5-5.5); Total Protein, Blood 6.7 g/dL (6.4-8.2)
[2025-03-06] MEDS ORDERED: NS 500 ML IV SCH (11:25)
[2025-03-06] MEDS ORDERED: Azithromycin 500 MG in NS 250 ML IV ONE (11:25)
[2025-03-06 11:41] LABS: BASOPHILS ABSOLUTE AUTO 0.03 K/mm3 (0.00-0.23); BASOPHILS PERCENT AUTO 1 % (0-2); EOSINOPHILS ABSOLUTE AUTO 0.13 K/mm3 (0.00-0.68); EOSINOPHILS PERCENT AUTO 2 % (0-6); Hematocrit 43.2 % (37.0-53.0); Hemoglobin 13.7 g/dL (13.5-17.5); IMMATURE GRAN ABSOLUTE AUTO 0.03 K/mm3 (0.00-0.10); IMMATURE GRAN PERCENT AUTO 1 % (0-1); LYMPHOCYTES ABSOLUTE AUTO 2.34 K/mm3 (0.84-5.20); LYMPHOCYTES PERCENT AUTO 36 % (21-46); MONOCYTES ABSOLUTE AUTO 0.27 K/mm3 (0.16-1.47); MONOCYTES PERCENT AUTO 4 % (4-13); Mean Corpuscular HGB 29.2 pg (26.0-34.0); Mean Corpuscular HGB Conc 31.7 g/dL (31.5-36.5); Mean Corpuscular Volume 92 fL (80-100); Mean Platelet Volume 10.4 fL (9.1-12.4); NEUTROPHILS ABSOLUTE AUTO 3.62 K/mm3 (1.96-9.15); NEUTROPHILS PERCENT AUTO 56 % (41-73); Platelet Count 200 K/mm3 (150-400); RDW Coefficient Variation 12.6 % (11.7-14.2); RDW Standard Deviation 42.5 fL (35.1-46.3); Red Blood Cell Count 4.69 M/mm3 (4.30-5.90); White Blood Cell Count 6.42 K/mm3 (4.00-11.30)
[2025-03-06 12:05] LABS: Influenza A, PCR NEGATIVE (NEGATIVE); Influenza B, PCR NEGATIVE (NEGATIVE); Resp Syncytial Virus, PCR NEGATIVE (NEGATIVE); SARS-Cov-2 (COVID-19) PCR, MMC NEGATIVE (NEGATIVE)
[2025-03-06] MEDS ORDERED: Ipratropium/Albuterol SulF 2.5-0.5MG/3 ML Amp INH SCH (12:05)
[2025-03-06] MEDS ORDERED: Albuterol 2.5 MG/3 ML VIAL INH PRN (12:05)
[2025-03-06] MEDS ORDERED: Budesonide 0.5 MG/2 ML RESP INH SCH (15:45)
[2025-03-06] MEDS ORDERED: LORazepam 1 MG Tab PO PRN (16:00)
[2025-03-06] MEDS ORDERED: MethylPREDNISolone Sod Succ 125 MG Vial IV SCH (16:00)
[2025-03-06] MEDS ORDERED: HYDROcodone 5-APAP 325 TAB PO PRN (16:00)
[2025-03-06] MEDS ORDERED: Sertraline HCl 100 MG Tab PO SCH (16:00)
[2025-03-06] MEDS ORDERED: Acetaminophen 325 MG TABLET PO PRN (16:00)
[2025-03-06 16:09] LABS: PCO2 Arterial 49.4 mmHg (35-45); pH Blood Arterial 7.38 (7.35-7.45)
[2025-03-06 16:36] VITALS: BP 104/68
--- NOTE | 2025-03-06 17:15 | NUR ---
PT ADMITTED TO PCU 14 FROM THE ER THE PT IS A&OX4, AND IS ABLE TO COMMUNICATE PROPERLY. PT DOES HAS CHRONIC ANXIETY AND TRAILS OFF IN CONVERSATIONS BUT IS REDIRECTABLE. HE IS A 1P ASSIST FOR TX. ON TELE HE IS SR 70'S, BP STABLE. HE CAME TO THE ROOM ON THE BIPAP 16/6 @30% W/ RESP IN THE 20'S. BREATHING EQUAL AND UNLABORED. HE IS CURRENTLY ON 3LNC. HE WAS ON RA FOR ABOUT 5 MINUTES WITH RT IN THE ROOM AND THE PT'S SP02>93%. ONCE HE WAS TOLD HE WAS ON RA HE WANTED HIS NC BACK ON D/T A "HEADACHE". PT CURRENTLY ON THE 3LNC, WHICH IS HIS BASELINE. PT DOES HAVE A HOME BIPAP MACHINE WELL. IT IS NOT IN HIS DISPOSITION. BED IN LOW, CALL LIGHT IN REACH. SEE NOTES FOR UPDATES.
[2025-03-06 19:35] VITALS: BP 97/67
[2025-03-06] MEDS ORDERED: dilTIAZem HCL 60 MG CAP.SR PO SCH (21:00)
[2025-03-06] MEDS ORDERED: BusPIRone HCl 10 MG Tab PO SCH (21:00)
[2025-03-06] MEDS ORDERED: HyDROXyzine HCl 25 MG Tab PO SCH (21:00)
[2025-03-06] MEDS ORDERED: Tamsulosin HCl 0.4 MG Cap PO SCH (21:00)
[2025-03-06 23:37] VITALS: BP 93/52
[2025-03-07 03:48] LABS: BASOPHILS ABSOLUTE AUTO 0.01 K/mm3 (0.00-0.23); BASOPHILS PERCENT AUTO 0 % (0-2); EOSINOPHILS PERCENT AUTO 0 % (0-6); Hematocrit 36.2 % (37.0-53.0); Hemoglobin 11.6 g/dL (13.5-17.5); IMMATURE GRAN ABSOLUTE AUTO 0.02 K/mm3 (0.00-0.10); IMMATURE GRAN PERCENT AUTO 0 % (0-1); LYMPHOCYTES ABSOLUTE AUTO 1.15 K/mm3 (0.84-5.20); LYMPHOCYTES PERCENT AUTO 22 % (21-46); MONOCYTES ABSOLUTE AUTO 0.09 K/mm3 (0.16-1.47); MONOCYTES PERCENT AUTO 2 % (4-13); Mean Corpuscular HGB 29.1 pg (26.0-34.0); Mean Corpuscular Volume 91 fL (80-100); Mean Platelet Volume 10.7 fL (9.1-12.4); NEUTROPHILS ABSOLUTE AUTO 3.97 K/mm3 (1.96-9.15); NEUTROPHILS PERCENT AUTO 76 % (41-73); Platelet Count 190 K/mm3 (150-400); RDW Coefficient Variation 12.3 % (11.7-14.2); RDW Standard Deviation 41.5 fL (35.1-46.3); Red Blood Cell Count 3.99 M/mm3 (4.30-5.90); White Blood Cell Count 5.24 K/mm3 (4.00-11.30)
[2025-03-07 04:00] VITALS: BP 99/56
[2025-03-07 04:10] LABS: Bun/Creatinine Ratio 35.5 (12.0-20.0); Calcium, Blood 8.3 mg/dL (8.5-10.1); Creatinine, Blood 0.76 mg/dL (0.60-1.20); Potassium, Blood 4.2 mmol/L (3.5-5.5)
--- NOTE | 2025-03-07 05:08 | NUR ---
SIFT SUMMARY PT AXO X 4. PT REMAINED ON BIPAP THROUGHOUT THE SHIFT-TOLERATING WELL. O2 SATS ABOVE 90%. PT C/O OF DIFFICULTY SLEEPING. PRN ATIVAN GIVEN X 1. PT VOIDS USING URINAL. +BM. PT HAD NO C/O OF PAIN. PATIENT SINUS RHYTHM WITH HR 60S-70S. NO C/O OF C/P. DENIES SOB. VSS. CALL COLEMAN WITHIN REACH AND PT ABLE TO MAKE NEEDS KNOWN.
[2025-03-07 08:15] VITALS: BP 118/67
[2025-03-07] MEDS ORDERED: Enoxaparin 40 MG/0.4 ML SYR SC SCH (09:00)
[2025-03-07] MEDS ORDERED: Azithromycin 500 MG in NS 250 ML IV SCH (12:00)
[2025-03-07 12:16] VITALS: BP 99/63
[2025-03-07] MEDS ORDERED: Morphine Sulfate 20 MG/1ML 1 ML Oral Syringe PO SCH (14:00)
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
[2025-03-07 15:47] VITALS: BP 100/68
--- NOTE | 2025-03-07 16:00 | NUR ---
Patient is lying in bed and alert. He tells me about [place], about the chemicals used on weeds, BBQs and truck exhaust fumes that exacerbate his lung condition and about the emotional strain that his living environment creates for him. He does share about his Sikhism albin, the theological questions he has and the hope and peace that he finds because of his albin. I listened empathically, reinforced helpful attitudes and perspectives, and provided theological insights, anxiety containment and prayer. Patient responded well and shoed signs of reduced stress.
--- NOTE | 2025-03-07 16:46 | NUR ---
SHIFT SUMMARY. SHIFT HAS GONE WELL OVERALL. PT AOX4, PLEASANT, COOPERATIVE WITH CARE, ABLE TO MAKE NEEDS KNOWN. HAS DEALT WITH ACUTE ANXIETY FEW TIMES TODAY, THUS FAR MANAGED VIA EMAR AND REDIRECTION. HAS DENIED PAIN THROUGHOUT SHIFT. O2 DEMANDS HAVE BEEN LOW 1 L O2 VIA NC WHILE AWAKE, CONTINUES TO WEAR BIPAP WHILE SLEEPING. PALLIATIVE CARE WAS ABLE TO MEET WITH PT THIS AFTERNOON. VITALS HAVE BEEN STABLE, TACHY AT TIMES WITH ANXIETY, OTHERWISE HAS BEEN RUNNING IN THE 70s-90s SINUS. SHIFT OTHERWISE UNREMARKABLE. BED LOCKED IN LOWEST POSITION. CALL LIGHT LEFT WITHIN REACH. CONTINUING TO MONITOR.
[2025-03-07 19:48] VITALS: BP 126/65
[2025-03-07 23:32] VITALS: BP 104/68
[2025-03-08 03:41] VITALS: BP 113/77
--- NOTE | 2025-03-08 05:13 | NUR ---
SHIFT SUMMARY PT AX0 X 4. PT ON 2L NC, DID HAVE EPISODE OF SOB BELIEVED TO BE CAUSED BY ANXIETY. PT PLACED ON BIPAP AND SOB IMPROVED. PT HAD NO C/O OF PAIN. PT NSR-SB ON MONITOR WITH HR 50S-80S. PT DENIES PAIN THIS SHIFT. NO BM. PT UTILIZES URINAL. PT ABLE TO MAKE NEEDS KNOWN. CALL COLEMAN WITHIN REACH.
[2025-03-08 05:16] LABS: Albumin, Blood 3.2 g/dL (3.4-5.0); Anion Gap 7 mmol/L (3-11); Blood Urea Nitrogen 35 mg/dL (8-24); Bun/Creatinine Ratio 43.2 (12.0-20.0); CO2, Blood 27 mmol/L (21-32); Calcium, Blood 8.6 mg/dL (8.5-10.1); Chloride, Blood 110 mmol/L (98-108); Creatinine, Blood 0.81 mg/dL (0.60-1.20); Glomerular Filtration Rate 100 (60-); Glucose, Blood 163 mg/dL (70-99); Phosphorus, Blood 2.2 mg/dL (2.5-4.9); Potassium, Blood 4.2 mmol/L (3.5-5.5); Sodium, Blood 140 mmol/L (136-145)
[2025-03-08 07:53] VITALS: BP 101/68
--- NOTE | 2025-03-08 08:01 | NUR ---
AM NOTE this rn assumed care at 0700. vital signs table. spo2 >90% on 3l nc. patient is alert and oriented x4. neuro is intact. patient is able to make needs known and uses call light appropriately. patient mood/affect is anxious this morning but cooperative. denies pain, chest pain/pressure or shortness of breath. see shift assessment for further detials. patient sitting at bedside eating breakfast and drinking coffee.
[2025-03-08] MEDS ORDERED: Potassium Phosphate Dibasic 30 MM in Dextrose 5% 500 ML IV STA (09:02)
--- NOTE | 2025-03-08 10:30 | NUR ---
update md funes in room and discussing plan to manage anxiety, severity of lung disease, home situation and triggers at home for anxiety and underlying lung disease, and code status. patient switched to medical status with tele.
[2025-03-08 15:54] VITALS: BP 111/66
[2025-03-08] MEDS ORDERED: MethylPREDNISolone Sod Succ 40 MG VIAL IV SCH (16:00)
--- NOTE | 2025-03-08 17:01 | NUR ---
Patient talks about theological issues, his suffering, and the plight of the planet. I provide reflective listening, spiritual gudance and prayer. Patient responded well and showed signs of great peace
--- NOTE | 2025-03-08 17:36 | NUR ---
SHIFT SUMMARY patient vitals remain stable. spo2 >90% on 3l nc. patient uses bipap when sleeping. patient had a shower today and linen change. no acute changes this shift. plan remains up to date
--- NOTE | 2025-03-08 19:22 | NUR ---
ASSUMPTION OF CARE PT WIDE AWAKE RESTING IN BED.BEDSIDE REPORT COMPLETED.PLAN OF CARE REVIEWED.PT'S PAIN AND ANXIETY MEDS REVIEWED PER PT'S REQUEST.PT STATES THAT HE TAKES ROXANOL 4 TIMES PRN.PT STATES THAT HE WILL TALK TO THE DOCTOR IN THE MORNING ABOUT THE MEDS.PT DENIES PAIN,DENIES NEEDS AT THIS TIME.CALL LIGHT AND PT'S ITEMS WITHIN REACH.MONITORING ONGOING PER CARE PLAN.
[2025-03-08 20:59] VITALS: BP 127/79
[2025-03-08 23:58] VITALS: BP 110/73
--- NOTE | 2025-03-09 01:01 | NUR ---
TRANSFER PT TRANSFERRED VIA WHEELHAIR TO ROOM 306.REPORT GIVEN TO RECEIVING NURSE PRIOR TO TRANSFERRING PT.PT ON 3L OXYGEN.PT'S BELONGINGS,CHART AND MEDICINE IN DRAWER SENT WITH PT.
[2025-03-09 01:09] VITALS: BP 124/82
[2025-03-09 03:59] VITALS: BP 101/61
[2025-03-09 05:58] LABS: Anion Gap 6 mmol/L (3-11); Blood Urea Nitrogen 29 mg/dL (8-24); Bun/Creatinine Ratio 39.8 (12.0-20.0); CO2, Blood 31 mmol/L (21-32); Calcium, Blood 8.4 mg/dL (8.5-10.1); Chloride, Blood 108 mmol/L (98-108); Creatinine, Blood 0.73 mg/dL (0.60-1.20); Glomerular Filtration Rate 103 (60-); Glucose, Blood 138 mg/dL (70-99); Sodium, Blood 141 mmol/L (136-145)
[2025-03-09 07:52] VITALS: BP 115/76
[2025-03-09] MEDS ORDERED: PredniSONE 20 MG Tab PO SCH (09:00)
[2025-03-09] MEDS ORDERED: NS 250 ML IV PRN (12:05)
--- NOTE | 2025-03-09 16:41 | NUR ---
SHIFT SUMMARY: PATIENT A/OX4, ANXIOUS, PLEASANT AND COOPERATIVE c CARE. TELE DC'D PER ORDER. PATIENT DENIES CP/PRESSURE, N/V AND DIZZINESS. PATIENT REPORTS SOB c ACTIVITIES. PATIENT MEDICATED c SCHEDULED ROXANOL AND ATARAX FOR AIR HUNGER AND FOR ANXIETY c GOOD EFFECT. PATIENT O2 AT BASELINE 3L NC, SATTING 95-97%, USES BIPAP WHEN NAPPING DURING THE DAY AND HS, TOLERATING WELL. PATIENT HAS GOOD APPETITE, CONTINENT OF BLADDER, USES URINAL IN BED INDEPENDENTLY. VITAL SIGNS REVIEWED. CALL LIGHT IN REACH.
[2025-03-09 17:51] VITALS: BP 104/64
[2025-03-09 19:36] VITALS: BP 102/82
[2025-03-10 04:49] VITALS: BP 106/59
--- NOTE | 2025-03-10 06:03 | NUR ---
SHIFT SUMMARY NOC PT A/O X 4. PLEASANT AND COOPERATIVE WITH CARE. VSS. PT USING BIPAP PRN WHILE AWAKE AND FOR SLEEPING, WELL BASELINE 3L/NC SPO2 >92% ON BIOX. PT GETTING ROXANOL AND ATARAX PER EMAR, WELL BREATHING TREATMENT PER RT. PT CURRENTLY RESTING WITH BED IN LOWEST POSITION, AND CALL LIGHT WITHIN REACH.
[2025-03-10 07:37] VITALS: BP 123/73
[2025-03-10 08:23] VITALS: BP 162/89
[2025-03-10] MEDS ORDERED: Morphine Sulfate 20 MG/1ML 1 ML Oral Syringe PO PRN (13:15)
[2025-03-10 15:34] VITALS: BP 115/65
--- NOTE | 2025-03-10 16:31 | NUR ---
SHIFT SUMMARY: AT BEGINNING OF SHIFT, PATIENT WAS VERY ANXIOUS, SOB AND COULD NOT GET FULL SENTENCES WHEN HE TALKED. PATIENT ON 3L O2 VIA NC SATTING 96%, HR WAS IN 130'S BPM, ON CONTINUES PULSE OX. PATIENT WAS MEDICATED c SCHEDULED ROXANOL FOR AIR HUNGER, SCHEDULED ATARAX AND PRN ATIVAN FOR ANXIETY. AN HOUR LATER AFTER HE RECEIVED THE MEDS, PATIENT WAS LESS ANXIOUS AND BREATHING HAS IMPROVED. DR. RAZA IS AWARE OF THIS EPISODE AND MADE SOME CHANGES ON PATIENT ANXIETY MEDS. PATIENT HAS BEEN RESTING IN BED ON/OFF, DENIES SOB, N/V AND DIZZINESS T/O THE DAY. PATIENT HAD 2 LARGE BM, BEDBATH AND LINEN CHANGED THIS SHIFT. PATIENT RECEIVED BX TX ADMINISTERED BY RT. PATIENT PLEASANT AND COOPERATIVE c CARE, A/OX4, CALLS APPROPRIATELY AND MAKE NEEDS KNOWN. CALL LIGHT IN REACH.
[2025-03-10 20:18] VITALS: BP 123/66
[2025-03-11] MEDS ORDERED: LORazepam 1 MG Tab PO SCH (05:00)
[2025-03-11 05:08] VITALS: BP 115/72
--- NOTE | 2025-03-11 05:32 | NUR ---
SHIFT SUMMARY NOC PT A/O X 4. NO ACUTE CHANGES TO REPORT. BEDTIME DOSE OF CARDIZEM HELD DUE TO HR IN HIGH 40'S-50'S. PT RECEIVED ANXIETY/AIR HUNGER RX PER EMAR AND WAS CALM AND COOPERATIVE T/O SHIFT. PT USING BIPAP PRN/SLEEP AND ON 3L/NC SPO2 >94% ON BIOX. PT CURRENTLY RESTING WITH BED IN LOWEST POSITION, AND CALL LIGHT WITHIN REACH.
[2025-03-11 07:31] VITALS: BP 126/77
[2025-03-11] MEDS ORDERED: Prednisone10 MG PO (14:38)
[2025-03-11] MEDS ORDERED: CALCIUM 600 +1 EA11 PO (14:40)
[2025-03-11] MEDS ORDERED: OMEP20ER PO (14:40)
--- NOTE | 2025-03-11 15:27 | NUR ---
SHIFT/DISCHARGE SUMMARY: PATIENT A/OX4, CALM, PLEASANT AND COOPERATIVE c CARE. PATIENT RECEIVED FOR AIR HUNGER AND ANXIETY MEDS PER EMAR c GOOD EFFECT. PATIENT DENIES CP/PRESSURE, SOB, N/V AND DIZZINESS. PATIENT STILL ON 3L O2, SATTING 95-97%, ON CONTINUES PULSE OX. PATIENT HAS GOOD APPETITE, CONTINENT OF BAB, USES URINAL AND BSC c SBA. PIV DC'D. PATIENT RECEIVED EARLY DOSE OF PO PRN ATIVAN PRIOR TO DISCHARGE, WHICH APPROVED VERBALLY BY DR. RAZA IN ROOM. PATIENT DISCHARGE HOME c [facility]. DISCHARGE INSTRUCTIONS PACKET GIVEN TO PATIENT. PATIENT EDUCATED ON ADMITTING DX'S OF COPD, S/S, TX, O2 SUPPLEMENTAL, NEW RX AND TO F/U c PCP AND LCSW. PATIENT VERBALIZED UNDERSTANDING AND NO FURTHER QUESTIONS. RX WAS FAXED TO PATIENT PREFERRED PHARMACY [facility] IN [place]. ALL PERSONAL BELONGINGS WERE SENT HOME c PATIENT. PATIENT LEFT THE ROOM AT 1515, TRANSPORTED VIA GURNEY BY 5by.
== END 2025-03-11 15:15 | disposition home health service (06) | DRG 189 ==
LOC: ER 10:23 → PCU 12:01 → MEDS 03-09 01:05
PROVIDERS: Student in an Organized Health Care Education/Training Program; ADMIT Internal Medicine
PROC: 5A09457 Assistance with Respiratory Ventilation, 24-96 Consecutive Hours, Continuous Positive Airway Pressure (ICD-10-PCS; principal; 2025-03-04)
DX: J96.21 Acute and chronic respiratory failure with hypoxia (principal); E87.29 Other acidosis; J44.1 Chronic obstructive pulmonary disease with (acute) exacerbation; J96.22 Acute and chronic respiratory failure with hypercapnia; F41.9 Anxiety disorder, unspecified; K21.9 Gastro-esophageal reflux disease without esophagitis; I25.10 Atherosclerotic heart disease of native coronary artery without angina pectoris; E83.41 Hypermagnesemia; F43.10 Post-traumatic stress disorder, unspecified; N40.0 Benign prostatic hyperplasia without lower urinary tract symptoms; Z91.048 Other nonmedicinal substance allergy status; Z90.2 Acquired absence of lung [part of]; Z86.74 Personal history of sudden cardiac arrest; Z79.52 Long term (current) use of systemic steroids; Z79.899 Other long term (current) drug therapy; Z99.81 Dependence on supplemental oxygen
CPT/HCPCS: 0241U; 36415; 36416; 36600; 71045; 80048; 80053; 80069; 82803; 83735; 83880; 84484; 85025; 93005; 93010; 94640; 94644; 94660; 94664; 94762; 96374; 99285-25; A9270; J0456; J1650; J2919; J7030; J7050; J7060; J7512

== ENCOUNTER 2025-03-16 15:46 | Inpatient (IN) | payer OTHER ==
[~2025-03-16] VITALS: Ht 177.8 cm; Wt 65.8 kg
[~2025-03-16 15:46] MED LIST changes: +CALCIUM 600 +1 EA11 PO
[2025-03-16 16:21] LABS: Hematocrit 44.8 % (37.0-53.0); Hemoglobin 14.2 g/dL (13.5-17.5); Mean Corpuscular HGB Conc 31.7 g/dL (31.5-36.5); Mean Corpuscular Volume 93 fL (80-100); NRBC ABSOLUTE 0.00 K/mm3 (0.00-0.02); NRBC Auto 0.0 /100 WBC (0.0-0.2); Platelet Count 348 K/mm3 (150-400); RDW Coefficient Variation 13.0 % (11.7-14.2); RDW Standard Deviation 44.2 fL (35.1-46.3)
[2025-03-16 16:30] LABS: pH Blood Venous 7.24 (7.34-7.37)
[2025-03-16 16:37] LABS: Alanine Aminotransfer (ALT/SGP 26.0 U/L (12-78); Albumin, Blood 3.8 g/dL (3.4-5.0); Albumin/Globulin Ratio 1.2 (0.8-1.8); Anion Gap 5.0 mmol/L (3-11); Aspartate Aminotrans (AST/SGOT 19.0 U/L (12-37); Bilirubin, Total 0.6 mg/dL (0.1-1.0); Blood Urea Nitrogen 23.0 mg/dL (8-24); CO2, Blood 34.0 mmol/L (21-32); Calcium, Blood 8.8 mg/dL (8.5-10.1); Chloride, Blood 103.0 mmol/L (98-108); Creatinine, Blood 0.55 mg/dL (0.60-1.20); Globulin, Blood 3.1 g/dL (2.2-4.0); Glucose, Blood 146.0 mg/dL (70-99); Potassium, Blood 5.0 mmol/L (3.5-5.5); Sodium, Blood 137.0 mmol/L (136-145); Total Protein, Blood 6.9 g/dL (6.4-8.2)
[2025-03-16] MEDS ORDERED: Albuterol 2.5 MG/3 ML VIAL INH SCH (16:40)
[2025-03-16] MEDS ORDERED: CefTRIAXone Sodium 1,000 MG in NS 50 ML IV ONE (17:00)
[2025-03-16 17:15] LABS: BASOPHILS ABSOLUTE MAN 0.00 K/mm3 (0.00-0.23); BASOPHILS PERCENT MAN 0 % (0-2); EOSINOPHILS ABSOLUTE MAN 0.00 K/mm3 (0.00-0.68); EOSINOPHILS PERCENT MAN 0 % (0-6); LYMPHOCYTES % ATYPICAL MANUAL 1 % (0-0); LYMPHOCYTES ABSOLUTE MAN 13.97 K/mm3 (0.84-5.20); LYMPHOCYTES PERCENT MAN 51 % (21-46); MONOCYTES ABSOLUTE MAN 0.53 K/mm3 (0.16-1.47); MONOCYTES PERCENT MAN 2 % (4-13); NEUTROPHILS ABSOLUTE MAN 12.36 K/mm3 (1.96-9.15); SEG NEUTROPHILS PERCENT MAN 46 % (41-73)
[2025-03-16] MEDS ORDERED: Ondansetron HCl 2 MG / ML 2ML Vial IV ONE (17:40)
[2025-03-16] MEDS ORDERED: Ketorolac Tromethamine 30mg Vial IV ONE (17:40)
[2025-03-16] MEDS ORDERED: NS 1,000 ML IV SCH (18:05)
[2025-03-16] MEDS ORDERED: Ondansetron HCl 2 MG / ML 2ML Vial IV PRN (18:05)
[2025-03-16] MEDS ORDERED: Ipratropium/Albuterol SulF 2.5-0.5MG/3 ML Amp INH SCH (18:10)
[2025-03-16] MEDS ORDERED: Albuterol 2.5 MG/3 ML VIAL INH PRN (18:10)
[2025-03-16 18:27] LABS: Influenza A, PCR NEGATIVE (NEGATIVE); Influenza B, PCR NEGATIVE (NEGATIVE); Resp Syncytial Virus, PCR NEGATIVE (NEGATIVE); SARS-Cov-2 (COVID-19) PCR, MMC NEGATIVE (NEGATIVE)
[2025-03-16 19:32] LABS: pH Blood Venous 7.32 (7.34-7.37)
[2025-03-16 22:16] VITALS: BP 139/77
[2025-03-17] VITALS (7 sets, daily range): BP systolic 92–121; BP diastolic 57–78
[2025-03-17 05:05] LABS: pH Blood Venous 7.47 (7.34-7.37)
[2025-03-17 05:16] LABS: BASOPHILS ABSOLUTE AUTO 0.01 K/mm3 (0.00-0.23); BASOPHILS PERCENT AUTO 0 % (0-2); EOSINOPHILS ABSOLUTE AUTO 0.00 K/mm3 (0.00-0.68); EOSINOPHILS PERCENT AUTO 0 % (0-6); Hematocrit 37.6 % (37.0-53.0); Hemoglobin 12.3 g/dL (13.5-17.5); IMMATURE GRAN ABSOLUTE AUTO 0.15 K/mm3 (0.00-0.10); IMMATURE GRAN PERCENT AUTO 1 % (0-1); LYMPHOCYTES ABSOLUTE AUTO 2.93 K/mm3 (0.84-5.20); LYMPHOCYTES PERCENT AUTO 21 % (21-46); MONOCYTES ABSOLUTE AUTO 0.61 K/mm3 (0.16-1.47); MONOCYTES PERCENT AUTO 4 % (4-13); Mean Corpuscular HGB Conc 32.7 g/dL (31.5-36.5); Mean Corpuscular Volume 92 fL (80-100); NEUTROPHILS ABSOLUTE AUTO 10.30 K/mm3 (1.96-9.15); NEUTROPHILS PERCENT AUTO 74 % (41-73); NRBC ABSOLUTE 0.00 K/mm3 (0.00-0.02); NRBC Auto 0.0 /100 WBC (0.0-0.2); Platelet Count 224 K/mm3 (150-400); RDW Coefficient Variation 13.0 % (11.7-14.2); RDW Standard Deviation 43.3 fL (35.1-46.3)
[2025-03-17 05:39] LABS: Anion Gap 5.0 mmol/L (3-11); Blood Urea Nitrogen 31.0 mg/dL (8-24); CO2, Blood 35.0 mmol/L (21-32); Calcium, Blood 8.8 mg/dL (8.5-10.1); Chloride, Blood 102.0 mmol/L (98-108); Creatinine, Blood 0.59 mg/dL (0.60-1.20); Glucose, Blood 140.0 mg/dL (70-99); Magnesium, Blood 2.2 mg/dL (1.6-2.4); Potassium, Blood 4.3 mmol/L (3.5-5.5); Sodium, Blood 138.0 mmol/L (136-145)
[2025-03-17] MEDS ORDERED: Enoxaparin 40 MG/0.4 ML SYR SC SCH (09:00)
--- NOTE | 2025-03-17 11:11 | NUR ---
CODE STATUS REVIEWED CODE STATUS WITH PROVIDER. LOCATED PT'S POLST FORM THAT WAS UPDATED IN DECEMBER OF 2024. PT ELECTS FOR FULL CODE WITH FULL MEDICAL INTERVENTIONS. PRIMARY RN UPDATED. PC TO REMAIN AVAILABLE NEEDED,
--- NOTE | 2025-03-17 12:22 | NUR ---
REPORT WAS GIVEN TO RECDAWIT RN. PT HAS BEEN AOX4 THIS AM AND COOPERATIVE OF CARE. PT DOING WELL ON 2L OF O2. PT HAS BEEN ABLE OT MAKE ALL NEEDS KNOWN. PT TRANSPORTED UP VIA WHEEL CHAIR WITH PERSONAL BELONGINGS.
--- NOTE | 2025-03-17 12:36 | NUR ---
REPORT RECEIVED FROM [facility] IN PCU FOR PT TRANSFER. ASSUMED CARE OF PT AT APPROXIMATELY 1145. PT ARRIVED VIA WC AND AMBULATED TO BED INDEPENDENTLY. PT A/O X4 AND PLEASANT/COOPERATIVE WITH CARE. PT WITH IV TO LAC THAT IS SL. PT C/O OF 7/10 ROBERT AND MEDICATED PER EMAR. PT DENIED ANY OTHER COMPLAINTS AT THIS TIME. BED IN LOWEST POSITION AND CALL LIGHT WITHIN REACH.
--- NOTE | 2025-03-17 17:21 | NUR ---
End of shift summary: Pt is alert and oriented x3. Pt is hyper-focused on medications and side effects r/t his HR. Dr. Medrano disscussed with him medications that he is taking. Pt with extra/extra large amount of BM this shift. Pt denies SOB, CP, N/V, but did have c/o headache this shift. All medications administered per EMAR. Pt resting comfortably. Bed in lowest position and call light within reach. Will continue to monitor until report given to oncoming shift nurse.
[2025-03-18 03:53] VITALS: BP 107/73
[2025-03-18 04:55] LABS: BASOPHILS ABSOLUTE AUTO 0.02 K/mm3 (0.00-0.23); BASOPHILS PERCENT AUTO 0 % (0-2); EOSINOPHILS ABSOLUTE AUTO 0.00 K/mm3 (0.00-0.68); EOSINOPHILS PERCENT AUTO 0 % (0-6); Hematocrit 35.8 % (37.0-53.0); Hemoglobin 11.8 g/dL (13.5-17.5); IMMATURE GRAN ABSOLUTE AUTO 0.10 K/mm3 (0.00-0.10); IMMATURE GRAN PERCENT AUTO 1 % (0-1); LYMPHOCYTES ABSOLUTE AUTO 3.09 K/mm3 (0.84-5.20); LYMPHOCYTES PERCENT AUTO 21 % (21-46); MONOCYTES ABSOLUTE AUTO 0.64 K/mm3 (0.16-1.47); MONOCYTES PERCENT AUTO 4 % (4-13); Mean Corpuscular HGB Conc 33.0 g/dL (31.5-36.5); Mean Corpuscular Volume 91 fL (80-100); NEUTROPHILS ABSOLUTE AUTO 11.08 K/mm3 (1.96-9.15); NEUTROPHILS PERCENT AUTO 74 % (41-73); NRBC ABSOLUTE 0.00 K/mm3 (0.00-0.02); NRBC Auto 0.0 /100 WBC (0.0-0.2); Platelet Count 232 K/mm3 (150-400); RDW Coefficient Variation 12.8 % (11.7-14.2); RDW Standard Deviation 42.3 fL (35.1-46.3)
[2025-03-18 05:30] LABS: Anion Gap 5.0 mmol/L (3-11); Blood Urea Nitrogen 35.0 mg/dL (8-24); CO2, Blood 33.0 mmol/L (21-32); Calcium, Blood 8.2 mg/dL (8.5-10.1); Chloride, Blood 105.0 mmol/L (98-108); Creatinine, Blood 0.69 mg/dL (0.60-1.20); Glucose, Blood 143.0 mg/dL (70-99); Potassium, Blood 4.1 mmol/L (3.5-5.5); Sodium, Blood 139.0 mmol/L (136-145)
[2025-03-18 07:56] VITALS: BP 128/81
[2025-03-18] MEDS ORDERED: HYDROcodone 5-APAP 325 TAB PO PRN (15:15)
[2025-03-18 15:35] VITALS: BP 106/74
--- NOTE | 2025-03-18 19:54 | NUR ---
SHIFT SUMMARY: PT A&O X4. PLEASANT AND COOPERATIVE WITH CARE. PT VERY ANXIOUS THIS SHIFT R/T DISCHARGING AND HAVING TO RETURN TO HOSPITAL FOR DYSPNEA. PT HAS BEEN ON BIPAP AND OXYGEN T/O SHIFT. PT C/O MIGRAINE POST TYLENOL ADMINISTRATION. RECEIVED HOME ORDER FOR [place] Q12. SBA TO RESTROOM. CALL LIGHT IN REACH. BED IN LOWEST POSITION.
[2025-03-18 20:10] VITALS: BP 122/86
--- NOTE | 2025-03-19 04:16 | NUR ---
SHIFT SUMMARY: PT AOX4 ANXIOUS BUT PLEASANT. CALLS APPROPRIATELY AND IS ABLE TO MAKE NEEDS KNOWN. ON 2L OF O2 AT REST AND BIPAP WHILE SLEEPING, TOLERATING WELL. PT TOLERATING MEDICATIONS AND ABLE TO SLEEP A LITTLE LASTNIGHT. REGULARLY REQEUSTING BREATHING TREATMENTS. PT VERY ANXIOUS ABOUT D/C. STATES HIS LIVING SITUATION EXPOSES HIM TO SOME CHEMICALS OR FUMES THAT EXACERTBATE HIS COPD, AND AFRAID OF BEING READMITTED. SOME CONCERNS OF CAREGIVER NEGLECT EXPRESSED. NOTES AND CONCERNS BEING PASSED ON TO CASE MANAGEMENT BEFORE DISCHARGE. PT IN BED SLEEPING, BED IN LOWEST POSITION, CALL LIGHT IN REACH. CONTINUING CARE.
[2025-03-19 04:28] VITALS: BP 108/68
[2025-03-19 07:35] VITALS: BP 115/73
[2025-03-19 11:44] LABS: BASOPHILS ABSOLUTE AUTO 0.01 K/mm3 (0.00-0.23); BASOPHILS PERCENT AUTO 0 % (0-2); EOSINOPHILS ABSOLUTE AUTO 0.01 K/mm3 (0.00-0.68); EOSINOPHILS PERCENT AUTO 0 % (0-6); Hematocrit 41.9 % (37.0-53.0); Hemoglobin 13.4 g/dL (13.5-17.5); IMMATURE GRAN ABSOLUTE AUTO 0.06 K/mm3 (0.00-0.10); IMMATURE GRAN PERCENT AUTO 1 % (0-1); LYMPHOCYTES ABSOLUTE AUTO 4.32 K/mm3 (0.84-5.20); LYMPHOCYTES PERCENT AUTO 36 % (21-46); MONOCYTES ABSOLUTE AUTO 0.64 K/mm3 (0.16-1.47); MONOCYTES PERCENT AUTO 5 % (4-13); Mean Corpuscular HGB Conc 32.0 g/dL (31.5-36.5); Mean Corpuscular Volume 94 fL (80-100); NEUTROPHILS ABSOLUTE AUTO 7.02 K/mm3 (1.96-9.15); NEUTROPHILS PERCENT AUTO 58 % (41-73); NRBC ABSOLUTE 0.00 K/mm3 (0.00-0.02); NRBC Auto 0.0 /100 WBC (0.0-0.2); Platelet Count 216 K/mm3 (150-400); RDW Coefficient Variation 13.2 % (11.7-14.2); RDW Standard Deviation 45.1 fL (35.1-46.3)
[2025-03-19 12:11] LABS: Anion Gap 2.0 mmol/L (3-11); Blood Urea Nitrogen 33.0 mg/dL (8-24); CO2, Blood 37.0 mmol/L (21-32); Calcium, Blood 8.7 mg/dL (8.5-10.1); Chloride, Blood 102.0 mmol/L (98-108); Creatinine, Blood 0.75 mg/dL (0.60-1.20); Glucose, Blood 100.0 mg/dL (70-99); Potassium, Blood 4.4 mmol/L (3.5-5.5); Sodium, Blood 137.0 mmol/L (136-145)
[2025-03-19 16:53] VITALS: BP 141/119
--- NOTE | 2025-03-19 16:59 | NUR ---
The patient is very emotional and at times sobs as I hear confession and about his fears of going to the "[facility]." I provided theological insights, pastoral budget counselor, encouragement and prayer. The patient thanks me repeatedly and shows signs of catharsis and peace. I will remain available to the patient
--- NOTE | 2025-03-19 18:10 | NUR ---
PT STAYING FOR ANXIETY RELIEF. POSSIBLE D/C TOMORROW. NO C/O SOB OR CHEST PAIN
[2025-03-19 19:25] VITALS: BP 144/87
[2025-03-20 04:04] VITALS: BP 106/68
--- NOTE | 2025-03-20 04:29 | NUR ---
SHIFT SUMMARY: PT AOX4 VERY ANXIOUS ABOUT DC HOME AND CURRENT CONDITIONS, BUT IS PLEASANT AND POLITE. REQUESTS BREATHING TX SOON AVAILABLE. TOLERATING BIPAP AND O2 VIA NC WELL. PT COMPLAINED OF SOME ABD DISTENTION BUT LOOKS VERY MINOR UPON VISUALIZATION AND PALPATION. COMPLAINED OF SOME STOMACH ACHE RELATED TO HYDROCELE HE SEES OUTPT UROLOGY FOR. ENDORSES FRUSTRATION THAT IT ISNT BEING TREATED. TOLERATING MEDS WELL, NO ACUTE OVERNIGHT EVENTS. PT IN BED RESTING, BED IN LOWEST POSITION, CALL LIGHT IN REACH.
[2025-03-20 07:03] VITALS: BP 142/84
[2025-03-20 11:01] VITALS: BP 151/83
--- NOTE | 2025-03-20 18:01 | NUR ---
NO CHANGES WITH PT TODAY. NO C/O PAIN. PT HAD BM TODAY
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
[2025-03-20 19:28] VITALS: BP 128/79
[2025-03-21 04:26] VITALS: BP 110/67
--- NOTE | 2025-03-21 04:43 | NUR ---
SHIFT SUMMARY: PT AOX4 CALLS APPRORIATELY AND ABLE TO MAKE NEEDS KNOWN. STILL VERY ANXIOUS ABOUT ALMOST EVERYTHING, MEDICATED PER EMR. NEEDS PEOPLE TO LISTEN AND TALK HIM THROUGH HIS ANXIETIES. WORRIED ABOUT DC TO HIS CURRENT DWELLING, CASE MANAGEMENT AWARE. 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 PT TOLERATING MEDICATIONS WELL, NO ACUTE OVERNIGHT EVENTS. TOLERATING BIPAP AND 2L O2 WHILE AWAKE. DISCUSSED END STAGE DISEASE AND CODE STATUS WITH PT BUT STATED HE WANTED TO BE FULL CODE AND WANTED TO "FIGHT UNTIL THE END" ALTHOUGH HE STATES HE WAS ON HOSPICE BEFORE. PT IN BED RESTING, BED IN LOWEST POSITION, CALL LIGHT IN REACH. CONTINUING CARE.
[2025-03-21 05:20] LABS: pH Blood Arterial 7.42 (7.35-7.45)
--- NOTE | 2025-03-21 06:04 | NUR ---
NURSING NOTE: PT ALSO REFUSED CARDIZEM THIS EVENING DUE TO SAYING IT HAS TANKED HIS BP BEFORE, AND HIS PCP REQUESTED HE NOT TAKE IT. I EDUCATED PT THAT THE CIRCUMSTANCES ARE DIFFERENT IN THE HOSPITAL BUT PT INSISTED ON REFUSING.
[2025-03-21 07:11] VITALS: BP 106/69
[2025-03-21] MEDS ORDERED: Calcium/Vit D 600 mg-400 Unit Tab PO SCH (08:00)
--- NOTE | 2025-03-21 10:43 | NUR ---
DISCUSSED CASE WITH CARE COORDINATION. PT IS BEING DISCHARGED TODAY. HE IS WELL KNOWN TO THIS PCRN. HE HAS HAD MANY DISCUSSIONS ON CODE STATUS AND HOSPICE HE IS UNDERSTANING OF HIS OPTIONS. PATIENT WILL RETURN HOME WITH CAREGIVER SUPPORT
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
[2025-03-21] MEDS ORDERED: DIAZ5 PO (11:08)
[2025-03-21] MEDS ORDERED: Prednisone10 MG PO (11:10)
[2025-03-21] MEDS ORDERED: CALCIUM 500-VI1 EAC6 PO (11:11)
[2025-03-21] MEDS ORDERED: ALBU2.5V5 INH (11:13)
[2025-03-21] MEDS ORDERED: BUDESONIDE0.5 MG/2 M INH (11:14)
[2025-03-21] MEDS ORDERED: OMEP20ER PO (11:14)
[2025-03-21] MEDS ORDERED: MIRALAX11910 PO (11:15)
--- NOTE | 2025-03-21 12:21 | NUR ---
NOTE CALLED DR RAZA TO REQUEST HARD SCRIPT FOR VALIUM. CARE ONGOING.
--- NOTE | 2025-03-21 14:30 | NUR ---
DISCHARGE SUMMARY: PT EDUCATION PROVIDED. HARDSCRIPT SENT TO PT. MEDS FAXED TO PHARMACY. IVS REMOVED AND PT BELONGINGS PACKED UP AND SENT WITH PT. PT SENT ON 2 L O2 WITH TRANSPORT. PT TRANSFERED TO TRANSPORT VAN VIA WHEELCHAIR WITH NURSE.
== END 2025-03-21 14:33 | disposition home health service (06) | DRG 189 ==
LOC: ER 15:46 → PCU 18:02 → ERHOLD 18:02 → MEDS 18:02 → PCU 19:45 → MEDS 03-17 11:45
PROVIDERS: Emergency Medicine; Internal Medicine; Nurse Practitioner Acute Care; Student in an Organized Health Care Education/Training Program; ADMIT Student in an Organized Health Care Education/Training Program
PROC: 5A09357 Assistance with Respiratory Ventilation, Less than 24 Consecutive Hours, Continuous Positive Airway Pressure (ICD-10-PCS; principal; 2025-03-16)
PROC: 3E03329 Introduction of Other Anti-infective into Peripheral Vein, Percutaneous Approach (ICD-10-PCS; 2025-03-16)
PROC: 4A033R1 Measurement of Arterial Saturation, Peripheral, Percutaneous Approach (ICD-10-PCS; 2025-03-21)
DX: J96.21 Acute and chronic respiratory failure with hypoxia (principal); J44.1 Chronic obstructive pulmonary disease with (acute) exacerbation; J96.22 Acute and chronic respiratory failure with hypercapnia; I10 Essential (primary) hypertension; F43.10 Post-traumatic stress disorder, unspecified; F41.9 Anxiety disorder, unspecified; N40.0 Benign prostatic hyperplasia without lower urinary tract symptoms; K21.9 Gastro-esophageal reflux disease without esophagitis; D72.829 Elevated white blood cell count, unspecified; Z60.2 Problems related to living alone; Z99.81 Dependence on supplemental oxygen; Z99.89 Dependence on other enabling machines and devices
CPT/HCPCS: 36415; 36600; 71045; 80048; 80053; 82803; 83605; 83735; 83880; 84484; 85025; 85379; 87040; 87637; 93005; 93010; 94640; 94644; 94660; 94664; 94760; 94762; 96372; 96375; 99285-25; A9270; J0456; J0696; J1650; J1885; J2405; J2919; J7050; J7512

== ENCOUNTER 2025-05-22 12:34 | Inpatient (IN) | payer OTHER ==
[~2025-05-22] VITALS: Ht 160 cm; Wt 64.5 kg
[~2025-05-22 12:34] MED LIST changes: +BUDESONIDE0.5 MG/2 M INH; +CALCIUM 500-VI1 EAC6 PO; +DIAZ5 PO; +MIRALAX11910 PO
[2025-05-22] MEDS ORDERED: Albuterol 2.5 MG/3 ML VIAL ONE (12:44)
[2025-05-22 12:50] LABS: Calcium, Ionized (POC) 1.15 mmol/L (1.10-1.46); Chloride (POC) 97 mmol/L (98-108); Creatinine (POC) 0.8 mg/dL (0.8-1.3); Glucose (ISTAT POC) 124 mg/dL (70-99); Hematocrit (POC) 48.0 % (41.0-53.0); Hemoglobin (POC) 16.3 g/dL (13.5-17.5); Potassium (POC) 4.0 mmol/L (3.5-5.5); Sodium (POC) 138 mmol/L (135-148); Total CO2 (POC) 36 mmol/L (21-32)
[2025-05-22 12:54] LABS: pH Blood Venous 7.32 (7.34-7.37)
[2025-05-22] MEDS ORDERED: Albuterol 2.5 MG/3 ML VIAL INH ONE (13:10)
[2025-05-22 13:11] LABS: Hematocrit 47.3 % (37.0-53.0); Hemoglobin 14.6 g/dL (13.5-17.5); Mean Corpuscular HGB Conc 30.9 g/dL (31.5-36.5); Mean Corpuscular Volume 95 fL (80-100); NRBC ABSOLUTE 0.00 K/mm3 (0.00-0.02); NRBC Auto 0.0 /100 WBC (0.0-0.2); Platelet Count 371 K/mm3 (150-400); RDW Coefficient Variation 13.3 % (11.7-14.2); RDW Standard Deviation 46.7 fL (35.1-46.3)
[2025-05-22 13:23] LABS: Alanine Aminotransfer (ALT/SGP 15.0 U/L (12-78); Albumin, Blood 3.7 g/dL (3.4-5.0); Albumin/Globulin Ratio 1.1 (0.8-1.8); Anion Gap 9.0 mmol/L (3-11); Aspartate Aminotrans (AST/SGOT 16.0 U/L (12-37); Bilirubin, Total 0.7 mg/dL (0.1-1.0); Blood Urea Nitrogen 32.0 mg/dL (8-24); CO2, Blood 32.0 mmol/L (21-32); Calcium, Blood 9.1 mg/dL (8.5-10.1); Chloride, Blood 99.0 mmol/L (98-108); Creatinine, Blood 0.66 mg/dL (0.60-1.20); Globulin, Blood 3.5 g/dL (2.2-4.0); Glucose, Blood 128.0 mg/dL (70-99); Potassium, Blood 4.0 mmol/L (3.5-5.5); Sodium, Blood 136.0 mmol/L (136-145); Total Protein, Blood 7.2 g/dL (6.4-8.2)
[2025-05-22] MEDS ORDERED: Ipratropium/Albuterol SulF 2.5-0.5MG/3 ML Amp INH SCH (14:30)
[2025-05-22] MEDS ORDERED: CefTRIAXone Sodium 1,000 MG in NS 100 ML IV SCH (16:00)
[2025-05-22 16:04] LABS: BASOPHILS ABSOLUTE MAN 0.50 K/mm3 (0.00-0.23); BASOPHILS PERCENT MAN 2 % (0-2); EOSINOPHILS ABSOLUTE MAN 0.00 K/mm3 (0.00-0.68); EOSINOPHILS PERCENT MAN 0 % (0-6); LYMPHOCYTES ABSOLUTE MAN 10.62 K/mm3 (0.84-5.20); LYMPHOCYTES PERCENT MAN 42 % (21-46); MONOCYTES ABSOLUTE MAN 0.50 K/mm3 (0.16-1.47); MONOCYTES PERCENT MAN 2 % (4-13); NEUTROPHILS ABSOLUTE MAN 13.66 K/mm3 (1.96-9.15); SEG NEUTROPHILS PERCENT MAN 54 % (41-73)
[2025-05-22 17:45] VITALS: BP 129/83
[2025-05-22] MEDS ORDERED: BACL10 PO (17:46)
[2025-05-22] MEDS ORDERED: BREYNA 160-4.10.3 GM INH (17:47)
[2025-05-22] MEDS ORDERED: DOCU100 PO (18:09)
[2025-05-22 19:53] VITALS: BP 111/65
[2025-05-23 00:21] VITALS: BP 102/73
[2025-05-23 04:56] VITALS: BP 105/77
--- NOTE | 2025-05-23 05:44 | NUR ---
SHIFT SUMMARY PT IS A&O X 4, ANXIOUS AT TIMES/MEDICATED PER ORDERS, ABLE TO MAKE NEEDS KNOWN, MOVING ALL EXTREMITIES WITH PURPOSE, OBEYS COMMANDS, REPOSITIONING SELF IN BED, SBA WITH FWW TO BATHROOM. CONTINUOUS SPO2, SPO2 GREATER THAN 92% ON BASELINE 3L O2 VIA NC/ TITRATED DOWN FROM 4.5L O2 VIA NC, PT USING BIPAP 16/10/30% WHILE SLEEPING, LUNGS SOUND DIMINISHED T/O, PT REPORTS IMPROVED SOB SINCE ADMISSION. CONTINUOUS TELE MONITORING, SINUS 90 S, BP STABLE WITH MAP GREATER THAN 65, CAP REFILL WNL, PULSES PRESENT T/O, DENIES CHEST P/P T/O THIS SHIFT. @ APPROX 0500 THIS RN WAS ALERTED BY CURING ROOM SUPERVISOR THAT PT TELE WAS SHOWING ST CHANGES/ PT ASYMPTOMATIC/ MD BAZAN CALLED/EKG OBTAINED AND PLACED IN CHART. BOWEL TONES PRESENT IN ALL 4Q, PT DENIES FEELINGS OF NAUSEA OR CONSTIPATION OR PAIN. PT CONTINENT OF URINE, USING URINAL IND BED LOWEST POSITION, CALL LIGHT IN REACH, AWAITING TO GIVE REPORT TO ONCOMING RN.
[2025-05-23 05:55] LABS: BASOPHILS ABSOLUTE AUTO 0.00 K/mm3 (0.00-0.23); BASOPHILS PERCENT AUTO 0 % (0-2); EOSINOPHILS ABSOLUTE AUTO 0.00 K/mm3 (0.00-0.68); EOSINOPHILS PERCENT AUTO 0 % (0-6); Hematocrit 40.9 % (37.0-53.0); Hemoglobin 13.1 g/dL (13.5-17.5); IMMATURE GRAN ABSOLUTE AUTO 0.04 K/mm3 (0.00-0.10); IMMATURE GRAN PERCENT AUTO 1 % (0-1); LYMPHOCYTES ABSOLUTE AUTO 1.71 K/mm3 (0.84-5.20); LYMPHOCYTES PERCENT AUTO 26 % (21-46); MONOCYTES ABSOLUTE AUTO 0.13 K/mm3 (0.16-1.47); MONOCYTES PERCENT AUTO 2 % (4-13); Mean Corpuscular HGB Conc 32.0 g/dL (31.5-36.5); Mean Corpuscular Volume 92 fL (80-100); NEUTROPHILS ABSOLUTE AUTO 4.78 K/mm3 (1.96-9.15); NEUTROPHILS PERCENT AUTO 72 % (41-73); NRBC ABSOLUTE 0.00 K/mm3 (0.00-0.02); NRBC Auto 0.0 /100 WBC (0.0-0.2); Platelet Count 255 K/mm3 (150-400); RDW Coefficient Variation 13.1 % (11.7-14.2); RDW Standard Deviation 45.0 fL (35.1-46.3)
[2025-05-23 06:17] LABS: Anion Gap 7.0 mmol/L (3-11); Blood Urea Nitrogen 34.0 mg/dL (8-24); CO2, Blood 33.0 mmol/L (21-32); Calcium, Blood 8.7 mg/dL (8.5-10.1); Chloride, Blood 99.0 mmol/L (98-108); Creatinine, Blood 0.52 mg/dL (0.60-1.20); Glucose, Blood 148.0 mg/dL (70-99); Potassium, Blood 4.1 mmol/L (3.5-5.5); Sodium, Blood 135.0 mmol/L (136-145)
[2025-05-23 07:34] VITALS: BP 99/73
[2025-05-23] MEDS ORDERED: Enoxaparin 40 MG/0.4 ML SYR SC SCH (09:00)
--- NOTE | 2025-05-23 10:54 | NUR ---
Pt requested assistance OOB to BRP for BM. Titrated oxygen to 4 l/min just before the activity. He walked quite quickly with walker in hands to the bathroom. He c/o anxiety, states he wanted anti-anxiety medication while still on commode. He is talking 1-2 breaths per sentence, but no distress. States his anxiety is high. Given valium per PRN orders. Staff staying with him while he is on commode.
[2025-05-23] MEDS ORDERED: Albuterol 2.5 MG/3 ML VIAL INH PRN (12:10)
--- NOTE | 2025-05-23 14:39 | NUR ---
Weaned from 4 l/min to 3 l/min after recovery from activity. Spo2 94% on 3 l/min, talking in sentences, 1 breath in middle of sentence. He is not in distress. States that his anxiety is better than it was this morning.
[2025-05-23 16:24] VITALS: BP 110/68
--- NOTE | 2025-05-23 18:51 | NUR ---
SHIFT SUMMARY PT IS A&O X 4, COOPERATIVE AND ENGAGED WITH CARE, AND APPROPRIATELY EXPRESSES NEEDS. ANXIETY FLUCTUATED T/O SHIFT AND WAS EASED WITH REASSURANCE AND CONVERSATION, WELL MEDICATIONS PER EMAR. PT AMBULATES W/ SBA. AND FWW. HE IS AMBITIOUS TO GET UP AND MOVE, BUT GETS QUICKLY FATIGUED, DISPLAYING SOB AND TACHYPNEA. 3L 02 NC BEING UTILIZED TO MAINTAIN SATS ABOVE 90%. HR 80-90s AT REST, 100s ON EXERTION. BPs SOFT BUT STABLE. PT COMPLAINED OF ABD PRESSURE DUE TO NOT HAVING A BM SINCE WEDNESDAY BUT WAS ABLE TO HAVE ON ETHIS SHIFT AND STATED THAT IT RELIEVED HIS ABD DISCOMFORT. ORDERED MEDS TO ASSIST, BUT PT WAS ABLE TO HAVE BM WITHOUT YET UTILIZING THEM. PT HAS MOVED TO MEDICAL STATUS PER DR. LACEY. CURRENTLY RESTING IN BED WITH CALL LIGHT IN REACH.
[2025-05-23 20:00] VITALS: BP 105/68
[2025-05-23] MEDS ORDERED: Lactobacil 2-S.Thermo-Bifido 1 1 Cap PO SCH (21:00)
[2025-05-24 04:00] VITALS: BP 115/73; BP 120/66
[2025-05-24 04:24] LABS: BASOPHILS ABSOLUTE AUTO 0.01 K/mm3 (0.00-0.23); BASOPHILS PERCENT AUTO 0 % (0-2); EOSINOPHILS ABSOLUTE AUTO 0.00 K/mm3 (0.00-0.68); EOSINOPHILS PERCENT AUTO 0 % (0-6); Hematocrit 38.4 % (37.0-53.0); Hemoglobin 12.6 g/dL (13.5-17.5); IMMATURE GRAN ABSOLUTE AUTO 0.07 K/mm3 (0.00-0.10); IMMATURE GRAN PERCENT AUTO 1 % (0-1); LYMPHOCYTES ABSOLUTE AUTO 2.53 K/mm3 (0.84-5.20); LYMPHOCYTES PERCENT AUTO 21 % (21-46); MONOCYTES ABSOLUTE AUTO 1.06 K/mm3 (0.16-1.47); MONOCYTES PERCENT AUTO 9 % (4-13); Mean Corpuscular HGB Conc 32.8 g/dL (31.5-36.5); Mean Corpuscular Volume 90 fL (80-100); NEUTROPHILS ABSOLUTE AUTO 8.61 K/mm3 (1.96-9.15); NEUTROPHILS PERCENT AUTO 70 % (41-73); NRBC ABSOLUTE 0.00 K/mm3 (0.00-0.02); NRBC Auto 0.0 /100 WBC (0.0-0.2); Platelet Count 255 K/mm3 (150-400); RDW Coefficient Variation 13.4 % (11.7-14.2); RDW Standard Deviation 43.9 fL (35.1-46.3)
[2025-05-24 05:04] LABS: Anion Gap 7.0 mmol/L (3-11); Blood Urea Nitrogen 34.0 mg/dL (8-24); CO2, Blood 33.0 mmol/L (21-32); Calcium, Blood 8.7 mg/dL (8.5-10.1); Chloride, Blood 99.0 mmol/L (98-108); Creatinine, Blood 0.67 mg/dL (0.60-1.20); Glucose, Blood 129.0 mg/dL (70-99); Potassium, Blood 4.0 mmol/L (3.5-5.5); Sodium, Blood 135.0 mmol/L (136-145)
--- NOTE | 2025-05-24 06:25 | NUR ---
SHIFT SUMMARY PT HAS TOLERATED SHIFT WELL WITH NO SIGNIFICANT EVENTS OR CHANGES IN STATUS OVERNIGHT. PT STARTED SHIFT FEELING ANXIOUS AND TOLD THIS NURSE ABOUT MULTIPLE FACTORS THAT LEAD TO HIS ANXIETY. PT IS COOPERATIVE AND CALM DESPITE FEELING ANXIOUS. PT WAS MEDICATED PER MAR AND REFUSED SOME MEDICATIONS THAT HE DID NOT FEEL WERE NECESSARY FOR HIM OVERNIGHT. PT IS CURRENTLY RESTING IN ROOM, CALL LIGHT WITHIN REACH. WILL CONTINUE TO MONITOR UNTIL REPORT PASSED TO DAY SHIFT TEAM.
[2025-05-24 08:45] VITALS: BP 111/79
--- NOTE | 2025-05-24 09:21 | NUR ---
The pt is sleeping on bipap; he awakens easily for vital signs, but does not want to remove the bipap to eat breakfast. Left to rest for now, and will check in with patient for meal and medications later.
[2025-05-24] MEDS ORDERED: Ondansetron HCl 2 MG / ML 2ML Vial IV PRN (12:25)
[2025-05-24 12:56] VITALS: BP 112/77
--- NOTE | 2025-05-24 13:59 | NUR ---
Patient is lying in bed and has the Bipap mask on, so communication is strained a bit. He is able to state his two main concerns; one is the fears about electing for a DNR status, the second is about [facility]. I gave some theological insights and Bible verses that seemed to give him peace about DNR and that it is NOT committing suicide to make such a decision and I gave him Biblical evidence that states that the belief and trust in Robin leads to heaven (according to the Bible). I provided therapeutic listening and prayer which appeared to reduce his stress. I will continue to remain available to the patient and family.
[2025-05-24 16:00] VITALS: BP 107/78
--- NOTE | 2025-05-24 17:43 | NUR ---
SHIFT SUMMARY: PT A/O X4, ABLE TO MAKE NEEDS KNOWN. PT ANXIOUS AT TIMES. PT BILATERAL STRENGTH EQUAL. PT ON 3L NASAL CANNULA, USES THE BIPAPAT NIGHT OR WHEN ANXIOUS. PT DENIES SOB. PT BREATHING EVEN AND UNLABORED. VSS. PT NSR 80-90s. DENIES CHEST PAIN/PRESSURE. PT USING URINAL INDEP, NO BM TODAY. PT LYING IN BED, CALL WITHIN REACH. WILL REPORT TO ONCOMING RN.
[2025-05-24 20:33] VITALS: BP 122/87
[2025-05-25] VITALS (8 sets, daily range): BP systolic 89–126; BP diastolic 55–88
--- NOTE | 2025-05-25 00:30 | NUR ---
ARRIVAL TO SURGICAL UNIT ROOM 224 FROM [facility] AT 0014. PT ARRIVED TO UNIT VIA HOSPITAL BED. PT A/O X4, PT DENIES SOB OR CHEST PAIN/PRESSURE. PT ARRIVED ON 3L VIA N/C, VSS, CONT BIOX SET UP FOR MONITORING SATS AND HR. PT SET UP ON BIPAP BY RT FOR SLEEP. PT ORIENTED TO ROOM AND CALL LIGHT. PT DENIED FURTHER QUESTIONS.
--- NOTE | 2025-05-25 02:39 | NUR ---
PT TRANSFERRED TO SURGICAL UNIT, REPORT GIVEN TO XOCHITL EDWARDS AT 6354. PT TRANSFERRED VIA HOSPITAL BED ON 3L NC WITH ALL BELONGINGS. A/OX4. VSS.
--- NOTE | 2025-05-25 05:31 | NUR ---
SHIFT SUMMARY NOC. PT ADMIT FOR COPD EXACERBATION. PT TRANSFERED TO UNIT THIS SHIFT FROM [facility]. VSS, CONT BIOX INPLACE, BIPAP RUNNING WITHOUT ISSUE. WHILE AWAKE PT ON 3L VIA N/C. PT DENIES SOB OR CP/PRESSURE. PLAN TO D/C TODAY. NO SIGNS OF ANXIETY THIS SHIFT, PT RESTING DURING CARE ROUNDS. CALL LIGHT IN REACH.
--- NOTE | 2025-05-25 17:35 | NUR ---
NO CHANGE IN PT STATUS TODAY, 95%ON 3L NC. PT GIVEN TYLENOL FOR HEADACHE AND IV ANTIBIOTICS INFUSED. INDEP TO SBA WITH LINES IN ROOM. PT USES CALL LIGHT AND MAKES NEEDS KNOWN.
--- NOTE | 2025-05-25 23:25 | NUR ---
PT REQUESTING DUONEB TX. RESPIRATORY NOTIFIED.
--- NOTE | 2025-05-26 05:42 | NUR ---
SHIFT SUMMARY PT TRANSFERRED FROM PCU YESTERDAY AND INITIALLY REFUSED RESPIRATORY CARE THEN REQUESTED TREATMENTS PRIOR TO BEDTIME. PT USING BIPAP WITH INTERMITTENT AIR LEAK; PT REFUSED SHAVING TO HELP IMPROVE SEAL. CONTINUOUS BIOX IN PLACE DURING SHIFT.
[2025-05-26 06:17] VITALS: BP 120/81
[2025-05-26 07:51] VITALS: BP 134/87
[2025-05-26 14:04] VITALS: BP 108/64
--- NOTE | 2025-05-26 17:55 | NUR ---
SHIFT SUMMARY PT RESTING TODAY. VSS. DENIES COMPLAINTS. WILL CONTINUE TO MONITOR.
--- NOTE | 2025-05-26 17:56 | NUR ---
SHIFT SUMMARY PT RESTING. DENIES COMPLAINTS. ASSUMED CARE OF PT AT 1630. WILL CONTINUE TO MONITOR.
[2025-05-26 20:36] VITALS: BP 113/81
--- NOTE | 2025-05-27 06:03 | NUR ---
SHIFT SUMMARY AOX4. VSS. SPO2 MAINTAINED >90% T/O NIGHT, EVEN WHILE ASLEEP ON BIPAP. PT NEVER DESAT. PT REPORTS HE ALWAYS FEELS DYSPNIC. DOES PURSE LIP BREATHING. BS DIM & TIGHT. GETS LABOURED W/BREATHING W/INCREASED ACTIVITY. VOIDING. REPORTED ROBERT & MEDICATED 1x W/TYLENOL, NO FURTHER ROBERT REPORTED. THIS AM PT REQUESTED TO TRY 1/2 DOSE PO VALIUM, MEDICATED W/2.5 MG INSTEAD OF 5MG. CALL LIGHT IN REACH & PT ABLE TO MAKE NEEDS KNOWN.
[2025-05-27 07:34] VITALS: BP 109/71
--- NOTE | 2025-05-27 10:37 | NUR ---
PT FEELS LIKE BREATHING HAS NOT IMPROVED. DENIES ANY NEEDS. 02 SATS >92% ON 3.5L NC.
[2025-05-27 11:26] LABS: BASOPHILS ABSOLUTE AUTO 0.02 K/mm3 (0.00-0.23); BASOPHILS PERCENT AUTO 0 % (0-2); EOSINOPHILS ABSOLUTE AUTO 0.11 K/mm3 (0.00-0.68); EOSINOPHILS PERCENT AUTO 1 % (0-6); Hematocrit 42.0 % (37.0-53.0); Hemoglobin 13.4 g/dL (13.5-17.5); IMMATURE GRAN ABSOLUTE AUTO 0.07 K/mm3 (0.00-0.10); IMMATURE GRAN PERCENT AUTO 1 % (0-1); LYMPHOCYTES ABSOLUTE AUTO 3.31 K/mm3 (0.84-5.20); LYMPHOCYTES PERCENT AUTO 25 % (21-46); MONOCYTES ABSOLUTE AUTO 0.78 K/mm3 (0.16-1.47); MONOCYTES PERCENT AUTO 6 % (4-13); Mean Corpuscular HGB Conc 31.9 g/dL (31.5-36.5); Mean Corpuscular Volume 95 fL (80-100); NEUTROPHILS ABSOLUTE AUTO 8.80 K/mm3 (1.96-9.15); NEUTROPHILS PERCENT AUTO 67 % (41-73); NRBC ABSOLUTE 0.00 K/mm3 (0.00-0.02); NRBC Auto 0.0 /100 WBC (0.0-0.2); Platelet Count 212 K/mm3 (150-400); RDW Coefficient Variation 13.8 % (11.7-14.2); RDW Standard Deviation 47.9 fL (35.1-46.3)
[2025-05-27 12:00] LABS: Anion Gap 4.0 mmol/L (3-11); Blood Urea Nitrogen 25.0 mg/dL (8-24); CO2, Blood 38.0 mmol/L (21-32); Calcium, Blood 8.6 mg/dL (8.5-10.1); Chloride, Blood 100.0 mmol/L (98-108); Creatinine, Blood 0.7 mg/dL (0.60-1.20); Glucose, Blood 107.0 mg/dL (70-99); Potassium, Blood 3.8 mmol/L (3.5-5.5); Sodium, Blood 138.0 mmol/L (136-145)
[2025-05-27 15:13] VITALS: BP 121/77
--- NOTE | 2025-05-27 16:56 | NUR ---
SUMMARY PT HAS BEEN ANXIOUS T/O SHIFT. MEDICATED PER ORDERS FOR ANXIETY. ALSO MEDICATED PER ORDERS FOR ROBERT. THIS AFTERNOON, PT REPORTED ABDOMEN SORE. HAS NOT HAD BM FOR SEVERAL DAYS AND HAS BEEN REFUSING BOWEL CARE. ENCOURGED PT TO CONSIDER TAKING BOWEL CARE MEDS. CALL LIGHT IN REACH.
[2025-05-27 19:20] VITALS: BP 118/97
--- NOTE | 2025-05-28 05:00 | NUR ---
SHIFT SUMMARY NO ACUTE CHANGES THIS SHIFT. AOX4. VSS. SPO2 MAINTAINED >92% ON BIPAP T/O NIGHT. E/U RESP. PT REPORTED FEELING ANXIOUS REGARDING HIS BREATHING & ASKED FOR 2.5MG PO VALIUM. PT RESTED WELL W/EYES CLOSED T/O NIGHT. BS DIM. VOIDING. CALL LIGHT IN REACH.
[2025-05-28 07:23] VITALS: BP 145/85
[2025-05-28] MEDS ORDERED: OMEP20ER PO (12:12)
[2025-05-28] MEDS ORDERED: PRED20 PO (12:14)
[2025-05-28] MEDS ORDERED: SENN187 PO (12:15)
--- NOTE | 2025-05-28 13:05 | NUR ---
The patient is lying in bed and alert. He talks about his feelings that the "medical system has given up on me and I am not worth a spit." We talk about why he feels this way and he explains that he is often asked if he is ready to become DNR. I share about the mission and values of the hospital our commitment to valuing human dignity. We explore sources of value, meaning and worth. He talks about his Christianity albin so I supply him with Biblical reading materials that reinforce his value. I provided therapeutic listening, gentle correctional substance abuse counselor, theological insights and prayer. The patient responded well and showed signs of reduced stress.
--- NOTE | 2025-05-28 13:47 | NUR ---
DISCHARGE PATIENT READ AND SIGNED INSTRUCTIONS, IV TAKEN OUT INTACT. PRESCRIPTIONS FAXED TO [facility]. PATIENT TAKEN OUT VIA TRANSPORT. LEAVES WITH PORTABLE O2 TANK. ALL BELONGINGS. VSS.
== END 2025-05-28 13:50 | disposition home health service (06) | DRG 189 ==
LOC: ER 12:34 → SURS 14:26 → PCU 14:26 → SURS 05-25
PROVIDERS: Internal Medicine; Student in an Organized Health Care Education/Training Program; ADMIT Student in an Organized Health Care Education/Training Program
PROC: 5A09357 Assistance with Respiratory Ventilation, Less than 24 Consecutive Hours, Continuous Positive Airway Pressure (ICD-10-PCS; principal; 2025-05-22)
DX: J96.21 Acute and chronic respiratory failure with hypoxia (principal); J44.1 Chronic obstructive pulmonary disease with (acute) exacerbation; J96.22 Acute and chronic respiratory failure with hypercapnia; F41.9 Anxiety disorder, unspecified; N40.0 Benign prostatic hyperplasia without lower urinary tract symptoms; K21.9 Gastro-esophageal reflux disease without esophagitis; D72.829 Elevated white blood cell count, unspecified; R00.0 Tachycardia, unspecified; I25.10 Atherosclerotic heart disease of native coronary artery without angina pectoris; Z60.2 Problems related to living alone; I25.2 Old myocardial infarction; Z99.81 Dependence on supplemental oxygen; Z79.51 Long term (current) use of inhaled steroids; Z87.891 Personal history of nicotine dependence; Z79.52 Long term (current) use of systemic steroids; Z86.74 Personal history of sudden cardiac arrest; Z79.891 Long term (current) use of opiate analgesic; Z99.89 Dependence on other enabling machines and devices; Z77.110 Contact with and (suspected) exposure to air pollution
CPT/HCPCS: 36415; 71045; 80047; 80048; 80053; 82803; 83880; 84484; 85014; 85025; 93005; 93010; 94640; 94660; 94664; 94762; 97112; 97161; 97530; 99285-25; A9270; J0696; J1650; J2405; J2919; J7512